=== PATIENT | female | born 1955 | race Caucasian/White ===

== ENCOUNTER 2016-03-29 12:32 | Emergency (ER) | payer BC, OTHER ==
[2016-03-29 14:22] LABS: INR 0.91
[2016-03-29 14:24] LABS: BASO # 0.1 K/mm3 (0.0-0.2); BASO % 0.9 % (0.0-1.0); EOS % 0.4 % (0.0-3.0); LARGE UNSTAINED CELL # 0.1 K/mm3 (0.0-0.4); LARGE UNSTAINED CELL % 1.7 % (0.0-4.0); LYMPH # 1.8 K/mm3 (1.5-4.5); LYMPH % 28.1 % (24.0-44.0); MEAN CORPUSCULAR HEMOGLOBIN 30.1 pg (27.0-33.0); MEAN CORPUSCULAR HGB CONC 32.9 g/dl (32.0-36.5); MEAN CORPUSCULAR VOLUME 91.3 fl (80.0-96.0); MONO # 0.3 K/mm3 (0.0-0.8); MONO % 4.5 % (0.0-5.0); NEUTROPHILS % 64.4 % (36.0-66.0); PLATELET COUNT, AUTOMATED 246 k/mm3 (150-450); RED CELL DISTRIBUTION WIDTH 12.6 % (11.5-14.5); WHITE BLOOD COUNT 6.2 K/mm3 (4.0-10.0)
[2016-03-29 14:34] LABS: ANION GAP 6 MEQ/L (8-16); BLOOD UREA NITROGEN 10 MG/DL (7-18); CALCIUM LEVEL 9.1 MG/DL (8.8-10.2); CARBON DIOXIDE LEVEL 31 MEQ/L (21-32); CHLORIDE LEVEL 104 MEQ/L (98-107); CREATININE FOR GFR 0.82 MG/DL (0.55-1.02); GLOMERULAR FILTRATION RATE > 60.0 (>45); GLUCOSE, FASTING 124 MG/DL (80-110); POTASSIUM SERUM 3.6 MEQ/L (3.5-5.1); SODIUM LEVEL 141 MEQ/L (136-145)
--- NOTE | 2016-03-29 15:15 | EDDOCDS ---
Nurse's Notes [facility] Name: Debbie Ceja Age: 60 yrs Sex: Female : 1955 Arrival Date: 03/29/2016 Time: 12:32 Bed PR Private MD: Pillo Garcia Diagnosis: Essential (primary) hypertension Presentation: 03/29 12:45 Presenting complaint: Patient states: saw Dr Garcia yesterday for headache x 2 days and [facility] elevated blood pressure. Started Norvasc last PM. today blood pressure high again took another dose of norvasc triage nurse at [facility] told her to come to the ED for evaluation. denies headache at this time. Adult Sepsis Screening: The patient does not have new or worsening altered mentation. Patient's respiratory rate is less than 22. Systolic blood pressure is greater than 100. Patient has a qSOFA score of 0- Negative Sepsis Screen. Suicide/Homicide risk assessment- the patient denies having any suicidal and/or homicidal ideations and does not present with any other emotional, behavioral or mental health complaints. Status: Patient is not a electrical appliance servicer or dependent. Transition of care: patient was not received from another setting of care. 12:45 Acuity: ESPERANZA Level 3 [facility] 12:45 Method Of Arrival: Walkin/Carried/Asstd [facility] Triage Assessment: 12:55 General: Appears comfortable, well nourished, well groomed, Behavior is appropriate for [facility] age, pleasant. Pain: Location: base of the skull Pain currently is 2 out of 10 on a pain scale. Pt Declines HIV testing. Neurological: Level of Consciousness is awake, alert, Oriented to person, place, time. Respiratory: Airway is patent Respiratory effort is even, unlabored, Respiratory pattern is regular, symmetrical. Derm: Skin is pink, warm & dry. Musculoskeletal: Reports pain in base of the skull Pain is 2 out of 10 on a pain scale. Historical: - Allergies: Ampicillin (Hives); - Home Meds: 1. Norvasc 5 mg Oral tab 1 tab once daily (Last dose: 03/29/2016 08:00) 2. levothyroxine 125 mcg Oral tab 1 tab nightly (Last dose: 03/28/2016) 3. Prevacid 30 mg Oral cpDR 1 cap once daily (Last dose: 03/29/2016 08:00) 4. Restasis 0.05 % ophthalmic dpet 1 drop 2 times per day (Last dose: 03/29/2016 08:00) 5. Mobic 15 mg oral tab 1 tab once daily (Last dose: 03/27/2016) 6. Flexeril 5 mg Oral tab Unknown 3 times per day as needed (Last dose: 03/27/2016) 7. Zantac 150 mg Oral tab 1 tab nightly (Last dose: 03/28/2016) 8. multivitamin Oral tab 1 tablet daily (Last dose: 03/29/2016 08:00) 9. Vitamin D Oral 2000 units twice a day (Last dose: 03/29/2016 08:00) 10. fiber capsules 2 cap daily (Last dose: 03/29/2016 08:00) - PMHx: GERD; Hypertension; Hypothyroidism; neck pain; dry eye; - PSHx: Tubal ligation; - Social history: Smoking status: Patient states former smoker of tobacco. No barriers to communication noted, The patient speaks fluent Hungarian. - : The pt / caregiver states he / she is not on anticoagulants. Home medication list is obtained from the patient. - Exposure Risk Screening:: None identified. Screenin:07 Screening information is obtained from the patient. Fall risk: No risks identified. dwg Assistance ADL's: requires no assistance with activities of daily living. Abuse/DV Screen: The patient / caregiver reports he/she is: not in a situation that causes fear, pain or injury. Nutritional screening: No deficits noted. Advance Directives: Currently, there is no health care proxy. There is no active DNR order. There is no living will. There is no Power of Spray Painter. Advance directive information has not previously been placed in an [facility] medical record. Further advance directive information is declined. home support is adequate. Assessment: 15:07 General: Appears in no apparent distress, comfortable, Behavior is cooperative, dwg pleasant. Pain: Denies pain. Neurological: Level of Consciousness is awake, alert, Oriented to person, place, time. Respiratory: Airway is patent Respiratory effort is even, unlabored, Respiratory pattern is regular, symmetrical. Vital Signs: 12:34 BP 173 / 107; Pulse 87; Resp 18; Temp 98.7(O); Pulse Ox 98% on R/A; Weight 66.68 kg elp (R); Height 5 ft. 7 in. (170.18 cm) (R); Pain 0/10; 13:18 BP 158 / 102 (man/); dwg 12:34 Body Mass Index 23.02 (66.68 kg, 170.18 cm) elp Vitals: 12:34 Log In Time: March 29, 2016 at 12:30. elp ED Course: 12:33 Patient visited by Bobbi Smith PCA. elp 12:33 Patient moved to Waiting elp 12:34 Pillo Garcia MD is Private Physician. elp 12:37 Patient visited by Bobbi Smith PCA. elp 12:37 Patient moved to Pre RCE elp 12:50 Triage Initiated kpj 12:57 [facility]. btw 12:57 Patient moved to Triage 1 kpj 12:58 Lizabeth Jones MD is Attending Physician. btw 12:58 Patient visited by Oamr Ortez PA. btw 13:22 Patient moved to PR [facility] 13:43 Patient visited by Patricia Workman PCA. rs6 14:04 [facility] Payment Agreement was scanned into [employer] and attached to record. lg 14:09 Patient moved to TR2 rs6 14:09 BMP Sent. rs6 14:09 Pt & Aptt Sent. rs6 14:09 CBC with Diff Sent. rs6 14:55 Pillo Garcia MD is Referral Physician. btw 14:58 Patient moved to PR dwg Order Results: Lab Order: CBC with Diff; SPEC'M 03/29/16 14:08 Test: WHITE BLOOD COUNT; Value: 6.2; Range: 4.0-10.0; Units: K/mm3; Status: F Test: RED BLOOD COUNT; Value: 5.11; Range: 4.00-5.40; Units: M/mm3; Status: F Test: HEMOGLOBIN; Value: 15.4; Range: 12.0-16.0; Units: g/dl; Status: F Test: HEMATOCRIT; Value: 46.7; Range: 36.0-47.0; Units: %; Status: F Test: MEAN CORPUSCULAR VOLUME; Value: 91.3; Range: 80.0-96.0; Units: fl; Status: F Test: MEAN CORPUSCULAR HEMOGLOBIN; Value: 30.1; Range: 27.0-33.0; Units: pg; Status: F Test: MEAN CORPUSCULAR HGB CONC; Value: 32.9; Range: 32.0-36.5; Units: g/dl; Status: F Test: RED CELL DISTRIBUTION WIDTH; Value: 12.6; Range: 11.5-14.5; Units: %; Status: F Test: PLATELET COUNT, AUTOMATED; Value: 246; Range: 150-450; Units: k/mm3; Status: F Test: NEUTROPHILS %; Value: 64.4; Range: 36.0-66.0; Units: %; Status: F Test: LYMPH %; Value: 28.1; Range: 24.0-44.0; Units: %; Status: F Test: MONO %; Value: 4.5; Range: 0.0-5.0; Units: %; Status: F Test: EOS %; Value: 0.4; Range: 0.0-3.0; Units: %; Status: F Test: BASO %; Value: 0.9; Range: 0.0-1.0; Units: %; Status: F Test: LARGE UNSTAINED CELL %; Value: 1.7; Range: 0.0-4.0; Units: %; Status: F Test: NEUTROPHILS #; Value: 4.0; Range: 1.8-7.7; Units: K/mm3; Status: F Test: LYMPH #; Value: 1.8; Range: 1.5-4.5; Units: K/mm3; Status: F Test: MONO #; Value: 0.3; Range: 0.0-0.8; Units: K/mm3; Status: F Test: EOS #; Value: 0.0; Range: 0.0-0.50; Units: K/mm3; Status: F Test: BASO #; Value: 0.1; Range: 0.0-0.2; Units: K/mm3; Status: F Test: LARGE UNSTAINED CELL #; Value: 0.1; Range: 0.0-0.4; Units: K/mm3; Status: F Lab Order: Pt & Aptt; SPEC'M 03/29/16 14:08 Test: PROTHROMBIN TIME; Value: 12.4; Range: 12.3-14.5; Units: SECONDS; Status: F Test: INR; Value: 0.91; Status: F Test: PARTIAL THROMBOPLASTIN TIME; Value: 26.4; Range: 26.6-37.1; Abnormal: Below low normal; Units: SECONDS; Status: F Test Note: ; THERAPUTIC HUMAN INR VALUES INDICATIONS NORMAL RANGES PROPHYLAXIS/TREATMENT OF: VENOUS THROMBOSIS 2.0-3.0 PULMONARY EMBOLISM 2.0-3.0 PREVENTION OF SYSTEMIC EMBOLISM FROM: TISSUE HEART VALVES 2.0-3.0 ACUTE MYOCARDIAL INFARCTION 2.0-3.0 VALVULAR HEART DISEASE 2.0-3.0 ATRIAL FIBRILLATION 2.0-3.0 MECHANICAL VALVES(HIGH RISK) 2.5-3.5 RECURRENT MYOCARDIAL INFARCTION 2.5-3.5 Lab Order: [facility]; ' 03/29/16 14:08 Test: GLUCOSE, FASTING; Value: 124; Range: 80-110; Abnormal: Above high normal; Units: MG/DL; Status: F Test: BLOOD UREA NITROGEN; Value: 10; Range: 7-18; Units: MG/DL; Status: F Test: CREATININE FOR GFR; Value: 0.82; Range: 0.55-1.02; Units: MG/DL; Status: F Test: GLOMERULAR FILTRATION RATE; Value: > 60.0; Range: >45; Status: F Test: SODIUM LEVEL; Value: 141; Range: 136-145; Units: MEQ/L; Status: F Test: POTASSIUM SERUM; Value: 3.6; Range: 3.5-5.1; Units: MEQ/L; Status: F Test: CHLORIDE LEVEL; Value: 104; Range: 98-107; Units: MEQ/L; Status: F Test: CARBON DIOXIDE LEVEL; Value: 31; Range: 21-32; Units: MEQ/L; Status: F Test: ANION GAP; Value: 6; Range: 8-16; Abnormal: Below low normal; Units: MEQ/L; Status: F Test: CALCIUM LEVEL; Value: 9.1; Range: 8.8-10.2; Units: MG/DL; Status: F Test Note: ; Units are mL/min/1.73 m2 Chronic Kidney Disease Staging per NKF: Stage I & II GFR >=60 Normal to Mildly Decreased Stage III GFR 30-59 Moderately Decreased Stage IV GFR 15-29 Severely Decreased Stage V GFR <15 Very Little GFR Left ESRD GFR <15 on SEWAGE PLANT ATTENDANT Outcome: 14:55 Discharge ordered by Provider. [facility] 15:14 Patient left the ED. [facility] Signatures: Jose Arias, RN RN Pauly Harmon RN RN Rachael Rosales, Reg Reg Omar Ortez PA PA bt Shawna Mo,RN RN [facility] Bobbi Smith, WAREHOUSE ATTENDANT WAREHOUSE ATTENDANT elp Patricia Workman, WAREHOUSE ATTENDANT WAREHOUSE ATTENDANT rs6 Corrections: (The following items were deleted from the chart) 13:18 13:15 BP 158 / 102; [facility] MTDD
--- NOTE | 2016-03-29 15:15 | EDDOCDS ---
Physician Documentation [facility] Name: Debbie Ceja Age: 60 yrs Sex: Female : 1955 Arrival Date: 03/29/2016 Time: 12:32 Bed Private MD: Pillo Garcia Disposition: 03/29/16 14:55 Discharged to Home/Self Care. Impression: Essential (primary) hypertension. - Condition is Stable. - Discharge Instructions: Hypertension. - Medication Reconciliation, Local Pharmacy Hours form. - Follow up: Pillo Garcia MD; When: Call to arrange an appointment; Reason: Further diagnostic work-up, Recheck today's complaints, Continuance of care. - Problem is new. - Symptoms are unchanged. Historical: - Allergies: Ampicillin (Hives); - Home Meds: 1. Norvasc 5 mg Oral tab 1 tab once daily (Last dose: 03/29/2016 08:00) 2. levothyroxine 125 mcg Oral tab 1 tab nightly (Last dose: 03/28/2016) 3. Prevacid 30 mg Oral cpDR 1 cap once daily (Last dose: 03/29/2016 08:00) 4. Restasis 0.05 % ophthalmic dpet 1 drop 2 times per day (Last dose: 03/29/2016 08:00) 5. Mobic 15 mg oral tab 1 tab once daily (Last dose: 03/27/2016) 6. Flexeril 5 mg Oral tab Unknown 3 times per day as needed (Last dose: 03/27/2016) 7. Zantac 150 mg Oral tab 1 tab nightly (Last dose: 03/28/2016) 8. multivitamin Oral tab 1 tablet daily (Last dose: 03/29/2016 08:00) 9. Vitamin D Oral 2000 units twice a day (Last dose: 03/29/2016 08:00) 10. fiber capsules 2 cap daily (Last dose: 03/29/2016 08:00) - PMHx: GERD; Hypertension; Hypothyroidism; neck pain; dry eye; - PSHx: Tubal ligation; - Social history: Smoking status: Patient states former smoker of tobacco. No barriers to communication noted, The patient speaks fluent Indonesian. - : The pt / caregiver states he / she is not on anticoagulants. Home medication list is obtained from the patient. - Exposure Risk Screening:: None identified. Vital Signs: 03/29 12:34 BP 173 / 107; Pulse 87; Resp 18; Temp 98.7(O); Pulse Ox 98% on R/A; Weight 66.68 kg / elp 147 lbs (R); Height 5 ft. 7 in. (170.18 cm) (R); Pain 0/10; 13:18 BP 158 / 102 (man/); dwg 12:34 Body Mass Index 23.02 (66.68 kg, 170.18 cm) elp MDM: 13:01 Recheck B/P ordered. btw 13:24 Financial registration complete. lg 13:58 CBC with Diff Ordered. EDMS 13:58 Pt & Aptt Ordered. EDMS 13:59 BMP Ordered. EDMS 14:04 REPLACED BY [facility] Payment Agreement was scanned into [employer] and attached to record. lg 14:31 Pt & Aptt Reviewed. btw 14:31 CBC with Diff Reviewed. btw 14:53 BMP Reviewed. btw Signatures: Dispatcher [employer] Jose Pickard, GERMAINE RN Pauly Harmon RN RN kpRachael Christiansen, Reg Reg lg Omar Ortez, TERESA MOORE btw The chart was reviewed and I authenticate all verbal orders and agree with the evaluation and treatment provided.Attachments: 14:04 REPLACED BY [facility] Payment Agreement lg MTDD
--- NOTE | 2016-03-31 16:16 | EDDOCDS ---
Physician Documentation [facility] Name: Debbie Ceja Age: 60 yrs Sex: Female : 1955 Arrival Date: 03/29/2016 Time: 12:32 Bed Private MD: Pillo Garcia Disposition: 03/29/16 14:55 Discharged to Home/Self Care. Impression: Essential (primary) hypertension. - Condition is Stable. - Discharge Instructions: Hypertension. - Medication Reconciliation, Local Pharmacy Hours form. - Follow up: Pillo Garcia MD; When: Call to arrange an appointment; Reason: Further diagnostic work-up, Recheck today's complaints, Continuance of care. - Problem is new. - Symptoms are unchanged. Historical: - Allergies: Ampicillin (Hives); - Home Meds: 1. Norvasc 5 mg Oral tab 1 tab once daily (Last dose: 03/29/2016 08:00) 2. levothyroxine 125 mcg Oral tab 1 tab nightly (Last dose: 03/28/2016) 3. Prevacid 30 mg Oral cpDR 1 cap once daily (Last dose: 03/29/2016 08:00) 4. Restasis 0.05 % ophthalmic dpet 1 drop 2 times per day (Last dose: 03/29/2016 08:00) 5. Mobic 15 mg oral tab 1 tab once daily (Last dose: 03/27/2016) 6. Flexeril 5 mg Oral tab Unknown 3 times per day as needed (Last dose: 03/27/2016) 7. Zantac 150 mg Oral tab 1 tab nightly (Last dose: 03/28/2016) 8. multivitamin Oral tab 1 tablet daily (Last dose: 03/29/2016 08:00) 9. Vitamin D Oral 2000 units twice a day (Last dose: 03/29/2016 08:00) 10. fiber capsules 2 cap daily (Last dose: 03/29/2016 08:00) - PMHx: GERD; Hypertension; Hypothyroidism; neck pain; dry eye; - PSHx: Tubal ligation; - Social history: Smoking status: Patient states former smoker of tobacco. No barriers to communication noted, The patient speaks fluent Malay. - : The pt / caregiver states he / she is not on anticoagulants. Home medication list is obtained from the patient. - Exposure Risk Screening:: None identified. Vital Signs: 03/29 12:34 BP 173 / 107; Pulse 87; Resp 18; Temp 98.7(O); Pulse Ox 98% on R/A; Weight 66.68 kg / elp 147 lbs (R); Height 5 ft. 7 in. (170.18 cm) (R); Pain 0/10; 13:18 BP 158 / 102 (man/); dwg 12:34 Body Mass Index 23.02 (66.68 kg, 170.18 cm) elp MDM: 13:01 Recheck B/P ordered. btw 13:24 Financial registration complete. lg 13:58 CBC with Diff Ordered. EDMS 13:58 Pt & Aptt Ordered. EDMS 13:59 BMP Ordered. EDMS 14:04 [facility] Payment Agreement was scanned into [employer] and attached to record. lg 14:31 Pt & Aptt Reviewed. btw 14:31 CBC with Diff Reviewed. btw 14:53 BMP Reviewed. btw 03/30 09:02 T-Sheet-- Draft Copy was scanned into [employer] and attached to record. gb Signatures: Dispatcher [employer] Jose Pickard, RN RN Pauly Harmon RN RN Lucille Carranza, Reg Reg gb Rachael Cooper, Reg Reg lg Omar Ortez, TERESA PA btw The chart was reviewed and I authenticate all verbal orders and agree with the evaluation and treatment provided.Attachments: 03/29 14:04 [facility] Payment Agreement lg 03/30 09:02 T-Sheet-- Draft Copy gb Chart Complete MTDD
--- NOTE | 2016-03-31 16:16 | EDDOCDS ---
Nurse's Notes [facility] Name: Debbie Ceja Age: 60 yrs Sex: Female : 1955 Arrival Date: 03/29/2016 Time: 12:32 Bed PR Private MD: Pillo Garcia Diagnosis: Essential (primary) hypertension Presentation: 03/29 12:45 Presenting complaint: Patient states: saw Dr Garcia yesterday for headache x 2 days and [facility] elevated blood pressure. Started Norvasc last PM. today blood pressure high again took another dose of norvasc triage nurse at [facility] told her to come to the ED for evaluation. denies headache at this time. Adult Sepsis Screening: The patient does not have new or worsening altered mentation. Patient's respiratory rate is less than 22. Systolic blood pressure is greater than 100. Patient has a qSOFA score of 0- Negative Sepsis Screen. Suicide/Homicide risk assessment- the patient denies having any suicidal and/or homicidal ideations and does not present with any other emotional, behavioral or mental health complaints. Status: Patient is not a service dispatcher or dependent. Transition of care: patient was not received from another setting of care. 12:45 Acuity: ESPERANZA Level 3 [facility] 12:45 Method Of Arrival: Walkin/Carried/Asstd [facility] Triage Assessment: 12:55 General: Appears comfortable, well nourished, well groomed, Behavior is appropriate for [facility] age, pleasant. Pain: Location: base of the skull Pain currently is 2 out of 10 on a pain scale. Pt Declines HIV testing. Neurological: Level of Consciousness is awake, alert, Oriented to person, place, time. Respiratory: Airway is patent Respiratory effort is even, unlabored, Respiratory pattern is regular, symmetrical. Derm: Skin is pink, warm & dry. Musculoskeletal: Reports pain in base of the skull Pain is 2 out of 10 on a pain scale. Historical: - Allergies: Ampicillin (Hives); - Home Meds: 1. Norvasc 5 mg Oral tab 1 tab once daily (Last dose: 03/29/2016 08:00) 2. levothyroxine 125 mcg Oral tab 1 tab nightly (Last dose: 03/28/2016) 3. Prevacid 30 mg Oral cpDR 1 cap once daily (Last dose: 03/29/2016 08:00) 4. Restasis 0.05 % ophthalmic dpet 1 drop 2 times per day (Last dose: 03/29/2016 08:00) 5. Mobic 15 mg oral tab 1 tab once daily (Last dose: 03/27/2016) 6. Flexeril 5 mg Oral tab Unknown 3 times per day as needed (Last dose: 03/27/2016) 7. Zantac 150 mg Oral tab 1 tab nightly (Last dose: 03/28/2016) 8. multivitamin Oral tab 1 tablet daily (Last dose: 03/29/2016 08:00) 9. Vitamin D Oral 2000 units twice a day (Last dose: 03/29/2016 08:00) 10. fiber capsules 2 cap daily (Last dose: 03/29/2016 08:00) - PMHx: GERD; Hypertension; Hypothyroidism; neck pain; dry eye; - PSHx: Tubal ligation; - Social history: Smoking status: Patient states former smoker of tobacco. No barriers to communication noted, The patient speaks fluent Malay. - : The pt / caregiver states he / she is not on anticoagulants. Home medication list is obtained from the patient. - Exposure Risk Screening:: None identified. Screenin:07 Screening information is obtained from the patient. Fall risk: No risks identified. dwg Assistance ADL's: requires no assistance with activities of daily living. Abuse/DV Screen: The patient / caregiver reports he/she is: not in a situation that causes fear, pain or injury. Nutritional screening: No deficits noted. Advance Directives: Currently, there is no health care proxy. There is no active DNR order. There is no living will. There is no Power of Flow Trader. Advance directive information has not previously been placed in an [facility] medical record. Further advance directive information is declined. home support is adequate. Assessment: 15:07 General: Appears in no apparent distress, comfortable, Behavior is cooperative, dwg pleasant. Pain: Denies pain. Neurological: Level of Consciousness is awake, alert, Oriented to person, place, time. Respiratory: Airway is patent Respiratory effort is even, unlabored, Respiratory pattern is regular, symmetrical. Vital Signs: 12:34 BP 173 / 107; Pulse 87; Resp 18; Temp 98.7(O); Pulse Ox 98% on R/A; Weight 66.68 kg elp (R); Height 5 ft. 7 in. (170.18 cm) (R); Pain 0/10; 13:18 BP 158 / 102 (man/); dwg 12:34 Body Mass Index 23.02 (66.68 kg, 170.18 cm) elp Vitals: 12:34 Log In Time: March 29, 2016 at 12:30. elp ED Course: 12:33 Patient visited by Bobbi Smith PCA. elp 12:33 Patient moved to Waiting elp 12:34 Pillo Garcia MD is Private Physician. elp 12:37 Patient visited by Bobbi Smith PCA. elp 12:37 Patient moved to Pre RCE elp 12:50 Triage Initiated kpj 12:57 [facility] btw 12:57 Patient moved to Triage 1 kp 12:58 Lizabeth Jones MD is Attending Physician. btw 12:58 Patient visited by Omar Ortez PA. btw 13:22 Patient moved to PR [facility] 13:43 Patient visited by Patricia Workman PCA. rs6 14:04 [facility] Payment Agreement was scanned into [employer] and attached to record. lg 14:09 Patient moved to TR2 rs6 14:09 BMP Sent. rs6 14:09 Pt & Aptt Sent. rs6 14:09 CBC with Diff Sent. rs6 14:55 Pillo Garcia MD is Referral Physician. btw 14:58 Patient moved to PR [facility] 03/30 09:02 T-Sheet-- Draft Copy was scanned into [employer] and attached to record. gb Order Results: Lab Order: CBC with Diff; SPEC'M 03/29/16 14:08 Test: WHITE BLOOD COUNT; Value: 6.2; Range: 4.0-10.0; Units: K/mm3; Status: F Test: RED BLOOD COUNT; Value: 5.11; Range: 4.00-5.40; Units: M/mm3; Status: F Test: HEMOGLOBIN; Value: 15.4; Range: 12.0-16.0; Units: g/dl; Status: F Test: HEMATOCRIT; Value: 46.7; Range: 36.0-47.0; Units: %; Status: F Test: MEAN CORPUSCULAR VOLUME; Value: 91.3; Range: 80.0-96.0; Units: fl; Status: F Test: MEAN CORPUSCULAR HEMOGLOBIN; Value: 30.1; Range: 27.0-33.0; Units: pg; Status: F Test: MEAN CORPUSCULAR HGB CONC; Value: 32.9; Range: 32.0-36.5; Units: g/dl; Status: F Test: RED CELL DISTRIBUTION WIDTH; Value: 12.6; Range: 11.5-14.5; Units: %; Status: F Test: PLATELET COUNT, AUTOMATED; Value: 246; Range: 150-450; Units: k/mm3; Status: F Test: NEUTROPHILS %; Value: 64.4; Range: 36.0-66.0; Units: %; Status: F Test: LYMPH %; Value: 28.1; Range: 24.0-44.0; Units: %; Status: F Test: MONO %; Value: 4.5; Range: 0.0-5.0; Units: %; Status: F Test: EOS %; Value: 0.4; Range: 0.0-3.0; Units: %; Status: F Test: BASO %; Value: 0.9; Range: 0.0-1.0; Units: %; Status: F Test: LARGE UNSTAINED CELL %; Value: 1.7; Range: 0.0-4.0; Units: %; Status: F Test: NEUTROPHILS #; Value: 4.0; Range: 1.8-7.7; Units: K/mm3; Status: F Test: LYMPH #; Value: 1.8; Range: 1.5-4.5; Units: K/mm3; Status: F Test: MONO #; Value: 0.3; Range: 0.0-0.8; Units: K/mm3; Status: F Test: EOS #; Value: 0.0; Range: 0.0-0.50; Units: K/mm3; Status: F Test: BASO #; Value: 0.1; Range: 0.0-0.2; Units: K/mm3; Status: F Test: LARGE UNSTAINED CELL #; Value: 0.1; Range: 0.0-0.4; Units: K/mm3; Status: F Lab Order: Pt & Aptt; SPEC'M 03/29/16 14:08 Test: PROTHROMBIN TIME; Value: 12.4; Range: 12.3-14.5; Units: SECONDS; Status: F Test: INR; Value: 0.91; Status: F Test: PARTIAL THROMBOPLASTIN TIME; Value: 26.4; Range: 26.6-37.1; Abnormal: Below low normal; Units: SECONDS; Status: F Test Note: ; THERAPUTIC HUMAN INR VALUES INDICATIONS NORMAL RANGES PROPHYLAXIS/TREATMENT OF: VENOUS THROMBOSIS 2.0-3.0 PULMONARY EMBOLISM 2.0-3.0 PREVENTION OF SYSTEMIC EMBOLISM FROM: TISSUE HEART VALVES 2.0-3.0 ACUTE MYOCARDIAL INFARCTION 2.0-3.0 VALVULAR HEART DISEASE 2.0-3.0 ATRIAL FIBRILLATION 2.0-3.0 MECHANICAL VALVES(HIGH RISK) 2.5-3.5 RECURRENT MYOCARDIAL INFARCTION 2.5-3.5 Lab Order: BMP; SPEC'M 03/29/16 14:08 Test: GLUCOSE, FASTING; Value: 124; Range: 80-110; Abnormal: Above high normal; Units: MG/DL; Status: F Test: BLOOD UREA NITROGEN; Value: 10; Range: 7-18; Units: MG/DL; Status: F Test: CREATININE FOR GFR; Value: 0.82; Range: 0.55-1.02; Units: MG/DL; Status: F Test: GLOMERULAR FILTRATION RATE; Value: > 60.0; Range: >45; Status: F Test: SODIUM LEVEL; Value: 141; Range: 136-145; Units: MEQ/L; Status: F Test: POTASSIUM SERUM; Value: 3.6; Range: 3.5-5.1; Units: MEQ/L; Status: F Test: CHLORIDE LEVEL; Value: 104; Range: 98-107; Units: MEQ/L; Status: F Test: CARBON DIOXIDE LEVEL; Value: 31; Range: 21-32; Units: MEQ/L; Status: F Test: ANION GAP; Value: 6; Range: 8-16; Abnormal: Below low normal; Units: MEQ/L; Status: F Test: CALCIUM LEVEL; Value: 9.1; Range: 8.8-10.2; Units: MG/DL; Status: F Test Note: ; Units are mL/min/1.73 m2 Chronic Kidney Disease Staging per NKF: Stage I & II GFR >=60 Normal to Mildly Decreased Stage III GFR 30-59 Moderately Decreased Stage IV GFR 15-29 Severely Decreased Stage V GFR <15 Very Little GFR Left ESRD GFR <15 on DOCTORATE OF CHIROPRACTIC Outcome: 03/29 14:55 Discharge ordered by Provider. btw 15:14 Patient left the ED. [facility] Signatures: Jose Arias, RN RN gianna Pauly Herman, RN RN Lucille Quinteros, Reg Reg gb Rachael Cooper, Reg Reg lg Omar Ortez PA PA btw Shawna Mo,RN RN [facility] Bobbi Smith, LIBRARY AIDE LIBRARY AIDE elp Patricia Workman, LIBRARY AIDE LIBRARY AIDE rs6 Corrections: (The following items were deleted from the chart) 13:18 13:15 BP 158 / 102; [facility] Chart Complete MTDD
--- NOTE | 2016-03-31 16:16 | EDDOCDS ---
Physician Documentation [facility] Name: Debbie Ceja Age: 60 yrs Sex: Female : 1955 Arrival Date: 03/29/2016 Time: 12:32 Bed Private MD: Pillo Garcia Disposition: 03/29/16 14:55 Discharged to Home/Self Care. Impression: Essential (primary) hypertension. - Condition is Stable. - Discharge Instructions: Hypertension. - Medication Reconciliation, Local Pharmacy Hours form. - Follow up: Pillo Garcia MD; When: Call to arrange an appointment; Reason: Further diagnostic work-up, Recheck today's complaints, Continuance of care. - Problem is new. - Symptoms are unchanged. Historical: - Allergies: Ampicillin (Hives); - Home Meds: 1. Norvasc 5 mg Oral tab 1 tab once daily (Last dose: 03/29/2016 08:00) 2. levothyroxine 125 mcg Oral tab 1 tab nightly (Last dose: 03/28/2016) 3. Prevacid 30 mg Oral cpDR 1 cap once daily (Last dose: 03/29/2016 08:00) 4. Restasis 0.05 % ophthalmic dpet 1 drop 2 times per day (Last dose: 03/29/2016 08:00) 5. Mobic 15 mg oral tab 1 tab once daily (Last dose: 03/27/2016) 6. Flexeril 5 mg Oral tab Unknown 3 times per day as needed (Last dose: 03/27/2016) 7. Zantac 150 mg Oral tab 1 tab nightly (Last dose: 03/28/2016) 8. multivitamin Oral tab 1 tablet daily (Last dose: 03/29/2016 08:00) 9. Vitamin D Oral 2000 units twice a day (Last dose: 03/29/2016 08:00) 10. fiber capsules 2 cap daily (Last dose: 03/29/2016 08:00) - PMHx: GERD; Hypertension; Hypothyroidism; neck pain; dry eye; - PSHx: Tubal ligation; - Social history: Smoking status: Patient states former smoker of tobacco. No barriers to communication noted, The patient speaks fluent French. - : The pt / caregiver states he / she is not on anticoagulants. Home medication list is obtained from the patient. - Exposure Risk Screening:: None identified. Vital Signs: 03/29 12:34 BP 173 / 107; Pulse 87; Resp 18; Temp 98.7(O); Pulse Ox 98% on R/A; Weight 66.68 kg / elp 147 lbs (R); Height 5 ft. 7 in. (170.18 cm) (R); Pain 0/10; 13:18 BP 158 / 102 (man/); dwg 12:34 Body Mass Index 23.02 (66.68 kg, 170.18 cm) elp MDM: 13:01 Recheck B/P ordered. btw 13:24 Financial registration complete. lg 13:58 CBC with Diff Ordered. EDMS 13:58 Pt & Aptt Ordered. EDMS 13:59 BMP Ordered. EDMS 14:04 [facility] Payment Agreement was scanned into [employer] and attached to record. lg 14:31 Pt & Aptt Reviewed. btw 14:31 CBC with Diff Reviewed. btw 14:53 BMP Reviewed. btw 03/30 09:02 T-Sheet-- Draft Copy was scanned into [employer] and attached to record. gb Signatures: Dispatcher [employer] Jose Pickard, RN RN Pauly Harmon RN RN Lucille Carranza, Reg Reg gb Rachael Cooper, Reg Reg lg Omar Ortez, TERESA PA btw The chart was reviewed and I authenticate all verbal orders and agree with the evaluation and treatment provided.Attachments: 03/29 14:04 [facility] Payment Agreement lg 03/30 09:02 T-Sheet-- Draft Copy gb Chart Complete MTDD
== END 2016-03-29 15:14 | disposition home or self-care (01) ==
LOC: M ED 12:32
DX: I10 Essential (primary) hypertension (principal); E03.9 Hypothyroidism, unspecified; K21.9 Gastro-esophageal reflux disease without esophagitis; M54.2 Cervicalgia; H04.129 Dry eye syndrome of unspecified lacrimal gland; Z79.899 Other long term (current) drug therapy; Z88.1 Allergy status to other antibiotic agents

== ENCOUNTER → 2016-05-22 | Outpatient (REF) | payer BC, OTHER ==
[2016-05-22 21:13] LABS: FREE T4 1.39 NG/DL (0.76-1.46)
== END ==
LOC: M LABDRAW1 10:48
PROVIDERS: ATTEND Internal Medicine
DX: E06.3 Autoimmune thyroiditis (principal); E55.9 Vitamin D deficiency, unspecified

== ENCOUNTER → 2016-05-22 | Outpatient (REF) | payer BC, OTHER ==
[2016-05-22 11:26] LABS: ALBUMIN 3.6 GM/DL (3.2-5.2); ALBUMIN/GLOBULIN RATIO 1.09 (1.00-1.93); ALKALINE PHOSPHATASE 79 U/L (45-117); ALT/SGPT 19 U/L (12-78); ANION GAP 8 MEQ/L (8-16); AST/SGOT 14 U/L (15-37); BILIRUBIN,TOTAL 0.5 MG/DL (0.2-1.0); BLOOD UREA NITROGEN 19 MG/DL (7-18); CALCIUM LEVEL 8.8 MG/DL (8.8-10.2); CARBON DIOXIDE LEVEL 29 MEQ/L (21-32); CHLORIDE LEVEL 107 MEQ/L (98-107); CHOLESTEROL LEVEL 219 MG/DL (<200); CREATININE FOR GFR 0.85 MG/DL (0.55-1.02); FREE T4 1.37 NG/DL (0.76-1.46); GLOMERULAR FILTRATION RATE > 60.0 (>45); GLUCOSE, FASTING 100 MG/DL (80-110); POTASSIUM SERUM 4.5 MEQ/L (3.5-5.1); SODIUM LEVEL 144 MEQ/L (136-145); TOTAL PROTEIN 6.9 GM/DL (6.4-8.2); TRIGLYCERIDES LEVEL 68 MG/DL (<150)
== END ==
LOC: M LABDRAW1 10:47
PROVIDERS: ATTEND Family Medicine
DX: E06.3 Autoimmune thyroiditis (principal); E55.9 Vitamin D deficiency, unspecified; E78.2 Mixed hyperlipidemia; E03.9 Hypothyroidism, unspecified

== ENCOUNTER → 2016-07-09 | Outpatient (REF) | payer BC, OTHER ==
[2016-07-09 19:28] LABS: FREE T4 1.1 NG/DL (0.76-1.46)
== END ==
LOC: M LABDRAW1 17:08
PROVIDERS: ATTEND Family Medicine
DX: E03.9 Hypothyroidism, unspecified (principal); R73.01 Impaired fasting glucose

== ENCOUNTER 2016-08-24 01:48 | Emergency (ER) | payer BC, OTHER ==
[~2016-08-24] VITALS: Ht 170.2 cm; Wt 68.0 kg
[2016-08-24] MEDS ORDERED: PREV1CAP PO (01:57)
[2016-08-24] MEDS ORDERED: LEVO125T4 PO (01:57)
[2016-08-24] MEDS ORDERED: RANI15TA PO (01:57)
[2016-08-24] MEDS ORDERED: CIPR-249 PO (01:57)
[2016-08-24] MEDS ORDERED: NS 1,000 ML IV SCH (02:14)
[2016-08-24] MEDS ORDERED: PROPOFOL 200 MG/20 ML VIAL As Ordered ONE (02:14)
[2016-08-24] MEDS ORDERED: NS 500 ML IV ONE (02:15)
[2016-08-24] MEDS ORDERED: ONDANSETRON 4MG/2ML VIAL (J2405) IV ONE (02:15)
[2016-08-24] MEDS: PROPOFOL 200 MG/20 ML VIAL IV PRN ×3 (02:24→02:28)
[2016-08-24 02:26] LABS: BASO % 0.4 % (0.0-1.0); EOS # 0.1 K/mm3 (0.0-0.50); EOS % 1.2 % (0.0-3.0); LARGE UNSTAINED CELL # 0.3 K/mm3 (0.0-0.4); LARGE UNSTAINED CELL % 2.5 % (0.0-4.0); LYMPH # 4.3 K/mm3 (1.5-4.5); LYMPH % 36.4 % (24.0-44.0); MEAN CORPUSCULAR HEMOGLOBIN 29.4 pg (27.0-33.0); MEAN CORPUSCULAR HGB CONC 33.3 g/dl (32.0-36.5); MEAN CORPUSCULAR VOLUME 88.2 fl (80.0-96.0); MONO # 0.6 K/mm3 (0.0-0.8); MONO % 5.3 % (0.0-5.0); NEUTROPHILS # 5.9 K/mm3 (1.8-7.7); NEUTROPHILS % 54.3 % (36.0-66.0); PLATELET COUNT, AUTOMATED 260 k/mm3 (150-450); RED CELL DISTRIBUTION WIDTH 12.7 % (11.5-14.5); WHITE BLOOD COUNT 10.9 K/mm3 (4.0-10.0)
[2016-08-24 02:31] VITALS: O2SAT 100
[2016-08-24 03:05] LABS: ANION GAP 12 MEQ/L (8-16); BLOOD UREA NITROGEN 11 MG/DL (7-18); CALCIUM LEVEL 8.8 MG/DL (8.8-10.2); CARBON DIOXIDE LEVEL 24 MEQ/L (21-32); CHLORIDE LEVEL 104 MEQ/L (98-107); CREATININE FOR GFR 0.88 MG/DL (0.55-1.02); GLOMERULAR FILTRATION RATE > 60.0 (>45); GLUCOSE, FASTING 128 MG/DL (80-110); MAGNESIUM LEVEL 2.2 MG/DL (1.8-2.4); POTASSIUM SERUM 3.3 MEQ/L (3.5-5.1); SODIUM LEVEL 140 MEQ/L (136-145)
[2016-08-24] MEDS ORDERED: ATEN25TA PO (04:13)
[2016-08-24 04:15] VITALS: BP 145/92
[2016-08-24] MEDS ORDERED: ATENOLOL 25 MG TAB PO ONE (04:30)
--- NOTE | 2016-08-24 12:18 | ECGEPIP ---
Stationary ECG Study [facility] - ED Test Date: 2016-08-24 Pat Name: LISE GOMES Department: Room: - Gender: F Java Front End Web Developer: henrik : 1955 Requested By: BLANCA Chaparro Order Number: [id number] Reading MD: Aaron Patel Measurements Intervals [place] Rate: 109 P: 74 ID: 185 QRS: -31 QRSD: 96 T: 83 QT: 337 QTc: 454 Interpretive Statements SINUS TACHYCARDIA LEFT AXIS DEVIATION INCOMPLETE RIGHT BUNDLE BRANCH BLOCK NONSPECIFIC ST & T-WAVE ABNORMALITY RHYTHM CHANGE COMPARED TO PRIOR ON SAME DATE Electronically Signed On 08-24-2016 12:18:26 EDT by Aaron Patel
--- NOTE | 2016-08-24 12:18 | ECGEPIP ---
Stationary ECG Study [facility] - ED Test Date: 2016-08-24 Pat Name: LISE GOMES Department: Room: - Gender: F Entry Level Paralegal: DEVON : 1955 Requested By: BLANCA Chaparro Order Number: [id number] Reading MD: Aaron Patel Measurements Intervals [place] Rate: 174 P: [place]: 0 QRS: -38 QRSD: 92 T: 106 QT: 213 QTc: 363 Interpretive Statements ATRIAL FIBRILLATION WITH RAPID VENTRICULAR RESPONSE MARKED LEFT AXIS DEVIATION INCOMPLETE RIGHT BUNDLE BRANCH BLOCK SEPTAL MYOCARDIAL INFARCTION, PROBABLY OLD ST DEPRESSION, CONSIDER SUBENDOCARDIAL INJURY NO PRIORS Electronically Signed On 08-24-2016 12:17:55 EDT by Aaron Patel
== END 2016-08-24 04:34 | disposition home or self-care (01) ==
LOC: M ED 03:33
DX: I48.91 Unspecified atrial fibrillation (principal); Z79.899 Other long term (current) drug therapy; Z88.1 Allergy status to other antibiotic agents

== ENCOUNTER → 2016-08-28 | Outpatient (REF) | payer OTHER ==
[~2016-08-28] MED LIST: ATEN25TA PO; CIPR-249 PO; LEVO125T4 PO; PREV1CAP PO; RANI15TA PO
== END ==
LOC: M SFHCPLAZ 15:46
PROVIDERS: ATTEND Physician Assistant Medical
DX: E03.9 Hypothyroidism, unspecified (principal)

== ENCOUNTER → 2016-11-16 | Outpatient (REF) | payer OTHER ==
[2016-11-16 18:02] LABS: ALBUMIN 3.7 GM/DL (3.2-5.2); ALBUMIN/GLOBULIN RATIO 1.06 (1.00-1.93); ALKALINE PHOSPHATASE 84 U/L (45-117); ALT/SGPT 22 U/L (12-78); ANION GAP 9 MEQ/L (8-16); AST/SGOT 13 U/L (15-37); BILIRUBIN,TOTAL 0.4 MG/DL (0.2-1.0); BLOOD UREA NITROGEN 16 MG/DL (7-18); CALCIUM LEVEL 8.6 MG/DL (8.8-10.2); CARBON DIOXIDE LEVEL 27 MEQ/L (21-32); CHLORIDE LEVEL 107 MEQ/L (98-107); CHOLESTEROL LEVEL 194 MG/DL (<200); GLOMERULAR FILTRATION RATE > 60.0 (>45); GLUCOSE, FASTING 88 MG/DL (80-110); POTASSIUM SERUM 3.9 MEQ/L (3.5-5.1); SODIUM LEVEL 143 MEQ/L (136-145); TOTAL PROTEIN 7.2 GM/DL (6.4-8.2); TRIGLYCERIDES LEVEL 176 MG/DL (<150)
[2016-11-23 10:32] LABS: FREE T4 BY DIALYSIS DIRECT 1.2 ng/dL (.)
== END ==
LOC: M LABDRAW1 17:06
PROVIDERS: ATTEND Family Medicine
DX: R73.01 Impaired fasting glucose (principal); E55.9 Vitamin D deficiency, unspecified; E03.9 Hypothyroidism, unspecified

== ENCOUNTER → 2016-11-16 | Outpatient (REF) | payer OTHER ==
[2016-11-16 18:08] LABS: FREE T4 1.07 NG/DL (0.76-1.46)
== END ==
LOC: M LABDRAW1 17:09
PROVIDERS: ATTEND Internal Medicine Endocrinology, Diabetes & Metabolism
DX: E06.3 Autoimmune thyroiditis (principal)

== ENCOUNTER → 2017-04-01 | Outpatient (REF) | payer OTHER ==
[2017-04-01 20:53] LABS: ALBUMIN/GLOBULIN RATIO 1.18 (1.00-1.93); ALKALINE PHOSPHATASE 70 U/L (45-117); ALT/SGPT 19 U/L (12-78); ANION GAP 8 MEQ/L (8-16); AST/SGOT 18 U/L (7-37); BILIRUBIN,TOTAL 0.4 MG/DL (0.2-1.0); BLOOD UREA NITROGEN 14 MG/DL (7-18); CALCIUM LEVEL 8.6 MG/DL (8.8-10.2); CARBON DIOXIDE LEVEL 29 MEQ/L (21-32); CHLORIDE LEVEL 102 MEQ/L (98-107); CREATININE FOR GFR 0.79 MG/DL (0.55-1.30); GLOMERULAR FILTRATION RATE > 60.0 (>45); GLUCOSE, FASTING 92 MG/DL (70-100); MAGNESIUM LEVEL 2.3 MG/DL (1.8-2.4); POTASSIUM SERUM 3.9 MEQ/L (3.5-5.1); SODIUM LEVEL 139 MEQ/L (136-145); TOTAL PROTEIN 7.4 GM/DL (6.4-8.2)
[2017-04-01 20:55] LABS: BASO # 0.1 10^3/uL (0.0-0.2); BASO % 0.7 % (0.0-1.0); EOS # 0.1 10^3/uL (0.0-0.50); EOS % 1.1 % (0.0-3.0); HEMATOCRIT 41.8 % (36.0-47.0); HEMOGLOBIN 13.4 g/dl (12.0-16.0); IMMATURE GRANULOCYTE % 0.1 % (0-0); LYMPH # 2.4 10^3/uL (1.5-4.5); LYMPH % 32.2 % (24.0-44.0); MEAN CORPUSCULAR HEMOGLOBIN 28.6 pg (27.0-33.0); MEAN CORPUSCULAR HGB CONC 32.1 g/dl (32.0-36.5); MEAN CORPUSCULAR VOLUME 89.3 fl (80.0-96.0); MONO # 0.6 10^3/uL (0.0-0.8); MONO % 7.7 % (0.0-5.0); NEUTROPHILS # 4.3 10^3/uL (1.8-7.7); NEUTROPHILS % 58.2 % (36.0-66.0); PLATELET COUNT, AUTOMATED 244 10^3/uL (150-450); RED BLOOD COUNT 4.68 10^6/uL (4.00-5.40); RED CELL DISTRIBUTION WIDTH 13.8 % (11.5-14.5); WHITE BLOOD COUNT 7.4 10^3/uL (4.0-10.0)
[2017-04-01 21:01] LABS: ESTIMATED AVERAGE GLUCOSE 111 MG/DL (60-110); HEMOGLOBIN A1c 5.5 %
== END ==
LOC: M LABDRAW1 15:15
DX: R73.01 Impaired fasting glucose (principal); I10 Essential (primary) hypertension; E03.9 Hypothyroidism, unspecified; I48.0 Paroxysmal atrial fibrillation

== ENCOUNTER → 2017-06-17 | Outpatient (REF) | payer OTHER ==
[2017-06-17 18:23] LABS: TOTAL 25(OH) VITAMIN D 53.1 NG/ML (30.0-100.0)
[2017-06-17 18:28] LABS: CALCIUM LEVEL 9.6 MG/DL (8.8-10.2)
[2017-06-17 18:28] LABS: FREE T4 1.14 NG/DL (0.76-1.46)
== END ==
LOC: M LABDRAW1 15:36
DX: E06.3 Autoimmune thyroiditis (principal); E55.9 Vitamin D deficiency, unspecified
CPT/HCPCS: 82310

== ENCOUNTER → 2017-07-31 | Outpatient (REF) | payer OTHER ==
[2017-08-01 10:59] LABS: BASO # 0.1 10^3/uL (0.0-0.2); BASO % 0.9 % (0.0-1.0); EOS # 0.1 10^3/uL (0.0-0.50); EOS % 1.5 % (0.0-3.0); HEMATOCRIT 40.3 % (36.0-47.0); IMMATURE GRANULOCYTE % 0.1 % (0-3.0); LYMPH # 2.7 10^3/uL (1.5-4.5); LYMPH % 39.2 % (24.0-44.0); MEAN CORPUSCULAR HEMOGLOBIN 29.5 pg (27.0-33.0); MEAN CORPUSCULAR HGB CONC 32.3 g/dl (32.0-36.5); MEAN CORPUSCULAR VOLUME 91.4 fl (80.0-96.0); MONO # 0.5 10^3/uL (0.0-0.8); MONO % 7.2 % (0.0-5.0); NEUTROPHILS # 3.5 10^3/uL (1.8-7.7); NEUTROPHILS % 51.1 % (36.0-66.0); PLATELET COUNT, AUTOMATED 299 10^3/uL (150-450); RED BLOOD COUNT 4.41 10^6/uL (4.00-5.40); RED CELL DISTRIBUTION WIDTH 13.5 % (11.5-14.5); WHITE BLOOD COUNT 6.8 10^3/uL (4.0-10.0)
[2017-08-01 11:26] LABS: ALBUMIN 3.8 GM/DL (3.2-5.2); ALBUMIN/GLOBULIN RATIO 0.97 (1.00-1.93); ALKALINE PHOSPHATASE 74 U/L (45-117); ALT/SGPT 25 U/L (12-78); ANION GAP 5 MEQ/L (8-16); AST/SGOT 20 U/L (7-37); BILIRUBIN,TOTAL 0.4 MG/DL (0.2-1.0); BLOOD UREA NITROGEN 11 MG/DL (7-18); CALCIUM LEVEL 8.9 MG/DL (8.8-10.2); CARBON DIOXIDE LEVEL 32 MEQ/L (21-32); CHLORIDE LEVEL 104 MEQ/L (98-107); CREATININE FOR GFR 0.82 MG/DL (0.55-1.30); FREE T4 1.25 NG/DL (0.76-1.46); GLOMERULAR FILTRATION RATE > 60.0 (>45); GLUCOSE, FASTING 88 MG/DL (70-100); POTASSIUM SERUM 4.2 MEQ/L (3.5-5.1); SODIUM LEVEL 141 MEQ/L (136-145); TOTAL PROTEIN 7.7 GM/DL (6.4-8.2)
[2017-08-01 12:09] LABS: ESTIMATED AVERAGE GLUCOSE 111 MG/DL (60-110); HEMOGLOBIN A1c 5.5 %
[2017-08-02 14:16] LABS: INSULIN LEVEL 6.4 uIU/mL (2.6-24.9)
== END ==
LOC: M LABDRAW1 10:12
DX: I10 Essential (primary) hypertension (principal); E03.9 Hypothyroidism, unspecified; R73.01 Impaired fasting glucose

== ENCOUNTER 2017-08-29 01:37 | Emergency (ER) | payer BC, OTHER ==
[2017-08-29 02:42] LABS: BASO % 0.4 % (0.0-1.0); EOS # 0.1 10^3/uL (0.0-0.50); EOS % 1.6 % (0.0-3.0); HEMATOCRIT 39.3 % (36.0-47.0); HEMOGLOBIN 13.1 g/dl (12.0-15.5); IMMATURE GRANULOCYTE % 0.3 % (0-3.0); LYMPH # 3.5 10^3/uL (1.5-4.5); LYMPH % 44.9 % (24.0-44.0); MEAN CORPUSCULAR HEMOGLOBIN 29.2 pg (27.0-33.0); MEAN CORPUSCULAR HGB CONC 33.3 g/dl (32.0-36.5); MEAN CORPUSCULAR VOLUME 87.5 fl (80.0-96.0); MONO # 0.7 10^3/uL (0.0-0.8); MONO % 8.4 % (0.0-5.0); NEUTROPHILS # 3.4 10^3/uL (1.8-7.7); NEUTROPHILS % 44.4 % (36.0-66.0); PLATELET COUNT, AUTOMATED 238 10^3/uL (150-450); RED BLOOD COUNT 4.49 10^6/uL (4.00-5.40); RED CELL DISTRIBUTION WIDTH 13.2 % (11.5-14.5); WHITE BLOOD COUNT 7.7 10^3/uL (4.0-10.0)
[2017-08-29 03:04] LABS: ALBUMIN 3.7 GM/DL (3.2-5.2); ALKALINE PHOSPHATASE 79 U/L (45-117); ALT/SGPT 20 U/L (12-78); ANION GAP 8 MEQ/L (8-16); AST/SGOT 28 U/L (7-37); BILIRUBIN,DIRECT < 0.1 MG/DL (0.0-0.2); BILIRUBIN,TOTAL 0.4 MG/DL (0.2-1.0); BLOOD UREA NITROGEN 15 MG/DL (7-18); CALCIUM LEVEL 8.9 MG/DL (8.8-10.2); CARBON DIOXIDE LEVEL 26 MEQ/L (21-32); CHLORIDE LEVEL 108 MEQ/L (98-107); CPK CREATINE PHOSPHOKINASE 92 U/L (26-192); CREATININE FOR GFR 0.89 MG/DL (0.55-1.30); GLOMERULAR FILTRATION RATE > 60.0 (>45); GLUCOSE, FASTING 100 MG/DL (70-100); LIPASE 182 U/L (73-393); SODIUM LEVEL 142 MEQ/L (136-145); TOTAL PROTEIN 7.4 GM/DL (6.4-8.2); TROPONIN I < 0.02 NG/ML (< 0.10)
[2017-08-29 03:05] LABS: CK-MB VALUE MASS < 1.0 NG/ML (<3.6); MB/CK RELATIVE INDEX 1.08 (< OR =4)
[2017-08-29 03:29] LABS: POTASSIUM SERUM 5.3 MEQ/L (3.5-5.1)
[2017-08-29] MEDS: valACYclovir HCL 500 MG TAB PO (03:45)
== END 2017-08-29 03:58 | disposition home or self-care (01) ==
LOC: M ED 01:37
DX: R10.9 Unspecified abdominal pain (principal); I48.91 Unspecified atrial fibrillation; Z90.49 Acquired absence of other specified parts of digestive tract; Z87.891 Personal history of nicotine dependence; Z79.899 Other long term (current) drug therapy; Z88.0 Allergy status to penicillin
CPT/HCPCS: 71046

== ENCOUNTER → 2017-12-13 | Outpatient (REF) | payer OTHER ==
[2017-12-13 15:17] LABS: CALCIUM LEVEL 9.1 MG/DL (8.8-10.2)
[2017-12-13 15:17] LABS: FREE T4 1.27 NG/DL (0.76-1.46)
[2017-12-13 15:19] LABS: TOTAL 25(OH) VITAMIN D 51.2 NG/ML (30.0-100.0)
== END ==
LOC: M LABDRAW1 11:57
DX: E06.3 Autoimmune thyroiditis (principal); E55.9 Vitamin D deficiency, unspecified
CPT/HCPCS: 82310

== ENCOUNTER → 2018-01-29 | Outpatient (REF) | payer BC, OTHER | LOC: M LAB REF 22:12 | DX: R19.7 Diarrhea, unspecified (principal) | CPT/HCPCS: 87507 ==

== ENCOUNTER 2018-02-06 07:00 | Day surgery (SDC) | payer BC, OTHER ==
[~2018-02-06] VITALS: Ht 170.2 cm; Wt 70.3 kg
[~2018-02-06 07:00] MED LIST changes: +LEVO112T2 PO; +MAGN400C2 PO; +REST0.057 OU; +VALA1TAB2 PO; +VITA200016 PO; +XANA0.25 PO
[2018-02-06] MEDS ORDERED: PROPOFOL 200 MG/20 ML VIAL As Ordered ONE (07:05)
[2018-02-06] MEDS ORDERED: LIDOCAINE 2% INJ 100 MG/5 ML SDV (FOR ANES.) As Ordered ONE (07:05)
[2018-02-06] MEDS ORDERED: NS 1,000 ML IV ONE (07:30)
--- NOTE | 2018-02-06 08:21 | ROOR ---
Patient Name: Debbie Ceja Procedure Date: 02/06/2018 8:08 AM Date of : 1955 Age: 62 Room: [facility] Gender: Female Note Status: Finalized Procedure: Upper GI endoscopy Indications: Suspected esophageal reflux Providers: Mahad Hernandez Jr, MD Referring MD: Pillo Garcia MD Requesting Provider: Medicines: Propofol per Anesthesia Complications: No immediate complications. Procedure: Pre-Anesthesia Assessment: - Prior to the procedure, a History and Physical was performed, and patient medications and allergies were reviewed. The patient is competent. The risks and benefits of the procedure and the sedation options and risks were discussed with the patient. All questions were answered and informed consent was obtained. Patient identification and proposed procedure were verified by the physician and the nurse in the pre-procedure area and in the procedure room. Mental Status Examination: alert and oriented. Airway Examination: normal oropharyngeal airway and neck mobility. Respiratory Examination: clear to auscultation. CV Examination: normal. ASA Grade Assessment: II - A patient with mild systemic disease. After reviewing the risks and benefits, the patient was deemed in satisfactory condition to undergo the procedure. The anesthesia plan was to use moderate sedation / analgesia (conscious sedation). Immediately prior to administration of medications, the patient was re-assessed for adequacy to receive sedatives. The heart rate, respiratory rate, oxygen saturations, blood pressure, adequacy of pulmonary ventilation, and response to care were monitored throughout the procedure. The physical status of the patient was re-assessed after the procedure. The Endoscope was introduced through the mouth, and advanced to the second part of duodenum. The upper GI endoscopy was accomplished without difficulty. The patient tolerated the procedure well. Findings: The upper third of the esophagus, middle third of the esophagus and lower third of the esophagus were normal. The cardia, gastric fundus and gastric body were normal. Diffuse mild inflammation characterized by congestion (edema), erythema, friability and granularity was found in the gastric antrum and in the prepyloric region of the stomach. Biopsies were taken with a cold forceps for histology. The duodenal bulb, first portion of the duodenum and second portion of the duodenum were normal. Impression: - Normal upper third of esophagus, middle third of esophagus and lower third of esophagus. - Normal cardia, gastric fundus and gastric body. - Gastritis. Biopsied. - Normal duodenal bulb, first portion of the duodenum and second portion of the duodenum. Recommendation: - Discharge patient to home (ambulatory). - Return to primary care physician as previously scheduled. Mahad Hernandez MD Mahad Hernandez Jr, MD 02/06/2018 8:20:29 AM This report has been signed electronically. Number of Addenda: 0 Note Initiated On: 02/06/2018 8:08 AM Estimated Blood Loss: Estimated blood loss: none.
[2018-02-06 08:38] VITALS: BP 140/89
== END 2018-02-06 08:46 | disposition home or self-care (01) ==
LOC: M OPP 07:00
PROVIDERS: ATTEND Surgery
DX: R12 Heartburn (principal); K29.70 Gastritis, unspecified, without bleeding

== ENCOUNTER → 2018-02-06 | Outpatient (CLI) | payer BC, OTHER ==
[2018-02-06 07:09] LABS: APPEARANCE, URINE CLEAR (CLEAR); BACTERIA, URINE AUTO NEGATIVE (NEGATIVE); BILIRUBIN, URINE AUTO NEGATIVE (NEGATIVE); BLOOD, URINE BLOOD NEGATIVE (NEGATIVE); COLOR, URINE YELLOW (YELLOW); GLUCOSE, URINE (UA) AUTO NEGATIVE (NEGATIVE); KETONE, URINE AUTO NEGATIVE (NEGATIVE); LEUKOCYTE ESTERASE, URINE AUTO NEGATIVE (NEGATIVE); NITRITE, URINE AUTO NEGATIVE (NEGATIVE); PROTEIN, URINE AUTO NEGATIVE (NEGATIVE); RBC, URINE AUTO 1 /HPF (0-3); SPECIFIC GRAVITY URINE AUTO 1.017 (1.002-1.035); SQUAMOUS EPITHELIAL CELL UR AU 0 /HPF (0-6); UROBILINOGEN, URINE AUTO 0.2 mg/dL (0.0-2.0); WBC, URINE AUTO 0 /HPF (0-3)
[2018-02-06 07:28] LABS: ESTIMATED AVERAGE GLUCOSE 120 MG/DL (60-110); HEMOGLOBIN A1c 5.8 %
[2018-02-06 07:37] LABS: MAU/CREAT RATIO 4.8 MCG/MG (0.0-30.0)
[2018-02-06 07:42] LABS: C REACTIVE PROTEIN QUANTITATIV < 0.30 MG/DL (0.00-0.30); CHOLESTEROL LEVEL 215 MG/DL (<200); CHOLESTEROL RISK RATIO 2.828 (<5); CPK CREATINE PHOSPHOKINASE 58 U/L (26-192); FREE T4 1.05 NG/DL (0.76-1.46); HDL CHOLESTEROL 76 MG/DL (>40); LDL CHOLESTEROL 122 MG/DL (<100); MAGNESIUM LEVEL 2.2 MG/DL (1.8-2.4); NON-HDL-C 139 MG/DL; TRIGLYCERIDES LEVEL 84 MG/DL (<150)
== END ==
LOC: M LAB 06:34
DX: E78.2 Mixed hyperlipidemia (principal); E03.9 Hypothyroidism, unspecified; R73.01 Impaired fasting glucose; I10 Essential (primary) hypertension
CPT/HCPCS: 82550

== ENCOUNTER → 2018-02-06 | Outpatient (CLI) | payer BC, OTHER ==
[2018-02-06 07:32] LABS: ANION GAP 8 MEQ/L (8-16); BLOOD UREA NITROGEN 18 MG/DL (7-18); CALCIUM LEVEL 8.8 MG/DL (8.8-10.2); CARBON DIOXIDE LEVEL 28 MEQ/L (21-32); CHLORIDE LEVEL 107 MEQ/L (98-107); CREATININE FOR GFR 0.89 MG/DL (0.55-1.30); GLOMERULAR FILTRATION RATE > 60.0 (>45); GLUCOSE, FASTING 80 MG/DL (70-100); POTASSIUM SERUM 4.2 MEQ/L (3.5-5.1); SODIUM LEVEL 143 MEQ/L (136-145)
== END ==
LOC: M LAB 06:37
DX: R19.7 Diarrhea, unspecified (principal)
CPT/HCPCS: 80048

== ENCOUNTER → 2018-02-28 | Outpatient (REF) | payer OTHER ==
[2018-02-28 18:19] LABS: ALBUMIN 3.6 GM/DL (3.2-5.2); BLOOD UREA NITROGEN 17 MG/DL (7-18); CALCIUM LEVEL 8.9 MG/DL (8.8-10.2); CARBON DIOXIDE LEVEL 28 MEQ/L (21-32); CHLORIDE LEVEL 107 MEQ/L (98-107); CREATININE FOR GFR 0.86 MG/DL (0.55-1.30); FREE T4 1.02 NG/DL (0.76-1.46); GLOMERULAR FILTRATION RATE > 60.0 (>45); GLUCOSE, FASTING 88 MG/DL (70-100); PHOSPHORUS LEVEL 3.6 MG/DL (2.5-4.9); SODIUM LEVEL 141 MEQ/L (136-145)
== END ==
LOC: M LABDRAW1 13:42
PROVIDERS: ATTEND Family Medicine
DX: E03.9 Hypothyroidism, unspecified (principal); R73.01 Impaired fasting glucose

== ENCOUNTER → 2018-07-15 | Outpatient (REF) | payer OTHER ==
[2018-07-15 13:04] LABS: FREE T4 1.12 NG/DL (0.76-1.46); THYROID STIMULATING HORMONE 13.6 uIU/ML (0.358-3.740); TOTAL 25(OH) VITAMIN D 43.9 NG/ML (30.0-100.0)
== END ==
LOC: M LABDRAW1 11:54
PROVIDERS: ATTEND Nurse Practitioner Family
DX: E06.3 Autoimmune thyroiditis (principal); E55.9 Vitamin D deficiency, unspecified

== ENCOUNTER → 2018-07-15 | Outpatient (REF) | payer OTHER ==
[2018-07-15 13:07] LABS: ALBUMIN 3.8 GM/DL (3.2-5.2); BLOOD UREA NITROGEN 14 MG/DL (7-18); CALCIUM LEVEL 9.1 MG/DL (8.8-10.2); CARBON DIOXIDE LEVEL 28 MEQ/L (21-32); CHLORIDE LEVEL 106 MEQ/L (98-107); CREATININE FOR GFR 0.83 MG/DL (0.55-1.30); GLOMERULAR FILTRATION RATE > 60.0 (>45); GLUCOSE, FASTING 90 MG/DL (70-100); PHOSPHORUS LEVEL 3.9 MG/DL (2.5-4.9); POTASSIUM SERUM 4.3 MEQ/L (3.5-5.1); SODIUM LEVEL 141 MEQ/L (136-145)
[2018-07-15 16:58] LABS: HEMOGLOBIN A1c 5.5 %
== END ==
LOC: M LABDRAW1 11:52
PROVIDERS: ATTEND Family Medicine
DX: E03.9 Hypothyroidism, unspecified (principal); R73.01 Impaired fasting glucose

== ENCOUNTER → 2018-07-19 | Outpatient (CLI) | payer BC ==
[2018-07-19 15:09] LABS: FREE T4 1.26 NG/DL (0.76-1.46); THYROID STIMULATING HORMONE 4.42 uIU/ML (0.358-3.740)
== END ==
LOC: M LAB 14:05
PROVIDERS: ATTEND Internal Medicine Endocrinology, Diabetes & Metabolism
DX: E06.3 Autoimmune thyroiditis (principal)

== ENCOUNTER → 2018-07-24 | Outpatient (CLI) | payer BC, OTHER ==
--- NOTE | 2018-07-24 15:06 | REP ---
Clinical: Congenital limb shortening. Technique: AP views of the right and left femur. Findings: The bilateral femurs are relatively normal for age and symmetric in length. Very minimal degenerative changes at the hip and knee joints noted. No evidence for fracture or dislocation. Impression: Essentially normal symmetric appearance of the bilateral femurs with symmetric lengths. Electronically Signed by Kirby Madison MD 07/24/2018 02:57 P
--- NOTE | 2018-07-24 15:09 | REP ---
Clinical: Congenital limb shortening. Technique: AP views of the bilateral tibia / fibula. Findings: In conjunction with the femur series, the bilateral tibia / fibula appear normal and of essentially equal length. No significant shortening is appreciated. No evidence for acute fracture dislocation. Bilateral ankle joints appear relatively symmetric and normal for age. Impression: Normal examination. No significant limb length discrepancy appreciated. Electronically Signed by Kirby Madison MD 07/24/2018 03:00 P
== END ==
LOC: M RAD 14:03
PROVIDERS: ATTEND Podiatrist
DX: Q72.819 Congenital shortening of unspecified lower limb (principal)

== ENCOUNTER → 2018-08-14 | Outpatient (REF) | payer OTHER ==
[2018-08-14 16:37] LABS: FREE T4 1.06 NG/DL (0.76-1.46); THYROID STIMULATING HORMONE 3.3 uIU/ML (0.358-3.740)
== END ==
LOC: M LABDRAW1 14:04
PROVIDERS: ATTEND Nurse Practitioner Family
DX: E06.3 Autoimmune thyroiditis (principal)

== ENCOUNTER → 2018-09-08 | Outpatient (REF) | payer OTHER ==
[2018-09-08 16:42] LABS: FREE T4 1.17 NG/DL (0.76-1.46); THYROID STIMULATING HORMONE 1.17 uIU/ML (0.358-3.740)
== END ==
LOC: M LABDRAW1 14:57
PROVIDERS: ATTEND Family Medicine
DX: E03.9 Hypothyroidism, unspecified (principal)

== ENCOUNTER → 2018-10-16 | Outpatient (REF) | payer OTHER ==
[~2018-10-16] MED LIST changes: +ASPI81TA85 PO; +D-20TAB PO; +FAMO40TA3 PO; +LEVS0.124 SL; +MULTCAP PO; -VALA1TAB2 PO; +VALA1TAB64 PO
[2018-10-16 16:28] LABS: FREE T4 1.06 NG/DL (0.76-1.46); THYROID STIMULATING HORMONE 3.18 uIU/ML (0.358-3.740)
== END ==
LOC: M LABDRAW1 14:54
PROVIDERS: ATTEND Family Medicine
DX: E03.9 Hypothyroidism, unspecified (principal)

== ENCOUNTER 2018-10-22 22:10 | Emergency (ER) | payer BC, OTHER ==
[~2018-10-22] VITALS: Ht 170.2 cm; Wt 70.9 kg
[~2018-10-22 22:10] MED LIST changes: -FAMO40TA3; -LEVS0.124 SL
[2018-10-22] MEDS ORDERED: FAMO40TA3 (22:16)
[2018-10-22 23:06] LABS: BASO % 0.5 % (0.0-1.0); EOS # 0.1 10^3/uL (0.0-0.50); EOS % 1.5 % (0.0-3.0); HEMATOCRIT 42.9 % (36.0-47.0); LYMPH # 3.3 10^3/uL (1.5-4.5); LYMPH % 44.8 % (24.0-44.0); MEAN CORPUSCULAR HEMOGLOBIN 29.7 pg (27.0-33.0); MEAN CORPUSCULAR HGB CONC 32.6 g/dl (32.0-36.5); MEAN CORPUSCULAR VOLUME 90.9 fl (80.0-96.0); MONO # 0.7 10^3/uL (0.0-0.8); MONO % 8.9 % (0.0-5.0); NEUTROPHILS # 3.3 10^3/uL (1.8-7.7); PLATELET COUNT, AUTOMATED 258 10^3/uL (150-450); RED BLOOD COUNT 4.72 10^6/uL (4.00-5.40); WHITE BLOOD COUNT 7.5 10^3/uL (4.0-10.0)
[2018-10-22] MEDS ORDERED: HYOSCYAMINE SULFATE 0.125 MG SUBL TABLET PO ONE (23:45)
[2018-10-23 00:01] LABS: ALBUMIN 3.7 GM/DL (3.2-5.2); ALT/SGPT 17 U/L (12-78); BILIRUBIN,DIRECT < 0.1 MG/DL (0.0-0.2); BILIRUBIN,TOTAL 0.2 MG/DL (0.2-1.0); BLOOD UREA NITROGEN 15 MG/DL (7-18); CARBON DIOXIDE LEVEL 28 MEQ/L (21-32); CHLORIDE LEVEL 109 MEQ/L (98-107); CREATININE FOR GFR 1.15 MG/DL (0.55-1.30); GLOMERULAR FILTRATION RATE 50.6 (>45); GLUCOSE, FASTING 98 MG/DL (70-100); LIPASE 230 U/L (73-393); POTASSIUM SERUM 3.9 MEQ/L (3.5-5.1); SODIUM LEVEL 142 MEQ/L (136-145); TOTAL PROTEIN 7.5 GM/DL (6.4-8.2)
--- NOTE | 2018-10-23 00:26 | REPVR ---
EXAM: US Abdomen Limited, Right Upper Quadrant EXAM DATE/TIME: 10/22/2018 12:14 AM CLINICAL HISTORY: 62 years old, female; Abdominal pain; Additional info: Ruq abd pain TECHNIQUE: Imaging protocol: Real-time ultrasound of the abdomen with image documentation. Examination was focused on the right upper quadrant. COMPARISON: No relevant prior studies available. FINDINGS: Liver: Liver demonstrates no focal defects. Gallbladder: The gallbladder demonstrates no wall thickening and no stones. Common bile duct: The CBD measures 3-4 mm. Pancreas: The pancreas is normal. Right kidney: The right kidney is normal and measures 10.8 cm. No hydronephrosis. IMPRESSION: Negative right upper quadrant sonogram. Electronically signed by: Fredi Moseley On 10/23/2018 00:26:21 AM
[2018-10-23] MEDS ORDERED: ISOVUE-370 76% 100ML VIAL (Q9967) As Ordered ONE (00:59)
[2018-10-23] MEDS ORDERED: KETOROLAC 30 MG/ML VIAL (J1885) IV ONE (01:00)
--- NOTE | 2018-10-23 01:55 | REPVR ---
EXAM: CT Abdomen and Pelvis With Contrast EXAM DATE/TIME: 10/23/2018 12:54 AM CLINICAL HISTORY: 62 years old, female; Abdominal pain; Localized; Right upper quadrant (ruq); Additional info: Ruq abd pain TECHNIQUE: Imaging protocol: Computed tomography images of the abdomen and pelvis with intravenous contrast. Radiation optimization: All CT scans at this facility use at least one of these dose optimization techniques: automated exposure control; mA and/or kV adjustment per patient size (includes targeted exams where dose is matched to clinical indication); or iterative reconstruction. Contrast material: ISO; Contrast volume: 100 ml; Contrast route: AC; COMPARISON: US Breast 10/23/2018 12:04 AM FINDINGS: Lungs: Minimal bibasilar atelectasis or scar. Liver: Normal. No mass. Gallbladder and bile ducts: The gallbladder is contracted with no stones. Pancreas: Normal. No ductal dilation. Spleen: Normal. No splenomegaly. Adrenals: Normal. No mass. Kidneys and ureters: Normal. No hydronephrosis. Stomach and bowel: Rectosigmoid anastomosis. Minimal colonic diverticulosis without diverticulitis. Appendix: A normal appendix is seen. Intraperitoneal space: Normal. No free air. No significant fluid collection. Vasculature: Normal. No abdominal aortic aneurysm. Lymph nodes: Normal. No enlarged lymph nodes. Bladder: Unremarkable as visualized. Reproductive: Unremarkable as visualized. Bones/joints: No acute fracture. No dislocation. Soft tissues: Unremarkable. IMPRESSION: 1. Rectosigmoid anastomosis consistent with prior partial resection. 2. Minimal colonic diverticulosis without diverticulitis. 3. Otherwise negative CT abdomen/pelvis. Electronically signed by: Fredi Moseley On 10/23/2018 01:55:51 AM
[2018-10-23] MEDS ORDERED: LEVS0.124 SL (02:43)
[2018-10-23 02:52] VITALS: BP 139/95
== END 2018-10-23 02:52 | disposition home or self-care (01) ==
LOC: M ED 22:10
DX: R10.11 Right upper quadrant pain (principal); Z90.49 Acquired absence of other specified parts of digestive tract; Z87.891 Personal history of nicotine dependence; K57.30 Diverticulosis of large intestine without perforation or abscess without bleeding; Z79.899 Other long term (current) drug therapy
CPT/HCPCS: 36415; 74177; 76705; 80048; 80076; 81001; 83690; 85025; 87086; 96374; 99284; J1885; Q9967

== ENCOUNTER → 2018-10-22 | Outpatient (REF) | payer OTHER ==
[~2018-10-22] MED LIST changes: -ASPI81TA85 PO; -D-20TAB PO; +FAMO40TA3; -FAMO40TA3 PO; -MULTCAP PO; +VALA1TAB2 PO; -VALA1TAB64 PO
[2018-10-22 17:10] LABS: ALT/SGPT 20 U/L (12-78); BLOOD UREA NITROGEN 12 MG/DL (7-18); CALCIUM LEVEL 9.7 MG/DL (8.8-10.2); CARBON DIOXIDE LEVEL 31 MEQ/L (21-32); CHLORIDE LEVEL 104 MEQ/L (98-107); CREATININE FOR GFR 0.87 MG/DL (0.55-1.30); GLOMERULAR FILTRATION RATE > 60.0 (>45); GLUCOSE, FASTING 100 MG/DL (70-100); POTASSIUM SERUM 4.3 MEQ/L (3.5-5.1); SODIUM LEVEL 140 MEQ/L (136-145)
[2018-10-22 17:11] LABS: ALBUMIN 4.2 GM/DL (3.2-5.2); BILIRUBIN,TOTAL 0.5 MG/DL (0.2-1.0); LIPASE 107 U/L (73-393); TOTAL PROTEIN 7.9 GM/DL (6.4-8.2)
[2018-10-22 17:34] LABS: BASO # 0.1 10^3/uL (0.0-0.2); BASO % 0.8 % (0.0-1.0); EOS % 0.5 % (0.0-3.0); HEMATOCRIT 43.5 % (36.0-47.0); HEMOGLOBIN 14.1 g/dl (12.0-15.5); LYMPH % 26.5 % (24.0-44.0); MEAN CORPUSCULAR HEMOGLOBIN 29.3 pg (27.0-33.0); MEAN CORPUSCULAR HGB CONC 32.4 g/dl (32.0-36.5); MEAN CORPUSCULAR VOLUME 90.4 fl (80.0-96.0); MONO # 0.6 10^3/uL (0.0-0.8); MONO % 8.5 % (0.0-5.0); NEUTROPHILS # 4.8 10^3/uL (1.8-7.7); NEUTROPHILS % 63.4 % (36.0-66.0); PLATELET COUNT, AUTOMATED 272 10^3/uL (150-450); RED BLOOD COUNT 4.81 10^6/uL (4.00-5.40); WHITE BLOOD COUNT 7.5 10^3/uL (4.0-10.0)
== END ==
LOC: M LABDRAW1 12:16
PROVIDERS: ATTEND Nurse Practitioner Family
DX: R10.11 Right upper quadrant pain (principal)

== ENCOUNTER → 2018-12-18 | Outpatient (CLI) | payer MEDICARE, OTHER, BC ==
[~2018-12-18] MED LIST changes: +FAMO40TA3; +LEVS0.124 SL
[2018-12-18 14:03] LABS: CALCIUM LEVEL 9.4 MG/DL (8.8-10.2); FREE T4 1.2 NG/DL (0.76-1.46); THYROID STIMULATING HORMONE 2.83 uIU/ML (0.358-3.740)
[2018-12-18 14:04] LABS: TOTAL 25(OH) VITAMIN D 55.7 NG/ML (30.0-100.0)
== END ==
LOC: M LAB 12:30
PROVIDERS: ATTEND Nurse Practitioner Family
DX: E06.3 Autoimmune thyroiditis (principal); E55.9 Vitamin D deficiency, unspecified; M85.89 Other specified disorders of bone density and structure, multiple sites; Z79.899 Other long term (current) drug therapy

== ENCOUNTER → 2019-02-03 | Outpatient (REF) | payer MEDICARE, OTHER, BC ==
[2019-02-03 15:56] LABS: APPEARANCE, URINE CLEAR (CLEAR); BACTERIA, URINE AUTO NEGATIVE (NEGATIVE); BILIRUBIN, URINE AUTO NEGATIVE (NEGATIVE); BLOOD, URINE BLOOD NEGATIVE (NEGATIVE); COLOR, URINE YELLOW (YELLOW); GLUCOSE, URINE (UA) AUTO NEGATIVE (NEGATIVE); KETONE, URINE AUTO NEGATIVE (NEGATIVE); LEUKOCYTE ESTERASE, URINE AUTO TRACE (NEGATIVE); MUCUS, URINE SMALL (NEGATIVE); NITRITE, URINE AUTO NEGATIVE (NEGATIVE); PROTEIN, URINE AUTO NEGATIVE (NEGATIVE); RBC, URINE AUTO 0 /HPF (0-3); SPECIFIC GRAVITY URINE AUTO 1.014 (1.002-1.035); SQUAMOUS EPITHELIAL CELL UR AU 2 /HPF (0-6); UROBILINOGEN, URINE AUTO 0.2 mg/dL (0.0-2.0); WBC, URINE AUTO 3 /HPF (0-3)
[2019-02-03 16:05] LABS: ALBUMIN 3.9 GM/DL (3.2-5.2); ALT/SGPT 20 U/L (12-78); BILIRUBIN,TOTAL 0.5 MG/DL (0.2-1.0); BLOOD UREA NITROGEN 16 MG/DL (7-18); C REACTIVE PROTEIN QUANTITATIV < 0.30 MG/DL (0.00-0.30); CARBON DIOXIDE LEVEL 30 MEQ/L (21-32); CHLORIDE LEVEL 105 MEQ/L (98-107); CHOLESTEROL LEVEL 233 MG/DL (<200); CHOLESTEROL RISK RATIO 2.532 (<5); CREATININE FOR GFR 0.95 MG/DL (0.55-1.30); GLOMERULAR FILTRATION RATE > 60.0 (>45); GLUCOSE, FASTING 90 MG/DL (70-100); HDL CHOLESTEROL 92 MG/DL (>40); LDL CHOLESTEROL 128 MG/DL (<100); NON-HDL-C 141 MG/DL; POTASSIUM SERUM 4.2 MEQ/L (3.5-5.1); SODIUM LEVEL 141 MEQ/L (136-145); TOTAL PROTEIN 7.5 GM/DL (6.4-8.2); TRIGLYCERIDES LEVEL 67 MG/DL (<150)
[2019-02-03 16:31] LABS: CREATININE, URINE 86.8 MG/DL; MALB URINE SIEMENS 7.1 MG/L; MAU/CREAT RATIO 8.1 MCG/MG (0.0-30.0)
[2019-02-03 18:08] LABS: PTH INTACT 52.3 PG/ML (18.5-88.0); TOTAL 25(OH) VITAMIN D 50.1 NG/ML (30.0-100.0)
== END ==
LOC: M LABDRAW1 15:21
PROVIDERS: ATTEND Family Medicine
DX: E55.9 Vitamin D deficiency, unspecified (principal); E78.2 Mixed hyperlipidemia; R73.01 Impaired fasting glucose

== ENCOUNTER → 2019-02-27 | Outpatient (REF) | payer MEDICARE, OTHER ==
[~2019-02-27] MED LIST changes: +ASPI81TA85 PO; +D-20TAB PO; -FAMO40TA3; +FAMO40TA3 PO; +MULTCAP PO; -VALA1TAB2 PO; +VALA1TAB64 PO
[2019-03-02 12:07] LABS: HEPATITIS B SURFACE ANTIGEN NEGATIVE (NEGATIVE); HEPATITIS C VIRUS ABY INDEX 0.2 INDEX (<0.8)
== END ==
LOC: M LABDRAW1 15:44
PROVIDERS: ATTEND Family Medicine
DX: Z20.5 Contact with and (suspected) exposure to viral hepatitis (principal)

== ENCOUNTER → 2019-03-11 | Outpatient (REF) | payer MEDICARE, OTHER ==
[2019-03-11 17:27] LABS: BLOOD UREA NITROGEN 15 MG/DL (7-18); CALCIUM LEVEL 8.9 MG/DL (8.8-10.2); CARBON DIOXIDE LEVEL 28 MEQ/L (21-32); CHLORIDE LEVEL 107 MEQ/L (98-107); CREATININE FOR GFR 0.81 MG/DL (0.55-1.30); GLOMERULAR FILTRATION RATE > 60.0 (>45); GLUCOSE, FASTING 89 MG/DL (70-100); MAGNESIUM LEVEL 2.3 MG/DL (1.8-2.4); POTASSIUM SERUM 3.9 MEQ/L (3.5-5.1); SODIUM LEVEL 142 MEQ/L (136-145)
== END ==
LOC: M LABDRAW1 14:55
PROVIDERS: ATTEND Physician Assistant
DX: I48.0 Paroxysmal atrial fibrillation (principal)

== ENCOUNTER → 2019-04-28 | Outpatient (REF) | payer MEDICARE, OTHER ==
[~2019-04-28] MED LIST changes: +VALA1TAB5 PO; -VALA1TAB64 PO
== END ==
LOC: M SFHCWAGY 17:09
PROVIDERS: ATTEND Nurse Practitioner Women's Health
DX: Z12.4 Encounter for screening for malignant neoplasm of cervix (principal); N95.2 Postmenopausal atrophic vaginitis

== ENCOUNTER → 2019-04-28 | Outpatient (CLI) | payer MEDICARE, BC ==
--- NOTE | 2019-04-28 15:28 | REP ---
BILATERAL SCREENING DIGITAL MAMMOGRAM WITH 3D TOMOSYNTHESIS: There are no palpable abnormalities or other breast complaints. The Tyrer-Cuzick Lifetime Breast Cancer Risk Score is: 5.8% . Comparison is 03/02/2014. The patient had bilateral breast implants removed in 2017. There are scattered areas of fibroglandular density. There is no dominant mass, micro calcific cluster or architectural distortion that would indicate malignancy. There are no additional findings on 3D tomosynthesiss. There is no change from the prior study. Impression: BIRADS/ACR category 1 mammogram. Negative. Recommendation: Routine annual screening mammography. This mammogram was interpreted with the aid of a FDA approved computer-aided detection system. A. Negative mammogram reports should not delay biopsy if a dominant or clinically suspicious mass is present. B. Not all breast cancers are identified by mammography or tomosynthesis. C. Adenosis and dense breasts may obscure an underlying neoplasm. Patient letter M1. Electronically Signed by Jose Handy MD 04/28/2019 03:20 P
== END ==
LOC: M WHC 13:38
PROVIDERS: ATTEND Family Medicine
DX: Z01.411 Encounter for gynecological examination (general) (routine) with abnormal findings (principal); Z12.31 Encounter for screening mammogram for malignant neoplasm of breast
CPT/HCPCS: 77063; 77067; G0101; G0123; G0463

== ENCOUNTER → 2019-07-10 | Outpatient (REF) | payer MEDICARE, OTHER ==
[2019-07-10 11:20] LABS: ALBUMIN 3.8 GM/DL (3.2-5.2); ALT/SGPT 19 U/L (12-78); BILIRUBIN,TOTAL 0.5 MG/DL (0.2-1.0); BLOOD UREA NITROGEN 19 MG/DL (7-18); CALCIUM LEVEL 9.3 MG/DL (8.8-10.2); CARBON DIOXIDE LEVEL 27 MEQ/L (21-32); CHLORIDE LEVEL 107 MEQ/L (98-107); FREE T4 1.25 NG/DL (0.76-1.46); GLOMERULAR FILTRATION RATE > 60.0 (>45); GLUCOSE, FASTING 101 MG/DL (70-100); POTASSIUM SERUM 4.5 MEQ/L (3.5-5.1); PTH INTACT 64.9 PG/ML (18.5-88.0); SODIUM LEVEL 141 MEQ/L (136-145); TOTAL 25(OH) VITAMIN D 43.4 NG/ML (30.0-100.0); TOTAL PROTEIN 7.5 GM/DL (6.4-8.2)
[2019-07-10 11:47] LABS: HEMOGLOBIN A1c 5.9 %
== END ==
LOC: M SFHCPLAZ 08:19
PROVIDERS: ATTEND Family Medicine
DX: R73.01 Impaired fasting glucose (principal); E03.9 Hypothyroidism, unspecified; E55.9 Vitamin D deficiency, unspecified

== ENCOUNTER → 2019-09-14 | Outpatient (REF) | payer MEDICARE, OTHER ==
[~2019-09-14] MED LIST changes: -ASPI81TA85 PO; +ASPI81TA86 PO
[2019-09-14 15:38] LABS: FREE T4 1.26 NG/DL (0.76-1.46); THYROID STIMULATING HORMONE 1.54 uIU/ML (0.358-3.740)
== END ==
LOC: M PLALAB 12:32
PROVIDERS: ATTEND Family Medicine
DX: E03.9 Hypothyroidism, unspecified (principal)

== ENCOUNTER → 2019-12-04 | Outpatient (CLI) | payer MEDICARE, OTHER ==
[2019-12-04 16:52] LABS: THYROID STIMULATING HORMONE 1.09 uIU/ML (0.358-3.740)
[2019-12-04 17:41] LABS: TOTAL 25(OH) VITAMIN D 47.9 NG/ML (30.0-100.0)
== END ==
LOC: M PLALAB 13:16
PROVIDERS: ATTEND Internal Medicine Endocrinology, Diabetes & Metabolism
DX: E06.3 Autoimmune thyroiditis (principal); E55.9 Vitamin D deficiency, unspecified; Z79.899 Other long term (current) drug therapy

== ENCOUNTER → 2020-01-15 | Outpatient (REF) | payer OTHER ==
[2020-01-15 18:00] LABS: HEMOGLOBIN A1c 5.5 %
[2020-01-15 18:23] LABS: ALT/SGPT 18 U/L (12-78); BILIRUBIN,TOTAL 0.4 MG/DL (0.2-1.0); BLOOD UREA NITROGEN 13 MG/DL (7-18); C REACTIVE PROTEIN QUANTITATIV 0.46 MG/DL (0.00-0.30); CALCIUM LEVEL 9.4 MG/DL (8.8-10.2); CARBON DIOXIDE LEVEL 30 MEQ/L (21-32); CHLORIDE LEVEL 104 MEQ/L (98-107); CHOLESTEROL LEVEL 230 MG/DL (<200); CHOLESTEROL RISK RATIO 2.839 (<5); CREATININE FOR GFR 0.92 MG/DL (0.55-1.30); FREE T4 1.11 NG/DL (0.76-1.46); GLOMERULAR FILTRATION RATE > 60.0 (>45); GLUCOSE, FASTING 80 MG/DL (70-100); HDL CHOLESTEROL 81 MG/DL (>40); LDL CHOLESTEROL 134 MG/DL (<100); MAGNESIUM LEVEL 2.4 MG/DL (1.8-2.4); NON-HDL-C 149 MG/DL; POTASSIUM SERUM 4.3 MEQ/L (3.5-5.1); SODIUM LEVEL 140 MEQ/L (136-145); TOTAL PROTEIN 7.4 GM/DL (6.4-8.2); TRIGLYCERIDES LEVEL 77 MG/DL (<150)
[2020-01-15 18:25] LABS: CREATININE, URINE 52.2 MG/DL; MALB URINE SIEMENS 5.2 MG/L; MAU/CREAT RATIO 9.9 MCG/MG (0.0-30.0); PTH INTACT 41.2 PG/ML (18.5-88.0)
== END ==
LOC: M PLALAB 14:50
PROVIDERS: ATTEND Family Medicine
DX: R73.01 Impaired fasting glucose (principal); E78.2 Mixed hyperlipidemia; E03.9 Hypothyroidism, unspecified; R00.2 Palpitations; E55.9 Vitamin D deficiency, unspecified

== ENCOUNTER 2020-02-05 11:18 | Emergency (ER) | payer MEDICARE, BC, OTHER ==
[~2020-02-05] VITALS: Ht 170.2 cm; Wt 71.3 kg
[2020-02-05 12:55] LABS: HEMOGLOBIN 13.5 g/dl (12.0-15.5); MEAN CORPUSCULAR HEMOGLOBIN 28.8 pg (27.0-33.0); MEAN CORPUSCULAR HGB CONC 32.1 g/dl (32.0-36.5); MEAN CORPUSCULAR VOLUME 89.6 fl (80.0-96.0); PLATELET COUNT, AUTOMATED 262 10^3/uL (150-450); RED BLOOD COUNT 4.69 10^6/uL (4.00-5.40); WHITE BLOOD COUNT 6.6 10^3/uL (4.0-10.0)
[2020-02-05 13:03] LABS: APPEARANCE, URINE CLEAR (CLEAR); BACTERIA, URINE AUTO NEGATIVE (NEGATIVE); BILIRUBIN, URINE AUTO NEGATIVE (NEGATIVE); BLOOD, URINE BLOOD NEGATIVE (NEGATIVE); COLOR, URINE STRAW (YELLOW); GLUCOSE, URINE (UA) AUTO NEGATIVE (NEGATIVE); KETONE, URINE AUTO NEGATIVE (NEGATIVE); LEUKOCYTE ESTERASE, URINE AUTO NEGATIVE (NEGATIVE); NITRITE, URINE AUTO NEGATIVE (NEGATIVE); PROTEIN, URINE AUTO NEGATIVE (NEGATIVE); RBC, URINE AUTO 1 /HPF (0-3); SPECIFIC GRAVITY URINE AUTO 1.005 (1.002-1.035); SQUAMOUS EPITHELIAL CELL UR AU 0 /HPF (0-6); UROBILINOGEN, URINE AUTO 0.2 mg/dL (0.0-2.0); WBC, URINE AUTO 0 /HPF (0-3)
[2020-02-05] MEDS ORDERED: NORCO, ANEXSIA 5/325MG TABLET (HYDROcodone/ACETAMINOPHEN) PO ONE (13:15)
[2020-02-05] MEDS ORDERED: CHLORTHALIDONE 25 MG TAB PO ONE (13:15)
--- NOTE | 2020-02-05 13:16 | REP ---
INDICATION: hypertension. COMPARISON: Comparison radiograph August 29, 2017.. TECHNIQUE: Portable sitting AP chest x-ray. FINDINGS: Monitoring electrodes are seen. The lungs are well inflated and clear. The pleural angles are sharp. Heart size is normal. The thoracic aorta is somewhat tortuous. No significant bony abnormality. Pulmonary vasculature is not increased. IMPRESSION: No active disease. <Electronically signed by Lloyd Curiel > 02/05/20 [id number]
[2020-02-05 13:31] LABS: BLOOD UREA NITROGEN 20 MG/DL (7-18); CALCIUM LEVEL 9.2 MG/DL (8.8-10.2); CARBON DIOXIDE LEVEL 25 MEQ/L (21-32); CHLORIDE LEVEL 109 MEQ/L (98-107); CREATININE FOR GFR 0.83 MG/DL (0.55-1.30); GLOMERULAR FILTRATION RATE > 60.0 (>45); GLUCOSE, FASTING 105 MG/DL (70-100); SODIUM LEVEL 140 MEQ/L (136-145)
[2020-02-05] MEDS ORDERED: NORC1TAB7 PO (14:53)
[2020-02-05] MEDS ORDERED: CHLO125TA PO (14:53)
[2020-02-05 15:16] VITALS: BP 151/81
--- NOTE | 2020-02-06 06:44 | ECGEPIP ---
[facility] - ED Test Date: 2020-02-05 Pat Name: LISE GOMES Department: Room: - Gender: Female [employer] Truck Driver: JUAN JOSE : 1955 Requested By: Lizabeth Jones Order Number: [id number] Reading MD: Ant Holm Measurements Intervals [place] Rate: 59 P: 60 NV: 145 QRS: -35 QRSD: 89 T: -12 QT: 422 QTc: 420 Interpretive Statements SINUS BRADYCARDIA MARKED LEFT AXIS DEVIATION DELAYED R WAVE PROGRESSION INCOMPLETE RBBB NONSPECIFIC ST T WAVE CHANGES CW 08/24/[address] T WAVE CHANGES Electronically Signed on 02-06-2020 6:43:29 EST by Ant Holm
[2020-02-06] MEDS ORDERED: ATEN25TA PO (14:49)
[2020-02-06] MEDS ORDERED: AMOX500C (14:53)
== END 2020-02-05 15:41 | disposition home or self-care (01) ==
LOC: M ED 11:18
DX: I10 Essential (primary) hypertension (principal); R00.1 Bradycardia, unspecified; I48.91 Unspecified atrial fibrillation; G43.909 Migraine, unspecified, not intractable, without status migrainosus; K21.9 Gastro-esophageal reflux disease without esophagitis; K22.70 Barrett's esophagus without dysplasia; Z87.891 Personal history of nicotine dependence; Z98.890 Other specified postprocedural states; Z88.8 Allergy status to other drugs, medicaments and biological substances; Z79.899 Other long term (current) drug therapy; Z79.82 Long term (current) use of aspirin

== ENCOUNTER 2020-02-06 13:58 | Emergency (ER) | payer MEDICARE, BC, OTHER ==
[~2020-02-06] VITALS: Ht 172.7 cm; Wt 69.5 kg
[~2020-02-06 13:58] MED LIST changes: +CHLO125TA PO; +NORC1TAB7 PO
[2020-02-06 14:20] VITALS: BP 144/80
[2020-02-06] MEDS ORDERED: ATEN25TA PO (14:49)
[2020-02-06] MEDS ORDERED: AMOX500C (14:53)
== END 2020-02-06 14:58 | disposition home or self-care (01) ==
LOC: M ED 13:58
DX: I10 Essential (primary) hypertension (principal); R51.9 Headache, unspecified; T46.5X5A Adverse effect of other antihypertensive drugs, initial encounter; E03.9 Hypothyroidism, unspecified; Z87.891 Personal history of nicotine dependence; Z79.899 Other long term (current) drug therapy; Z79.2 Long term (current) use of antibiotics; Z88.8 Allergy status to other drugs, medicaments and biological substances

== ENCOUNTER → 2020-06-23 | Outpatient (REF) | payer MEDICARE, OTHER ==
[~2020-06-23] MED LIST changes: +AMOX500C
[2020-06-23 18:09] LABS: BASO % 0.6 % (0.0-1.0); EOS # 0.1 10^3/uL (0.0-0.5); EOS % 0.9 % (0.0-3.0); HEMATOCRIT 43.9 % (36.0-47.0); HEMOGLOBIN 13.8 g/dl (12.0-15.5); LYMPH # 2.6 10^3/uL (1.5-5.0); LYMPH % 40.7 % (24.0-44.0); MEAN CORPUSCULAR HEMOGLOBIN 28.9 pg (27.0-33.0); MEAN CORPUSCULAR HGB CONC 31.4 g/dl (32.0-36.5); MEAN CORPUSCULAR VOLUME 91.8 fl (80.0-96.0); MONO # 0.5 10^3/uL (0.0-0.8); MONO % 8.2 % (2.0-8.0); NEUTROPHILS # 3.1 10^3/uL (1.5-8.5); NEUTROPHILS % 49.4 % (36.0-66.0); PLATELET COUNT, AUTOMATED 267 10^3/uL (150-450); RED BLOOD COUNT 4.78 10^6/uL (4.00-5.40); WHITE BLOOD COUNT 6.3 10^3/uL (4.0-10.0)
[2020-06-23 18:16] LABS: INR 0.97; PROTHROMBIN TIME 13.1 SECONDS (12.5-14.3)
[2020-06-23 18:17] LABS: PARTIAL THROMBOPLASTIN TIME 27.9 SECONDS (24.2-38.5)
[2020-06-23 18:32] LABS: ALT/SGPT 18 U/L (12-78); BILIRUBIN,TOTAL 0.5 MG/DL (0.2-1.0); BLOOD UREA NITROGEN 15 MG/DL (7-18); CALCIUM LEVEL 9.3 MG/DL (8.8-10.2); CARBON DIOXIDE LEVEL 29 MEQ/L (21-32); CHLORIDE LEVEL 104 MEQ/L (98-107); CREATININE FOR GFR 0.95 MG/DL (0.55-1.30); FREE T4 1.04 NG/DL (0.76-1.46); GLOMERULAR FILTRATION RATE > 60.0 (>45); GLUCOSE, FASTING 87 MG/DL (70-100); POTASSIUM SERUM 4.6 MEQ/L (3.5-5.1); SODIUM LEVEL 140 MEQ/L (136-145); TOTAL PROTEIN 7.6 GM/DL (6.4-8.2)
[2020-06-23 18:38] LABS: HEMOGLOBIN A1c 5.4 %
== END ==
LOC: M SFHCPLAZ 15:39
PROVIDERS: ATTEND Family Medicine
DX: E03.9 Hypothyroidism, unspecified (principal); I10 Essential (primary) hypertension; R73.01 Impaired fasting glucose; I48.0 Paroxysmal atrial fibrillation
CPT/HCPCS: 36415; 80053; 83036; 83525; 84439; 84443; 85025; 85610; 85730; 93005; G0463

== ENCOUNTER → 2020-08-05 | Outpatient (REF) | payer MEDICARE, OTHER | LOC: M SFHCPLAZ 14:57 | PROVIDERS: ATTEND Family Medicine | DX: R19.7 Diarrhea, unspecified (principal) ==

== ENCOUNTER → 2020-09-13 | Outpatient (REF) | payer MEDICARE, OTHER ==
[2020-09-13 18:53] LABS: BACTERIA, URINE AUTO NEGATIVE (NEGATIVE); MUCUS, URINE SMALL (NEGATIVE); RBC, URINE AUTO 1 /HPF (0-3); SQUAMOUS EPITHELIAL CELL UR AU 0 /HPF (0-6); WBC, URINE AUTO 0 /HPF (0-3)
== END ==
LOC: M SMT 17:17
PROVIDERS: ATTEND Specialist
DX: N34.2 Other urethritis (principal)
CPT/HCPCS: 81015; 87086; G0463

== ENCOUNTER → 2020-10-07 | Outpatient (CLI) | payer MEDICARE, OTHER ==
--- NOTE | 2020-10-07 16:36 | REPMRS ---
Patient History The patient states she had a clinical breast exam in September 2020. Patient is postmenopausal. Family history of unknown cancer in father, prostate cancer in brother. Explants from both breasts, 2017. Retro-pectoral silicone gel implants in both breasts, 1990. Took hormonal contraceptives for 5 years. covid vaccine 03/2020 left arm. 04/2020 left arm. Patient states no breast complaints today. Patient has signed MRS History Sheet. Digital Woman Screen Mammo: October 07, 2020 - Exam #: [id number] Bilateral CC and MLO view(s) were taken. Technologist: RT Shai Prior study comparison: April 28, 2019, bilateral digital woman screen mammo performed at [facility]. March 02, 2014, bilateral bilat screen digital mammo, performed at [facility] FINDINGS: There are scattered fibroglandular densities. Screening. Digital screening (2D) mammography was performed bilaterally in the CC and MLO projections. Additionally, breast tomosynthesis (3D mammography) was performed bilaterally in the CC and MLO projections. Todays exam was compared to the prior exam/exams. By history, the patient has no complaints of a palpable breast abnormality or other significant breast complaints. The breasts are unchanged in size and shape. There are no cooper-soft tissue densities or spiculated masses. There is no internal architectural distortion. Once again, stable benign appearing calcifications are seen.There are no suspicious cooper-calcific clusters. Skin thickening or nipple retraction is not present. IMPRESSION: BI-RADS Category 2- Benign Findings. There is no evidence of malignant alteration of the breasts. Followup examination recommended in one year. The Volpara volumetric breast density category is B, there are scattered areas of fibroglandular densities. This mammogram was read with the assistance of Deolan,an FDA approved computer aided detection system for mammography. The lifetime Tyrer-Cuzick score is 5.5 % Negative x-ray reports should not delay surgical consultation if a dominant or clinically suspicious mass is present. Not all breast cancers can be identified by mammography. Therefore, we recommend that you continue to perform regular breast self-examination and physical examination and then promptly contact your physician of any concerns or changes. Adenosis and dense breasts may obscure an underlying neoplasm. Assessment: BI-RADS/ACR category 2 mammogram. Benign Findings. Recommendation Routine screening mammogram of both breasts in 1 year. Electronically Signed By: Fran Blevins DO 10/07/20 5051
== END ==
LOC: M WHC 15:12
PROVIDERS: ATTEND Family Medicine
DX: Z12.31 Encounter for screening mammogram for malignant neoplasm of breast (principal); Z78.0 Asymptomatic menopausal state; Z98.890 Other specified postprocedural states; Z92.0 Personal history of contraception; R92.1 Mammographic calcification found on diagnostic imaging of breast
CPT/HCPCS: 77063; 77067; G0463

== ENCOUNTER → 2020-10-11 | Outpatient (CLI) | payer MEDICARE, BC, OTHER ==
[2020-10-11 13:02] LABS: BASO % 0.7 % (0.0-1.0); EOS % 0.7 % (0.0-3.0); HEMATOCRIT 42.2 % (36.0-47.0); HEMOGLOBIN 13.6 g/dl (12.0-15.5); LYMPH # 2.1 10^3/uL (1.5-5.0); LYMPH % 36.7 % (24.0-44.0); MEAN CORPUSCULAR HEMOGLOBIN 29.1 pg (27.0-33.0); MEAN CORPUSCULAR HGB CONC 32.2 g/dl (32.0-36.5); MEAN CORPUSCULAR VOLUME 90.4 fl (80.0-96.0); MONO # 0.5 10^3/uL (0.0-0.8); NEUTROPHILS % 52.6 % (36.0-66.0); PLATELET COUNT, AUTOMATED 258 10^3/uL (150-450); RED BLOOD COUNT 4.67 10^6/uL (4.00-5.40); WHITE BLOOD COUNT 5.8 10^3/uL (4.0-10.0)
[2020-10-11 13:06] LABS: INR 0.92; PROTHROMBIN TIME 12.7 SECONDS (12.7-14.5)
[2020-10-11 13:07] LABS: PARTIAL THROMBOPLASTIN TIME 27.6 SECONDS (25.9-37.0)
[2020-10-11 13:26] LABS: ALBUMIN 3.7 GM/DL (3.2-5.2); ALT/SGPT 18 U/L (12-78); BILIRUBIN,TOTAL 0.5 MG/DL (0.2-1.0); BLOOD UREA NITROGEN 9 MG/DL (7-18); CALCIUM LEVEL 8.8 MG/DL (8.8-10.2); CARBON DIOXIDE LEVEL 29 MEQ/L (21-32); CHLORIDE LEVEL 107 MEQ/L (98-107); CREATININE FOR GFR 0.79 MG/DL (0.55-1.30); FREE T4 1.19 NG/DL (0.76-1.46); GLOMERULAR FILTRATION RATE > 60.0 (>45); GLUCOSE, FASTING 90 MG/DL (70-100); NT-PRO BNP 75 PG/ML (<125); POTASSIUM SERUM 4.5 MEQ/L (3.5-5.1); SODIUM LEVEL 140 MEQ/L (136-145); TOTAL PROTEIN 7.1 GM/DL (6.4-8.2)
== END ==
LOC: M LAB 10:54
PROVIDERS: ATTEND Family Medicine
DX: Z01.818 Encounter for other preprocedural examination (principal)

== ENCOUNTER 2020-11-04 09:31 | Emergency (ER) | payer MEDICARE, BC, OTHER ==
[~2020-11-04] VITALS: Ht 172.7 cm; Wt 67.4 kg
--- NOTE | 2020-11-04 11:10 | REP ---
INDICATION: trauma. COMPARISON: None. TECHNIQUE: Four views of the left foot are provided. FINDINGS: Four views of the left foot demonstrate overall mild osteopenia. No fracture or subluxation is seen. No opaque foreign body noted. There is a plantar calcaneal spur. IMPRESSION: No fracture seen. Plantar heel spur. Mild diffuse osteopenia. <Electronically signed by Lloyd Curiel > 11/04/20 1522
--- NOTE | 2020-11-04 11:11 | REP ---
INDICATION: trauma COMPARISON: None. TECHNIQUE: Five views left ankle. Study is submitted for interpretation at 11:01 a.m. 11/04/2020. FINDINGS: There is no evidence of acute fracture, dislocation, or intrinsic bone disease.The ankle mortise is anatomic. There is mild inferior calcaneal spurring. There appears to be a joint effusion. IMPRESSION: No fracture or dislocation. Joint effusion. <Electronically signed by Jose Simpson > 11/04/20 4292
[2020-11-04 12:10] VITALS: BP 134/78
== END 2020-11-04 12:11 | disposition home or self-care (01) ==
LOC: M ED 09:31
DX: S93.402A Sprain of unspecified ligament of left ankle, initial encounter (principal); W10.9XXA Fall (on) (from) unspecified stairs and steps, initial encounter; Y92.009 Unspecified place in unspecified non-institutional (private) residence as the place of occurrence of the external cause; Y93.89 Activity, other specified; Y99.8 Other external cause status; K21.9 Gastro-esophageal reflux disease without esophagitis; Z79.890 Hormone replacement therapy; Z79.899 Other long term (current) drug therapy

== ENCOUNTER → 2020-12-07 | Outpatient (CLI) | payer MEDICARE, BC, OTHER ==
[~2020-12-07] MED LIST changes: +ASPI81TA26 PO; +CALC600T61 PO; +COQ-100C5 PO; +D31000TA2 PO; +VITMTA PO; +vitamin b2 PO
--- NOTE | 2020-12-07 16:20 | DEXAMM ---
INDICATION: MODERATE OSTEOPENIA. COMPARISON: December 05, 2018 . TECHNIQUE: Bone density was measured using dual-energy x-ray absorptionmetry (DEXA). FINDINGS: AP SPINE L1-L4 BMD 0.970 g/cm2 Young Adult T-Score -1.8 Age Matched Z-Score -0.2. LT FEMUR, TOTAL BMD 0.930 g/cm2 Young Adult T-Score -0.6 Age Matched Z-Score is 0.7. LT NECK BMD 0.851 g/cm2 Young Adult T-Score -1.3 Age Matched Z-Score 0.2. RT FEMUR, TOTAL BMD 0.954 g/cm2 Young Adult T-Score -0.4 Age Matched Z-Score 0.9. RT NECK BMD 0.863 g/cm2 Young Adult T-Score -1.3 Age Matched Z-Score 0.3. IMPRESSION: There is low bone density of the spine. There is low bone density of the left hip. There is low bone density of the right hip. The density of the spine has decreased 21.0% since the initial exam on August 25 2002. The density of the spine decreased 2.9% since the most recent exam on December 05, 2018. The density of the left hip has decreased 12.1% since the initial exam on August 25, 2002. The density of the left hip has decreased 2.0% since the most recent exam on December 05, 2018. The density of the right hip has decreased 1.6% since the initial exam on November 25, 2014. The density of the right hip has decreased 3.0% since the most recent exam on December 05, 2018. FOLLOW-UP: Recommendation for the next bone density exam: 2 years. <Electronically signed by Lloyd Curiel > 12/07/20 4693
== END ==
LOC: M WHC 14:00
PROVIDERS: ATTEND Family Medicine
DX: M85.80 Other specified disorders of bone density and structure, unspecified site (principal); Z78.0 Asymptomatic menopausal state

== ENCOUNTER → 2020-12-16 | Outpatient (CLI) | payer MEDICARE, BC, OTHER ==
[2020-12-16 16:24] LABS: CALCIUM LEVEL 8.9 MG/DL (8.8-10.2); THYROID STIMULATING HORMONE 2.08 uIU/ML (0.358-3.740); TOTAL 25(OH) VITAMIN D 56.8 NG/ML (30.0-100.0)
== END ==
LOC: M PLALAB 14:39
PROVIDERS: ATTEND Nurse Practitioner Family
DX: E06.3 Autoimmune thyroiditis (principal); M85.89 Other specified disorders of bone density and structure, multiple sites; E55.9 Vitamin D deficiency, unspecified

== ENCOUNTER → 2020-12-16 | Outpatient (CLI) | payer MEDICARE, BC, OTHER ==
[2020-12-16 17:27] LABS: BASO # 0.1 10^3/uL (0.0-0.2); BASO % 0.7 % (0.0-1.0); EOS # 0.1 10^3/uL (0.0-0.5); EOS % 1.9 % (0.0-3.0); HEMATOCRIT 40.5 % (36.0-47.0); HEMOGLOBIN 13.1 g/dl (12.0-15.5); LYMPH # 2.6 10^3/uL (1.5-5.0); LYMPH % 35.7 % (24.0-44.0); MEAN CORPUSCULAR HEMOGLOBIN 29.5 pg (27.0-33.0); MEAN CORPUSCULAR HGB CONC 32.3 g/dl (32.0-36.5); MEAN CORPUSCULAR VOLUME 91.2 fl (80.0-96.0); MONO # 0.6 10^3/uL (0.0-0.8); MONO % 8.3 % (2.0-8.0); NEUTROPHILS # 3.9 10^3/uL (1.5-8.5); NEUTROPHILS % 53.3 % (36.0-66.0); PLATELET COUNT, AUTOMATED 228 10^3/uL (150-450); RED BLOOD COUNT 4.44 10^6/uL (4.00-5.40); WHITE BLOOD COUNT 7.3 10^3/uL (4.0-10.0)
[2020-12-16 17:52] LABS: ERYTHROCYTE SEDIMENTATION RATE 9 mm/hr (0-30)
[2020-12-16 17:56] LABS: ALBUMIN 3.6 GM/DL (3.2-5.2); ALT/SGPT 18 U/L (12-78); BILIRUBIN,TOTAL 0.4 MG/DL (0.2-1.0); BLOOD UREA NITROGEN 13 MG/DL (7-18); CALCIUM LEVEL 8.9 MG/DL (8.8-10.2); CARBON DIOXIDE LEVEL 30 MEQ/L (21-32); CHLORIDE LEVEL 108 MEQ/L (98-107); CREATININE FOR GFR 0.82 MG/DL (0.55-1.30); GLOMERULAR FILTRATION RATE > 60.0 (>45); GLUCOSE, FASTING 95 MG/DL (70-100); POTASSIUM SERUM 3.8 MEQ/L (3.5-5.1); RHEUMATOID FACTOR QUANT < 10.0 IU/ML (<15.0); SODIUM LEVEL 141 MEQ/L (136-145); TOTAL PROTEIN 7.1 GM/DL (6.4-8.2)
[2020-12-16 17:58] LABS: TOTAL 25(OH) VITAMIN D 48.5 NG/ML (30.0-100.0)
== END ==
LOC: M PLALAB 15:09
PROVIDERS: ATTEND Psychiatry & Neurology Neurology
DX: R51.9 Headache, unspecified (principal); Z79.899 Other long term (current) drug therapy

== ENCOUNTER → 2020-12-17 | Outpatient (CLI) | payer MEDICARE, BC, OTHER | LOC: M LABSMTC 10:52 | PROVIDERS: ATTEND Anesthesiology | DX: Z01.818 Encounter for other preprocedural examination (principal); Z11.52 Encounter for screening for COVID-19 ==

== ENCOUNTER 2020-12-22 07:01 | Day surgery (SDC) | payer MEDICARE, BC, OTHER ==
[~2020-12-22] VITALS: Ht 170.2 cm; Wt 66.7 kg
[~2020-12-22 07:01] MED LIST changes: +NS 1,000 ML IV ONE
--- OUTSIDE RECORDS SUMMARY | 2020-12-22 07:06 | CCD ---
Author Author [facility] Organization [facility] Address Unknown Phone Unavailable Care Team Providers Care Gluer Machine Operator Name Role Phone Pillo Garcia Unavailable PROBLEMS Type Condition ICD9-CM Code IZR83-EC Code Onset Dates Condition S tatus W/U Status Risk SNOMED Code Notes Problem Hypothyroidism, unspecified E03.9 Active confirmed 57572403 Problem Vitamin D deficiency, unspecified E55.9 Active con firmed 11740693 Problem Diverticulitis of large inte emile without perforation or abscess without bleeding K57.32 Active confirmed 279386318 Problem Insomnia G47.00 Active confirmed 156616158 Problem IFG (impaired fasting glucose) R73.01 Active confir med 463934032 Problem Gastro-esophageal reflux disease without esophagitis K21.9 Active confirmed 414042504 Problem Paroxysmal atrial fibrillation I48.0 Active confir med 613381871 Problem Breast cancer screening Z12.39 Active confirmed 691577690 Problem Moderate osteopenia M85.80 Active confirmed 66313189 Problem DJD (degenerative joint disease), cervical M50.30 Active confirmed 57778115 Problem Essential hypertension I10 Active confirmed 17378755 Problem Palpitations R00.2 Active confirmed 1170898 2 Problem Spondylosis of lumbar region without myelopathy or radiculopathy M47.816 Active confirmed 64152270 Problem 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 Pearl howell Problem Non-seasonal allergic rhinitis, unspecified trigger J30.89 Active confirmed 35328272 Problem Colon cancer screening Z12.11 Active confirmed 065348968 ALLERGIES Allergen (clinical drug ingredient) Drug/Non Drug Allergy do cumented on EMR Reaction Allergy Type Onset Date Status clindamycin Clindamycin HCl([facility] Code:[address]-88) diarrhea Drug A llergy Active gabapentin Gabapentin([facility] Code:[address]-86) woozy Drug Allergy Active ENCOUNTERS from 1955 to 2020-12-12 Encounter Location Date Provider Diagnosis [facility] [address] [phone] [place] [address] 11 Dec, 2020 Pillo Garcia Insomnia G47.00 IMMUNIZATIONS Vaccine Route Administration Date Status Influenza Pharmacy Given IM Intramuscular Jan 18, 2019 Admini stered SOCIAL HISTORY Tobacco Use: Social History Observation Description Date Details (start date - stop date) Never Smoker Sex Assigned At : Social History Observation Description Sex Assigned At Unknown Language: Question Answer Notes Languages spoken: Gambian Buddhism: Question Answer Notes Buddhism 15 Presbyterian Sexual Hx: Question Answer Notes Had sex in the last 12 months (vaginal, oral, or anal)? No LMP: post menopause Have you ever had an STD? No Alcohol Screening: Question Answer Notes Did you have a drink containing alcohol in the past year? Ye s Points 4 Interpretation Positive How often did you have six or more drinks on one occas ion in the past year? Never (0 points) How many drinks did you have on a typica l day when you were drinking in the past year? 1 or 2 (0 points) How often did you have a drink containing alcohol in t he past year? Four or more times a week (4 points) Tobacco Use: Question Answer Notes Are you a: never smoker REASON FOR REFERRAL No Information VITAL SIGNS No information MEDICATIONS Medication SIG (Take, Route, Frequency, Duration) Notes Start Da te End Date Status Lansoprazole 30 MG 1 capsule Orally every morning for 90 day(s) Active Carvedilol 3.125 MG 1 tablet with food Orally Tw ice a day prn SBP 140 for 30 day(s) Active Magnesium 400 MG 1 tablet with a meal Orally twice a day Active HYDROcodone-Acetaminophen 5-325 MG 1/2 tab Orally BID prn for 7 day(s) Oct, Active Calcium 600 MG 1 tablet with meals Orally once a day Active Famotidine 40 MG 1 tablet at bedtime Orally Twice a day Active Restasis 0.05 % 1 into affected eye Ophthalmic Twice a day Active Aspirin 81 MG 1 tablet Orally 2x weekly Active Penicillin V Potassium 500 MG 1 tablet Orally Twice a day for 3 days Oct, Active Cetirizine HCl 10 MG 1 tablet Orally Daily for 90 day(s) Active Levothyroxine Sodium 112 MCG 1 tablet in the morning o n an empty stomach alternating c 125 mcg Orally Once a day for 90 day(s) Active Vitamin D 2000 UNIT 1 tablet Orally Once a day Active Levothyroxine Sodium 125 MCG TAKE ONE TABLET BY MOUTH EVERY DAY IN THE MORNING ON AN EMPTY STOMACH for 90 Activ e Xanax 0.25 MG 1 tablet Orally prn insomnia for 30 day(s) Dec, Active PROCEDURES No Information RESULTS No Results REASON FOR VISIT Xanax MEDICAL (GENERAL) HISTORY Type Description Date Medical History GERD-status post 3 EGDs-Dece mber 2003-Donald and May 2005 and 5768-Cwhapnbv-[place] 2008 showing hyperplastic fundic polyps and negative stomach biopsy, patient never with Barber's/02/2018 EGD-gastritis but -biopsy-[facility] Medical History hypothyroidism Medical History vitamin D deficiency Medical History impaired fasting glucose Medical History history of aura sensation-2009 negative MRI of the brain and workup by Dr. Khan Medical History history of hoarseness-Septem [address] Veliz showing hypertrophy of the nasal turbinates and deviated septum Medical History bilateral lower extremity ve nous insufficiency s/p R LE venous stripping/09/2011 negative RLE DVT US Medical History paroxysmal, atrial fibrillat ion with rapid ventricular rate requiring cardioversion-03/29/02, 08/23/16//Abdirahman referred to Dr. 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 Staton 06/2016 Medical History ocular migraine s headache Medical History bilateral CTS-established c HE for WC Medical History -PenPen and Pen G and amox po challenge- 07/2017 Dr. Sanchez Medical History ho L trochanteric burisitis Medical History ho L plantar fasciitis Surgical History colonoscopy-sigmoid divertic ulosis, hemorrhoids-Donald/06/[id number]-mpjc-Djcpdnrv 01/2005, 2012 Surgical History Cystoscopy 08/24/13 Surgical History facial lift c implants-Dr. Brooke-[facility] use 2011 Surgical History breast implants removed- Dr. Brooke 201 7 Surgical History colon resection-Dr. Sanderson-[place] 07/02 08/19 Surgical History vdgllzwrm-Hdlhczem-zzggzs-[facility] 02/06/18 Hospitalization History Childbirth Hospitalization History colon resection Goals Section No Information Health Concerns No Information MEDICAL EQUIPMENT No Information MENTAL STATUS No Information FUNCTIONAL STATUS No Information ASSESSMENTS Encounter Date Diagnosis Assessment Notes Treatment Notes Treatm ent Clinical Notes Dec, Insomnia (ICD-10 - G47.00) PLAN OF TREATMENT Medication Medication Name Sig Start Date Stop Date Calcium 600 MG 1 tablet with meals Orally once a day Vitamin D 2000 UNIT 1 tablet Orally Once a day HYDROcodone-Acetaminophen 5-325 MG 1/2 tab Orally BID prn fo r 7 day(s) Oct, Magnesium 400 MG 1 tablet with a meal Orally twice a day Famotidine 40 MG 1 tablet at bedtime Orally Twice a day Lansoprazole 30 MG 1 capsule Orally every morning for 90 day(s) Aspirin 81 MG 1 tablet Orally 2x weekly Carvedilol 3.125 MG 1 tablet with food Orally Tw ice a day prn SBP 140 for 30 day(s) Cetirizine HCl 10 MG 1 tablet Orally Daily for 90 day(s) Levothyroxine Sodium 125 MCG TAKE ONE TABLET BY MOUTH EVERY DAY IN THE MORNING ON AN EMPTY STOMACH for 90 Levothyroxine Sodium 112 MCG 1 tablet in the morning o n an empty stomach alternating c 125 mcg Orally Once a day for 90 day(s) Xanax 0.25 MG 1 tablet Orally prn insomnia for 30 day(s) 11 Oc 2020 Penicillin V Potassium 500 MG 1 tablet Orally Twice a day fo r 3 days 30 Oct, 2020 Insurance Providers Payer Name Payer Address Payer Phone Insured Name Patient Relati onship to Insured Coverage Start Date Coverage End Date [facility] [address] [facility] [id number] LISE GOMES MEDICARE Part A and B [address] [facility] [phone] LISE GOMES
--- OUTSIDE RECORDS SUMMARY | 2020-12-22 07:06 | CCD | Continuity of Care Document ---
Author Author Debbie LONGORIA MD Organization Unknown Address [address] [place] [address] Phone [phone] Care Team Providers Care Household Appliance Installer Name Role Phone Daniel House M.D. AUTM Anton Lance ([place]) AUTM [phone] Problems Active Problems Provider Date Disorder of ear Jillian L Page DO Onset: 11/18/2015 Otalgia Jillian L Page DO Onset: 11/18/2015 Allergic rhinitis Jillian L Page DO Onset: 11/18/2015 Ptosis of eyelid Jillian L Page DO Onset: 11/18/2015 Difficulty speaking Jillian L Page DO Onset: 11/18/2015 Deviated nasal septum Jillian L Page DO Onset: 11/18/2015 Gastroesophageal reflux disease Jillian L Page DO Onset: 0 11/18/2015 Hypertrophy of nasal turbinates Ijllian L Page DO Onset: 0 11/18/2015 Dizziness and giddiness Zacarias Longoria MD Onset: 6 Labyrinthitis, unspecified ear Zacarias Longoria MD Onset: Sensorineural hearing loss, bilateral Zacarias Longoria MD On set: 07/02/2017 Sore throat symptom GERARD Tim Onset: 01/07/2018 Social History Type Date Description Comments Sex Unknown Tobacco Use Start: Unknown End: Unknown Quit ETOH Use Currently consumes alcohol 3-5 G LASSES OF WINE PER WEEK Recreational Drug Use Denies Drug Use Tobacco Use Start: Unknown End: Unknown Patient is a former smoker 1 PPD ON AND OFF FOR 25 YEARS QUIT 1994 Allergies, Adverse Reactions, Alerts Description No Known Drug Allergies Medications Active Medications SIG Qnty Indications Ordering Provide r Date Levothyroxine Sodium 112mcg 1 qod alternating with 125 mcg qod Unknown Restasis 0.05% Emulsion twice a day Unknown Calcium 500mg Tablets qd Unknown Lansoprazole 30mg Tablets Dispers 1 by mouth every day Unknown Magnesium Oxide 400mg Tablets take 1 tab by mouth 2 X daily. Unknown Fiber Capsules 1 bid Unknown Vitamin D3 50mcg (1999 [place]) Capsule s 1 Tab every day Unknown Xanax 0.25mg Tablets 1 by mouth q4h/prn/anxiety Unknown Pepcid 20mg Tablets 1 by mout h a day Unknown Aspirin Ec Low Dose 81mg Tablets D R 2 a week Unknown Immunizations Description No Information Available Vital Signs Date Vital Result Comment 10/03/2020 2:01pm BP Systolic 125 mmHg BP Diastolic 72 mmHg Body Temperature 98.4 F Height 67 inches 5'7" Weight 149.38 lb BMI (Body Mass Index) 23.4 kg/m2 [place] Body Weight 135 lb Weight 67.757 kg BSA (Body Surface Area) 1.79 m2 06/03/2020 1:20pm Height 67 inches 5'7" Weight 153.00 lb BMI (Body Mass Index) 24.0 kg/m2 [place] Body Weight 135 lb Weight 69.401 kg BSA (Body Surface Area) 1.80 m2 Results Description No Information Available Procedures Date Code Description Status 10/03/2020 32850 Office/Outpatient Established Mo d MDM 30-39 Min Completed 10/03/2020 23900 Office/Outpatient Established SF MDM 10-19 Min Completed 06/03/2020 07860 Office/Outpatient Established SF MDM 10-19 Min Completed Medical Devices Description No Information Available Encounters Type Date Location Provider Dx Diagnosis Office Visit 10/03/2020 1:45p [facility] TERESA Smith Z12.11 Encounter for screening for malignant ne oplasm of colon K57.30 Dvrtclos of lg int w/o perfo ration or abscess w/o bleeding K29.70 Gastritis, unspecified, with out bleeding Office Visit 10/03/2020 2:20p [facility] Zacarias Longoria MD K21.9 Gastro-esophageal reflux disease without esophagitis Office Visit 06/03/2020 1:10p [facility] Zacarias Longoria MD K21.9 Gastro-esophageal reflux disease without esophagitis Assessments Date Code Description Provider 10/03/2020 K21.9 Gastro-esophageal reflux disease without esophagitis Zacarias Longoria MD 10/03/2020 Z12.11 Encounter for screening for keny gnant neoplasm of colon TERESA Mclaughlin 10/03/2020 K57.30 Diverticulosis of la rge intestine without perforation or abscess without bleeding TERESA Mclaughlin 10/03/2020 K29.70 Gastritis, unspecified, without bleeding TERESA Mclaughlin 06/03/2020 K21.9 Gastro-esophageal reflux disease without esophagitis Zacarias Longoria MD Plan of Treatment Future Appointment(s):* 01/03/2021 1:30 pm - Zacarias Longoria MD at [facility] 10/03/2020 - Zacarias Longoria MD* K21.9 Gastro-esophageal reflux disease without esophagitis Functional Status Description No Information Available Mental Status Description No Information Available Referrals Description No Information Available
--- OUTSIDE RECORDS SUMMARY | 2020-12-22 07:06 | CCD ---
Author Author [facility] Organization [facility] Address Unknown Phone Unavailable Care Team Providers Care Supervisor Decorating Name Role Phone Pillo Garcia Unavailable PROBLEMS Type Condition ICD9-CM Code ATT04-PV Code Onset Dates Condition S tatus W/U Status Risk SNOMED Code Notes Problem Hypothyroidism, unspecified E03.9 Active confirmed 23715838 Problem Vitamin D deficiency, unspecified E55.9 Active con firmed 42956351 Problem Diverticulitis of large inte emile without perforation or abscess without bleeding K57.32 Active confirmed 736761410 Problem Insomnia G47.00 Active confirmed 706226294 Problem IFG (impaired fasting glucose) R73.01 Active confir med 535916267 Problem Gastro-esophageal reflux disease without esophagitis K21.9 Active confirmed 654797293 Problem Paroxysmal atrial fibrillation I48.0 Active confir med 150242052 Problem Breast cancer screening Z12.39 Active confirmed 218389607 Problem Moderate osteopenia M85.80 Active confirmed 82344328 Problem DJD (degenerative joint disease), cervical M50.30 Active confirmed 84648059 Problem Essential hypertension I10 Active confirmed 06735417 Problem Palpitations R00.2 Active confirmed 0720884 2 Problem Spondylosis of lumbar region without myelopathy or radiculopathy M47.816 Active confirmed 27861112 Problem Migraine aura without headache G43.109 Active confi rmed 351250131 Problem Mixed hyperlipidemia E78.2 Active confirmed 728483566 Problem Impaired fasting glucose R73.01 Active confirmed 266701734 Problem Bilateral carpal tunnel syndrome G56.03 Active confirmed 07324728876288025 She will schedule her surgery with Dr. Pearl howell Problem Non-seasonal allergic rhinitis, unspecified trigger J30.89 Active confirmed 15600025 Problem Colon cancer screening Z12.11 Active confirmed 275594207 ALLERGIES Allergen (clinical drug ingredient) Drug/Non Drug Allergy do cumented on EMR Reaction Allergy Type Onset Date Status clindamycin Clindamycin HCl([facility] Code:[address]-71) diarrhea Drug A llergy Active gabapentin Gabapentin([facility] Code:[address]-04) woozy Drug Allergy Active ENCOUNTERS from 1955 to 2020-12-12 Encounter Location Date Provider Diagnosis [facility] [address] [phone] [place] [address] 11 Dec, 2020 Pillo Garcia IMMUNIZATIONS Vaccine Route Administration Date Status Influenza Pharmacy Given IM Intramuscular Jan 18, 2019 Admini stered SOCIAL HISTORY Tobacco Use: Social History Observation Description Date Details (start date - stop date) Never Smoker Sex Assigned At : Social History Observation Description Sex Assigned At Unknown Language: Question Answer Notes Languages spoken: Vietnamese Christian: Question Answer Notes Christian 15 Presbyterian Sexual Hx: Question Answer Notes [...] Information RESULTS No Results REASON FOR VISIT PS---MRI results MEDICAL (GENERAL) HISTORY Type Description Date Medical History GERD-status post 3 EGDs-Dece mber 2003-Donald and May 2005 and 4877-Drjlbfmm-[place] 2008 showing hyperplastic fundic polyps and negative stomach biopsy, patient never with Barber's/02/2018 EGD-gastritis but -biopsy-[facility] Medical History hypothyroidism Medical History vitamin D deficiency Medical History impaired fasting glucose Medical History history of aura sensation-2009 negative MRI of the brain and workup by Dr. Khan Medical History history of hoarseness-[address] Veliz showing hypertrophy of [...] R flank pain onset 05/2013- normal cystoscopy- [place]/11/09/2013 CT A/P s/c normal Medical History lumbar [...] plantar fasciitis Surgical History colonoscopy-sigmoid divertic ulosis, hemorrhoids-Donald/06/[id number]-gewz-[facility] 01/2005, 2012 Surgical History Cystoscopy 08/24/13 Surgical History facial lift c implants-Dr. Brooke-[place] use 2011 Surgical History breast implants removed- Dr. Brooke 201 7 Surgical History colon resection-Dr. Sanderson-[facility] 07/02 08/19 Surgical History ippydcmjh-Sunphyoo-qgjbut-[facility] 02/06/18 Hospitalization History Childbirth Hospitalization History colon resection Goals Section No Information Health Concerns No Information MEDICAL EQUIPMENT No Information MENTAL STATUS No Information FUNCTIONAL STATUS No Information ASSESSMENTS No Information PLAN OF TREATMENT Medication Medication Name Sig [...] Twice a day fo r 3 days Oct, Insurance Providers Payer Name Payer Address Payer Phone Insured Name Patient Relati onship to Insured Coverage Start Date Coverage End Date MEDICARE Part A and B [address] [facility] [phone] LISE GOMES [place] [address] [facility] [id number] LISE GOMES
--- OUTSIDE RECORDS SUMMARY | 2020-12-22 07:06 | CCD ---
Author Author [facility] Organization [facility] Address Unknown Phone Unavailable Care Team Providers Care Incinerator Attendant Name Role Phone Li Rosenbaum Unavailable PROBLEMS Type Condition ICD9-CM Code EUE25-QH Code Onset Dates Condition S tatus W/U Status Risk SNOMED Code Notes Problem Hypothyroidism, unspecified E03.9 Active confirmed 00495165 Problem Vitamin D deficiency, unspecified E55.9 Active con firmed 73930707 Problem Diverticulitis of large inte emile without perforation or abscess without bleeding K57.32 Active confirmed 569927082 Problem Insomnia G47.00 Active confirmed 916959371 Problem IFG (impaired fasting glucose) R73.01 Active confir med 944881675 Problem Gastro-esophageal reflux disease without esophagitis K21.9 Active confirmed 322230113 Problem Paroxysmal atrial fibrillation I48.0 Active confir med 884747715 Problem Breast cancer screening Z12.39 Active confirmed 860566895 Problem Moderate osteopenia M85.80 Active confirmed 96350566 Problem DJD (degenerative joint disease), cervical M50.30 Active confirmed 21842381 Problem Essential hypertension I10 Active confirmed 01203061 Problem Palpitations R00.2 Active confirmed 2334648 2 Problem Spondylosis of lumbar region without myelopathy or radiculopathy M47.816 Active confirmed 45253901 Problem Migraine aura without headache G43.109 Active confi rmed 848757370 Problem Mixed hyperlipidemia E78.2 Active confirmed 386231002 Problem Impaired fasting glucose R73.01 Active confirmed 946244084 Problem Bilateral carpal tunnel syndrome G56.03 Active confirmed [id number] She will schedule her surgery with Dr. Pearl howell Problem Non-seasonal allergic rhinitis, unspecified trigger J30.89 Active confirmed 80112449 Problem Colon cancer screening Z12.11 Active confirmed 887599426 ALLERGIES Allergen (clinical drug ingredient) Drug/Non Drug Allergy do cumented on EMR Reaction Allergy Type Onset Date Status clindamycin Clindamycin HCl([facility] Code:[address]-86) diarrhea Drug A llergy Active gabapentin Gabapentin([facility] Code:[address]-01) woozy Drug Allergy Active ENCOUNTERS from 1955 to 2020-10-29 Encounter Location Date Provider Diagnosis [facility] [address] [facility] [phone] [place] [address] Oct, [facility] Rosenbaum Gynecologic exam nor mal Z01.419 IMMUNIZATIONS Vaccine Route Administration Date Status Influenza Pharmacy Given IM Intramuscular Jan 18, 2019 Admini stered SOCIAL HISTORY Tobacco Use: Social History Observation Description Date Details (start date - stop date) Never Smoker Sex Assigned At : Social History Observation Description Sex Assigned At Unknown Language: Question Answer Notes Languages spoken: Panamanian Episcopal: Question Answer Notes Episcopal 15 Presbyterian Sexual Hx: Question Answer Notes [...] REASON FOR REFERRAL No Information VITAL SIGNS Weight 146.6 lbs Oct, Height 68 in Oct, BMI 22.29 kg/m2 Oct, Blood pressure systolic 122 mm Hg Oct, Blood pressure diastolic 70 mm Hg Oct, MEDICATIONS Medication SIG (Take, Route, Frequency, Duration) [...] MG 1 tablet Orally 2x weekly Active Levothyroxine Sodium 112 MCG 1 tablet in the morning o n an empty stomach alternating c 125 mcg Orally Once a day for 90 day(s) Active Cetirizine HCl 10 MG 1 tablet Orally Daily for 90 day(s) Active Xanax 0.25 MG 1 tablet Orally prn insomnia for 30 day(s) 1 Oct, Active Vitamin D 2000 UNIT 1 tablet Orally Once a day Active Levothyroxine Sodium 125 MCG TAKE ONE TABLET BY MOUTH EVERY DAY IN THE MORNING ON AN EMPTY STOMACH for 90 Activ e PROCEDURES No Information RESULTS No Results REASON FOR VISIT ANNUAL/MAMMO MEDICAL (GENERAL) HISTORY Type Description Date Medical History GERD-status post 3 EGDs-Dece mber 2003-Donald and May 2005 and 7999-Fnyvqrwl-Bihgf 2008 showing hyperplastic fundic polyps and negative stomach biopsy, patient never with Barber's/02/2018 EGD-gastritis but -biopsy-[facility] Medical History hypothyroidism Medical History vitamin D deficiency Medical History impaired fasting glucose Medical History history of aura sensation-2009 negative MRI of the brain and workup by Dr. Khan Medical History history of hoarseness-Septem sierra [address] Veliz showing hypertrophy [...] plantar fasciitis Surgical History colonoscopy-sigmoid divertic ulosis, hemorrhoids-Donald/06/[id number]-Sdzrkntz 01/2005, 2012 Surgical History Cystoscopy 08/24/13 Surgical History facial lift c implants-Dr. Brooke-[place] use 2011 Surgical History breast implants removed- Dr. Brooke 201 7 Surgical History colon resection-Dr. Sanderson-[place] 07/02 08/19 Surgical History brwazobat-Etmcrzvr-quioan-[facility] 02/06/18 Hospitalization History Childbirth Hospitalization History colon resection Goals Section No Information Health Concerns No Information MEDICAL EQUIPMENT No Information MENTAL STATUS No Information FUNCTIONAL STATUS No Information ASSESSMENTS Encounter Date Diagnosis Assessment Notes Treatment Notes Treatm ent Clinical Notes Oct, Gynecologic exam normal (ICD-10 - Z01.419) PLAN OF TREATMENT Medication Medication Name Sig Start Date Stop Date Calcium 600 MG 1 tablet with meals Orally once a day Vitamin D 2000 UNIT 1 tablet Orally Once a day HYDROcodone-Acetaminophen 5-325 MG 1/2 tab Orally BID prn fo r 7 day(s) Oct, Xanax 0.25 MG 1 tablet Orally prn insomnia for 30 day(s) 2020 Magnesium 400 MG 1 tablet with a meal Orally twice a day Levothyroxine Sodium 112 MCG 1 tablet in the morning o n an empty stomach alternating c 125 mcg Orally Once a day for 90 day(s) Famotidine 40 MG 1 tablet at bedtime [...] MORNING ON AN EMPTY STOMACH for 90 Next Appt Details prn Reason: Provider Name:Pillo Garcia, 2020-12-05 0 1:00:00 PM, [address] [facility], , [place], [address], Insurance Providers Payer Name Payer Address Payer Phone Insured Name Patient Relati onship to Insured Coverage Start Date Coverage End Date MEDICARE Part A and B [address] [facility] [id number] LISE GOMES [facility] [address] [facility] [id number] LISE GOMES
--- OUTSIDE RECORDS SUMMARY | 2020-12-22 07:06 | CCD | Continuity of Care Document ---
Author Author Debbie JOHANSEN SALES ADMINISTRATION MANAGER Organization Unknown Address [address] [place] [address] Phone [phone] Care Team Providers Care Overlock Hemmer Name Role Phone Pillo Garcia MD AUT [phone] Problems Active Problems Provider Date Sameera thyroiditis SHELBY Mcgarry Onset: 11/11/19 11 Osteochondropathy SHELBY Mcgarry Onset: 11/10/2010 Vitamin D deficiency SHELBY Mcgarry Onset: 1 Alopecia Poonam Joyner PA-C Onset: 2013 Social History Type Date Description Comments Sex Unknown Cigarette Use Stopped smoking at age 38. Etoh occasional. Tobacco Use Start: Unknown End: Unknown Patient is a former smoker Smoking Status Reviewed: 12/07/19 Patient is a former smoker Allergies and adverse reactions Active Allergies Criticality Reaction | Severity Comments Date Ampicillin Unable to assess criticality hives 09/25/2010 Medications Active Medications SIG Qnty Indications Ordering Provide r Date Calcium 600+D 033-952ty-Lavg Table ts 1 po bid SHELBY Mcgarry [address] 1 p o qd Unknown Restasis 0.05% Emulsion gtt twice a day in ea eye Unknown Multivitamins Capsules 1 po qd Unknown Levothyroxine Sodium 125mcg Tablet s 1 by mouth every other day Unknown Magnesium 400mg Tablets 1 po bid Unknown Levothyroxine Sodium 112mcg Tablet s 1 by mouth every other day Unknown Pepcid 20mg Tablets 1 po qd Unknown Vitamin D3 50mcg (2000 Ut) Capsule s 1 tb po qd Unknown Immunizations Description No Information Available Vital Signs Date Vital Result Comment 12/07/2019 12:56pm BP Systolic 138 mmHg BP Diastolic 80 mmHg Heart Rate 68 /min Body Temperature 95.2 F Height 57 inches 4'9" Weight 156.50 lb BMI (Body Mass Index) 33.9 kg/m2 12/18/2018 3:19pm BP Systolic 136 mmHg BP Diastolic 82 mmHg Heart Rate 76 /min Height 57 inches 4'9" Weight 156.38 lb BMI (Body Mass Index) 33.8 kg/m2 O2 % BldC Oximetry 98 % Results Test Acquired Date Facility Test Result H/L Range Note Laboratory test finding [facility] [address] [place] [address] (315)- - Thyroid Stimulating Hormone 2.080 uIU/ML Normal 0.358- 3.740 Total 25(Oh) Vitamin D 56.8 NG/ML Normal 30.0-100.0 Calcium Level 8.9 mg/dL Normal 8.8-10.2 Procedures Description No Information Available Medical Devices Description No Information Available Encounters Description No Information Available Assessments Description No Information Available Plan of Treatment Future Appointment(s):* 12/23/2020 3:30 pm - Kori Johansen NP at DR. Val Luna 12/07/2019 - Kori Johansen NP* E06.3 Autoimmune thyroiditis* Comments:* 07/15/18- TSH= 13.600, FT4= 1.12- during use of Biotin- no changes in dose 07/19/18- TSH= 4.420, FT4= 1.26- off biotin 08/14/18- TSH= 3.300, FT4= 1.06- stable11/2018: tsh= 2.8 FT4= 1.2 Currently on Levothyroxine 112mcg alt 125mcgLabs done 12/04/2019- TSH= 1.090Will continue current txfollow up in one year * Follow up:* one year. CBF after DEXA * E55.9 Vitamin D deficiency, unspecified* Comments:* Currently on Vit D 2000iu plus 800iu with Mzzexbw69/2/2020- Vit D = 47 * M85.89 Other specified disorders of bone density and structure, mul* Comments: * She is currently taking Vitamin D3 and Calcium 600 mg PO daily. Recommend Calcium 600 mg PO BID with food. DEXA done 12/20- osteopenia- stable without any significant changerepeat 2020 Functional Status Description No Information Available Mental Status Description No Information Available Referrals Refer to Reason for Referral Status Appt Date Val Luna MD DEXA SCAN NO AUTH REQUIRED BASED TO [facility] NECESSITY. LS Created [address], [address] [place] [address] [phone]
--- OUTSIDE RECORDS SUMMARY | 2020-12-22 07:06 | CCD ---
Author Author [facility] Organization [facility] Address Unknown Phone Unavailable Care Team Providers Care Director Of Primary Name Role Phone Pillo Garcia Unavailable PROBLEMS Type Condition ICD9-CM Code JFP82-OT Code Onset Dates Condition S tatus W/U Status Risk SNOMED Code Notes Problem Hypothyroidism, unspecified E03.9 Active confirmed 85388727 Problem Vitamin D deficiency, unspecified E55.9 Active con firmed 20680365 Problem Diverticulitis of large inte emile without perforation or abscess without bleeding K57.32 Active confirmed 117187828 Problem Insomnia G47.00 Active confirmed 777608508 Problem IFG (impaired fasting glucose) R73.01 Active confir med 412149838 Problem Gastro-esophageal reflux disease without esophagitis K21.9 Active confirmed 349387766 Problem Paroxysmal atrial fibrillation I48.0 Active confir med 321546784 Problem Breast cancer screening Z12.39 Active confirmed 299832182 Problem Moderate osteopenia M85.80 Active confirmed 75373044 Problem DJD (degenerative joint disease), cervical M50.30 Active confirmed 16480249 Problem Essential hypertension I10 Active confirmed 17777425 Problem Palpitations R00.2 Active confirmed 8649040 2 Problem Spondylosis of lumbar region without myelopathy or radiculopathy M47.816 Active confirmed 36485355 Problem Migraine aura without headache G43.109 Active confi rmed 227819341 Problem Mixed hyperlipidemia E78.2 Active confirmed 432961999 Problem Impaired fasting glucose R73.01 Active confirmed 206502559 Problem Bilateral carpal tunnel syndrome G56.03 Active confirmed 61617380913458067 She will schedule her surgery with Dr. Pearl howell Problem Non-seasonal allergic rhinitis, unspecified trigger J30.89 Active confirmed 12513532 Problem Colon cancer screening Z12.11 Active confirmed 474752421 ALLERGIES Allergen (clinical drug ingredient) Drug/Non Drug Allergy do cumented on EMR Reaction Allergy Type Onset Date Status clindamycin Clindamycin HCl([facility] Code:[address]-57) diarrhea Drug A llergy Active gabapentin Gabapentin([facility] Code:[address]-03) woozy Drug Allergy Active ENCOUNTERS from 1955 to 2020-10-17 Encounter Location Date Provider Diagnosis [facility] [address] [facility] [phone] [place] [address] Oct, Pillo Garcia IMMUNIZATIONS Vaccine Route Administration Date Status Influenza Pharmacy Given IM Intramuscular Jan 18, 2019 Admini stered SOCIAL HISTORY Tobacco Use: Social History Observation Description Date Details (start date - stop date) Never Smoker Sex Assigned At : Social History Observation Description Sex Assigned At Unknown Language: Question Answer Notes Languages spoken: Belarusian Mandaeism: Question Answer Notes Mandaeism 15 Presbyterian Sexual Hx: Question Answer Notes [...] Orally prn insomnia for 30 day(s) 1 3 Oct, 2020 Active Vitamin D 2000 UNIT 1 tablet Orally Once a day Active Levothyroxine Sodium 125 MCG TAKE ONE TABLET BY MOUTH EVERY DAY IN THE MORNING ON AN EMPTY STOMACH for 90 Activ e PROCEDURES No Information RESULTS No Results REASON FOR VISIT One more request MEDICAL (GENERAL) HISTORY Type Description Date Medical History GERD-status post 3 EGDs-Dece mber 2003-Donald and May 2005 and 2685-Uhopgziv-Mnhkg 2008 showing hyperplastic fundic polyps and negative stomach biopsy, patient never with Barber's/02/2018 EGD-gastritis but -biopsy-[facility] Medical History hypothyroidism Medical History vitamin D [...] plantar fasciitis Surgical History colonoscopy-sigmoid divertic ulosis, hemorrhoids-Donald/06/[id number]-Fajqisoa 01/2005, 2012 Surgical History Cystoscopy 08/24/13 Surgical History facial lift c implants-Dr. Brooke-[place] use 2011 Surgical History breast implants removed- Dr. Brooke 7 Surgical History colon resection-Dr. Sanderson-[place] 07/02 08/19 Surgical History vcsbtbfqw-Jqwemzzm-ssskjg-[facility] 02/06/18 Hospitalization History Childbirth Hospitalization History [...] EMPTY STOMACH for 90 Next Appt Details Provider Name:Pillo Garcia, 2020-12-05 0 1:00:00 PM, [address] [facility] [facility], , [place], [address], Insurance Providers Payer Name Payer Address Payer Phone Insured Name Patient Relati onship to Insured Coverage Start Date Coverage End Date [facility] [address] [facility] [id number] LISE GOMES MEDICARE Part A and B [address] [facility] [id number] LISE GOMES
--- OUTSIDE RECORDS SUMMARY | 2020-12-22 07:06 | CCD ---
Author Author [facility] Organization [facility] Address Unknown Phone Unavailable Care Team Providers Care Hydrotechnical Specialist Name Role Phone Pillo Garcia Unavailable PROBLEMS Type Condition ICD9-CM Code DSG48-MA Code Onset Dates Condition S tatus W/U Status Risk SNOMED Code Notes Problem Hypothyroidism, unspecified E03.9 Active confirmed 28006121 Problem Vitamin D deficiency, unspecified E55.9 Active con firmed 26817663 Problem Diverticulitis of large inte emile without perforation or abscess without bleeding K57.32 Active confirmed 226385065 Problem Insomnia G47.00 Active confirmed 013292009 Problem IFG (impaired fasting glucose) R73.01 Active confir med 471800338 Problem Gastro-esophageal reflux disease without esophagitis K21.9 Active confirmed 261317333 Problem Paroxysmal atrial fibrillation I48.0 Active confir med 383953710 Problem Breast cancer screening Z12.39 Active confirmed 956114015 Problem Moderate osteopenia M85.80 Active confirmed 83172471 Problem DJD (degenerative joint disease), cervical M50.30 Active confirmed 47640306 Problem Essential hypertension I10 Active confirmed 93377084 Problem Palpitations R00.2 Active confirmed 9387201 2 Problem Spondylosis of lumbar region without myelopathy or radiculopathy M47.816 Active confirmed 72990864 Problem Migraine aura without headache G43.109 Active confi rmed 150225572 Problem Mixed hyperlipidemia E78.2 Active confirmed 882331296 Problem Impaired fasting glucose R73.01 Active confirmed 863166699 Problem Bilateral carpal tunnel syndrome G56.03 Active confirmed 97740427964682643 She will schedule her surgery with Dr. Pearl howell Problem Non-seasonal allergic rhinitis, unspecified trigger J30.89 Active confirmed 26864320 Problem Colon cancer screening Z12.11 Active confirmed 597348528 ALLERGIES Allergen (clinical drug ingredient) Drug/Non Drug Allergy do cumented on EMR Reaction Allergy Type Onset Date Status clindamycin Clindamycin HCl([facility] Code:[address]-74) diarrhea Drug A llergy Active gabapentin Gabapentin([facility] Code:[address]-35) woozy Drug Allergy Active ENCOUNTERS from 1955 to 2020-10-17 Encounter Location Date Provider Diagnosis [facility] [address] [facility] [phone] [place] [address] Oct, Pillo Garcia IMMUNIZATIONS Vaccine Route Administration Date Status Influenza Pharmacy Given IM Intramuscular Jan 18, 2019 Admini stered SOCIAL HISTORY Tobacco Use: Social History Observation Description Date Details (start date - stop date) Never Smoker Sex Assigned At : Social History Observation Description Sex Assigned At Unknown Language: Question Answer Notes Languages spoken: Polish Advent: Question Answer Notes Advent 15 Presbyterian Sexual Hx: Question Answer Notes [...] Information RESULTS No Results REASON FOR VISIT No Information MEDICAL (GENERAL) HISTORY Type Description Date Medical History GERD-status post 3 EGDs-Dece mber 2003-Donald and May 2005 and 5581-Jfmvptfx-Tkrhh 2008 showing hyperplastic fundic polyps and negative stomach biopsy, patient never with Barber's/02/2018 EGD-gastritis but -[facility]opsy-[facility] Medical History hypothyroidism Medical History vitamin D deficiency Medical History impaired fasting glucose Medical History history of aura sensation-2009 negative MRI of the brain and workup by Dr. Khan Medical History history of hoarseness-Sept[address] Veliz showing hypertrophy of [...] plantar fasciitis Surgical History colonoscopy-sigmoid divertic ulosis, hemorrhoids-Donald/06/[id number]-Dchnbovq 01/2005, 2012 Surgical History Cystoscopy 08/24/13 Surgical History facial lift c implants-Dr. Brooke-[place] use 2011 Surgical History breast implants removed- Dr. Brooke 7 Surgical History colon resection-Dr. Sanderson-[place] 07/02 08/19 Surgical History ogqyxmrvk-Aejiznka-lufblq-[facility] 02/06/18 Hospitalization History Childbirth Hospitalization History [...] Name:Pillo Garcia, 2020-12-05 0 1:00:00 PM, [address] [facility], , [place], [address], Insurance Providers Payer Name Payer Address Payer Phone Insured Name Patient Relati onship to Insured Coverage Start Date Coverage End Date [facility] [address] [facility] [id number] LISE GOMES MEDICARE Part A and B [address] [facility] [id number] LISE GOMES
--- OUTSIDE RECORDS SUMMARY | 2020-12-22 07:06 | CCD | Continuity of Care Document ---
Author Author Debbie [facility] Organization Unknown Address [facility] [place] [address] Phone [phone] Care Team Providers Care Spikemaking Supervisor Name Role Phone Pillo Garcia MD [facility] [phone] Problems Description No Information Available Social History Type Date Description Comments Sex Unknown ETOH Use consumes 2-3 glasses of wine per day Tobacco Use Start: Unknown The patient has never vaped Tobacco Use Start: Unknown End: Unknown Patient is a former smoker Hx of and on for 30 yrs Smoking Status Reviewed: 04/14/20 Patient is a former smoker Hx of and on for 30 yrs Allergies, Adverse Reactions, Alerts Description No Known Drug Allergies Medications Active Medications SIG Qnty Indications Ordering Provide r Date Levothyroxine Sodium 125mcg Capsul es 1 by mouth every day Unknown Restasis 0.05% Emulsion bid Unknown Prevacid 30mg Capsules DR take one (1) daily Unknown Vitamin D (Ergocalciferol) 1.25mg (91783 Ut) Capsules qd Unknown Magnesium 400mg Tablets take one tab per day Unknown Multivitamin Adult Tablets Unknown Pepcid 40mg Tablets 1 by mouth every day Unknown Carvedilol 3.125mg Tablets pr n Unknown Immunizations Description No Information Available Vital Signs Date Vital Result Comment 04/14/2020 1:21pm BP Systolic 168 mmHg manual BP Diastolic 110 mmHg manual Heart Rate 94 /min Respiratory Rate 18 /min O2 % BldC Oximetry 98 % Body Temperature 97.7 F Weight 155.00 lb Height 67 inches 5'7" BMI (Body Mass Index) 24.3 kg/m2 Pain Level 1 04/09/2020 1:20pm BP Systolic 174 mmHg BP recheck 15 0/88 BP Diastolic 110 mmHg BP recheck 150/88 Results Description No Information Available Procedures Description No Information Available Medical Devices Description No Information Available Encounters Description No Information Available Assessments Description No Information Available Plan of Treatment No Information Available Functional Status Description No Information Available Mental Status Description No Information Available Referrals Description No Information Available
--- OUTSIDE RECORDS SUMMARY | 2020-12-22 07:06 | CCD ---
Author Author [facility] Organization [facility] Address Unknown Phone Unavailable Care Team Providers Care Rip Saw Operator Name Role Phone Pillo Garcia Unavailable PROBLEMS Type Condition ICD9-CM Code GAN18-RN Code Onset Dates Condition S tatus W/U Status Risk SNOMED Code Notes Problem Hypothyroidism, unspecified E03.9 Active confirmed 00982180 Problem Vitamin D deficiency, unspecified E55.9 Active con firmed 20679110 Problem Diverticulitis of large inte emile without perforation or abscess without bleeding K57.32 Active confirmed 783177719 Problem Insomnia G47.00 Active confirmed 193094234 Problem IFG (impaired fasting glucose) R73.01 Active confir med 391720961 Problem Gastro-esophageal reflux disease without esophagitis K21.9 Active confirmed 622870943 Problem Paroxysmal atrial fibrillation I48.0 Active confir med 973093404 Problem Breast cancer screening Z12.39 Active confirmed 239521242 Problem Moderate osteopenia M85.80 Active confirmed 38236394 Problem DJD (degenerative joint disease), cervical M50.30 Active confirmed 38124367 Problem Essential hypertension I10 Active confirmed 09700335 Problem Palpitations R00.2 Active confirmed 9372955 2 Problem Spondylosis of lumbar region without myelopathy or radiculopathy M47.816 Active confirmed 73277492 Problem Migraine aura without headache G43.109 Active confi rmed 021077521 Problem Mixed hyperlipidemia E78.2 Active confirmed 067414529 Problem Impaired fasting glucose R73.01 Active confirmed 949125594 Problem Bilateral carpal tunnel syndrome G56.03 Active confirmed [id number] She will schedule her surgery with Dr. Pearl howell Problem Non-seasonal allergic rhinitis, unspecified trigger J30.89 Active confirmed 02428798 Problem Colon cancer screening Z12.11 Active confirmed 677118021 ALLERGIES Allergen (clinical drug ingredient) Drug/Non Drug Allergy do cumented on EMR Reaction Allergy Type Onset Date Status clindamycin Clindamycin HCl([facility] Code:[address]-42) diarrhea Drug A llergy Active gabapentin Gabapentin([facility] Code:[address]-51) woozy Drug Allergy Active ENCOUNTERS from 1955 to 2020-12-21 Encounter Location Date Provider Diagnosis [facility] [address] [phone] [place] [address] Dec, Pillo Garcia IMMUNIZATIONS Vaccine Route Administration Date Status Influenza Pharmacy Given IM Intramuscular Jan 18, 2019 Admini stered SOCIAL HISTORY Tobacco Use: Social History Observation Description Date Details (start date - stop date) Never Smoker Sex Assigned At : Social History Observation Description Sex Assigned At Unknown Language: Question Answer Notes Languages spoken: Welsh Mu-Ism: Question Answer Notes Mu-Ism 15 Presbyterian Sexual Hx: Question Answer Notes [...] Information RESULTS No Results REASON FOR VISIT atenolol MEDICAL (GENERAL) HISTORY Type Description Date Medical History GERD-status post 3 EGDs-Dece mber 2003-Donald and May 2005 and 9571-Njfajzyf-Zyydo 2008 showing hyperplastic fundic polyps and negative [...] plantar fasciitis Surgical History colonoscopy-sigmoid divertic ulosis, hemorrhoids-Donald/06/[id number]-iwwc-Msrcstta 01/2005, 2012 Surgical History Cystoscopy 08/24/13 Surgical History facial lift c implants-Dr. Brooke[place] [place] 2011 Surgical History breast implants removed- Dr. Brooke 7 Surgical History colon resection-Dr. Sand[facility] 07/02 08/19 Surgical History rqihshzmj-Jlmysngq-wcieun-[facility] 02/06/18 Hospitalization History Childbirth Hospitalization History colon [...] a day fo r 3 days Oct, Next Appt Details Provider Name:Pillo Garcia, 2021-01-11 1 1:15:00 AM, [address], , [place], [address], Insurance Providers Payer Name Payer Address Payer Phone Insured Name Patient Relati onship to Insured Coverage Start Date Coverage End Date MEDICARE Part A and B [address] [facility] [address] [phone] LISE GOMES [facility] [address] [facility] [id number] [id number] LISE GOMES
--- OUTSIDE RECORDS SUMMARY | 2020-12-22 07:06 | CCD ---
Author Author [facility] Organization [facility] Address Unknown Phone Unavailable Care Team Providers Care Sample Cutter Name Role Phone Pillo Garcia Unavailable PROBLEMS Type Condition ICD9-CM Code TOS43-EI Code Onset Dates Condition S tatus W/U Status Risk SNOMED Code Notes Problem Hypothyroidism, unspecified E03.9 Active confirmed 74688747 Problem Vitamin D deficiency, unspecified E55.9 Active con firmed 70315684 Problem Diverticulitis of large inte emile without perforation or abscess without bleeding K57.32 Active confirmed 004182763 Problem Insomnia G47.00 Active confirmed 969237735 Problem IFG (impaired fasting glucose) R73.01 Active confir med 057788640 Problem Gastro-esophageal reflux disease without esophagitis K21.9 Active confirmed 172793178 Problem Paroxysmal atrial fibrillation I48.0 Active confir med 823477112 Problem Breast cancer screening Z12.39 Active confirmed 913044640 Problem Moderate osteopenia M85.80 Active confirmed 13565265 Problem DJD (degenerative joint disease), cervical M50.30 Active confirmed 57917673 Problem Essential hypertension I10 Active confirmed 45643303 Problem Palpitations R00.2 Active confirmed 4388820 2 Problem Spondylosis of lumbar region without myelopathy or radiculopathy M47.816 Active confirmed 54550691 Problem Migraine aura without headache G43.109 Active confi rmed 827246541 Problem Mixed hyperlipidemia E78.2 Active confirmed 601465244 Problem Impaired fasting glucose R73.01 Active confirmed 938106025 Problem Bilateral carpal tunnel syndrome G56.03 Active confirmed 13129067126342123 She will schedule her surgery with Dr. Pearl howell Problem Non-seasonal allergic rhinitis, unspecified trigger J30.89 Active confirmed 55658911 Problem Colon cancer screening Z12.11 Active confirmed 080187025 ALLERGIES Allergen (clinical drug ingredient) Drug/Non Drug Allergy do cumented on EMR Reaction Allergy Type Onset Date Status clindamycin Clindamycin HCl([facility] Code:[address]-81) diarrhea Drug A llergy Active gabapentin Gabapentin([facility] Code:[address]-65) woozy Drug Allergy Active ENCOUNTERS from 1955 to 2020-10-31 Encounter Location Date Provider Diagnosis [facility] [address] [facility] [phone] [place] [address] Oct, Pillo Garcia IMMUNIZATIONS Vaccine Route Administration Date Status Influenza Pharmacy Given IM Intramuscular Jan 18, 2019 Admini stered SOCIAL HISTORY Tobacco Use: Social History Observation Description Date Details (start date - stop date) Never Smoker Sex Assigned At : Social History Observation Description Sex Assigned At Unknown Language: Question Answer Notes Languages spoken: Kyrgyz Spiritism: Question Answer Notes Spiritism 15 Presbyterian Sexual Hx: Question Answer Notes [...] AN EMPTY STOMACH for 90 Activ e Penicillin V Potassium 500 MG 1 tablet Orally Twice a day for 10 day(s) Oct, Active PROCEDURES No Information RESULTS No Results REASON FOR VISIT Prescription request MEDICAL (GENERAL) HISTORY Type Description Date Medical History GERD-status post 3 EGDs-Dece mber 2003-Donald and May 2005 and 5122-Cotnyxjq-Pmpvj 2008 showing hyperplastic fundic polyps and negative stomach biopsy, patient never with [facility]/02/2018 EGD-gastritis but -biopsy-[facility] Medical History hypothyroidism Medical History vitamin D deficiency Medical History impaired fasting glucose Medical History history of aura sensation-2009 negative MRI of the brain and workup by Dr. Khan Medical History history of hoarseness-[address] Veliz showing hypertrophy of the nasal turbinates and deviated septum Medical History bilateral lower extremity ve nous insufficiency s/p R LE venous stripping negative RLE DVT US Medical History paroxysmal, [...] plantar fasciitis Surgical History colonoscopy-sigmoid divertic ulosis, hemorrhoids-Donald/06/[id number]-Wjuuwxzh 01/2005, 2012 Surgical History Cystoscopy 08/24/13 Surgical History facial lift c implants-Dr. Brooke[place] 2011 Surgical History breast implants removed- Dr. Brooke 7 Surgical History colon resection-Dr. Sanderson-[place] 07/02 08/19 Surgical History cmajhhuok-Vlsehrru-xuchgs-[facility] 02/06/18 Hospitalization History Childbirth Hospitalization [...] MORNING ON AN EMPTY STOMACH for 90 Xanax 0.25 MG 1 tablet Orally prn insomnia for 30 day(s) 2020 Penicillin V Potassium 500 MG 1 tablet Orally Twice a day fo r 10 day(s) Oct, Levothyroxine Sodium 112 MCG 1 tablet in the morning o n an empty stomach alternating c 125 mcg Orally Once a day for 90 day(s) Next Appt Details Provider Name:Pillo Garcia, 2020-12-05 0 1:00:00 PM, [address] [facility] [facility] [address], , [place], [address], Insurance Providers Payer Name Payer Address Payer Phone Insured Name Patient Relati onship to Insured Coverage Start Date Coverage End Date [facility] [address] [facility] [id number] LISE GOMES MEDICARE Part A and B [address] [facility] [id number] LISE GOMES
--- OUTSIDE RECORDS SUMMARY | 2020-12-22 07:06 | CCD | Continuity of Care Document ---
Author Author Debbie AGARWAL Organization Unknown Address [address] [place] [address] Phone [phone] Care Team Providers Care Bookmobile Clerk Name Role Phone Pillo Garcia M.D. [facility] [phone] Petar Shea M.D. [facility] [phone] Problems Active Problems Provider Date Chronic low back pain Yunior Khan M.D. Onset: 11/04/2014 Lumbosacral radiculopathy Yunior Khan M.D. Onset: 015 Occipital headache Ying Ames M.D. Onset: 06/25/2016 Social History Type Date Description Comments Sex Unknown Tobacco Use Start: Unknown Patient has never smoked Allergies, Adverse Reactions, Alerts Active Allergies Criticality Reaction | Severity Comments Date Ampicillin Unable to assess criticality 11/04/2014 Medications Active Medications SIG Qnty Indications Ordering Provide r Date Vit A/D Cod Liver Oil 4000-200Unit Capsules Yunior Khan M.D. 11/04/2014 Tylenol 8 Hour 650mg Tablets ER Yunior Khan M.D. 11/04/2014 Immunizations Description No Information Available Vital Signs Date Vital Result Comment 06/25/2016 9:38am BP Systolic 140 mmHg BP Diastolic 80 mmHg Heart Rate 76 /min Respiratory Rate 12 /min Height 68 inches 5'8" Weight 150.00 lb BMI (Body Mass Index) 22.8 kg/m2 [place] Body Weight 154 lb 11/04/2014 11:59am BP Systolic 120 mmHg BP Diastolic 80 mmHg Heart Rate 72 /min Height 68 inches 5'8" Weight 150.00 lb BMI (Body Mass Index) 22.8 kg/m2 [place] Body Weight 154 lb Results Description No Information Available Procedures Date Code Description Status 10/24/2020 75992 Office/Outpatient New Moderate M DM 45-59 Minutes Completed Medical Devices Description No Information Available Encounters Type Date Location Provider Dx Diagnosis Office Visit 10/24/2020 12:30p [facility] Luisa Khan M.D. G47.51 Confusional arousals R41.3 Other amnesia H53.8 Other visual disturbances M54.81 Occipital neuralgia Assessments Date Code Description Provider 10/24/2020 G47.51 Confusional arousals Luisa eisenberg M.D. 10/24/2020 R41.3 Other amnesia Shiraz Hernandez 10/24/2020 H53.8 Other visual disturbances Luisa Khan M.D. 10/24/2020 M54.81 Occipital neuralgia Luisa Khan M.D. Plan of Treatment Future Appointment(s):* 12/02/2020 8:15 am - EEG at [facility] * 12/12/2020 9:15 am - Luisa Khan M.D. at [facility] Functional Status Description No Information Available Mental Status Description No Information Available Referrals Description No Information Available
--- OUTSIDE RECORDS SUMMARY | 2020-12-22 07:06 | CCD ---
Continuity of Care Document (CCD) Created on: 10/22/2020 Debbie Ceja External Reference #: [id number] : 1955 Sex: Female Author Author Debbie [facility] Organization Unknown Address [facility] [place] [address] Phone [phone] Care Team Providers Care Patient Services Technician Name Role Phone Pillo Garcia MD [facility] [phone] Problems Description No Information Available Social History [...] (1) daily Unknown Vitamin D (Ergocalciferol) 1.25mg (71602 Ut) Capsules qd Unknown Magnesium 400mg Tablets [...] Available Encounters Description No Information Available Assessments Date Code Description Provider 10/22/2020 Z20.828 Contact with and (santana spected) exposure to other viral communicable diseases TERESA Corcoran Plan of Treatment No Information Available Functional Status Description No Information Available Mental Status Description No Information Available Referrals Description No Information Available
--- OUTSIDE RECORDS SUMMARY | 2020-12-22 07:06 | CCD | Continuity of Care Document ---
Author Author Debbie KHAN M.D. Organization Unknown Address [address] [place] [address] Phone [phone] Care Team Providers Care Lead Electrical Engineer Name Role Phone Pillo Garcia M.D. [facility] [phone] Petar Shea M.D. [facility] [phone] Problems Active Problems Provider Date Chronic low back pain Yunior Khan M.D. Onset: 11/04/2014 Lumbosacral radiculopathy Yunior Khan M.D. Onset: 015 Occipital headache Ying Ames M.D. Onset: 06/25/2016 Social History Type Date Description Comments Sex Unknown Tobacco Use Start: Unknown Patient has never smoked Allergies and adverse reactions Active Allergies Criticality [...] lb BMI (Body Mass Index) 22.8 kg/m2 [place] Body Weight 154 lb 11/04/2014 11:59am BP Systolic 120 mmHg BP Diastolic 80 mmHg Heart Rate 72 /min Height 68 inches 5'8" Weight 150.00 lb BMI (Body Mass Index) 22.8 kg/m2 [place] Body Weight 154 lb Results Description No Information Available Procedures Date Code Description Status 12/02/2020 79411 EEG Recording Awake & Asleep Com pleted 10/24/2020 44992 Office/Outpatient New Moderate M DM 45-59 Minutes Completed 10/24/2020 53930 MRI Brain W/O Contrast Completed 10/24/2020 83133 MRI Brain W/O Contrast Completed 10/24/2020 72226 Magnetic Resonance Angiography N alessandro W/O Contrast Materials Completed 10/24/2020 16922 Magnetic Resonance Angiography N alessandro W/O Contrast Materials Completed 10/24/2020 04699 Magnetic Resonance Angiogtaphy H ead W/O Contrast Material(S) Completed 10/24/2020 49441 Magnetic Resonance Angiogtaphy H ead W/O Contrast Material(S) Completed Medical Devices Description No Information Available Encounters Type Date Location Provider Dx Diagnosis Office Visit 10/24/2020 12:30p Main office - [place] Luisa Khan M.D. G47.51 Confusional arousals R41.3 Other amnesia H53.8 Other visual disturbances M54.81 Occipital neuralgia Assessments Date Code Description Provider 12/02/2020 R41.3 Other amnesia EEG 12/02/2020 G47.51 Confusional arousals EEG 10/24/2020 M54.81 Occipital neuralgia Yunior Khan M.D. 10/24/2020 M54.81 Occipital neuralgia MRI 10/24/2020 R42 Dizziness and giddiness Yunior Lynn M.D. 10/24/2020 R42 Dizziness and giddiness MRI 10/24/2020 G47.51 Confusional arousals Luisa eisenberg M.D. 10/24/2020 R41.3 Other amnesia Shiraz Hernandez 10/24/2020 H53.8 Other visual disturbances Luisa Khan M.D. 10/24/2020 M54.81 Occipital neuralgia Luisa Khan M.D. Plan of Treatment No Information Available Functional Status Description No Information Available Mental Status Description No Information Available Referrals Description No Information Available
--- OUTSIDE RECORDS SUMMARY | 2020-12-22 07:06 | CCD ---
Author Author [facility] Organization [facility] Address Unknown Phone Unavailable Care Team Providers Care Sap Bw Architect Name Role Phone Pillo Garcia Unavailable PROBLEMS Type Condition ICD9-CM Code DGY15-OD Code Onset Dates Condition S tatus W/U Status Risk SNOMED Code Notes Problem Hypothyroidism, unspecified E03.9 Active confirmed 35968103 Problem Vitamin D deficiency, unspecified E55.9 Active con firmed 83217152 Problem Diverticulitis of large inte emile without perforation or abscess without bleeding K57.32 Active confirmed 565935918 Problem Insomnia G47.00 Active confirmed 358550074 Problem IFG (impaired fasting glucose) R73.01 Active confir med 530687330 Problem Gastro-esophageal reflux disease without esophagitis K21.9 Active confirmed 393443251 Problem Paroxysmal atrial fibrillation I48.0 Active confir med 819991622 Problem Breast cancer screening Z12.39 Active confirmed 807377231 Problem Moderate osteopenia M85.80 Active confirmed 52151662 Problem DJD (degenerative joint disease), cervical M50.30 Active confirmed 26246894 Problem Essential hypertension I10 Active confirmed 15079943 Problem Palpitations R00.2 Active confirmed 7719933 2 Problem Spondylosis of lumbar region without myelopathy or radiculopathy M47.816 Active confirmed 38346053 Problem 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 Pearl howell Problem Non-seasonal allergic rhinitis, unspecified trigger J30.89 Active confirmed 58742028 Problem Colon cancer screening Z12.11 Active confirmed 755564682 ALLERGIES Allergen (clinical drug ingredient) Drug/Non Drug Allergy do cumented on EMR Reaction Allergy Type Onset Date Status clindamycin Clindamycin HCl([facility] Code:[address]-78) diarrhea Drug A llergy Active gabapentin Gabapentin([facility] Code:[address]-32) woozy Drug Allergy Active ENCOUNTERS from 1955 to 2020-11-17 Encounter Location Date Provider Diagnosis [facility] [address] [facility] [phone] [place] [address] Nov, Pilol Garcia IMMUNIZATIONS Vaccine Route Administration Date Status Influenza Pharmacy Given IM Intramuscular Jan 18, 2019 Admini stered SOCIAL HISTORY Tobacco Use: Social History Observation Description Date Details (start date - stop date) Never Smoker Sex Assigned At : Social History Observation Description Sex Assigned At Unknown Language: Question Answer Notes Languages spoken: Portuguese Orthodox: Question Answer Notes Orthodox 15 Presbyterian Sexual Hx: Question Answer Notes [...] a day for 3 days Oct, Active PROCEDURES No Information RESULTS No Results REASON FOR VISIT Order for bloodwork MEDICAL (GENERAL) HISTORY Type Description Date Medical History GERD-status post 3 EGDs-Dece mber 2003-Donald and May 2005 and 3265-Fdqinfjs-Jzhtm 2008 showing hyperplastic fundic polyps and negative [...] plantar fasciitis Surgical History colonoscopy-sigmoid divertic ulosis, hemorrhoids-Donald/06/[id number]-vphw-Deyogx[place] 01/2005, 2012 Surgical History Cystoscopy 08/24/13 Surgical History facial lift c implants-Dr. Brooke-[facility] [place] 2011 Surgical History breast implants removed- Dr. Brooke 7 Surgical History colon resection-Dr. Sanderson-[place] 07/02 08/19 Surgical History rpjcksicb-Ddbqmkvf-dxbblu-[facility] 02/06/18 Hospitalization History Childbirth Hospitalization [...] tablet Orally prn insomnia for 30 day(s) 13 Au 2020 Penicillin V Potassium 500 MG 1 tablet Orally Twice a day fo r 3 days Oct, Levothyroxine Sodium 112 MCG 1 tablet in the morning o n an empty stomach alternating c 125 mcg Orally Once a day for 90 day(s) Next Appt Details Provider Name:Pillo Garcia, 2020-12-05 0 1:00:00 PM, [address] [facility] [facility], , [place], [address], Insurance Providers Payer Name Payer Address Payer Phone Insured Name Patient Relati onship to Insured Coverage Start Date Coverage End Date MEDICARE Part A and B [address] [facility] [phone] LISE GOMES [facility] [address] [facility] [phone] LISE GOMES
--- OUTSIDE RECORDS SUMMARY | 2020-12-22 07:06 | CCD ---
Author Author [facility] Organization [facility] Address Unknown Phone Unavailable Care Team Providers Care Plane Runner Name Role Phone Pillo Garcia Unavailable PROBLEMS Type Condition ICD9-CM Code [id number] Code Onset Dates Condition S tatus W/U Status Risk SNOMED Code Notes Problem Hypothyroidism, unspecified E03.9 Active confirmed 22223593 Problem Vitamin D deficiency, unspecified E55.9 Active con firmed 68145006 Problem Diverticulitis of large inte emile without perforation or abscess without bleeding K57.32 Active confirmed 324226984 Problem Insomnia G47.00 Active confirmed 164365988 Problem IFG (impaired fasting glucose) R73.01 Active confir med 143735156 Problem Gastro-esophageal reflux disease without esophagitis K21.9 Active confirmed 041883392 Problem Paroxysmal atrial fibrillation I48.0 Active confir med 605661607 Problem Breast cancer screening Z12.39 Active confirmed 533962663 Problem Moderate osteopenia M85.80 Active confirmed 60921058 Problem DJD (degenerative joint disease), cervical M50.30 Active confirmed 67969002 Problem Essential hypertension I10 Active confirmed 41379683 Problem Palpitations R00.2 Active confirmed 5378593 2 Problem Spondylosis of lumbar region without myelopathy or radiculopathy M47.816 Active confirmed 95657997 Problem Migraine aura without headache G43.109 Active confi rmed 528203046 Problem Mixed hyperlipidemia E78.2 Active confirmed 196723457 Problem Impaired fasting glucose R73.01 Active confirmed 089129267 Problem Bilateral carpal tunnel syndrome G56.03 Active confirmed [id number] She will schedule her surgery with Dr. Pearl howell Problem Non-seasonal allergic rhinitis, unspecified trigger J30.89 Active confirmed 02466167 Problem Colon cancer screening Z12.11 Active confirmed 376301471 ALLERGIES Allergen (clinical drug ingredient) Drug/Non Drug Allergy do cumented on EMR Reaction Allergy Type Onset Date Status clindamycin Clindamycin HCl([facility] Code:[address]-03) diarrhea Drug A llergy Active gabapentin Gabapentin([facility] Code:[address]-56) woozy Drug Allergy Active ENCOUNTERS from 1955 to 2020-10-14 Encounter Location Date Provider Diagnosis [facility] [address] [phone] [place] [address] Oct, Pillo Jose Hypothyroidism, unspecified E03.9 and Insomnia G47.00 IMMUNIZATIONS Vaccine Route Administration Date Status Influenza Pharmacy Given IM Intramuscular Jan 18, 2019 Admini stered SOCIAL HISTORY Tobacco Use: Social History Observation Description Date Details (start date - stop date) Never Smoker Sex Assigned At : Social History Observation Description Sex Assigned At Unknown Language: Question Answer Notes Languages spoken: Thai Moravian: Question Answer Notes Moravian 15 [facility] Sexual Hx: Question Answer Notes [...] Notes Start Da te End Date Status Vitamin D 2000 UNIT 1 tablet Orally Once a day Active Cetirizine HCl 10 MG 1 tablet Orally Daily for 90 day(s) Active Restasis 0.05 % 1 into affected eye Ophthalmic Twice a day Active Lansoprazole 30 MG 1 capsule Orally every morning for 90 day(s) Active Carvedilol 3.125 MG 1 tablet with food Orally Tw ice a day prn SBP 140 for 30 day(s) Active Magnesium 400 MG 1 tablet with a meal Orally twice a day Active Levothyroxine Sodium 125 MCG TAKE ONE TABLET BY MOUTH EVERY DAY IN THE MORNING ON AN EMPTY STOMACH for 90 Activ e Levothyroxine Sodium 112 MCG 1 tablet in the morning o n an empty stomach alternating c 125 mcg Orally Once a day for 90 day(s) Active Famotidine 40 MG 1 tablet at bedtime Orally Twice a day Active Xanax 0.25 MG 1 tablet Orally prn insomnia for 30 day(s) 1 Oct, Active Calcium 600 MG 1 tablet with meals Orally once a day Active Aspirin 81 MG 1 tablet Orally 2x weekly Active PROCEDURES No Information RESULTS No Results REASON FOR VISIT Med refills MEDICAL (GENERAL) HISTORY Type Description Date Medical History GERD-status post 3 EGDs-Dece er 2003-Donald and May 2005 and 0625-Purazxou-Dazus 2008 showing hyperplastic fundic polyps and negative [...] R flank pain onset 05/2013- normal cystoscopy- Etinene/11/09/2013 CT A/P s/c normal Medical History lumbar [...] plantar fasciitis Surgical History colonoscopy-sigmoid divertic ulosis, hemorrhoids-Donald/06/20120107-lkog-Znxgrhaq 01/2005, 2012 Surgical History Cystoscopy 08/24/13 Surgical History facial lift c implants-Dr. Brooke-[place] use 2011 Surgical History breast implants removed- Dr. Brooke 201 7 Surgical History colon resection-Dr. Sanderson-[place] 07/02 08/19 Surgical History fikiqjbim-Zddsbqiz-bkbqtg-[facility] 02/06/18 Hospitalization History Childbirth Hospitalization History colon resection Goals Section No Information Health Concerns No Information MEDICAL EQUIPMENT No Information MENTAL STATUS No Information FUNCTIONAL STATUS No Information ASSESSMENTS Encounter Date Diagnosis Assessment Notes Treatment Notes Treatm ent Clinical Notes Oct, Hypothyroidism, unspecified (ICD-10 - E03.9) Oct, Insomnia (ICD-10 - G47.00) PLAN OF TREATMENT Medication Medication Name Sig Start Date Stop Date Vitamin D 2000 UNIT 1 tablet Orally Once a day Xanax 0.25 MG 1 tablet Orally prn insomnia for 30 day(s) 2020 Calcium 600 MG 1 tablet with meals Orally once a day Famotidine 40 MG 1 tablet at bedtime Orally Twice a day Levothyroxine Sodium 112 MCG 1 tablet in the morning o n an empty stomach alternating c 125 mcg Orally Once a day for 90 day(s) Lansoprazole 30 MG 1 capsule Orally every morning for 90 day(s) Cetirizine HCl 10 MG 1 tablet Orally Daily for 90 day(s) Carvedilol 3.125 MG 1 tablet with food Orally Tw ice a day prn SBP 140 for 30 day(s) Magnesium 400 MG 1 tablet with a meal Orally twice a day Levothyroxine Sodium 125 MCG TAKE ONE TABLET BY MOUTH EVERY DAY IN THE MORNING ON AN EMPTY STOMACH for 90 Aspirin 81 MG 1 tablet Orally 2x weekly Next Appt Details Provider Name:Pillo Garcia, 2020-12-05 0 1:00:00 PM, [address], , [place], [address], Insurance Providers Payer Name Payer Address Payer Phone Insured Name Patient Relati onship to Insured Coverage Start Date Coverage End Date [facility] [address] [facility] [id number] LISE GOMES MEDICARE Part A and B [address] [facility] [address] [phone] LISE GOMES
--- OUTSIDE RECORDS SUMMARY | 2020-12-22 07:06 | CCD | Continuity of Care Document ---
Author Author Debbie KHAN M.D. Organization Unknown Address [address] [place] [address] Phone [phone] Care Team Providers Care Party Host/Hostess Name Role Phone Pillo Garcia M.D. AUTM [phone] Petar Shea M.D. AUTM [phone] Problems Active Problems Provider Date Chronic low [...] lb BMI (Body Mass Index) 22.8 kg/m2 [place] Body Weight 154 lb 11/04/2014 11:59am BP Systolic 120 mmHg BP Diastolic 80 mmHg Heart Rate 72 /min Height 68 inches 5'8" Weight 150.00 lb BMI (Body Mass Index) 22.8 kg/m2 [place] Body Weight 154 lb Results Description No Information Available Procedures Description No Information Available Medical Devices Description No Information Available Encounters Description No Information Available Assessments Description No Information Available Plan of Treatment No Information Available Functional Status Description No Information Available Mental Status Description No Information Available Referrals Description No Information Available
--- OUTSIDE RECORDS SUMMARY | 2020-12-22 07:06 | CCD | Continuity of Care Document ---
Author Author Debbie KHAN M.D. Organization Unknown Address [address] [place] [address] Phone [phone] Care Team Providers Care Hydraulic Strainer Operator Name Role Phone Pillo Garcia M.D. AUTM [phone] Petar Shea M.D. AUTM [phone] Problems Active Problems Provider Date Chronic low [...] lb BMI (Body Mass Index) 22.8 kg/m2 [place] Body Weight 154 lb 11/04/2014 11:59am BP Systolic 120 mmHg BP Diastolic 80 mmHg Heart Rate 72 /min Height 68 inches 5'8" Weight 150.00 lb BMI (Body Mass Index) 22.8 kg/m2 [place] Body Weight 154 lb Results Test Acquired Date Facility Test Result H/L Range Note CBC With Differential 12/16/2020 [facility] White Blood Count 7.3 10 Normal 4.0-10.0 Red Blood Count 4.44 10 Normal 4.00-5.40 Hemoglobin 13.1 g/dL Normal 12.0-15.5 Hematocrit 40.5 % Normal 36.0-47.0 Mean Corpuscular Volume 91.2 fl Normal 80.0-96.0 Mean Corpuscular Hemoglobin 29.5 pg Normal 27.0-33.0 Mean Corpuscular HGB Conc 32.3 g/dL Normal 32.0-36.5 Red Cell Distribution Width 13.5 % Normal 11.5-14.5 Platelet Count, Automated 228 10 Normal 150-450 Neutrophils % 53.3 % Normal 36.0-66.0 Lymph % 35.7 % Normal 24.0-44.0 [place] % 8.3 % High 2.0-8.0 Eos % 1.9 % Normal 0.0-3.0 Baso % 0.7 % Normal 0.0-1.0 Immature Granulocyte % 0.1 % Normal 0-3.0 Nucleated Red Blood Cell % 0.0 % Normal 0-0 Neutrophils # 3.9 10 Normal 1.5-8.5 Lymph # 2.6 10 Normal 1.5-5.0 [place] # 0.6 10 Normal 0.0-0.8 Eos # 0.1 10 Normal 0.0-0.5 Baso # 0.1 10 Normal 0.0-0.2 Laboratory test finding 12/16/2020 [facility] Erythrocyte Sedimentation Rate 9 mm/hr Normal 0-30 Comprehensive Metabolic Profil 12/16/2020 [facility] Glucose, Fasting 95 mg/dL Normal 70-100 Blood Urea Nitrogen 13 mg/dL Normal 7-18 Creatinine For GFR 0.82 mg/dL Normal 0.55-1.30 Glomerular Filtration Rate > 60.0 Normal >45 1 Sodium Level 141 mEq/L Normal 136-145 Potassium Serum 3.8 mEq/L Normal 3.5-5.1 Chloride Level 108 mEq/L High 98-107 Carbon Dioxide Level 30 mEq/L Normal 21-32 Anion Gap 3 mEq/L Low 8-16 Calcium Level 8.9 mg/dL Normal 8.8-10.2 Ast/Sgot 13 U/L Normal 7-37 Alt/SGPT 18 U/L Normal 12-78 Alkaline Phosphatase 83 U/L Normal 45-117 Bilirubin,Total 0.4 mg/dL Normal 0.2-1.0 Total Protein 7.1 GM/DL Normal 6.4-8.2 Albumin 3.6 GM/DL Normal 3.2-5.2 Albumin/Globulin Ratio 1.0 Low 1.2-2.2 Laboratory test finding 12/16/2020 [facility] Thyroid Stimulating Hormone 2.140 uIU/ML Normal 0.358-3.740 Total 25(Oh) Vitamin D 48.5 NG/ML Normal 30.0-100.0 Rheumatoid Factor Quant < 10.0 IU/mL Normal <15.0 1 Units are mL/min/1.73 m2 Chronic Kidney Disease Staging per NKF: Stage I & II GFR >=60 Normal to Mildly Decreased Stage III GFR 30-59 Moderately Decreased Stage IV GFR 15-29 Severely Decreased Stage V GFR <15 Very Little GFR Left ESRD GFR <15 on ROLL OVER LOADER Procedures Date Code Description Status 12/12/2020 37098 Office/Outpatient Established Mo d MDM 30-39 Min Completed 12/12/2020 3288F Fall Risk Assessment Documented Completed 12/02/2020 08473 EEG Recording Awake & Asleep Com pleted 12/02/2020 50936 EEG Recording Awake & Asleep Com pleted 10/24/2020 33061 Office/Outpatient New Moderate M DM 45-59 Minutes Completed 10/24/2020 99637 MRI Brain W/O Contrast Completed 10/24/2020 74212 MRI Brain W/O Contrast Completed 10/24/2020 15600 Magnetic Resonance Angiography N alessandro W/O Contrast Materials Completed 10/24/2020 12977 Magnetic Resonance Angiography N alessandro W/O Contrast Materials Completed 10/24/2020 52898 Magnetic Resonance Angiogtaphy H ead W/O Contrast Material(S) Completed 10/24/2020 38555 Magnetic Resonance Angiogtaphy H ead W/O Contrast Material(S) Completed Medical Devices Description No Information Available Encounters Type Date Location Provider Dx Diagnosis Office Visit 12/12/2020 9:15a Main office - Jina Khan M.D. I72.9 Aneurysm of unspecified site G47.51 Confusional arousals R41.3 Other amnesia H53.8 Other visual disturbances G43.809 Other migraine, not intracta ble, without status migrainosus Office Visit 10/24/2020 12:30p Main office - [place] Luisa Khan M.D. 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 12/12/2020 R41.3 Other amnesia Shiraz Hernandez 12/12/2020 H53.8 Other visual disturbances Luias Khan M.D. 12/12/2020 G43.809 Other migraine, not intractable, without status migrainosus Luisa Khan M.D. 12/02/2020 R41.3 Other amnesia Shiraz Hernandez 12/02/2020 R41.3 Other amnesia EEG 12/02/2020 G47.51 Confusional arousals Luisa eisenberg M.D. 12/02/2020 G47.51 Confusional arousals EEG 10/24/2020 M54.81 [...] Khan M.D. Plan of Treatment Future Appointment(s):* 03/07/2021 11:00 am - Luisa Khan M.D. at Main office - [place] * 02/17/2021 2:00 pm - Ans/VS at Main office - [place] Functional Status Description No Information Available Mental Status Description No Information Available Referrals Description No Information Available
--- OUTSIDE RECORDS SUMMARY | 2020-12-22 07:06 | CCD | Summary of Care ---
Author Author [facility] Organization [facility] Address Unknown Phone Unavailable Care Team Providers Care Top Frame Maker Name Role Phone Pillo Garcia MD PCP Reason for Visit * Reason Comments Follow-up left wrist pain ECTR 1 Encounter Details Care Team Description Date Type Department Jose Harper, TERESA [address] [place] [address] [phone] Carpal tunnel syndrome of left wrist (Pr imary Dx) 11/15/2020 Office Visit [facility] , [facility] [address] [place] [phone] Allergies No Known Active Allergiesdocumented as of this encounter (statuses as of 11/15/2020) Medications End Date Status Medication Sig Dispensed Refills Start Date Active cycloSPORINE (RESTASIS) 1 drop Two 0 0.05 % ophthalmic Times Daily. emulsion Active Multiple Vitamin Take 1 tablet 0 (MULTIVITAMIN) tablet by mouth daily. Active Cholecalciferol (VITAMIN Take 2,000 0 D) 2000 UNITS tablet Units by mouth daily. Active alprazolam (XANAX) 0.25 TAKE ONE 0 08/13/ 201 MG tablet TABLET BY 7 MOUTH EVERY DAY NEEDED FOR INSOMNIA MAXIMUM DAILY DOSE 1 Active levothyroxine (SYNTHROID, Take 125 mcg 0 LEVOTHROID) 112 MCG by mouth tabletIndications: every Indications: other day every other day Active aspirin EC 81 MG EC Take 81 mg by 0 tablet mouth Active Psyllium 51.7 % PACK Take 1 0 capsule by mouth Active lansoprazole (PREVACID) Take 15 mg by 0 15 MG capsule mouth daily Active famotidine (PEPCID) 40 MG Take 40 mg by 0 / tablet mouth Two 9 Times Daily Active Calcium Take by mouth 0 Carb-Cholecalciferol 7 1000-800 MG-UNIT TABS Active Magnesium 100 MG CAPS Take by mouth 0 01/30/20 1 7 Active FIBER COMPLETE PO Take by mouth 0 7 Active Lansoprazole 30 MG Oral 0 Capsule Delayed Release 0 (PREVACID) documented as of this encounter (statuses as of 11/15/2020) Active Problems Problem Noted Date Thoracogenic scoliosis of thoracic region 08/09/2015 documented as of this encounter (statuses as of 11/15/2020) Immunizations Name Administration Dates Next Due documented as of this encounter Social History Date Tobacco Use Types Packs/Day Years Used Former Smoker Smokeless Tobacco: Never Used Comments: quit smoking in 1994 Comments Alcohol Use Standard Drinks/Week Yes 7 (1 standard drink = 0.6 o z pure alcohol) Sex Assigned at Date Recorded Not on file Date Recorded COVID-19 Exposure Response 11/15/2020 2:35 PM EDT In the last month, have you been in contact with No / Unsure someone who was confirmed or suspected to have Coronavirus / COVID-19? documented as of this encounter Last Filed Vital Signs Not on filedocumented in this encounter Progress Notes * Jose Harper PA - 11/15/2020 2:45 PM EDT Chief Complaint Patient presents with Follow-up left wrist pain ECTR 10/17/20 HPI: Debbie was seen on behalf of Dr. Lebron for follow up evaluation of their left wrist. Patient is 1 month status post endoscopic carpal tunnel release. P [facility] states on October 31 she had be really active cleaning out a rental proper ty. She had to clean the whole place. And then she had fallen down a flight of stairs. She is been hit in the wrist and had a cut just next to her surgical i ncision. She is had multiple injuries since then. She has had some achiness in the hand. She denies any fevers chills or sweats. She been able to take it ea sy over the last few days and is seen improvement. PHYSICAL EXAM: Medical history, family history, social history and review of sys tems are documented in the chart and reviewed today with Debbie. Vitals: There were no vitals taken for this visit. alert oriented x3 in no acute distress. Left wrist and hand shows no substantial swelling. Healed incision. No erythem a. No signs of infection. Good motion of the wrist and fingers with minimal pa in. ASSESSMENT: 6 weeks status post carpal tunnel release with some mild persistent issues likely due to overdoing it and new trauma. PLAN: Treatment options were discussed. The natural history of the patient's pr oblem was discussed with Debbie. Discussed with her that I do not see where sh e injured herself any further. Hard to undo a carpal tunnel release. I recomme nd relative rest. Like to see her back in the office in a month to assess her p rogress. She is doing well no further intervention is needed. If she not doing well she may benefit from a course of physical therapy. She is also interested in getting her contralateral wrist done later this fall. Patient will call the office for any increasing troubles. F/U Xrays: none "This document was dictated using [employer] software. A reasonable attempt at proof reading has been made to minimize errors. Please c all our office if you have any questions." documented in this encounter Plan of Treatment Care Team Description Date Type Specialty Jose Harper PA [address] [place] [address] [phone] 12/13/2020 Office Visit Orthopedic Surgery Health Maintenance Due Date Last Done Comments Hepatitis C Screening (B. 1955 [id number]) MMR Vaccines (1 of 1 - 1956 Standard series) DTaP,Tdap,and Td Vaccines 1960 (1 - Tdap) Breast Cancer Screening 2 11/27/2003 years Colon Cancer Screening 10 11/27/2003 yrs Osteoporosis Screening 2 2018 yr Pneumococcal Vaccine: 65+ 2018 Years (1 of 1 - PPSV23) Varicella Vaccines (1 of 01/05/2019 11/10/2018 2 - 2-dose childhood series) Zoster Vaccines (2 of 2) 01/05/2019 11/10/2018 Influenza Vaccine 12/02/2020 01/12/2020, 01/18/2019, 03/31/2017, Additional history exists COVID-19 Vaccine Completed 05/01/2020, 04/10/2020 HIB Vaccines Aged Out No longer eligible based on patient's age to complete this topic Hepatitis A Vaccines Aged Out No longer eligibl e based on patient's age to complete this topic Hepatitis B Vaccines Aged Out No longer eligibl e based on patient's age to complete this topic IPV Vaccines Aged Out No longer eligible based on patient's age to complete this topic Pneumococcal Vaccine: Aged Out No longer eligib le based on patient's age to Pediatrics (0 to 5 Years) complete this topic and At-Risk Patients (6 to 64 Years) documented as of this encounter Results Not on filedocumented in this encounter Visit Diagnoses Diagnosis Carpal tunnel syndrome of left wrist - Primary Carpal tunnel syndrome documented in this encounter
--- OUTSIDE RECORDS SUMMARY | 2020-12-22 07:06 | CCD | Continuity of Care Document ---
Author Author Debbie BENITEZ Organization Unknown Address [address] [place] [address] Phone [phone] Care Team Providers Care Denial Resolution Specialist Name Role Phone Pillo Garcia M.D. AUTM [phone] Petar Shea M.D. AUTM [phone] Problems Active Problems Provider Date Chronic low back pain Yunior Khan M.D. Onset: 11/04/2014 Lumbosacral radiculopathy Yunoir Khan M.D. Onset: 015 Occipital headache Ying [...] lb BMI (Body Mass Index) 22.8 kg/m2 [place] Body Weight 154 lb 11/04/2014 11:59am BP Systolic 120 mmHg BP Diastolic 80 mmHg Heart Rate 72 /min Height 68 inches 5'8" Weight 150.00 lb BMI (Body Mass Index) 22.8 kg/m2 [place] Body Weight 154 lb Results Description No Information Available Procedures Date Code Description Status 12/12/2020 32711 Office/Outpatient Established Mo d MDM 30-39 Min Completed 12/12/2020 3288F Fall Risk Assessment Documented Completed 12/02/2020 88511 EEG Recording Awake & Asleep Com pleted 12/02/2020 90824 EEG Recording Awake & Asleep Com pleted 10/24/2020 01186 Office/Outpatient New Moderate M DM 45-59 Minutes Completed 10/24/2020 23517 MRI Brain W/O Contrast Completed 10/24/2020 84735 MRI Brain W/O Contrast Completed 10/24/2020 79226 Magnetic Resonance Angiography N alessandro W/O Contrast Materials Completed 10/24/2020 64197 Magnetic Resonance Angiography N alessandro W/O Contrast Materials Completed 10/24/2020 25419 Magnetic Resonance Angiogtaphy H ead W/O Contrast Material(S) Completed 10/24/2020 10040 Magnetic Resonance Angiogtaphy H ead W/O Contrast Material(S) Completed Medical Devices Description No Information Available Encounters Type Date Location Provider Dx Diagnosis Office Visit 12/12/2020 9:15a Main office - [place] Luisa Khan M.D. 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 12/12/2020 R41.3 Other amnesia Shiraz Hernandez 12/12/2020 H53.8 Other visual disturbances Luisa Khan M.D. 12/12/2020 G43.809 Other migraine, not [...] Shiraz Hernandez 10/24/2020 H53.8 Other visual disturbances uLisa Khan M.D. 10/24/2020 M54.81 Occipital neuralgia Luisa Khan M.D. Plan of Treatment Future Appointment(s):* 03/07/2021 11:00 am - Luisa Khan M.D. at [facility] * 02/17/2021 2:00 pm - Ans/VS at [facility] Functional Status Description No Information Available Mental Status Description No Information Available Referrals Description No Information Available
--- OUTSIDE RECORDS SUMMARY | 2020-12-22 07:07 | CCD | Continuity of Care Document ---
Author Author Debbie LONGORIA MD Organization Unknown Address [address] [place] [address] Phone [phone] Care Team Providers Care Games Manager Name Role Phone Daniel House M.D. AUTM Anton Lance ([place]) AUTM Problems Active Problems Provider Date Disorder of [...] Onset: 0 11/18/2015 Hypertrophy of nasal turbinates Jillian L Page DO Onset: 0 11/18/2015 Dizziness [...] lb BMI (Body Mass Index) 23.4 kg/m2 [place] Body Weight 135 lb Weight 67.757 kg BSA (Body Surface Area) 1.79 m2 06/03/2020 1:20pm Height 67 inches 5'7" Weight 153.00 lb BMI (Body Mass Index) 24.0 kg/m2 [place] Body Weight 135 lb Weight 69.401 kg BSA (Body Surface Area) 1.80 m2 Results Description No Information Available Procedures Date Code Description Status 06/03/2020 97677 Office/Outpatient Established [facility] 10-19 Min Completed Medical Devices Description No Information Available Encounters Type Date Location Provider Dx Diagnosis Office Visit 06/03/2020 1:10p [facility] Zacarias Longoria MD K21.9 Gastro-esophageal reflux disease without esophagitis Assessments Date Code Description Provider 10/03/2020 Z12.11 Encounter for screening for keny gnant neoplasm of colon TERESA Mclaughlin 10/03/2020 K57.30 Diverticulosis of la rge intestine without perforation or abscess without bleeding TERESA Mclaughlin 10/03/2020 K29.70 Gastritis, unspecified, without bleeding TERESA Mclaughlin 06/03/2020 K21.9 Gastro-esophageal reflux disease without esophagitis Zacarias Longoria MD Plan of Treatment Future Appointment(s):* 01/03/2021 1:30 pm - Zacarias Longoria MD at [facility] Functional Status Description No Information Available Mental Status Description No Information Available Referrals Description No Information Available
--- OUTSIDE RECORDS SUMMARY | 2020-12-22 07:07 | CCD | Continuity of Care Document ---
Author Author Debbie LONGORIA MD Organization Unknown Address [address] [place] [address] Phone [phone] Care Team Providers Care Insurance Loss Control Surveyor Name Role Phone Daniel House M.D. AUTM Anton Lance ([place]) AUTM Problems Active Problems Provider Date Disorder [...] lb BMI (Body Mass Index) 23.4 kg/m2 [place] [facility] Weight 135 lb Weight 67.757 kg BSA (Body Surface Area) 1.79 m2 06/03/2020 1:20pm Height 67 inches 5'7" Weight 153.00 lb BMI (Body Mass Index) 24.0 kg/m2 [place] [facility] Weight 135 lb Weight 69.401 kg BSA (Body Surface Area) 1.80 m2 Results Description No Information Available Procedures Date Code Description Status 06/03/2020 94848 Office/Outpatient Established [facility] 10-19 Min Completed Medical Devices Description No Information Available Encounters Type Date Location Provider Dx Diagnosis Office Visit 06/03/2020 1:10p [facility] Zacarias Longoria MD [...] 1:30 pm - Zacarias Longoria MD at [facility] Functional Status Description No Information Available Mental Status Description No Information Available Referrals Description No Information Available
--- OUTSIDE RECORDS SUMMARY | 2020-12-22 07:07 | CCD | Continuity of Care Document ---
Author Author Debbie CHISHOLM PA Organization Unknown Address [address] [place] [address] Phone [phone] Care Team Providers Care Windlasser Name Role Phone Daniel House M.D. AUTM Anton Lance ([place]) AUTM [phone] Problems Active Problems Provider Date Disorder of [...] lb BMI (Body Mass Index) 23.4 kg/m2 [place] [facility] Weight 135 lb Weight 67.757 kg BSA (Body Surface Area) 1.79 m2 06/03/2020 1:20pm Height 67 inches 5'7" Weight 153.00 lb BMI (Body Mass Index) 24.0 kg/m2 [place] [facility] Weight 135 lb Weight 69.401 kg BSA (Body Surface Area) 1.80 m2 Results Description No Information Available Procedures Date Code Description Status 06/03/2020 25401 Office/Outpatient Established [facility] 10-19 Min Completed Medical Devices Description No Information Available Encounters Type Date Location Provider Dx Diagnosis Office Visit 06/03/2020 1:10p [facility] Zacarias Longoria MD K21.9 Gastro-esophageal [...] 1:30 pm - Zacarias Longoria MD at [facility] Functional Status Description No Information Available Mental Status Description No Information Available Referrals Description No Information Available
--- OUTSIDE RECORDS SUMMARY | 2020-12-22 07:07 | CCD ---
Continuity of Care Document (CCD) Created on: 10/04/2020 Debbie Ceja External Reference #: [id number] : [id number] Sex: Female Author Author Debbie CHISHOLM PA Organization Unknown Address [address] [place] [address] Phone [phone] Care Team Providers Care Physician Representative Name Role Phone Daniel House M.D. AUTM [phone] Anton Lance ([place]) AUTM [phone] Problems Active Problems Provider Date Disorder of [...] lb BMI (Body Mass Index) 23.4 kg/m2 [place] [facility] Weight 135 lb Weight 67.757 kg BSA (Body Surface Area) 1.79 m2 06/03/2020 1:20pm Height 67 inches 5'7" Weight 153.00 lb BMI (Body Mass Index) 24.0 kg/m2 [place] [facility] Weight 135 lb Weight 69.401 kg BSA (Body Surface Area) 1.80 m2 Results Description No Information Available Procedures Date Code Description Status 10/03/2020 18790 Office/Outpatient Established [place] MDM 30-39 Min Completed 06/03/2020 46810 Office/Outpatient Established [place] [facility]DM 10-19 Min Completed Medical Devices Description No Information Available Encounters Type Date Location Provider Dx Diagnosis Office Visit 10/03/2020 1:45p [facility] TERESA Smith Z12.11 Encounter for screening for malignant ne oplasm of colon 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
--- OUTSIDE RECORDS SUMMARY | 2020-12-22 07:07 | CCD ---
Author Author [facility] Organization [facility] Address Unknown Phone Unavailable Care Team Providers Care Collection Administrator Name Role Phone Pillo Garcia Unavailable PROBLEMS Type Condition ICD9-CM Code RBR34-CP Code Onset Dates Condition S tatus W/U Status Risk SNOMED Code Notes Problem Hypothyroidism, unspecified E03.9 Active confirmed 82715860 Problem Vitamin D deficiency, unspecified E55.9 Active con firmed 35904096 Problem Diverticulitis of large inte emile without perforation or abscess without bleeding K57.32 Active confirmed 588453391 Problem Insomnia G47.00 Active confirmed 387857297 Problem IFG (impaired fasting glucose) R73.01 Active confir med 791667455 Problem Gastro-esophageal reflux disease without esophagitis K21.9 Active confirmed 455949960 Problem Paroxysmal atrial fibrillation I48.0 Active confir med 186183218 Problem Breast cancer screening Z12.39 Active confirmed 974277523 Problem Moderate osteopenia M85.80 Active confirmed 11029656 Problem DJD (degenerative joint disease), cervical M50.30 Active confirmed 02758471 Problem Essential hypertension I10 Active confirmed 40237938 Problem Palpitations R00.2 Active confirmed 7115797 2 Problem Spondylosis of lumbar region without myelopathy or radiculopathy M47.816 Active confirmed 14245594 Problem Migraine aura without headache G43.109 Active confi rmed 619973412 Problem Mixed hyperlipidemia E78.2 Active confirmed 580281296 Problem Impaired fasting glucose R73.01 Active confirmed 606705523 Problem Bilateral carpal tunnel syndrome G56.03 Active confirmed [id number] She will schedule her surgery with Dr. Pearl howell Problem Non-seasonal allergic rhinitis, unspecified trigger J30.89 Active confirmed 88223018 Problem Colon cancer screening Z12.11 Active confirmed 135620104 ALLERGIES Allergen (clinical drug ingredient) Drug/Non Drug Allergy do cumented on EMR Reaction Allergy Type Onset Date Status clindamycin Clindamycin HCl([facility] Code:[address]-94) diarrhea Drug A llergy Active gabapentin Gabapentin([facility] Code:[address]-00) woozy Drug Allergy Active ENCOUNTERS from 1955 to 2020-10-11 Encounter Location Date Provider Diagnosis [facility] [address] [phone] [place] [address] Oct, Pillo Garcia Preoperative clearance Z01.8 18 ; Migraine aura without headache G43.109 ; Bilateral carpal tunnel syndrome G56.03 ; Gastro-esophageal reflux disease without esophagitis K21.9 ; Essential hypertension I10 ; Hypothyroidism, unspecified E03.9 ; Palpitations R00.2 ; IFG (impaired fasting glucose) R73.01 ; Non-seasonal allergic rhinitis, unspecified trigger J30.89 ; Diverticulitis of large intestine without perforation or abscess without bleeding K57.32 ; Paroxysmal atrial fibrillation I48.0 ; Colon cancer screening Z12.11 ; Moderate osteopenia M85.80 ; DJD (degenerative joint disease), cervical M50.30 ; Dizziness R42 ; Mixed hyperlipidemia E78.2 ; Insomnia G47.00 ; Vitamin D deficiency, unspecified E55.9 ; Breast cancer screening Z12.39 and Spondylosis of lumbar region without myelopathy or radiculopathy M47.816 IMMUNIZATIONS Vaccine Route Administration Date Status Influenza Pharmacy Given IM Intramuscular Jan 18, 2019 Admini stered SOCIAL HISTORY Tobacco Use: Social History Observation Description Date Details (start date - stop date) Never Smoker Sex Assigned At : Social History Observation Description Sex Assigned At Unknown Language: Question Answer Notes Languages spoken: Persian Buddhist: Question Answer Notes Buddhist 13 Presbyterian Sexual Hx: Question Answer Notes [...] FOR REFERRAL No Information VITAL SIGNS Weight 148.8 lbs Oct, Weight-kg 67.5 kg Oct, Height 68 in Oct, BMI 22.62 kg/m2 Oct, Heart Rate 94 /min Oct, Respiratory Rate 20 /min Oct, Temperature 98.6 degrees Fahrenheit Oct, Oximetry 97% Oct, Blood pressure systolic 142 mm Hg Oct, Blood pressure diastolic 80 mm Hg Oct, MEDICATIONS Medication SIG (Take, Route, Frequency, Duration) Notes Start Da te End Date Status Calcium 600 MG 1 tablet with meals Orally once a day Active Cetirizine HCl 10 MG 1 tablet Orally Daily for 90 day(s) Active Restasis 0.05 % 1 into affected eye Ophthalmic Twice a day Active Lansoprazole 30 MG 1 capsule Orally every morning for 90 day(s) Active Levothyroxine Sodium 112 MCG 1 tablet in the morning o n an empty stomach alternating c 125 mcg Orally Once a day Active Aspirin 81 MG 1 tablet Orally 2x weekly Active Xanax 0.25 MG 1 tablet Orally prn insomnia for 30 day(s) Active Magnesium 400 MG 1 tablet with a meal Orally twice a day Active Famotidine 40 MG 1 tablet at bedtime Orally Twice a day Active Vitamin D 2000 UNIT 1 tablet Orally Once a day Active Carvedilol 3.125 MG 1 tablet with food Orally Tw ice a day prn SBP 140 for 30 day(s) Active Levothyroxine Sodium 125 MCG TAKE ONE TABLET BY MOUTH EVERY DAY IN THE MORNING ON AN EMPTY STOMACH for 90 Activ e PROCEDURES No Information RESULTS Component Value Reference Range NT-PRO BNP Reviewed date:10/11/2020 13:48:45 Interpretation: Performing Lab:[facility], [facility], [facility] [address] [address] , ,[place] [address] NT-PRO BNP 75 <125 CBC with Differential Reviewed date:10/11/2020 13:13:58 Interpretation: Performing Lab:[facility] [address] [address] , ,[facility] WHITE BLOOD COUNT 5.8 4.0-10.0 RED BLOOD COUNT 4.67 4.00-5.40 HEMOGLOBIN 13.6 12.0-15.5 HEMATOCRIT 42.2 36.0-47.0 MEAN CORPUSCULAR VOLUME 90.4 80.0-96.0 MEAN CORPUSCULAR HEMOGLOBIN 29.1 27.0-33.0 MEAN CORPUSCULAR HGB CONC 32.2 32.0-36.5 RED CELL DISTRIBUTION WIDTH 13.7 11.5-14.5 PLATELET COUNT, AUTOMATED 258 150-450 NEUTROPHILS % 52.6 36.0-66.0 LYMPH % 36.7 24.0-44.0 MONO % 9.0 2.0-8.0 EOS % 0.7 0.0-3.0 BASO % 0.7 0.0-1.0 NEUTROPHILS # 3.0 1.5-8.5 LYMPH # 2.1 1.5-5.0 MONO # 0.5 0.0-0.8 EOS # 0.0 0.0-0.5 BASO # 0.0 0.0-0.2 Comprehensive Metabolic Profile (CMP) Reviewed date:10/11/2020 13:48:50 Interpretation: Performing Lab:[facility] [address] [facility] [facility] [address] [address] , ,[place] [address] GLUCOSE, FASTING 90 70-100 BLOOD UREA NITROGEN 9 7-18 CREATININE FOR GFR 0.79 0.55-1.30 GLOMERULAR FILTRATION RATE > 60.0 >45 SODIUM LEVEL 140 136-145 POTASSIUM SERUM 4.5 3.5-5.1 CHLORIDE LEVEL 107 98-107 CARBON DIOXIDE LEVEL 29 21-32 CALCIUM LEVEL 8.8 8.8-10.2 AST/SGOT 12 7-37 ALT/SGPT 18 12-78 ALKALINE PHOSPHATASE 79 45-117 BILIRUBIN,TOTAL 0.5 0.2-1.0 TOTAL PROTEIN 7.1 6.4-8.2 ALBUMIN 3.7 3.2-5.2 ALBUMIN/GLOBULIN RATIO 1.1 1.2-2.2 FREE T4 & TSH PANEL Reviewed date:10/11/2020 13:48:56 Interpretation: Performing Lab:[facility], [facility], [facility] [address] [facility] [address] , ,[place] [address] THYROID STIMULATING HORMONE 1.570 0.358-3.740 FREE T4 1.19 0.76-1.46 PT & APTT Reviewed date:10/11/2020 13:14:01 Interpretation: Performing Lab:[facility], [facility], [facility] [address] [facility] [id number] , ,[place] [address] PROTHROMBIN TIME 12.7 12.7-14.5 INR 0.92 PARTIAL THROMBOPLASTIN TIME 27.6 25.9-37.0 REASON FOR VISIT pre op clearance for Left carpal tunnerl- Dr. Lebron- [facility]- - Local [facility], [place] @ [phone] fax # [phone] DX: G56.02 MEDICAL (GENERAL) HISTORY Type Description Date Medical History GERD-status post 3 EGDs-Dece mber 2003- and May 2005 and 1816-Eognbfgf-Qhhui 2008 showing hyperplastic fundic polyps and negative stomach biopsy, patient never with Barber's/02/2018 EGD-gastritis but -biopsy-[facility] Medical History hypothyroidism Medical History vitamin D [...] plantar fasciitis Surgical History colonoscopy-sigmoid divertic ulosis, hemorrhoids-Donald/06/20122960-yvzj-Yinyqalr 01/2005, 2012 Surgical History Cystoscopy 08/24/13 Surgical History facial lift c implants-Dr. Brooke-[place] use 2011 Surgical History breast implants removed- Dr. Brooke 201 7 Surgical History colon resection-Dr. Sanderson-[place] 07/02 08/19 Surgical History otvgwwpvi-Cbmfwpoq-wdorgp-[facility] 02/06/18 Hospitalization History Childbirth Hospitalization History colon resection Goals Section No Information Health Concerns No Information MEDICAL EQUIPMENT No Information MENTAL STATUS No Information FUNCTIONAL STATUS No Information ASSESSMENTS Encounter Date Diagnosis Assessment Notes Treatment Notes Treatm ent Clinical Notes Oct, Preoperative clearance (ICD-10 - Z01.818) On 10/11/20 the patient had a stable CBCD, CMP and PT/APTT. On 06/23/20 the patient's EKG revealed normal sinus rhythm at 65 beats per minute, PRWP, LAD and diffuse repolarization abnormality similar to 02/05/20 EKG. On the AM of the surgery, the patient will take carvedilol and lansoprazole with a sip of water. The patient will hold aspirin and ANY NSAID for five (5) days prior to surgery. The patient is currently medically optimized for the above surgery. By the modified RCRI, the patient's 30 day MACE risk is 6%. The patient wishes to assume this risk and proceed with the above surgery. Oct, Migraine aura without headache (ICD-10 - G43.109 ) No recurrent symptoms since dcing wine mid 09/202009/09/[address] [place] [address] brain s: WNL for "distorted vision" x ~1 minute s HENDERSON Oct, Bilateral carpal tunnel syndrome (ICD-10 - G56.0 3) for sequential B CTR WC-injury 01/07/19 Setter recommended B CTR, but patient still contemplating 10/23/17 BLE NCS L mild, R mild-mod CTS, mild chronic L C7 radic-Gilberto (ordered by Charlotte), but developed? L ulnar neuropathy at elbow; therefore, Gilberto ordered PT s improvement, now considering MRI 02/2017 established maco Caldwell Oct, Gastro-esophageal reflux dis ease without esophagitis (ICD-10 - K21.9) Stable on lanso 30 qAM, famo 40 BID EGDs as per Mary-last 02/2018 c gastritis, but - biopsy 02/2018 given -02/2018 normal EGD; patient requests to try wean lanso 30 to 15, then ranit QHS 08/2017 changed panto 40 qAM to Dexilant 60 qAM (had failed lanso 30 qAM prior to panto), but i changed to lanso 30 qAM Oct, Essential hypertension (ICD-10 - I10) Stable on rare carve 3 BID (really only elevated with pain meds) labile c rises stronly aw anxiety/pain C: continue carve or use prn 08/18/20 9/0.7, 4.5, 2.5, BNP 145 on MOX 400 BID 02/08/20 changed carve 3.125 BID prn SBP 140 while in pain c tooth. Once tooth issue resolved, plan to dc carve, and then cb BID BP/HR p 7D 02/06/20 SMCER + aten 25 QD given SBP to 200/100 (but in pain/anxiety 2 fractutred tooth). Since then, SBP 90-110 despite decreasing to 12.5 QD, lowest in PM p taking in AM 01/15/20 1/0.9, 4.3, 2.4 on MOX 400 BID 03/2017 3.9, Mg 2.3, 0.9 on MOX 400 BID 04/2016 patient stopped on own 1/25/17 amlo 5 qAM started by SS (possibly elevated 2 neck pain/NSAID use) Oct, Hypothyroidism, unspecified (ICD-10 - E03.9) goal TSH for patient TSH 4-5 10/10/20 on 112/125 alternating 08/18/20 1.0, 1.4 on 125, but 2 palpitations/diarrhea 06/23/20 6.2, 1.0 on alt 112/125; therefore, increased to 125 01/15/20 5.6, 1.1 on 112/125 alt 07/10/19 6.4, 1.3 on 112/125-hesistent to increase LT4 given asx AND ho pAF c score of 2 only on asa 81 12/2018 2.8, 1.2 on 112/125 07/15/18 13.4/1.1 but on biotin; therefore held (although usually causes a Grave's-like picture), 07/19/18 4.4, 1.3 therefore, 112/125 to 125, but never did 02/2018 9.5, 1.1, but precedent C. jejuni colitis x 8W; therefore, rechecked 02/28/18 5.0, 1.0; therefore, CCR 07/2017 2.7, 1.3 on 112/125 alt 04/01/17 2.9, 1.3 (by DD) on 112/125 alt 05/2016 0.3, FT4 1.4; therefore, decreased to 125/112 alt hansa given h/o pAF and penia (although Fish preferred to keep at 125 per patient) 11/2015 1.4, 1.3 05/2015 4.2, FT4 1.0 on 125; therefore recheck in 8W (t/c 125/137 alt) 04/28/15 1.2, FT4 1.3-ordered by Fish on 125 11/2014 0.2 on LT4 137, again recommended decrease dose 11/2013 0.2 on LT4 137, recommended decrease dose given h/o AF and bone loss but patient deferred 07/2013 0.4 on LT4 137 04/2013 3.8 therefore increased to 125/137 alt Oct, Palpitations (ICD-10 - R00.2) Minimal symptoms at this time 03/17/19 24H Holter c 8 "flutter" entries cw PVCs (m76, range 40-120 c NL rhythm) (done 2 "increased p" at the time) Oct, IFG (impaired fasting glucose) (ICD-10 - R73.01) Continue ADA diet no DM in 1DR / no hypo symptoms 06/23/20 5.4 (87, 6) 01/15/20 5.5 (80, 3) 07/10/19 5.9 (101, 6) 02/2019 6.0 07/2018 5.5 (90, 4) 02/2018 5.8 03/2017 5.5, 92 c ZENOBIA-IR 3 (88, 6) March 2011 A1c stable 5.7 01/15/20 10 02/2018 5 04/2014 13 11/2012 8 09/2011 IGOR/creatinine 7 Oct, Non-seasonal allergic rhinit is, unspecified trigger (ICD-10 - J30.89) Stable on cetir 10 QD c ETD/LPR Oct, Diverticulitis of large inte emile without perforation or abscess without bleeding (ICD-10 - K57.32) No recurrent symptoms sp lap sigmoid resection 07/[address] Lance 08/2015 UC and 10/2015 Jose rxed c C/F x 10D for ~10-14D flare fever, lower midline pain dx agreed by Dr. Hernandez 05/2011 OV Oct, Paroxysmal atrial fibrillation (ICD-10 - I48.0) RC carve prn AP asa 81 2x qW [id number] (female, age); therefore, would favor DOAC which patient refuses (patient cannot tolerate asa 2 severe dyspepsia) No recurrent symptoms-advised to avoid ALL EthOH Encouraged to dc caffeine (at 20 oz coffee QD) c both episodes low normal K (3.1, 3.3) 01/30/[address] Garcia who recommended asa 81 2x qW rather than DOAC (given he did not count HTN towards GERMANIA; therefore, score of 1) and against RF ablation given rare episodes 11/29/16 check TTE and 72H Holter 09/2016 Dr. Aly apt-no intervention recommended at this point and stopped atenolol 25 QD 6/23/17 pAF c RVR 174 episode-cardioverted at [facility]-started on atenolol 25 QD- (2D prior general anesthesia for breast implant removal and had lost , no precedent EtOH) history of sustained atrial fibrillation with rapid ventricular rate requiring cardioversion c onset p intercourse (no EthOH) on 03/29/2002-Dr. Gary referred to Dr. Aly for ablation (favoring a LGL syndrome given short VT internval), but Dr. Aly deferred Oct, Colon cancer screening (ICD-10 - Z12.11) 01/12/[address] Hernandez to repeat colonoscopy given new change in BMs (narrow stools)-scheduled for 03/02/19 10/23/18 CT AP NAD c normal rectosig anastomosis Oct, Moderate osteopenia (ICD-10 - M85.80) treatment as per Fish 12/2016 BMD (Fish) -1.1/-1.3/-1.6-Fish CCR 11/2010 BMD (Fish) T score: spine -1.4/FN -1.0 Oct, DJD (degenerative joint disease), cervical (ICD- 10 - M50.30) Stable on home PT 07/2018 improving c PT SOS 03/20/16 Dr. Ibarra SOS favored occiptial neuralgia 03/08/16 favor acute L C4-6 facet arthritis; therefore, started Mobic 15 AC dinner and PT at x 1 visit with increased pain Oct, Dizziness (ICD-10 - R42) present since ~2005-4 episodes lasting ~30-60 minutes-all qhs 11/18/[address] Longoria who ordered repeat MRI brain which was normal felt c/w vestibulopathy c f/u prn 08/2009 normal MRI brain Oct, Mixed hyperlipidemia (ICD-10 - E78.2) Continue dietary control 01/15/20 134/81/77, 0.5 02/2018 122/79/84, 58, <0.3 11/2016 80/79/176 05/2016 126/79/68, CRP <0.3, CPK 52 11/2015 lipids 122/85/106 Oct, Insomnia (ICD-10 - G47.00) Stable on prn alpraz 0.25 using ~qM 11/2013 started Xanax 0.25 qhs prn insomnia hansa c work trips which she has used in past c success Ambien had caused grogginess Oct, Vitamin D deficiency, unspecified (ICD-10 - E55. 9) 1 serving dietary calcium 08/18/20 56, 9.3, 45 01/15/20 9.4, 41 07/10/19 43, 9.3, 65 on D3 2K, CC 600 11/2016 49, 8.6, 56 05/2016 42, 8.8, PTH 52; therefore, added Tums 1000 QD 11/2014 44, 9.0 on D3 4K 11/2013 40 07/2013 27 therefore D3 2K qd started 04/2013 45, 9.2 off D3 12/2012 70 on 2K qd 09/2011 39 therefore increased 2K to 5K March 2011 vitamin D of 48 Oct, Breast cancer screening (ICD-10 - Z12.39) 10/07/20 B C1 mammogram 03/2016 normal MRI B breasts s/c (done 2 ? leaking implants) Oct, Spondylosis of lumbar region without myelopathy or radiculopathy (ICD-10 - M47.816) Stable on home PT 08/2015 self-referred to Dr. Nitesh garrett 11 degree TL curve-who deferred any intervention given patient was asymptomatic PLAN OF TREATMENT Medication Medication Name Sig Start Date Stop Date Calcium 600 MG 1 tablet with meals Orally once a day Vitamin D 2000 UNIT 1 tablet Orally Once a day Carvedilol 3.125 MG 1 tablet with food Orally Tw ice a day prn SBP 140 for 30 day(s) Famotidine 40 MG 1 tablet at bedtime Orally Twice a day Magnesium 400 MG 1 tablet with a meal Orally twice a day Lansoprazole 30 MG 1 capsule Orally every morning for 90 day(s) Cetirizine HCl 10 MG 1 tablet Orally Daily for 90 day(s) Levothyroxine Sodium 112 MCG 1 tablet in the morning o n an empty stomach alternating c 125 mcg Orally Once a day Aspirin 81 MG 1 tablet Orally 2x weekly Xanax 0.25 MG 1 tablet Orally prn insomnia for 30 day(s) Levothyroxine Sodium 125 MCG TAKE ONE TABLET BY MOUTH EVERY DAY IN THE MORNING ON AN EMPTY STOMACH for 90 Treatment Notes Assessment Notes Clinical Notes DJD (degenerative joint disease), cervical Stable on home PT07/2018 improving c PT SOS03/20/16 Dr. Ibarra SOS favored occiptial neuralgia03/08/16 favor acute L C4-6 facet arthritis; therefore, started Mobic 15 AC dinner and PT at x 1 visit with increased pain Preoperative clearance On 10/11/20 the ginny watts had a stable CBCD, CMP and PT/APTT. On 06/23/20 the patient's EKG revealed normal sinus rhythm at 65 beats per minute, PRWP, LAD and diffuse repolarization abnormality similar to 02/05/20 EKG. On the AM of the surgery, the patient will take carvedilol and lansoprazole with a sip of water. The patient will hold aspirin and ANY NSAID for five (5) days prior to surgery. The patient is currently medically optimized for the above surgery. By the modified RCRI, the patient's 30 day MACE risk is 6%. The patient wishes to assume this risk and proceed with the above surgery. Moderate osteopenia treatment as per Fis h1 BMD (Fish) -1.1/-1.3/-1.6-Fish CCR11/2010 BMD (Fish) T score: spine -1.4/FN -1.0 Migraine aura without headache No recurr ent symptoms since dcing [facility] mid [place] CT brain s: WNL for "distorted vision" x ~1 minute s HENDERSON Mixed hyperlipidemia Continue dietary co ntrol01/15/20 134/81/77, 0.512 122/79/84, 58, <0. /2017 126/79/68, CRP <0.3, CPK 529/2016 lipids 122/85/106 Bilateral carpal tunnel syndrome for seq uential B CTRWC-oreevq27/6/19 Setter recommended B CTR, but patient still contemplating10/23/17 BLE NCS L mild, R mild-mod CTS, mild chronic L C7 radic-Gilberto (ordered by Charlotte), but develope d? L ulnar neuropathy at elbow; therefore, Gilberto ordered PT s improvement, now considering MRI02/2017 established maco Caldwell Dizziness present since ~2005- 4 episodes lasting ~30-60 minutes-all qhs11/18/15 philomena Longoria who ordered repeat MRI brain which was normal felt c/w vestibulopathy c f/u prn08/2009 normal MRI brain Gastro-esophageal reflux disease without esophagitis Stable on lanso 30 qAM, famo 40 BIDEGDs as per Mary-last 02/2018 c gastritis, but - wdnxyn81/2018 given -02/2018 normal EGD; patient requests to try wean lanso 30 to 15, then ranit QHS08/2017 changed panto 40 qAM to Dexilant 60 qAM (had failed lanso 30 qAM prior to panto), but i changed to lanso 30 qAM Vitamin D deficiency, unspecified 1 serv ing dietary calcium08/18/20 56, 9.3, 9.4, 415 43, 9.3, 65 on D3 2K, CC 60011/2016 49, 8.6, 563 42, 8.8, PTH 52; therefore, added Tums 1000 QD11/2014 44, 9.0 on D3 27 therefore D3 2K qd started04/2013 45, 9.2 off D3 70 on 2K qd09/2011 39 therefore increased 2K to 5KJan2011 vitamin D of 48 Essential hypertension Stable on rare ca rve 3 BID (really only elevated with pain meds)labile c rises stronly aw anxiety/painC: continue carve or use prn08/18/20 9/0.7, 4.5, 2.5, BNP 145 on MOX 400 BID02/08/20 changed carve 3.125 BID prn SBP 140 while in pain c tooth. Once tooth issue resolved, plan to dc carve, and then cb BID BP/HR p 7D02/06/20 SMCER + aten 25 QD given SBP to 200/100 (but in pain/anxiety 2 fractutred tooth). Since then, SBP 90-110 despite decreasing to 12.5 QD, lowest in PM p taking in AM01/15/20 1/0.9, 4.3, 2.4 on MOX 400 BID03/2017 3.9, Mg 2.3, 0.9 on MOX 400 BID04/2016 patient stopped on own03/28/16 amlo 5 qAM started by SS (possibly elevated 2 neck pain/NSAID use) Insomnia Stable on prn alpraz 0.25 using ~qM11/2013 started Xanax 0.25 qhs prn insomnia hansa c work trips which she has used in past c successAmbien had caused grogginess Hypothyroidism, unspecified goal TSH for patient TSH 4-58 on 112/125 alternating08/18/20 1.0, 1.4 on 125, but 2 palpitations/diarrhea06/23/20 6.2, 1.0 on alt 112/125; [place] [address] 5.6, 1.1 on 112/125 alt 6.4, 1.3 on 112/125-hesistent to increase LT4 given asx AND ho pAF c score of 2 only on asa 8112/2018 2.8, 1.2 on 112/ 13.4/1.1 but on biotin; therefore held (although usually causes a Grave's-like picture), 07/19/18 4.4, 1.3 therefore, 112/125 to 125, but never did02/2018 9.5, 1.1, but precedent C. jejuni colitis x 8W; therefore, rechecked 02/28/18 5.0, 1.0; therefore, 2.7, 1.3 on 112/125 alt04/01/17 2.9, 1.3 (by DD) on 112/125 alt05/2016 0.3, FT4 1.4; therefore, decreased to 125/112 alt hansa given h/o pAF and penia (although Fish preferred to keep at 125 per patient)11/2015 1.4, 1. 4.2, FT4 1.0 on 125; therefore recheck in 8W (t/c 125/137 alt)04/28/15 1.2, FT4 1.3- ordered by Jeremy on 0.2 on LT4 137, again recommended decrease dose11/2013 0.2 on LT4 137, recommended decrease dose given h/o AF and bone loss but patient deferred07/2013 0.4 on LT4 137/2013 3.8 therefore increased to 125/137 alt Spondylosis of lumbar region without myelopathy or radiculop athy Stable on home PT08/2015 self-referred to Dr. Nitesh garrett 11 degree TL curve-who deferred any intervention given patient was asymptomatic Palpitations Minimal symptoms at this time03/17/19 24H Holter c 8 "flutter" entries cw PVCs (m76, range 40-120 c NL rhythm) (done 2 "increased p" at the time) Breast cancer screening 10/07/20 B C1 mamm ogram03/2016 normal MRI B breasts s/c (done 2 ? leaking implants) Colon cancer screening 01/12/19 Dr. Tashia soto requested Dr. Hernandez to repeat colonoscopy given new change in BMs (narrow stools)-scheduled for CT AP NAD c normal rectosig anastomosis Paroxysmal atrial fibrillation RC carve prnAP asa 81 2x [id number] (female, age); therefore, would favor DOAC which patient refuses (patient cannot tolerate asa 2 severe dyspepsia)No recurrent symptoms-advised to avoid ALL EthO HEncouraged to dc caffeine (at 20 oz coffee QD)c both episodes low normal K (3.1, 3.3)01/30/[address] Garcia who recommended asa 81 2x qW rather than DOAC (given he did not count HTN towards GERMANIA; therefore, score of 1) and against RF ablation given rare episodes11/29/16 check TTE and 72H Holter09/2016 Dr. Aly apt-no intervention recommended at this point and stopped atenolol 25 QD08/24/16 pAF c RVR 174 episode-cardioverted at [facility]-started on atenolol 25 QD- (2D prior general anesthesia for breast implant removal and had lost , no precedent EtOH)history of sustained atrial fibrillation with rapid ventricular rate requiring cardioversion c onset p intercourse (no EthOH) on 03/29/2002-Dr. Gary referred to Dr. Aly for ablation (favoring a LGL syndrome given short VT internval), but Dr. Aly deferred IFG (impaired fasting glucose) Continue ADA dietno DM in 1DR / no hypo symptoms06/23/20 5.4 (87, 6)01/15/20 5.5 (80, 3)07/10/19 5.9 (101, 6)02/2019 6.07/2018 5.5 (90, 4)02/2018 5. 5.5, 92 c ZENOBIA-IR 3 (88, 6)March 2011 A1c stable 5.711/ 139/2012 IGOR/creatinine 7 Non-seasonal allergic rhinitis, unspecified trigger Stable on cetir 10 QDc ETD/LPR Diverticulitis of large intestine withou t perforation or abscess without bleeding No recurrent symptoms sp lap sigmoid resection 07/2017 by Dr. Lance08/2015 UC and 10/2015 Jose rxed c C/F x 10D for ~10-14D flare fever, lower midline paindx agreed by Dr. Hernandez 05/2011 OV Next Appt Details , BW NOW and 1W prior Reason: Provider Name:Pillo Garcia, 2020-12-05 0 1:00:00 PM, [address] [facility], , [place], [address], Insurance Providers Payer Name Payer Address Payer Phone Insured Name Patient Relati onship to Insured Coverage Start Date Coverage End Date [facility] [address] [facility] [id number] [employer] MEDICARE Part A and B [address] [facility] [id number] [phone] [employer]
--- OUTSIDE RECORDS SUMMARY | 2020-12-22 07:08 | CCD ---
Author Author [facility] Address Unknown Phone Unavailable Care Team Providers Care Electrical Hardware Engineer Name Role Phone Anton KILLIAN NP Unavailable Unavailable LAROCKAnton NP Unavailable Unavailable LAROCKAnton NP Unavailable Unavailable LAROCKAnton NP Unavailable Unavailable LAROCK, Anton MAZARIEGOS NP Unavailable Unavailable LAROCK, Anton MAZARIEGOS NP Unavailable Unavailable LAROCK, Anton MAZARIEGOS NP Unavailable Unavailable LAROCK, Anton MAZARIEGOS NP Unavailable Unavailable LAROCKAnton NP Unavailable Unavailable LAROCK, Anton MAZARIEGOS NP Unavailable Unavailable LAROCKAnton NP Unavailable Unavailable LAROCKAnton NP Unavailable Unavailable LAROCKAnton NP Unavailable Unavailable LAROCKAnton NP Unavailable Unavailable LAROCKAnton NP Unavailable Unavailable LAROCKAnton NP Unavailable Unavailable LAROCKAnton NP Unavailable Unavailable LAROCKAnton NP Unavailable Unavailable LAROCKAnton NP Unavailable Unavailable LAROCKAnton NP Unavailable Unavailable LAROCKAnton NP Unavailable Unavailable LAROCK, Anton MAZARIEGOS NP Unavailable Unavailable Regina MELO DPM Unavailable Unavailable KAMERON R DIRK DPM Unavailable Unavailable KAMERON, R DIRK DPM Unavailable Unavailable HOOK, R DIRK DPM Unavailable Unavailable HOOK, R DIRK DPM Unavailable Unavailable HOOK, R DIRK DPM Unavailable Unavailable HOOK, R DIRK DPM Unavailable Unavailable HOOK, R DIRK DPM Unavailable Unavailable HOOK, R DIRK DPM Unavailable Unavailable HOOK, R DIRK DPM Unavailable Unavailable HOOK, R DIRK DPM Unavailable Unavailable HOOK, R DIRK DPM Unavailable Unavailable HOOK, R DIRK DPM Unavailable Unavailable HOOK, R DIRK DPM Unavailable Unavailable HOOK, R DIRK DPM Unavailable Unavailable HOOK, R DIRK DPM Unavailable Unavailable HOOK, R DIRK DPM Unavailable Unavailable HOOK, R DIRK DPM Unavailable Unavailable HOOK, R DIRK DPM Unavailable Unavailable HOOK, R DIRK DPM Unavailable Unavailable HOOK, R DIRK DPM Unavailable Unavailable HOOK, R DIRK DPM Unavailable Unavailable HOOK, R DIRK DPM Unavailable Unavailable HOOK, R DIRK DPM Unavailable Unavailable HOOK, R DIRK DPM Unavailable Unavailable HOOK, R DIRK DPM Unavailable Unavailable HOOK, R DIRK DPM Unavailable Unavailable HOOK, R DIRK DPM Unavailable Unavailable HOOK, R DIRK DPM Unavailable Unavailable HOOK, R DIRK DPM Unavailable Unavailable HOOK, R DIRK DPM Unavailable Unavailable HOOK, R DIRK DPM Unavailable Unavailable HOOK, R DIRK DPM Unavailable Unavailable HOOK, R DIRK DPM Unavailable Unavailable HOOK, R DIRK DPM Unavailable Unavailable HOOK, R DIRK DPM Unavailable Unavailable HOOK, R DIRK DPM Unavailable Unavailable HOOK, R DIRK DPM Unavailable Unavailable HOOK, R DIRK DPM Unavailable Unavailable HOOK, R DIRK DPM Unavailable Unavailable HOOK, R DIRK DPM Unavailable Unavailable HOOK, R DIRK DPM Unavailable Unavailable HOOK, R DIRK DPM Unavailable Unavailable HOOK, R DIRK DPM Unavailable Unavailable HOOK, R DIRK DPM Unavailable Unavailable HOOK, R DIRK DPM Unavailable Unavailable HOOK, R DIRK DPM Unavailable Unavailable HOOK, R DIRK DPM Unavailable Unavailable HOOK, R DIRK DPM Unavailable Unavailable HOOK, R DIRK DPM Unavailable Unavailable HOOK, R DIRK DPM Unavailable Unavailable HOOK, R DIRK DPM Unavailable Unavailable HOOK, R DIRK DPM Unavailable Unavailable HOOK, R DIRK DPM Unavailable Unavailable HOOK, R DIRK DPM Unavailable Unavailable HOOK, R DIRK DPM Unavailable Unavailable HOOK, R DIRK DPM Unavailable Unavailable HOOK, R DIRK DPM Unavailable Unavailable HOOK, R DIRK DPM Unavailable Unavailable HOOK, R DIRK DPM Unavailable Unavailable HOOK, R DIRK DPM Unavailable Unavailable Elina, M Apolonia PA Unavailable Unavailable Elina, M Apolonia PA Unavailable Unavailable Elina, M Apolonia PA Unavailable Unavailable Elina, M Apolonia PA Unavailable Unavailable Elina, M Apolonia PA Unavailable Unavailable Elina, M Apolonia PA Unavailable Unavailable Elina, M Apolonia PA Unavailable Unavailable Elina, M Apolonia PA Unavailable Unavailable Elina, M Apolonia PA Unavailable Unavailable Elina, M Apolonia PA Unavailable Unavailable Elina, M Apolonia PA Unavailable Unavailable Elina, M Apolonia PA Unavailable Unavailable Elina, M Apolonia PA Unavailable Unavailable Elina, M Apolonia PA Unavailable Unavailable Elina, M Apolonia PA Unavailable Unavailable Elina, M Apolonia PA Unavailable Unavailable Elina, M Apolonia PA Unavailable Unavailable Elina, M Apolonia PA Unavailable Unavailable Elina, M Apolonai PA Unavailable Unavailable Elina, M Apolonia PA Unavailable Unavailable Elina, M Apol[place] PA Unavailable Unavailable Elina, M Apol[place] PA Unavailable Unavailable Elina, M Apol[place] PA Unavailable Unavailable Elina, M Apolonia PA Unavailable Unavailable Elina, M Apolonia PA Unavailable Unavailable Elina, M Apolonia PA Unavailable Unavailable Elina, M Apolonia PA Unavailable Unavailable Elina, M Apolonia PA Unavailable Unavailable Elina, M Apolonia PA Unavailable Unavailable Elina, M Apolonia PA Unavailable Unavailable Elina, M Apol[place] PA Unavailable Unavailable Elina, M Apol[place] PA Unavailable Unavailable Elina, M Apol[place] PA Unavailable Unavailable Elina, M Apol[place] PA Unavailable Unavailable Elina, M Apol[place] PA Unavailable Unavailable Elina, M Apol[place] PA Unavailable Unavailable Elina, M Apol[place] PA Unavailable Unavailable Elina, M Apol[place] PA Unavailable Unavailable Elina, M Apol[place] PA Unavailable Unavailable Elina, M Apol[place] PA Unavailable Unavailable Elina, M Apol[place] PA Unavailable Unavailable Elina, M Apol[place] PA Unavailable Unavailable Elina, M Apol[place] PA Unavailable Unavailable Elina, M Apolonia PA Unavailable Unavailable Elina, M Apol[place] PA Unavailable Unavailable Elina, M Apolonia PA Unavailable Unavailable CHRISTENSEN, R EVONNE IMAGING ADMINISTRATOR Unavailable Unavailable CHRISTENSEN, R EVONNE IMAGING ADMINISTRATOR Unavailable Unavailable CHRISTENSEN, R EVONNE IMAGING ADMINISTRATOR Unavailable Unavailable CHRISTENSEN, R EVONNE IMAGING ADMINISTRATOR Unavailable Unavailable CHRISTENSEN, R EVONNE IMAGING ADMINISTRATOR Unavailable Unavailable CHRISTENSEN, R EVONNE IMAGING ADMINISTRATOR Unavailable Unavailable CHRISTENSEN, R EVONNE IMAGING ADMINISTRATOR Unavailable Unavailable CHRISTENSEN, R EVONNE IMAGING ADMINISTRATOR Unavailable Unavailable CHRISTENSEN, R EVONNE IMAGING ADMINISTRATOR Unavailable Unavailable CHRISTENSEN, R EVONNE IMAGING ADMINISTRATOR Unavailable Unavailable CHRISTENSEN, R EVONNE IMAGING ADMINISTRATOR Unavailable Unavailable CHRISTENSEN, R EVONNE IMAGING ADMINISTRATOR Unavailable Unavailable CHRISTENSEN, R EVONNE IMAGING ADMINISTRATOR Unavailable Unavailable CHRISTENSEN, R EVONNE IMAGING ADMINISTRATOR Unavailable Unavailable CHRISTENSEN, R EVONNE IMAGING ADMINISTRATOR Unavailable Unavailable CHRISTENSEN, R EVONNE IMAGING ADMINISTRATOR Unavailable Unavailable CHRISTENSEN, R EVONNE IMAGING ADMINISTRATOR Unavailable Unavailable CHRISTENSEN, R EVONNE IMAGING ADMINISTRATOR Unavailable Unavailable CHRISTENSEN, R EVONNE IMAGING ADMINISTRATOR Unavailable Unavailable CHRISTENSEN, R EVONNE IMAGING ADMINISTRATOR Unavailable Unavailable CHRISTENSEN, R EVONNE IMAGING ADMINISTRATOR Unavailable Unavailable CHRISTENSEN, R EVONNE IMAGING ADMINISTRATOR Unavailable Unavailable CHRISTENSEN, R EVONNE IMAGING ADMINISTRATOR Unavailable Unavailable CHRISTENSEN, R EVONNE IMAGING ADMINISTRATOR Unavailable Unavailable CHRISTENSEN, R EVONNE IMAGING ADMINISTRATOR Unavailable Unavailable CHRISTENSEN, R EVONNE IMAGING ADMINISTRATOR Unavailable Unavailable CHRISTENSEN, R EVONNE IMAGING ADMINISTRATOR Unavailable Unavailable CHRISTENSEN, R EVONNE IMAGING ADMINISTRATOR Unavailable Unavailable CHRISTENSEN, R VEONNE IMAGING ADMINISTRATOR Unavailable Unavailable CHRISTENSEN, R EVONNE IMAGING ADMINISTRATOR Unavailable Unavailable CHRISTENSEN, R EVONNE IMAGING ADMINISTRATOR Unavailable Unavailable CHRISTENSEN, R EVONNE IMAGING ADMINISTRATOR Unavailable Unavailable CHRISTENSEN, R EVONNE IMAGING ADMINISTRATOR Unavailable Unavailable CHRISTENSEN, R EVONNE IMAGING ADMINISTRATOR Unavailable Unavailable CHRISTENSEN, R EVONNE IMAGING ADMINISTRATOR Unavailable Unavailable CHRISTENSEN, R EVONNE IMAGING ADMINISTRATOR Unavailable Unavailable CHRISTENSEN, R EVONNE IMAGING ADMINISTRATOR Unavailable Unavailable CHRISTENSEN, R EVONNE IMAGING ADMINISTRATOR Unavailable Unavailable CHRISTENSEN, R EVONNE IMAGING ADMINISTRATOR Unavailable Unavailable CHRISTENSEN, R EVONNE IMAGING ADMINISTRATOR Unavailable Unavailable CHRISTENSEN, R EVONNE IMAGING ADMINISTRATOR Unavailable Unavailable CHRISTENSEN, R EVONNE IMAGING ADMINISTRATOR Unavailable Unavailable CHRISTENSEN, R EVONNE IMAGING ADMINISTRATOR Unavailable Unavailable CHRISTENSEN, R EVONNE IMAGING ADMINISTRATOR Unavailable Unavailable FREDRICK, CARISSA PA Unavailable Unavailable FREDRICK, CARISSA PA Unavailable Unavailable FREDRICK, CARISSA PA Unavailable Unavailable FREDRICK, CARISSA PA Unavailable Unavailable FREDRICK, CARISSA PA Unavailable Unavailable FREDRICK, CARISSA PA Unavailable Unavailable FREDRICK, CARISSA PA Unavailable Unavailable FREDRICK, CARISSA PA Unavailable Unavailable FREDRICK, CARISSA PA Unavailable Unavailable FREDRICK, CARISSA PA Unavailable Unavailable FREDRICK, CARISSA PA Unavailable Unavailable FREDRICK, CARISSA PA Unavailable Unavailable FREDRICK, CARISSA PA Unavailable Unavailable FREDRICK, CARISSA PA Unavailable Unavailable FREDRICK, CARISSA PA Unavailable Unavailable FREDRICK, CARISSA PA Unavailable Unavailable FREDRICK, CARISSA PA Unavailable Unavailable FREDRICK, CARISSA PA Unavailable Unavailable FREDRICK, CARISSA PA Unavailable Unavailable FREDRICK, CARISSA PA Unavailable Unavailable FREDRICK, CARISSA PA Unavailable Unavailable FREDRICK, CARISSA PA Unavailable Unavailable FREDRICK, CARISSA PA Unavailable Unavailable FREDRICK, CARISSA PA Unavailable Unavailable FREDRICK, CARISSA PA Unavailable Unavailable FREDRICK, CARISSA PA Unavailable Unavailable FREDRCIK, CARISSA PA Unavailable Unavailable FREDRICK, CARISSA PA Unavailable Unavailable FREDRICK, CARISSA PA Unavailable Unavailable FREDRICK, CARISSA PA Unavailable Unavailable FREDRICK, CARISSA PA Unavailable Unavailable FREDRICK, CARISSA PA Unavailable Unavailable FREDRICK, CARISSA PA Unavailable Unavailable FREDRICK, CARISSA PA Unavailable Unavailable FREDRICK, CARISSA PA Unavailable Unavailable FREDRICK, CARISSA PA Unavailable Unavailable Nakia Garcia MD Unavailable Unavailable Nakia Garcia MD Unavailable Unavailable Nakia Garcia MD Unavailable Unavailable Nakia Garcia MD Unavailable Unavailable Nakia Garcia MD Unavailable Unavailable Nakia Garcia MD Unavailable Unavailable Nakia Garcia MD Unavailable Unavailable Nakia Gracia MD Unavailable Unavailable Nakia Garcia MD Unavailable Unavailable Nakia Garcia MD Unavailable Unavailable Nakia Garcia MD Unavailable Unavailable Nakia Garcia MD Unavailable Unavailable Nakia Garcia MD Unavailable Unavailable Nakia Garcia MD Unavailable Unavailable Nakia Garcia MD Unavailable Unavailable Nakia Garcia MD Unavailable Unavailable Nakia Garcia MD Unavailable Unavailable Nakia Garcia MD Unavailable Unavailable Nakia Garcia MD Unavailable Unavailable Nakia Garcia MD Unavailable Unavailable Nakia Garcia MD Unavailable Unavailable Nakia Garcia MD Unavailable Unavailable Nakia Garcia MD Unavailable Unavailable Nakia Garcia MD Unavailable Unavailable Nakia Gacria MD Unavailable Unavailable Nakia Garcia MD Unavailable Unavailable Nakia Garcia MD Unavailable Unavailable Nakia Garcia MD Unavailable Unavailable Nakia Garcia MD Unavailable Unavailable Nakia Garcia MD Unavailable Unavailable Nakia Garcia MD Unavailable Unavailable Jose, Nakia Ferro MD Unavailable Unavailable Jose, Nakia Ferro MD Unavailable Unavailable Jose, E Pillo SWARTZ Unavailable Unavailable Jose, E Pillo SWARTZ Unavailable Unavailable Jose, E Pillo SWARTZ Unavailable Unavailable Jose, E Pillo SWARTZ Unavailable Unavailable Jose, Nakia Ferro MD Unavailable Unavailable Jose, E Pillo SWARTZ Unavailable Unavailable Jose, E Pillo SWARTZ Unavailable Unavailable Jose, E Pillo SWARTZ Unavailable Unavailable Jose, E Pillo MD Unavailable Unavailable Jose, E Pillo SWARTZ Unavailable Unavailable Jose, E Pillo SWARTZ Unavailable Unavailable Jose, E Pillo SWARTZ Unavailable Unavailable Jose, E Pillo SWARTZ Unavailable Unavailable Jose, E Pillo SWARTZ Unavailable Unavailable Jose, E Pillo SWARTZ Unavailable Unavailable Jose, E Pillo SWARTZ Unavailable Unavailable Jose, E Pillo SWARTZ Unavailable Unavailable Jose, E Pillo SWARTZ Unavailable Unavailable Jose, E Pillo SWARTZ Unavailable Unavailable Jose, E Pillo SWARTZ Unavailable Unavailable Jose, E Pillo SWARTZ Unavailable Unavailable Jose, E Pillo MD Unavailable Unavailable Jose, E Pillo MD Unavailable Unavailable Jose, E Pillo MD Unavailable Unavailable Jose, E Pillo MD Unavailable Unavailable Jose, E Pillo SWARTZ Unavailable Unavailable DEMARTINI, M TRPUTI PA Unavailable Unavailable DEMARTINI, M TRUPTI PA Unavailable Unavailable DEMARTINI, M TRUPTI PA Unavailable Unavailable DEMARTINI, M TRUPTI PA Unavailable Unavailable DEMARTINI, M TRUPTI PA Unavailable Unavailable DEMARTINI, M TRUPTI PA Unavailable Unavailable DEMARTINI, M TRUPTI PA Unavailable Unavailable DEMARTINI, M TRUPTI PA Unavailable Unavailable DEMARTINI, M TRUPTI PA Unavailable Unavailable DEMARTINI, M TRUPTI PA Unavailable Unavailable DEMARTINI, M TRUPTI PA Unavailable Unavailable DEMARTINI, M TRUPTI PA Unavailable Unavailable DEMARTINI, M TRUPTI PA Unavailable Unavailable DEMARTINI, M TRUPTI PA Unavailable Unavailable DEMARTINI, M TRUPTI PA Unavailable Unavailable DEMARTINI, M TRUPTI PA Unavailable Unavailable DEMARTINI, M TRUPTI PA Unavailable Unavailable DEMARTINI, M TRUPTI PA Unavailable Unavailable DEMARTINI, M TRUPTI PA Unavailable Unavailable DEMARTINI, M TRUPTI PA Unavailable Unavailable DEMARTINI, M TRUPTI PA Unavailable Unavailable DEMARTINI, M TRUPTI PA Unavailable Unavailable DEMARTINI, M TRUPTI PA Unavailable Unavailable DEMARTINI, M TRUPTI PA Unavailable Unavailable DEMARTINI, M TRUPTI PA Unavailable Unavailable DEMARTINI, M TRUPTI PA Unavailable Unavailable DEMARTINI, M TRUPTI PA Unavailable Unavailable DEMARTINI, M TRUPTI PA Unavailable Unavailable DEMARTINI, M TRUPTI PA Unavailable Unavailable DEMARTINI, M TRUPTI PA Unavailable Unavailable DEMARTINI, M TRUPTI PA Unavailable Unavailable DEMARTINI, M TRUPTI PA Unavailable Unavailable DEMARTINI, M TRUPTI PA Unavailable Unavailable DEMARTINI, M TRUPTI PA Unavailable Unavailable DEMARTINI, M TRUPTI PA Unavailable Unavailable DEMARTINI, M TRUPTI PA Unavailable Unavailable DEMARTINI, M TRUPTI PA Unavailable Unavailable DEMARTINI, M TRUPTI PA Unavailable Unavailable DEMARTINI, M TRUPTI PA Unavailable Unavailable DEMARTINI, M TRUPTI PA Unavailable Unavailable DEMARTINI, M TRUPTI PA Unavailable Unavailable DEMARTINI, M TRUPTI PA Unavailable Unavailable DEMARTINI, M TRUPTI PA Unavailable Unavailable DEMARTINI, M TRUPTI PA Unavailable Unavailable DEMARTINI, M TRUPTI PA Unavailable Unavailable MISBAH, E IZZY PA Unavailable Unavailable MISBAH, E IZZY PA Unavailable Unavailable MISBAH, E IZZY PA Unavailable Unavailable Maring, Jesse PA Unavailable Unavailable Maring, Jesse PA Unavailable Unavailable Maring, Jesse PA Unavailable Unavailable Maring, Jesse PA Unavailable Unavailable Maring, Jesse PA Unavailable Unavailable Maring, Jesse PA Unavailable Unavailable Maring, Jesse PA Unavailable Unavailable Maring, Jesse PA Unavailable Unavailable Maring, Jesse PA Unavailable Unavailable Maring, Jesse PA Unavailable Unavailable Maring, Jesse PA Unavailable Unavailable Maring, Jesse PA Unavailable Unavailable Maring, Jesse PA Unavailable Unavailable Maring, Jesse PA Unavailable Unavailable Maring, Jesse PA Unavailable Unavailable Maring, Jesse PA Unavailable Unavailable Feola, T Dory PA Unavailable Unavailable Feola, T Dory PA Unavailable Unavailable Feola, T Dory PA Unavailable Unavailable Feola, T Dory PA Unavailable Unavailable Feola, T Dory PA Unavailable Unavailable Feola, T Dory PA Unavailable Unavailable Feola, T Dory PA Unavailable Unavailable Feola, T Dory PA Unavailable Unavailable Feola, T Dory PA Unavailable Unavailable Feola, T Dory PA Unavailable Unavailable Feola, T Dory PA Unavailable Unavailable Feola, T Dory PA Unavailable Unavailable Feola, T Dory PA Unavailable Unavailable Feola, T Dory PA Unavailable Unavailable Feola, T Dory PA Unavailable Unavailable Feola, T Dory PA Unavailable Unavailable Feola, T Dory PA Unavailable Unavailable Feola, T Dory PA Unavailable Unavailable Feola, T Dory PA Unavailable Unavailable Feola, T Dory PA Unavailable Unavailable Feola, T Dory PA Unavailable Unavailable Feola, T Dory PA Unavailable Unavailable Feola, T Dory PA Unavailable Unavailable Feola, T Dory PA Unavailable Unavailable Feola, T Dory PA Unavailable Unavailable Feola, T Dory PA Unavailable Unavailable Feola, T Dory PA Unavailable Unavailable Feola, T Dory PA Unavailable Unavailable Feola, T Dory PA Unavailable Unavailable Feola, T Dory PA Unavailable Unavailable Feola, T Dory PA Unavailable Unavailable Feola, T Dory PA Unavailable Unavailable Feola, T Dory PA Unavailable Unavailable Feola, T Odry PA Unavailable Unavailable Feola, T Dory PA Unavailable Unavailable Feola, T Dory PA Unavailable Unavailable Feola, T Dory PA Unavailable Unavailable Feola, T Dory PA Unavailable Unavailable Feola, T Dory PA Unavailable Unavailable Feola, T Dory PA Unavailable Unavailable Feola, T Dory PA Unavailable Unavailable SHERRY, SIERRA MD Unavailable Unavailable SHERRY, SIERRA MD Unavailable Unavailable SHERRY, SIERRA MD Unavailable Unavailable SHERRY, SIERRA MD Unavailable Unavailable SHERRY, SIERRA MD Unavailable Unavailable SHERRY, SIERRA MD Unavailable Unavailable SHERRY, SIERRA MD Unavailable Unavailable SHERRY, SIERRA MD Unavailable Unavailable SHERRY, SIERRA MD Unavailable Unavailable SHERRY, SIERRA MD Unavailable Unavailable SHERRY, SIERRA MD Unavailable Unavailable SHERRY, SIERRA MD Unavailable Unavailable SHERRY, SIERRA MD Unavailable Unavailable SHERRY, SIERRA MD Unavailable Unavailable SHERRY, SIERRA MD Unavailable Unavailable SHERRY, SIERRA MD Unavailable Unavailable SHERRY, SIERRA MD Unavailable Unavailable SHERRY, SIERRA MD Unavailable Unavailable SHERRY, SIERRA MD Unavailable Unavailable SHERRY, SIERRA MD Unavailable Unavailable SHERRY, SIERRA MD Unavailable Unavailable SHERRY, SIERRA MD Unavailable Unavailable SHERRY, SIERRA MD Unavailable Unavailable SHERRY, SIERRA MD Unavailable Unavailable SHERRY, SIERRA MD Unavailable Unavailable SHERRY, SIERRA MD Unavailable Unavailable SHERRY, SIERRA MD Unavailable Unavailable SHERRY, SIERRA MD Unavailable Unavailable SHERRY, SIERRA MD Unavailable Unavailable SHERRY, SIERRA MD Unavailable Unavailable SHERRY, SIERRA MD Unavailable Unavailable SHERRY, SIERRA MD Unavailable Unavailable SHERRY, SIERRA MD Unavailable Unavailable SHERRY, SIERRA MD Unavailable Unavailable SHERRY, SIERRA MD Unavailable Unavailable SHERRY, SIERRA MD Unavailable Unavailable SHERRY, SIERRA MD Unavailable Unavailable SHERRY, SIERRA MD Unavailable Unavailable SHERRY, SIERRA MD Unavailable Unavailable SHERRY, SIERRA MD Unavailable Unavailable SHERRYSIERRA AGRAWAL MD Unavailable Unavailable SIERRA POWELL MD Unavailable Unavailable SHERYRSIERRA MD Unavailable Unavailable PICKERAL JR, J RANDI PA-C Unavailable Unavailable PICKERAL JR, J RANDI PA-C Unavailable Unavailable PICKERAL JR, J RANDI PA-C Unavailable Unavailable PICKERAL JR, J RANDI PA-C Unavailable Unavailable PICKERAL JR, J RANDI PA-C Unavailable Unavailable PICKERAL JR, J RANDI PA-C Unavailable Unavailable PICKERAL JR, J RANDI PA-C Unavailable Unavailable PICKERAL JR, J RANDI PA-C Unavailable Unavailable PICKERAL JR, J RANDI PA-C Unavailable Unavailable PICKERAL JR, J RANDI PA-C Unavailable Unavailable PICKERAL JR, J RANDI PA-C Unavailable Unavailable PICKERAL JR, J RANDI PA-C Unavailable Unavailable PICKERAL JR, J RANDI PA-C Unavailable Unavailable PICKERAL JR, J RANDI PA-C Unavailable Unavailable PICKERAL JR, J RANDI PA-C Unavailable Unavailable PICKERAL JR, J RANDI PA-C Unavailable Unavailable PICKERAL JR, J RANDI PA-C Unavailable Unavailable PICKERAL JR, J RANDI PA-C Unavailable Unavailable PICKERAL JR, J RANDI PA-C Unavailable Unavailable PICKERAL JR, J RANDI PA-C Unavailable Unavailable PICKERAL JR, J RANDI PA-C Unavailable Unavailable PICKERAL JR, J RANDI PA-C Unavailable Unavailable PICKERAL JR, J RANDI PA-C Unavailable Unavailable PICKERAL JR, J RANDI PA-C Unavailable Unavailable PICKERAL JR, J RANDI PA-C Unavailable Unavailable PICKERAL JR, J RANDI PA-C Unavailable Unavailable PICKERAL JR, J RANDI PA-C Unavailable Unavailable ELENO, B BRONSON IMAGING ADMINISTRATOR Unavailable Unavailable ELENO, B BRONSON IMAGING ADMINISTRATOR Unavailable Unavailable ELENO, B BRONSON IMAGING ADMINISTRATOR Unavailable Unavailable ELENO, B BRONSON IMAGING ADMINISTRATOR Unavailable Unavailable ELENO, B BRONSON IMAGING ADMINISTRATOR Unavailable Unavailable ELENO, B BRONSON IMAGING ADMINISTRATOR Unavailable Unavailable ELENO, B BRONSON IMAGING ADMINISTRATOR Unavailable Unavailable ELENO, B BRONSON IMAGING ADMINISTRATOR Unavailable Unavailable ELENO, B BRONSON IMAGING ADMINISTRATOR Unavailable Unavailable ELENO, B BRONSON IMAGING ADMINISTRATOR Unavailable Unavailable ELENO, B BRONSON IMAGING ADMINISTRATOR Unavailable Unavailable ELENO, B BRONSON IMAGING ADMINISTRATOR Unavailable Unavailable ELENO, B BRONSON IMAGING ADMINISTRATOR Unavailable Unavailable ELENO, B BRONSON IMAGING ADMINISTRATOR Unavailable Unavailable ELENO, B BRONSON IMAGING ADMINISTRATOR Unavailable Unavailable ELENO, B BRONSON IMAGING ADMINISTRATOR Unavailable Unavailable ELENO, B BRONSON IMAGING ADMINISTRATOR Unavailable Unavailable ELENO, B BRONSON IMAGING ADMINISTRATOR Unavailable Unavailable ELENO, B BRONSON IMAGING ADMINISTRATOR Unavailable Unavailable ELENO, B BRONSON IMAGING ADMINISTRATOR Unavailable Unavailable ELENO, B BRONSON IMAGING ADMINISTRATOR Unavailable Unavailable ELENO, B BRONSON IMAGING ADMINISTRATOR Unavailable Unavailable ELENO, B BRONSON IMAGING ADMINISTRATOR Unavailable Unavailable ELENO, B BRONSON IMAGING ADMINISTRATOR Unavailable Unavailable ELENO, B BRONSON IMAGING ADMINISTRATOR Unavailable Unavailable ELENO, B BRONSON IMAGING ADMINISTRATOR Unavailable Unavailable ELENO, B BRONSON IMAGING ADMINISTRATOR Unavailable Unavailable ELENO, B BRONSON IMAGING ADMINISTRATOR Unavailable Unavailable ELENO, B BRONSON IMAGING ADMINISTRATOR Unavailable Unavailable ELENO, B BRONSON IMAGING ADMINISTRATOR Unavailable Unavailable ELENO, B BRONSON IMAGING ADMINISTRATOR Unavailable Unavailable ELENO, B BRONSON IMAGING ADMINISTRATOR Unavailable Unavailable ELENO, B BRONSON IMAGING ADMINISTRATOR Unavailable Unavailable ELENO, B BRONSON IMAGING ADMINISTRATOR Unavailable Unavailable ELENO, B BRONSON IMAGING ADMINISTRATOR Unavailable Unavailable ELENO, B BRONSON IMAGING ADMINISTRATOR Unavailable Unavailable ELENO, B BRONSON IMAGING ADMINISTRATOR Unavailable Unavailable ELENO, B BRONSON IMAGING ADMINISTRATOR Unavailable Unavailable ELENO, B BRONSON IMAGING ADMINISTRATOR Unavailable Unavailable ELENO, B BRONSON IMAGING ADMINISTRATOR Unavailable Unavailable ELENO, B BRONSON IMAGING ADMINISTRATOR Unavailable Unavailable ELENO, B BRONSON IMAGING ADMINISTRATOR Unavailable Unavailable ELENO, B BRONSON IMAGING ADMINISTRATOR Unavailable Unavailable ELNEO, B BRONSON IMAGING ADMINISTRATOR Unavailable Unavailable ELENO, B BRONSON IMAGING ADMINISTRATOR Unavailable Unavailable ELENO, B BRONSON IMAGING ADMINISTRATOR Unavailable Unavailable ELENO, B BRONSON IMAGING ADMINISTRATOR Unavailable Unavailable ELENO, B BRONSON IMAGING ADMINISTRATOR Unavailable Unavailable ELENO, B BRONSON IMAGING ADMINISTRATOR Unavailable Unavailable ELENO, B BRONSON IMAGING ADMINISTRATOR Unavailable Unavailable ELENO, B BRONSON IMAGING ADMINISTRATOR Unavailable Unavailable ELENO, B BRONSON IMAGING ADMINISTRATOR Unavailable Unavailable ELENO, B BRONSON IMAGING ADMINISTRATOR Unavailable Unavailable ELENO, B BRONSON IMAGING ADMINISTRATOR Unavailable Unavailable ELENO, B BRONSON IMAGING ADMINISTRATOR Unavailable Unavailable ELENO, B BRONSON IMAGING ADMINISTRATOR Unavailable Unavailable ELENO, B BRONSON IMAGING ADMINISTRATOR Unavailable Unavailable ELENO, B BRONSON IMAGING ADMINISTRATOR Unavailable Unavailable ELENO, B BRONSON IMAGING ADMINISTRATOR Unavailable Unavailable ELENO, B BRONSON IMAGING ADMINISTRATOR Unavailable Unavailable ELENO, B BRONSON IMAGING ADMINISTRATOR Unavailable Unavailable ELENO, B BRONSON IMAGING ADMINISTRATOR Unavailable Unavailable PHYSICIAN, PHYSICIAN ER Unavailable Unavailable Zacarias Longoria MD Unavailable Unavailable Zacarias Longoria MD Unavailable Unavailable Zacarias Longoria MD Unavailable Unavailable Zacarias Longoria MD Unavailable Unavailable Zacarias Longoria MD Unavailable Unavailable Zacarias Longoria MD Unavailable Unavailable Zacarias Longoria MD Unavailable Unavailable Zacarias Longoria MD Unavailable Unavailable Zacarias Longoria MD Unavailable Unavailable ThurstonZacarias MD Unavailable Unavailable ThurstonZacarias MD Unavailable Unavailable ThurstonZacarias MD Unavailable Unavailable ThurstonZacarias MD Unavailable Unavailable ThurstonZacarias MD Unavailable Unavailable ThurstonZacarias MD Unavailable Unavailable Zacarias Longoria MD Unavailable Unavailable ThurstonZacarias brown MD Unavailable Unavailable ThurstonZacarias MD Unavailable Unavailable ThurstonZacarias MD Unavailable Unavailable ThurstonZacarias MD Unavailable Unavailable ThurstonZacarias MD Unavailable Unavailable ThurstonZacarias MD Unavailable Unavailable ThurstonZacarias MD Unavailable Unavailable ThurstonZacarias MD Unavailable Unavailable Zacarias Longoria MD Unavailable Unavailable Zacarias Longoria MD Unavailable Unavailable Zcaarias Longoria MD Unavailable Unavailable Zacarias Longoria MD Unavailable Unavailable Zacarias Longoria MD Unavailable Unavailable Zacarias Longoria MD Unavailable Unavailable Anton RUVALCABA MD Unavailable Unavailable Anton RUVALCABA MD Unavailable Unavailable Anton RUVALCABA MD Unavailable Unavailable Anton RUVALCABA MD Unavailable Unavailable Anton RUVALCABA MD Unavailable Unavailable Anton RUVALCABA MD Unavailable Unavailable Anton RUVALCABA MD Unavailable Unavailable Anton RUVALCABA MD Unavailable Unavailable Anton RUVALCABA MD Unavailable Unavailable Anton RUVALCABA MD Unavailable Unavailable Anton RUVALCABA MD Unavailable Unavailable Anton RUVALCABA MD Unavailable Unavailable Anton RUVALCABA MD Unavailable Unavailable Anton RUVALCABA MD Unavailable Unavailable Anton RUVALCABA MD Unavailable Unavailable Anton RUVALCABA MD Unavailable Unavailable Anton RUVALCABA MD Unavailable Unavailable Anton RUVALCABA MD Unavailable Unavailable Anton RUVALCABA MD Unavailable Unavailable Anton RUVALCABA MD Unavailable Unavailable Anton RUVALCABA MD Unavailable Unavailable Anton RUVALCABA MD Unavailable Unavailable Anton RUVALCABA MD Unavailable Unavailable Anton RUVALCABA MD Unavailable Unavailable Anton RUVALCABA MD Unavailable Unavailable Anton RUVALCABA MD Unavailable Unavailable Anton RUVALCABA MD Unavailable Unavailable Anton RUVALCABA MD Unavailable Unavailable Anton RUVALCABA MD Unavailable Unavailable Anton RUVALCABA MD Unavailable Unavailable Anton RUVALCABA MD Unavailable Unavailable Anton RUVALCABA MD Unavailable Unavailable Anton RUVALCABA MD Unavailable Unavailable Anton RUVALCABA MD Unavailable Unavailable SETTERAnton MD Unavailable Unavailable SETTERAnton MD Unavailable Unavailable SETTERAnton MD Unavailable Unavailable SETTERAnton MD Unavailable Unavailable SETTER, Anton ALMANZAR MD Unavailable Unavailable SETTER, Anton ALMANZAR MD Unavailable Unavailable SETTER, Anton ALMANZAR MD Unavailable Unavailable SETTERAnton MD Unavailable Unavailable SETTERAnton MD Unavailable Unavailable SETTER, Anton ALMANZAR MD Unavailable Unavailable SETTER, Anton ALMANZAR MD Unavailable Unavailable SETTER, Anton ALMANZAR MD Unavailable Unavailable SETTER, Anton ALMANZAR MD Unavailable Unavailable SETTER, Anton ALMANZAR MD Unavailable Unavailable SETTER, Anton ALMANZAR MD Unavailable Unavailable SETTER, Anton ALMANZAR MD Unavailable Unavailable SETTER, Anton ALMANZAR MD Unavailable Unavailable SETTER, Anton ALMANZAR MD Unavailable Unavailable SETTER, Anton ALMANZAR MD Unavailable Unavailable SETTER, Anton ALMANZAR MD Unavailable Unavailable SETTERAnton MD Unavailable Unavailable SETTERAnton MD Unavailable Unavailable SETTER, Anton ALMANZAR MD Unavailable Unavailable SETTER, Anton ALMANZAR MD Unavailable Unavailable SETTERAnton MD Unavailable Unavailable SETTERAnton MD Unavailable Unavailable SETTERAnton MD Unavailable Unavailable SETTERAnton MD Unavailable Unavailable SETTERAnton MD Unavailable Unavailable SETTERAnton MD Unavailable Unavailable SETTERAnton MD Unavailable Unavailable SETTERAnton MD Unavailable Unavailable SETTERAnton MD Unavailable Unavailable SETTERAnton MD Unavailable Unavailable SETTERAnton MD Unavailable Unavailable SETTERAnton MD Unavailable Unavailable SETTERAnton MD Unavailable Unavailable SETTERAnton MD Unavailable Unavailable SETTERAnton MD Unavailable Unavailable SETTERAnton MD Unavailable Unavailable SETTERAnton MD Unavailable Unavailable SETTERAnton MD Unavailable Unavailable SETTERAnton MD Unavailable Unavailable SETTERAnton MD Unavailable Unavailable SETTERAnton MD Unavailable Unavailable SETTERAnton MD Unavailable Unavailable SETTERAnton MD Unavailable Unavailable SETTERAnton MD Unavailable Unavailable SETTERAnton MD Unavailable Unavailable SETTERAnton MD Unavailable Unavailable SETTERAnton MD Unavailable Unavailable SETTERAnton MD Unavailable Unavailable SETTERAnton MD Unavailable Unavailable SETTERAnton MD Unavailable Unavailable SETTERAnton MD Unavailable Unavailable SETTERAnton MD Unavailable Unavailable SETTER, Anton ALMANZAR MD Unavailable Unavailable SETTER, Anton ALMANZAR MD Unavailable Unavailable SETTER, Anton ALMANZAR MD Unavailable Unavailable SETTER, Anton ALMANZAR MD Unavailable Unavailable SETTER, Anton ALMANZAR MD Unavailable Unavailable SETTER, Anton ALMANZAR MD Unavailable Unavailable SETTER, Anton ALMANZAR MD Unavailable Unavailable SETTER, Anton ALMANZAR MD Unavailable Unavailable SETTER, Anton ALMANZAR MD Unavailable Unavailable SETTER, Anton ALMANZAR MD Unavailable Unavailable SETTER, Anton ALMANZAR MD Unavailable Unavailable SETTER, Anton ALMANZAR MD Unavailable Unavailable SETTER, Anton ALMANZAR MD Unavailable Unavailable SETTER, Anton ALMANZAR MD Unavailable Unavailable SETTER, Anton ALMANZAR MD Unavailable Unavailable SETTER, Anton ALMANZAR MD Unavailable Unavailable SETTER, Anton ALMANZAR MD Unavailable Unavailable SETTER, Anton ALMANZAR MD Unavailable Unavailable SETTER, Anton ALMANZAR MD Unavailable Unavailable SETTER, Anton ALMANZAR MD Unavailable Unavailable SETTER, Anton ALMANZAR MD Unavailable Unavailable SETTER, Anton ALMANZAR MD Unavailable Unavailable Rodrigues, L Flora RPA Unavailable Unavailable Rodrigues, L Flora RPA Unavailable Unavailable Rodrigues, L Flora RPA Unavailable Unavailable Rodrigues, L Flora RPA Unavailable Unavailable Rodrigues, L Flora RPA Unavailable Unavailable Rodrigues, L Flora RPA Unavailable Unavailable Rodrigues, L Flora RPA Unavailable Unavailable Rodrigues, L Flora RPA Unavailable Unavailable Rodrigues, L Flora RPA Unavailable Unavailable Rodrigues, L Flora RPA Unavailable Unavailable Rodrigues, L Flora RPA Unavailable Unavailable Rodrigues, L Flora RPA Unavailable Unavailable Rodrigues, L Flora RPA Unavailable Unavailable Rodrigues, L Flora RPA Unavailable Unavailable Rodrigues, L Flora RPA Unavailable Unavailable Rodrigues, L Flora RPA Unavailable Unavailable Rodrigues, L Flora RPA Unavailable Unavailable Rodrigues, L Flora RPA Unavailable Unavailable Rodrigues, L Flora RPA Unavailable Unavailable Rodrigues, L Flora RPA Unavailable Unavailable Rodrigues, L Flora RPA Unavailable Unavailable Rodrigues, L Flora RPA Unavailable Unavailable Rodrigues, L Flora RPA Unavailable Unavailable Rodrigues, L Flora RPA Unavailable Unavailable Rodrigues, L Flora RPA Unavailable Unavailable Rodrigues, L Flora RPA Unavailable Unavailable Rodrigues, L Flora RPA Unavailable Unavailable Rodrigues, L Flora RPA Unavailable Unavailable Rodrigues, L Flora RPA Unavailable Unavailable Rodrigues, L Flora RPA Unavailable Unavailable Rodrigues, L Flora RPA Unavailable Unavailable Rodrigues, L Flora RPA Unavailable Unavailable Afton, D Omer Unavailable Unavailable Afton, D Omer Unavailable Unavailable Afton, D Omer Unavailable Unavailable Afton, D Omer Unavailable Unavailable Afton, D Omer Unavailable Unavailable Afton, D Omer Unavailable Unavailable Afton, D Omer Unavailable Unavailable Afton, D Omer Unavailable Unavailable Afton, D Omer Unavailable Unavailable Afton, D Omer Unavailable Unavailable Afton, D Omer Unavailable Unavailable Afton, D Omer Unavailable Unavailable Afton, D Omer Unavailable Unavailable Afton, D Omer Unavailable Unavailable Afton, D Omer Unavailable Unavailable Afton, D Omer Unavailable Unavailable Afton, D Omer Unavailable Unavailable Afton, D Omer Unavailable Unavailable Afton, D Omer Unavailable Unavailable Afton, D Omer Unavailable Unavailable Afton, D Omer Unavailable Unavailable Afton, D Omer Unavailable Unavailable Afton, D Omer Unavailable Unavailable Afton, D Omer Unavailable Unavailable Afton, D Omer Unavailable Unavailable Afton, D Omer Unavailable Unavailable Afton, D Omer Unavailable Unavailable Afton, D Omer Unavailable Unavailable Brionna Zhou Christopher PA-C Unavailable Unavailable Winnie M Christopher PA-C Unavailable Unavailable Winnie M Christopher PA-C Unavailable Unavailable Winnie M Christopher PA-C Unavailable Unavailable Winnie M Christopher PA-C Unavailable Unavailable Winnie M Christopher PA-C Unavailable Unavailable Winnie M Christopher PA-C Unavailable Unavailable Winnie M Christopher PA-C Unavailable Unavailable Winnie M Christopher PA-C Unavailable Unavailable Winnie M Christopher PA-C Unavailable Unavailable Winnie M Christopher PA-C Unavailable Unavailable Winnie M Christopher PA-C Unavailable Unavailable Winnie M Christopher PA-C Unavailable Unavailable Winnie M Christopher PA-C Unavailable Unavailable Winnie M Christopher PA-C Unavailable Unavailable Winnie M Christopher PA-C Unavailable Unavailable Winnie M Christopher PA-C Unavailable Unavailable Winnie M Christopher PA-C Unavailable Unavailable Winnie M Christopher PA-C Unavailable Unavailable Zhou, Brionna Seanopher PA-C Unavailable Unavailable Zhou, M Seanopher PA-C Unavailable Unavailable Zhou, Brionna Seanopher PA-C Unavailable Unavailable Zhou, Brionna Seanopher PA-C Unavailable Unavailable Zhou, Brionna Seanopher PA-C Unavailable Unavailable Zhou, Brionna Christopher PA-C Unavailable Unavailable Zhou, Brionna Christopher PA-C Unavailable Unavailable PHYSICIAN, ER Unavailable Unavailable Re-disclosure Warning The records that you are about to access may contain information from federally-assisted alcohol or drug abuse programs. If such information is present, then the following federally mandated warning applies: This information has been disclosed to you from records protected by federal confidentiality rules (42 CFR part 2). The federal rules prohibit you from making any further disclosure of this information unless further disclosure is expressly permitted by the written consent of the person to whom it pertains or as otherwise permitted by 42 CFR part 2. A general authorization for the release of medical or other information is NOT sufficient for this purpose. The Federal rules restrict any use of the information to criminally investigate or prosecute any alcohol or drug abuse patient.The records that you are about to access may contain highly sensitive health information, the redisclosure of which is protected by Article 27-F of the [facility] Public Health law. If you continue you may have access to information: Regarding HIV / AIDS; Provided by facilities licensed or operated by the [facility] Office of Mental Health; or Provided by the [facility] Office for People With Developmental Disabilities. If such information is present, then the following [facility] mandated warning applies: This information has been disclosed to you from confidential records which are protected by state law. State law prohibits you from making any further disclosure of this information without the specific written consent of the person to whom it pertains, or as otherwise permitted by law. Any unauthorized further disclosure in violation of state law may result in a fine or halfway sentence or both. A general authorization for the release of medical or other information is NOT sufficient authorization for further disc losure. Allergies and Adverse Reactions Type Description Substance Reaction Status Data Source(s ) Propensity to adverse reactions NO KNOWN ALLERGIES NO KNOWN ALLERGIES [facility] Family History Family Member Name Family Member Gender Family Member Status Date o f Status Description Data Source(s) Unknown Male Problem MEDENT ([facility] ) () Unknown Male Problem [facility] ([facility]) Unknown Female Problem MEDENT ([facility]) Encounters Encounter Providers Location Date Indications Data Source(s ) [place] [address] [facility] [address] 12/20/2020 12:00:00 AM EDT eCW1 ([facility]) Outpatient Attender: TRUPTI MOORE A-XXBJORT 12/13/2020 12:00:00 AM [facility] Outpatient Attender: TRUPTI MOORE XXBJORT 12/13/2020 12:00:00 AM EDT Pain in right hand [facility] Pain in right hand Outpatient Referrer: TRUPTI MOORE 12/13/2020 12:00:00 AM EDT Pain in right hand [facility] Pain in right hand Outpatient Attender: SIERRA POWELL MD [facility] 12/12/2020 09:15:00 AM EDT MED[facility] ([facility]) [place] [address] [facility] [address] 12/12/2020 12:00:00 AM EDT [facility] [place] [address] [facility] [address] 12/12/2020 12:00:00 AM EDT eCW1 ([facility]) [place] [address] [facility] [address] 11/17/2020 12:00:00 AM EDT eCW1 ([facility]) Outpatient Attender: YOHAN RUVALCABA MD 11/17/2020 12:00:00 A M [facility] Outpatient Attender: TRUPTI MOORE [id number] 11/15/2020 12:00:00 AM [facility] Outpatient Attender: YOHAN RUVALCABA MDReferrer: YOHAN RUVALCABA MD 11/02/2020 12:00:00 AM [facility] Outpatient Attender: EVONNE CHRISTENSEN NPReferrer: YOHAN JAMA MD A-XXBJORT 10/31/2020 12:00:00 AM EDT - 11/08/2020 10:38:25 AM EDT [facility] Unknown [address] [facility] [address] 10/28/2020 12:00:00 AM EDT eCW1 ([facility]) Outpatient Attender: SIERRA POWELL MD Main office - [facility] 10/24/2020 12:30:00 PM EDT [facility] ([facility] ) Outpatient 10/17/2020 12:00:00 AM EDT [facility] Unknown [address] [facility] [address] 10/14/2020 12:00:00 AM EDT eCW1 ([facility]) [place] [address] [facility] [address] 10/13/2020 12:00:00 AM EDT eCW1 ([facility]) Outpatient Attender: YAIR KILLIAN NP 10/02 09:29:08 AM EDT - 10/12/2020 10:27:52 AM EDT [facility] ([facility] ) [place] [address] [facility] [address] 10/11/2020 12:00:00 AM EDT eCW1 ([facility]) Outpatient [address] [facility] [address] 10/10/2020 12:00:00 AM EDT eCW1 ([facility]) Outpatient [address] [facility] [address] 10/07/2020 12:00:00 AM EDT eCW1 ([facility]) Outpatient Attender: Zacarias Quinonez/Swati/Kyle/[place] 10/03/2020 02:20:00 PM EDT [facility] ([facility] Outpatient Attender: Flora Quinonez/Swati/Kyle/R sarahndl 10/03/2020 01:45:00 PM EDT [facility] ([facility] [place] [address] [facility] [address] 09/13/2020 12:00:00 AM EDT eCW1 ([facility]) Unknown [address] [facility] [address] 09/13/2020 12:00:00 AM EDT eCW1 ([facility]) Unknown [address] [facility] [address] 09/12/2020 12:00:00 AM EDT eCW1 ([facility]) Unknown [address] [facility] [address] 09/11/2020 12:00:00 AM EDT eCW1 ([facility]) Emergency Attender: ER PHYSICIAN 09/09/2020 08:33:59 PM E DT [facility] Emergency Attender: IZZY Mathewender: ER PHYSICIAN 09/09/2020 06:39:00 PM EDT - 09/09/2020 11:01:00 PM ED[address] [facility] VISUAL DISTURANCE Patient discharged. Emergency Attender: ER PHYSICIAN 09/09/2020 06:39:00 PM E DT [facility] Unknown [address] [facility] [address] 09/09/2020 12:00:00 AM EDT eCW1 ([facility]) Outpatient Attender: Dory MOORE 09:13:47 PM EDT - 09/08/2020 10:10:41 PM EDT [facility] ([facility] ) Outpatient Attender: Jesse MOORE 09/04/19 12:17:22 PM EDT - 09/03/2020 12:51:21 PM EDT [facility] ([facility] ) [place] [address] [facility] [address] 08/23/2020 12:00:00 AM EDT eCW1 ([facility]) Unknown [address] [facility] [address] 08/22/2020 12:00:00 AM EDT eCW1 ([facility]) Recurring Patient Attender: DIRK JARRELLMReferrreinaldo: Pillo jama MD 08/18/2020 11:29:44 AM EDT [facility] [place] [address] [facility] [address] 08/15/2020 12:00:00 AM EDT [facility]CW1 ([facility]) [place] [address] [place] [address] 08/08/2020 12:00:00 AM EDT eCW1 ([facility]) Unknown [address] [facility] [address] 08/03/2020 12:00:00 AM EDT eCW1 ([facility]) Unknown [address] [facility] [address] 07/21/2020 12:00:00 AM EDT eCW1 ([facility]) [place] [address] [place] [address] 07/21/2020 12:00:00 AM EDT eCW1 ([facility]) Outpatient Attender: YOHAN RUVALCABA MD 07/14/2020 12:00:00 A M [facility] Unknown [address] [facility] [address] 07/05/2020 12:00:00 AM EDT eCW1 ([facility]) [place] [address] [place] [address] 07/05/2020 12:00:00 AM EDT eCW1 ([facility]) Outpatient [address] [facility] [address] 07/04/2020 12:00:00 AM EDT eCW1 ([facility]) [place] [address] [place] [address] 06/23/2020 12:00:00 AM EDT eCW1 ([facility]) Outpatient [address] [facility] [address] 06/23/2020 12:00:00 AM EDT eCW1 ([facility]) Outpatient Attender: Allen Zhou PA-C 06/22/2020 09:36:19 AM EDT - 06/22/2020 10:05:36 AM EDT [facility] ([facility]) [place] [address] [facility] [address] 06/22/2020 12:00:00 AM EDT eCW1 ([facility]) Outpatient Attender: Zacarias Quinonez/Swati/Kyle/Noel gutierrez 06/03/2020 01:10:00 PM EDT [facility] ([facility] Unknown [address] [facility] [address] 06/03/2020 12:00:00 AM EDT eCW1 ([facility]) Unknown [address] [facility] [address] 06/02/2020 12:00:00 AM EDT eCW1 ([facility]) Outpatient Attender: CARISSA Contreras ry 04/14/2020 12:10:00 PM EST MEDENT ([facility]) Outpatient Attender: RANDI Contreras ry 04/09/2020 11:30:00 AM EST [facility]ENT ([facility]) Unknown [address] [facility] [address] 04/09/2020 12:00:00 AM EST eCW1 ([facility]) Unknown [address] [facility] [address] 04/09/2020 12:00:00 AM EST eCW1 ([facility]) Unknown [address] [facility] [place] [address] 02/26/2020 12:00:00 AM EST eCW1 ([facility]) Unknown [address] [facility] [address] 02/18/2020 12:00:00 AM EST [facility] [place] [address] [facility] [address] 02/18/2020 12:00:00 AM EST eCW1 ([facility]) Outpatient Referrer: Apolonia MOORE 02/11/2020 12:00:00 AM [facility] Outpatient Attender: Apolonia Antoine PAReferrer: Apolonia Ramesh 02/11/2020 12:00:00 AM [facility] Unknown [address] [facility] [address] 02/08/2020 12:00:00 AM EST eCW1 ([facility]) Unknown [address] [facility] [place] [address] 02/05/2020 12:00:00 AM EST eCW1 ([facility]) Outpatient [address] [facility] [place] [address] 01/21/2020 12:00:00 AM EST eCW1 ([facility]) Unknown [address] [facility] [place] [address] 01/06/2020 12:00:00 AM EST eCW1 ([facility]) Outpatient [address] [facility] [place] [address] 01/01/2020 12:00:00 AM EDT eCW1 ([facility]) [facility] [place] [address] [facility] [address] 12/29/2019 12:00:00 AM EDT eCW1 [facility] Outpatient Attender: Omer JoyceReferrer: Apolonia MOORE [id number] 12/08/2019 12:00:00 AM EDT Pain in left hip [facility] Pain in left hip Outpatient Attender: BRONSON JOHANSEN NP Physical Therapy 01:00:00 PM EDT MEDENT ([facility]) Unknown [address] [facility] [address] 11/24/2019 12:00:00 AM EDT eCW1 ([facility]) Unknown [address] [facility] [place] [address] 11/24/2019 12:00:00 AM EDT eCW1 ([facility]) Unknown [address] [facility] [address] 11/24/2019 12:00:00 AM EDT eCW1 ([facility]) Outpatient Referrer: Apolonia MOORE 11/20/2019 03 :01:08 PM EDT Scoliosis, unspecified [facility] Scoliosis, unspecified Outpatient Attender: Apolonia MOORE [id number] 11/02 12:00:00 AM EDT - 12/25/2019 01:16:34 PM EDT Radiculopathy, lumbar region [facility] Radiculopathy, lumbar region Outpatient Referrer: Apolonia MOORE 11/20/2019 12 :00:00 AM EDT Low back pain [facility] Low back pain Outpatient Attender: YOHAN RUVALCABA MD [id number] 2019 12:00:00 AM EDT - 12/10/2019 08:59:55 AM EDT Carpal tunnel syndrome, left upper limb [facility] Carpal tunnel syndrome, left upper limb Immunizations Vaccine Date Status Description Data Source(s) COVID-19 VACCINE Pfizer 05/01/2020 12:00:00 AM EST completed [facility] Vaccine Series Complete: YESThis Data wa s Submitted to [facility] Via [employer]. COVID-19 VACCINE Pfizer 04/10/2020 12:00:00 AM EST completed [facility] Vaccine Series Complete: NOThis Data was Submitted to [facility] [employer]. INFLUENZA VACCINE QUADRIVALENT (65 YR UP)/MF59 C.1/PF 01/12/2020 12:00:00 AM EST completed [facility] Medications Medication Brand Name Start Date Product Form Dose Route Admi nistrative Instructions Pharmacy Instructions Status Indications Reaction Description Data Source(s) Alprazolam 0.25 MG Oral Tablet [Xanax] Xanax 0.25 MG Xanax 0 .25 MG 12/12/2020 12:00:00 AM EDT 1.0 {tablet} active Xa nax 0.25 MG eCW1 ([facility]) Alprazolam 0.25 MG Oral Tablet ALPRAZOLAM 12/12/2020 12:00:00 AM EDT tablet 30 TAKE ONE TABLET BY MOUTH EVERY DAY NE EDED FOR INSOMNIA MAXIMUM DAILY DOSE = 1 TAKE ONE TABLET BY MOUTH EVERY DAY NE EDED FOR INSOMNIA MAXIMUM DAILY DOSE = 1 SOLD: 12/16/2020 [facility] Alprazolam 0.25 MG Oral Tablet [Xanax] Xanax 0.25 MG Xanax 0 .25 MG 12/12/2020 12:00:00 AM EDT 1.0 {tablet} active Xa nax 0.25 MG eCW1 ([facility]) 240 mcg/0.7 mL 12/12/2020 12:00:00 AM EDT syringe 0 USE DIRECTED USE DIRECTED SOLD: 12/12/2020 [facility] Alprazolam 0.25 MG Oral Tablet [Xanax] Xanax 0.25 MG Xanax 0 .25 MG 12/12/2020 12:00:00 AM EDT 1.0 {tablet} active Xa nax 0.25 MG eCW1 ([facility]) Acetaminophen 325 MG / Hydrocodone Bitartrate 5 MG Ora l Tablet 5-325 mg HYDROCODONE/ACETAMINOPHEN 11/24/2020 12:00:00 AM EDT tablet 8 TAKE ONE TABLET BY MOUTH EVERY 6 HOURS NEEDED FOR PAIN MAXIMUM DAILY DOSE = 4 TABLETS TAKE ONE TABLET BY MOUTH EVERY 6 HOURS NEEDED FOR PAIN MAXIMUM DAILY DOSE = 4 TABLETS SOLD: 11/24/2020 [facility] 500 mg 11/18/2020 12:00:00 AM EDT tablet 28 TAKE ONE TABLET BY MOUTH EVERY 6 HOURS UNTIL FINISHED TAKE ONE TABLET BY MOUTH EVERY 6 HOURS UNTIL FINISHED SOLD: 11/18/2020 [facility] Acetaminophen 325 MG / Hydrocodone Bitartrate 5 MG Ora l Tablet 5-325 mg HYDROCODONE/ACETAMINOPHEN 11/18/2020 12:00:00 AM EDT tablet 6 TAKE ONE TABLET BY MOUTH EVERY 6 HOURS NEEDED FOR PAIN MAXIMUM DAILY DOSE = 4 TABLETS TAKE ONE TABLET BY MOUTH EVERY 6 HOURS NEEDED FOR PAIN MAXIMUM DAILY DOSE = 4 TABLETS SOLD: 11/18/2020 [facility] Acetaminophen 325 MG / Hydrocodone Bitartrate 5 MG Ora l Tablet 5-325 mg HYDROCODONE/ACETAMINOPHEN 11/16/2020 12:00:00 AM EDT tablet 6 TAKE ONE TABLET BY MOUTH EVERY 6 HOURS NEEDED FOR PAIN MAXIMUM DAILY DOSE = 4 TAKE ONE TABLET BY MOUTH EVERY 6 HOURS NEEDED FOR PAIN MAXIMUM DAILY DOSE = 4 SOLD: 11/16/2020 [facility] 500 mg 11/13/2020 12:00:00 AM EDT tablet 5 TAKE ONE TABLET BY MOUTH TWICE A DAY TAKE ONE TABLET BY MOUTH TWICE A DAY SOLD: 11/13/2020 [facility] Penicillin V Potassium 500 MG Oral Tablet Penicillin V Potas sium 500 MG 10/31/2020 12:00:00 AM EDT 1.0 {tablet} active Penicillin V Potassium 500 MG eCW1 ([facility]) Penicillin V Potassium 500 MG Oral Tablet Penicillin V Potas sium 500 MG 10/31/2020 12:00:00 AM EDT 1.0 {tablet} active Penicillin V Potassium 500 MG eCW1 ([facility]) Penicillin V Potassium 500 MG Oral Tablet Penicillin V Potas sium 500 MG 10/31/2020 12:00:00 AM EDT 1.0 {tablet} active Penicillin V Potassium 500 MG eCW1 ([facility]) Penicillin V Potassium 500 MG Oral Tablet Penicillin V Potas sium 500 MG 10/31/2020 12:00:00 AM EDT 1.0 {tablet} active Penicillin V Potassium 500 MG eCW1 ([facility]) Penicillin V Potassium 500 MG Oral Tablet Penicillin V Potas sium 500 MG 10/31/2020 12:00:00 AM EDT 1.0 {tablet} active Penicillin V Potassium 500 MG eCW1 ([facility]) 500 mg 10/31/2020 12:00:00 AM EDT tablet 20 TAKE ONE TABLET BY MOUTH TWICE A DAY FOR 10 DAYS TAKE ONE TABLET BY MOUTH TWICE A DAY FOR 10 DAYS SOLD: 11/01/2020 [facility] Acetaminophen 325 MG / Hydrocodone Deidre trate 5 MG Oral Tablet HYDROcodone- Acetaminophen 5-325 MG HYDROcodone-Acetaminophen 5-325 MG 10/17/2020 12:00:00 AM EDT active HYDROcodone-Aceta minophen 5-325 MG eCW1 ([facility]) Acetaminophen 325 MG / Hydrocodone Deidre trate 5 MG Oral Tablet HYDROcodone- Acetaminophen 5-325 MG HYDROcodone-Acetaminophen 5-325 MG 10/17/2020 12:00:00 AM EDT active HYDROcodone-Aceta minophen 5-325 MG eCW1 ([facility]) Acetaminophen 325 MG / Hydrocodone Deidre trate 5 MG Oral Tablet HYDROcodone- Acetaminophen 5-325 MG HYDROcodone-Acetaminophen 5-325 MG 10/17/2020 12:00:00 AM EDT active HYDROcodone-Aceta minophen 5-325 MG eCW1 ([facility]) Acetaminophen 325 MG / Hydrocodone Deidre trate 5 MG Oral Tablet HYDROcodone- Acetaminophen 5-325 MG HYDROcodone-Acetaminophen 5-325 MG 10/17/2020 12:00:00 AM EDT active HYDROcodone-Aceta minophen 5-325 MG eCW1 ([facility]) Acetaminophen 325 MG / Hydrocodone Deidre trate 5 MG Oral Tablet HYDROcodone- Acetaminophen 5-325 MG HYDROcodone-Acetaminophen 5-325 MG 10/17/2020 12:00:00 AM EDT active HYDROcodone-Aceta minophen 5-325 MG eCW1 ([facility]) Acetaminophen 325 MG / Hydrocodone Deidre trate 5 MG Oral Tablet HYDROcodone- Acetaminophen 5-325 MG HYDROcodone-Acetaminophen 5-325 MG 10/17/2020 12:00:00 AM EDT active HYDROcodone-Aceta minophen 5-325 MG eCW1 ([facility]) 5-325 mg 10/17/2020 12:00:00 AM EDT tablet 15 TAKE 1-2 TABLETS BY MOUTH EVERY 6 HOURS NEEDED FOR PAIN FOR UP TO 3 DAYS MAXIMUM DAILY DOSE = 6 TAKE 1- 2 TABLETS BY MOUTH EVERY 6 HOURS NEEDED FOR PAIN FOR UP TO 3 DAYS MAXIMUM DAILY DOSE = 6 SOLD: 10/18/2020 [facility] Acetaminophen 325 MG / Hydrocodone Deidre trate 5 MG Oral Tablet HYDROcodone- Acetaminophen 5-325 MG HYDROcodone-Acetaminophen 5-325 MG 10/17/2020 12:00:00 AM EDT active HYDROcodone-Aceta minophen 5-325 MG eCW1 ([facility]) Acetaminophen 325 MG / Hydrocodone Bitartrate 5 MG Ora l Tablet 5-325 mg HYDROCODONE/ACETAMINOPHEN 10/17/2020 12:00:00 AM EDT tablet 7 TAKE ONE-HALF TABLET BY MOUTH TWICE A DAY NEEDED MAXIMUM DAILY DOSE = 1 TABLET TAKE ONE- HALF TABLET BY MOUTH TWICE A DAY NEEDED MAXIMUM DAILY DOSE = 1 TABLET SOLD: 10/17/2020 [facility] Acetaminophen 325 MG / Hydrocodone Deidre trate 5 MG Oral Tablet HYDROcodone- Acetaminophen 5-325 MG HYDROcodone-Acetaminophen 5-325 MG 10/17/2020 12:00:00 AM EDT active HYDROcodone-Aceta minophen 5-325 MG eCW1 ([facility]) Alprazolam 0.25 MG Oral Tablet ALPRAZOLAM 10/15/2020 12:00:00 AM EDT tablet 30 TAKE ONE TABLET BY MOUTH EVERY DAY NE EDED FOR INSOMNIA MAXIMUM DAILY DOSE = 1 TABLET TAKE ONE TABLET BY MOUTH EVERY DAY NE EDED FOR INSOMNIA MAXIMUM DAILY DOSE = 1 TABLET SOLD: 10/15/2020 [facility] Alprazolam 0.25 MG Oral Tablet [Xanax] Xanax 0.25 MG Xanax 0 .25 MG 10/14/2020 12:00:00 AM EDT 1.0 {tablet} active Xa nax 0.25 MG eCW1 ([facility]) Alprazolam 0.25 MG Oral Tablet [Xanax] Xanax 0.25 MG Xanax 0 .25 MG 10/14/2020 12:00:00 AM EDT 1.0 {tablet} active Xa nax 0.25 MG eCW1 ([facility]) 112 mcg 10/14/2020 12:00:00 AM EDT tablet 45 TAKE ONE TABLET BY MOUTH EVERY MORNING ON AN EMPTY STOMACH ALTERNATING WITH 125MCG DAILY TAKE ONE TABLET BY MOUTH EVERY MORNING ON AN EMPTY STOMACH ALTERNATING WITH 125MCG DAILY SOLD: 10/15/2020 [facility] Alprazolam 0.25 MG Oral Tablet [Xanax] Xanax 0.25 MG Xanax 0 .25 MG 10/14/2020 12:00:00 AM EDT 1.0 {tablet} active Xa nax 0.25 MG eCW1 ([facility]) Alprazolam 0.25 MG Oral Tablet [Xanax] Xanax 0.25 MG Xanax 0 .25 MG 10/14/2020 12:00:00 AM EDT 1.0 {tablet} active Xa nax 0.25 MG eCW1 ([facility]) Alprazolam 0.25 MG Oral Tablet [Xanax] Xanax 0.25 MG Xanax 0 .25 MG 10/14/2020 12:00:00 AM EDT 1.0 {tablet} active Xa nax 0.25 MG eCW1 ([facility]) Alprazolam 0.25 MG Oral Tablet [Xanax] Xanax 0.25 MG Xanax 0 .25 MG 10/14/2020 12:00:00 AM EDT 1.0 {tablet} active Xa nax 0.25 MG eCW1 ([facility]) 125 mcg 10/11/2020 12:00:00 AM EDT tablet 90 TAKE ONE TABLET BY MOUTH EVERY MORNING ON AN EMPTY STOMACH TAKE ONE TABLET BY MOUTH EVERY MORNING O N AN EMPTY STOMACH SOLD: 10/13/2020 [facility] 500 mg 10/10/2020 12:00:00 AM EDT tablet 28 TAKE ONE TABLET BY MOUTH EVERY 6 HOURS UNTIL FINISHED TAKE ONE TABLET BY MOUTH EVERY 6 HOURS UNTIL FINISHED SOLD: 10/10/2020 [facility] 4 mg 10/10/2020 12:00:00 AM EDT tablets,dose pack 21 TAKE DIRECTED TAKE DIRECTED SOLD: 10/10/2020 [facility] Alprazolam 0.25 MG Oral Tablet ALPRAZOLAM 09/15/2020 12:00:00 AM EDT tablet 30 TAKE ONE TABLET BY MOUTH EVERY DAY NE EDED FOR INSOMNIA MAXIMUM DAILY DOSE = 1 TABLET TAKE ONE TABLET BY MOUTH EVERY DAY NE EDED FOR INSOMNIA MAXIMUM DAILY DOSE = 1 TABLET SOLD: 09/16/2020 [facility] Famotidine 40 MG Oral Tablet FAMOTIDINE 09/15/2020 12:00:00 AM EDT tab let 60 TAKE ONE TABLET BY MOUTH TWICE A DAY TAKE ONE TABLET BY MOUTH TWICE A DAY SOLD: 09/16/2020 [facility] 30 mg 09/12/2020 12:00:00 AM EDT capsule,delayed release (DR/EC) 90 TAKE ONE CAPSULE BY MOUTH EVERY MORNING TAKE ONE CAPSULE BY MOUTH EVERY MORNING SOLD: 09/12/2020 [facility] 30 mg 09/12/2020 12:00:00 AM EDT capsule,delayed release (DR/EC) 90 TAKE ONE CAPSULE BY MOUTH EVERY MORNING TAKE ONE CAPSULE BY MOUTH EVERY MORNING SOLD: 12/04/2020 [facility] 200 mg 09/03/2020 12:00:00 AM EDT tablet 6 TAKE ONE TABLET BY MOUTH THREE TIMES A DAY FOR 2 DAYS TAKE ONE TABLET BY MOUTH THREE TIMES A DAY FOR 2 DAYS SOLD: 09/03/2020 [facility] Alprazolam 0.25 MG Oral Tablet ALPRAZOLAM 07/05/2020 12:00:00 AM EDT tablet 30 TAKE ONE TABLET BY MOUTH EVERY DAY NE EDED FOR INSOMNIA MAXIMUM DAILY DOSE = 1 TAKE ONE TABLET BY MOUTH EVERY DAY NE EDED FOR INSOMNIA MAXIMUM DAILY DOSE = 1 SOLD: 07/09/2020 [facility] Famotidine 40 MG Oral Tablet FAMOTIDINE 06/23/2020 12:00:00 AM EDT tab let 90 TAKE ONE TABLET BY MOUTH EVERY DAY AT BEDTIME TAKE ONE TABLET BY MOUTH EVERY DAY AT BEDTIME SOLD: 10/09/2020 [facility] Famotidine 40 MG Oral Tablet FAMOTIDINE 06/23/2020 12:00:00 AM EDT tab let 90 TAKE ONE TABLET BY MOUTH EVERY DAY AT BEDTIME TAKE ONE TABLET BY MOUTH EVERY DAY AT BEDTIME SOLD: 06/23/2020 [facility] 112 mcg 06/06/2020 12:00:00 AM EDT tablet 45 TAKE ONE TABLET BY MOUTH ON AN EMPTY STOMACH IN THE MORNING ALTERNATING WITH 125MCG TAKE ONE TABLET BY MOUTH ON AN EMPTY STOMACH IN THE MORNING ALTERNATING WITH 125MCG SOLD: 06/06/2020 [facility] 30 mg 06/03/2020 12:00:00 AM EDT capsule,delayed release (DR/EC) 90 TAKE ONE CAPSULE BY MOUTH EVERY MORNING TAKE ONE CAPSULE BY MOUTH EVERY MORNING SOLD: 06/03/2020 [facility] Alprazolam 0.25 MG Oral Tablet ALPRAZOLAM 06/03/2020 12:00:00 AM EDT tablet 30 TAKE ONE TABLET BY MOUTH EVERY DAY NE EDED FOR INSOMNIA MAXIMUM DAILY DOSE = 1 TABLET TAKE ONE TABLET BY MOUTH EVERY DAY NE EDED FOR INSOMNIA MAXIMUM DAILY DOSE = 1 TABLET SOLD: 06/03/2020 [facility] Alprazolam 0.25 MG Oral Tablet ALPRAZOLAM 04/11/2020 12:00:00 AM EST tablet 30 TAKE ONE TABLET BY MOUTH EVERY DAY NE EDED FOR INSOMNIA MAXIMUM DAILY DOSE = 1 TAKE ONE TABLET BY MOUTH EVERY DAY NE EDED FOR INSOMNIA MAXIMUM DAILY DOSE = 1 SOLD: 04/13/2020 [facility] 125 mcg 04/11/2020 12:00:00 AM EST tablet 90 TAKE ONE TABLET BY MOUTH EVERY DAY IN THE MORNING ON AN EMPTY STOMACH TAKE ONE TABLET BY MOUTH EVERY DAY IN E MORNING ON AN EMPTY STOMACH SOLD: 04/13/2020 [facility] 125 mcg 04/11/2020 12:00:00 AM EST tablet 90 TAKE ONE TABLET BY MOUTH EVERY DAY IN THE MORNING ON AN EMPTY STOMACH TAKE ONE TABLET BY MOUTH EVERY DAY IN TH E MORNING ON AN EMPTY STOMACH SOLD: 07/13/2020 [facility] 40 mg 03/08/2020 12:00:00 AM EST tablet 90 TAKE ONE TABLET BY MOUTH AT BEDTIME TAKE ONE TABLET BY MOUTH AT BEDTIME SOLD: 03/12/2020 [facility] 30 mg 03/01/2020 12:00:00 AM EST capsule,delayed release (DR/EC) 90 TAKE ONE CAPSULE BY MOUTH EVERY DAY IN THE MORNING TAKE ONE CAPSULE BY MOUTH EVERY DAY IN THE MORNING SOLD: 03/04/2020 [facility] Alprazolam 0.25 MG Oral Tablet ALPRAZOLAM 02/29/2020 12:00:00 AM EST tablet 30 TAKE ONE TABLET BY MOUTH EVERY DAY NE EDED FOR INSOMNIA MAXIMUM DAILY DOSE = 1 TAKE ONE TABLET BY MOUTH EVERY DAY NE EDED FOR INSOMNIA MAXIMUM DAILY DOSE = 1 SOLD: 03/01/2020 [facility] carvedilol 3.125 MG Oral Tablet Carvedilol 3.125 MG Carvedil ol 3.125 MG 02/18/2020 12:00:00 AM EST 1.0 {tablet_with_food} active Carvedilol 3.125 MG eCW1 ([facility]) carvedilol 3.125 MG Oral Tablet Carvedilol 3.125 MG Carvedil ol 3.125 MG 02/18/2020 12:00:00 AM EST 1.0 {tablet_with_food} active Carvedilol 3.125 MG eCW1 ([facility]) carvedilol 3.125 MG Oral Tablet Carvedilol 3.125 MG Carvedil ol 3.125 MG 02/18/2020 12:00:00 AM EST 1.0 {tablet_with_food} active Carvedilol 3.125 MG eCW1 ([facility]) carvedilol 3.125 MG Oral Tablet CARVEDILOL 02/18/2020 12:00:00 AM EST tablet 60 TAKE ONE TABLET BY MOUTH TWICE A DAY WIT H FOOD NEEDED FOR SYSTOLIC BLOOD PRESSURE 140 OR ABOVE. TAKE ONE TABLET BY MOUTH TWICE A DAY WIT H FOOD NEEDED FOR SYSTOLIC BLOOD PRESSURE 140 OR ABOVE. SOLD: 02/18/2020 [facility] carvedilol 3.125 MG Oral Tablet Carvedilol 3.125 MG Carvedil ol 3.125 MG 02/18/2020 12:00:00 AM EST 1.0 {tablet_with_food} active Carvedilol 3.125 MG eCW1 ([facility]) carvedilol 3.125 MG Oral Tablet Carvedilol 3.125 MG Carvedil ol 3.125 MG 02/18/2020 12:00:00 AM EST 1.0 {tablet_with_food} active Carvedilol 3.125 MG eCW1 ([facility]) carvedilol 3.125 MG Oral Tablet Carvedilol 3.125 MG Carvedil ol 3.125 MG 02/18/2020 12:00:00 AM EST 1.0 {tablet_with_food} active Carvedilol 3.125 MG eCW1 ([facility]) carvedilol 3.125 MG Oral Tablet Carvedilol 3.125 MG Carvedil ol 3.125 MG 02/18/2020 12:00:00 AM EST 1.0 {tablet_with_food} active Carvedilol 3.125 MG eCW1 ([facility]) Atenolol 25 MG Oral Tablet ATENOLOL 02/06/2020 12:00:00 AM EST tablet 14 TAKE ONE TABLET BY MOUTH EVERY DAY TAKE ONE TABLET BY MOUTH EVERY DAY SOLD: 02/06/2020 [facility] 5-325 mg 02/05/2020 12:00:00 AM EST tablet 15 TAKE ONE TABLET BY MOUTH THREE TIMES A DAY NEEDED FOR PAIN MAXIMUM DAILY DOSE = 3 TAKE ONE TABLET BY MOUTH THREE TIMES A DAY NEEDED FOR PAIN MAXIMUM DAILY DOSE = 3 SOLD: 02/05/2020 [facility] 25 mg 02/05/2020 12:00:00 AM EST tablet 15 TAKE ONE-HALF TABLET BY MOUTH EVERY DAY TAKE ONE-HALF TABLET BY MOUTH EVERY DAY SOLD: 02/05/2020 [facility] 500 mg 02/04/2020 12:00:00 AM EST capsule 28 TAKE ONE CAPSULE BY MOUTH FOUR TIMES A DAY FOR 7 DAYS TAKE ONE CAPSULE BY MOUTH FOUR TIMES A DAY FOR 7 DAYS SOLD: 02/04/2020 [facility] 300-30 mg 02/01/2020 12:00:00 AM EST tablet 6 TAKE ONE TABLET BY MOUTH EVERY 6 HOURS NEEDED FOR PAIN MAXIMUM DAILY DOSE = 4 TAKE ONE TABLET BY MOUTH EVERY 6 HOURS NEEDED FOR PAIN MAXIMUM DAILY DOSE = 4 SOLD: 02/01/2020 [facility] Alprazolam 0.25 MG Oral Tablet ALPRAZOLAM 01/07/2020 12:00:00 AM EST tablet 30 TAKE ONE TABLET BY MOUTH EVERY DAY NE EDED FOR INSOMNIA MAXIMUM DAILY DOSE = 1 TABLET TAKE ONE TABLET BY MOUTH EVERY DAY NE EDED FOR INSOMNIA MAXIMUM DAILY DOSE = 1 TABLET SOLD: 01/08/2020 [facility] lansoprazole 30 MG Delayed Release Oral Capsule Lansoprazole 30 MG Oral Capsule Delayed Release (PREVACID) Lansoprazole 30 MG Oral Capsule Delayed Release (PREVACID) 12/03/2019 12:00:00 AM EDT [facility] 112 mcg 11/11/2019 12:00:00 AM EDT tablet 45 TAKE ONE TABLET BY MOUTH EVERY DAY IN THE MORNING ON AN EMPTY STOMACH ALTERNATING WITH 125MCG TAKE ONE TABLET BY MOUTH EVERY DAY IN THE MORNING ON AN EMPTY STOMACH ALTERNATING WITH 125MCG SOLD: 11/16/2019 [facility] Alprazolam 0.25 MG Oral Tablet ALPRAZOLAM 11/11/2019 12:00:00 AM EDT tablet 30 TAKE ONE TABLET BY MOUTH EVERY DAY MAXIMUM DAILY DOSE = 1 TAKE ONE TABLET BY MOUTH EVERY DAY MAXIMUM DAILY DOSE = 1 SOLD: 11/16/2019 [facility] 0.05 % 10/14/2019 12:00:00 AM EDT [employer] 180 INSTILL 1 DROP INTO BOTH EYES TWICE A DAY INSTILL 1 DROP INTO BOTH EYES TWICE A DAY SOLD: 01/20/2020 [facility] 40 mg 09/16/2019 12:00:00 AM EDT tablet 90 TAKE ONE TABLET BY MOUTH AT BEDTIME TAKE ONE TABLET BY MOUTH AT BEDTIME SOLD: 12/13/2019 [facility] 30 mg 09/08/2019 12:00:00 AM EDT capsule,delayed release (DR/EC) 90 TAKE ONE CAPSULE BY MOUTH EVERY MORNING TAKE ONE CAPSULE BY MOUTH EVERY MORNING SOLD: 12/05/2019 [facility] lansoprazole 30 MG Delayed Release Oral Capsule lansoprazole (PREVACID) 30 MG capsule lansoprazole (PREVACID) 30 MG capsule 12/16/2018 12:00:00 AM EDT 30 mg Oral aborted Take 30 mg by mouth ever y morning [facility] Probiotic Product (ACIDOPHILUS PROBIOTIC BLEND PO) 01/29/2017 12:00:00 AM EST Oral aborted Take by mouth [facility] Levothyroxine Sodium 0.125 MG Oral Table t levothyroxine (SYNTHROID, LEVOTHROID) 125 MCG tablet levothyroxine (SYNTHROID, LEVOTHROID) 125 MCG tablet 125 ug Oral aborted Take 125 mcg by mout h daily [facility] Insurance Providers Payer name Policy type / Coverage type Policy ID Covered constitution party ID Covered constitution party's relationship to perrin Policy Perrin Plan Information [facility] [id number] Self [id number] [facility] Maintenance [facility] ([facility] [id number] Self [id number] [facility] Health Maintenance [facility] ([facility] [id number] Self [place] Plan F [id number] SELF [id number] [place] Plan F [id number] SELF [id number] [facility] INS [facility] [id number] Empl 6 [id number] [facility] INS [facility] [id number] Empl 6 [id number] [facility] INS [facility] [id number] Empl [id number] [facility] INS [facility] [id number] Empl 6 [id number] [employer] [id number] Megan YLS [id number] [employer] [id number] Megan YLS [id number] [facility] U [id number] Self [id number] [facility] Health Maintenance [facility] ([facility]) [id number] Self [id number] [facility] (O) [id number] Self [id number] [facility] (O) [id number] Self [id number] [facility] (O) [id number] Self [id number] [facility] (O) [id number] Self [id number] [facility] (O) [id number] Self [id number] [facility] ([place]) 8 [id number] Self [id number] Medicare C [id number] SELF [id number] MEDICARE A [id number] Self [id number] [place] Medicare Part B [id number] Self [id number] [facility] [employer] [id number] Self [id number] ANSI-Commercial [id number] ANSI-Commercial [id number] [facility] ([facility]) [id number] Self [id number] [facility] ([facility]) [id number] Self [id number] ANSI-Commercial [id number] ANSI-Commercial [id number] [place] PPO 302/[phone] [id number] SP [id number] [facility] S[employer]ist [id number] Self [id number] MANA[employer]ED [employer]WORK -RCR [id number] [place] [employer] -O/P [id number] 18 [id number] [employer] [place] [id number] SP [id number] ANSI-Commercial [id number] ANSI-Commercial [id number] ANSI-Commercial [id number] ANSI-Commercial [id number] ANSI-Commercial [id number] ANSI-Commercial [id number] ANSI-Commercial [id number] ANSI-Commercial [id number] ANSI-Commercial [id number] ANSI-Commercial [id number] ANSI-Commercial [id number] ANSI-Commercial [id number] ANSI-Commercial [id number] ANSI-Commercial [id number] ANSI-Commercial [id number] ANSI-Commercial [id number] ANSI-Commercial [id number] ANSI-Commercial [id number]-[id number] 80l1sayd-689v-6952-zj1e-[id number] ANSI-Commercial [id number]-[id number] ANSI-Commercial [id number]-a31h-59fa-[id number] [employer] 2.16.840.1.863111.3.441 [id number] [employer] 2..840.1.942469.3.441 [facility] Maintenance [facility] (O) 8 [id number] 2.16.840.1.894828.3.227.99.991.90147.0 Self [id number] ANSI-Commercial [id number] ANSI-Commercial dc3h653q-[id number]-[id number]-[id number]-[id number] [facility] (O) [id number] 2.16.840.1.171600.3.227.99.8646.8461.0 Self [id number] MEDICARE [id number] SP [id number] [facility] Organization (O) 8 [id number] 2.16.840.1.951380.3.227.99.8646.8461.0 Self [id number] [facility] Organization (O) 8 [id number] 2.16.840.1.435999.3.227.99.991.70785.0 Self [id number] [employer] [facility] Maintenance Organization (O) 8 [id number] 2.16.840.1.064036.3.227.99.991.42534.0 Self [id number] [facility] O [id number] S [id number] [facility] Organization (O) 8 [id number] 2.16.840.1.809510.3.227.99.8646.8461.0 Self [id number] [facility] (O) 8 [id number] 2.16.840.1.764855.3.227.99.991.47560.0 Self [id number] [employer] [place] [employer] [id number] SP [id number] [facility] Health Maintenance Organization (O) [id number] Self EXCELLUS BCBS PI PI [employer] [place] [employer] [id number] SP [id number] [employer] [id number] SP [id number] [employer] [place] [employer] [id number] SP [id number] [employer] [id number] SP [id number] [employer] [place] [employer] [id number] SP [id number] [employer] [id number] S [id number] MEDICARE MCA [id number] S [id number] MEDICARE MCA [id number] S [id number] DME Jurisdiction A NHIC C [id number] SELF [id number] [employer] [place] DIV [id number] [facility] [id number] SP [id number] [facility] [id number] SP [id number] MEDICARE C [id number] S [id number] [facility] [id number] SP [id number] [employer] [facility] [employer] ([employer] - [facility] Other 0 [id number] Self 0 MEDICARE C [id number] S [id number] A EMPIRE ([facility] O [id number] S [id number] ANSI-Commercial [id number] ANSI-Commercial [id number] ANSI-Commercial [id number] ANSI-Commercial [id number] [id number]-[id number]-[id number] Problems, Conditions, and Diagnoses Code Display Name Description Problem Type Effective Dates Data Source(s) M79.641 Pain in right hand Pain in right hand Diagnosis 02/2021 01:49:42 PM EDT [facility] M25.559 Pain in unspecified hip Pain in unspecified hip Diagno sis 12/08/2019 01:39:53 PM EDT [facility] M25.552 Pain in left hip Pain in left hip Diagnosis 12/08/2019 01 :39:53 PM EDT [facility] M41.9 Scoliosis, unspecified Scoliosis, unspecified Diagnosi s 11/20/2019 03:01:08 PM EDT [facility] G89.29 Other chronic pain Other chronic pain Diagnosis 03:00:56 PM EDT [facility] M54.5 Low back pain Low back pain Diagnosis 11/20/2019 03:00:56 PM EDT [facility] M54.16 Radiculopathy, lumbar region Radiculopathy, lumbar reg ion Diagnosis 11/20/2019 02:48:50 PM EDT [facility] G56.02 Carpal tunnel syndrome, left upper limb Carpal tunnel syndrome, left upper limb Diagnosis 11/05/2019 03:04:38 PM EDT [facility] 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 Problem 10/10/2020 12:00:00 AM EDT eCW1 ([facility]) Surgeries/Procedures Procedure Description Date Indications Data Source(s) FALLS RISK ASSESSMENT DOCUMENTED 12/12/2020 12:00:00 A M EDT [facility] ([facility], ) OFFICE OUTPATIENT VISIT 25 MINUTES 12/12/2020 12:00:00 AM EDT [facility] ([facility], ) ELECTROENCEPHALOGRAM W/REC AWAKE&ASLEEP 12/02/2020 12: 00:00 AM EDT [facility] ([facility], ) ELECTROENCEPHALOGRAM W/REC AWAKE&ASLEEP 12/02/2020 12: 00:00 AM EDT [facility] ([facility], ) Magnetic Resonance Angiogtaphy Head W/O Contrast Material(S) 10/24/2020 12:00:00 AM EDT [facility] ([facility] ) Magnetic Resonance Angiogtaphy Head W/O Contrast Material(S) 10/24/2020 12:00:00 AM EDT [facility] ([facility] ) Magnetic Resonance Angiography Neck W/O Contrast Materials 10/24/2020 12:00:00 AM EDT [facility] ([facility] ) Magnetic Resonance Angiography Neck W/O Contrast Materials 10/24/2020 12:00:00 AM EDT [facility] ([facility] ) MRI BRAIN BRAIN STEM W/O CONTRAST MATERIAL 10/24/2020 12:00:00 AM EDT [facility] ([facility], ) MRI BRAIN BRAIN STEM W/O CONTRAST MATERIAL 10/24/2020 12:00:00 AM EDT [facility] ([facility], ) OFFICE OUTPATIENT NEW 45 MINUTES 10/24/2020 12:00:00 A M EDT [facility] ([facility]) OFFICE OUTPATIENT VISIT 10 MINUTES 10/03/2020 12:00:00 AM EDT [facility] ([facility]) OFFICE OUTPATIENT VISIT 25 MINUTES 10/03/2020 12:00:00 AM [facility] Electrocardiogram Interpretation & Report Only 12:00:00 AM EDT [facility] ([facility]) ECG ROUTINE ECG W/LEAST 12 LDS W/I&R 06/23/2020 12:00: 00 AM EDT eCW1 ([facility]) OFFICE OUTPATIENT VISIT 10 MINUTES 06/03/2020 12:00:00 AM EDT [facility] ([facility]) SURGERY CASE REQUEST OUTSIDE FACILITY ONLY <td>SURGERY CASE REQUEST OUTSIDE FACILITY ONLY</td><td>Routine</td><td>11/05/2019 3:48 PM EDT</td><td> Carpal tunnel syndrome of left wrist</td><td></td> 11/05/2019 03:48:02 PM EDT Carpal tunnel syndrome of left wrist [facility] Carpal tunnel syndrome of left wrist Results ID Date Data Source [id number] 12/16/2020 03:23:00 PM [facility]T [facility] Name Value Range Interpretation Code Description Data Saima rce(s) Supporting Document(s) Calcidiol [Mass/volume] in Serum or Plasma 48.5 ng/mL 30.0-100.0 [facility] ([facility]) Thyrotropin [Units/volume] in Serum or Plasma 2.140 uIU/ML 0.358-3.74 0 [facility] Rheumatoid factor [Units/volume] in Serum or Plasma Laboratory test result [facility]) ID Date Data Source [id number] 12/16/2020 03:23:00 PM EDT [facility] Name Value Range Interpretation Code Description Data Saima rce(s) Supporting Document(s) Blood Urea Nitrogen 13 mg/dL 7-18 [facility] ([facility], ) Glucose, Fasting 95 mg/dL 70-100 [facility] ([facility]) Creatinine For GFR 0.82 mg/dL 0.55-1.30 [facility] ([facility], ) Sodium Level 141 meq/L 136-145 [facility] ([facility]) Glomerular Filtration Rate Laboratory test result [facility]) <content>Units are mL/min/1.73 m2</content>
<content></content>
<content>Chronic Kidney Disease Staging per NKF:</content>
<content></content>
<content>Stage I & II GFR >=60 Normal to Mildly Decreased</content>
<content>Stage III GFR 30- 59 Moderately Decreased</content>
<content>Stage IV GFR 15-29 Severely Decreased</content>
<content>Stage V GFR <15 Very Little GFR Left</content>
<content>ESRD GFR <15 on [employer]</content>
<content></content> Chloride Level 108 meq/L 98-107 [facility] ([facility]) Potassium Serum 3.8 meq/L 3.5-5.1 [facility] ([facility]) Calcium Level 8.9 mg/dL 8.8-10.2 [facility] ([facility]) Carbon Dioxide Level 30 meq/L 21-32 [facility] ([facility]) Anion Gap 3 meq/L 8-16 [facility] ([facility]) Ast/Sgot 13 U/L 7-37 [facility] ([facility]) Alt/SGPT 18 U/L 12-78 [facility] ([facility]) Alkaline Phosphatase 83 U/L 45-117 [facility] ([facility]) Total Protein 7.1 GM/DL 6.4-8.2 [facility] ([facility]) Albumin 3.6 GM/DL 3.2-5.2 [facility] ([facility]) Bilirubin,Total 0.4 mg/dL 0.2-1.0 [facility] ([facility]) Albumin/Globulin Ratio 1.0 1.2-2.2 [facility] ID Date Data Source [id number] 12/16/2020 03:23:00 PM EDT [facility] ([facility]) Name Value Range Interpretation Code Description Data Saima rce(s) Supporting Document(s) Erythrocyte sedimentation rate by 2H Westergren method 9 mm/hr 0-3 0 [facility] ([facility]) ID Date Data Source [id number] 12/16/2020 03:23:00 PM EDT [facility] ([facility]) Name Value Range Interpretation Code Description Data Saima rce(s) Supporting Document(s) Red Blood Count 4.44 10 4.00-5.40 [facility] ([facility]) Hemoglobin 13.1 g/dL 12.0-15.5 [facility] ([facility]) White Blood Count 7.3 10 4.0-10.0 [facility] ([facility]) Mean Corpuscular Hemoglobin 29.5 pg 27.0-33.0 [facility] ([facility]) Mean Corpuscular Volume 91.2 fl 80.0-96.0 M [facility] ([facility]) Hematocrit 40.5 % 36.0-47.0 [facility] ([facility]) Mean Corpuscular HGB Conc 32.3 g/dL 32.0-36.5 [facility] ([facility]) Red Cell Distribution Width 13.5 % 11.5-14.5 [facility] ([facility]) Platelet Count, Automated 228 10 150-450 [facility] ([facility]) Neutrophils % 53.3 % 36.0-66.0 [facility] ([facility]) Lymph % 35.7 % 24.0-44.0 [facility] ([facility]) Levy % 8.3 % 2.0-8.0 [facility] ([facility]) Baso % 0.7 % 0.0-1.0 [facility] ([facility]) Eos % 1.9 % 0.0-3.0 [facility] ([facility]) Immature Granulocyte % 0.1 % 0-3.0 [facility] ([facility]) Nucleated Red Blood Cell % 0.0 % 0-0 [facility] ([facility]) Neutrophils # 3.9 10 1.5-8.5 [facility] ([facility]) Lymph # 2.6 10 1.5-5.0 [facility] ([facility]) Eos # 0.1 10 0.0-0.5 [facility] ([facility]) Baso # 0.1 10 0.0-0.2 [facility] ([facility]) Levy # 0.6 10 0.0-0.8 [facility] ([facility]) ID Date Data Source [id number] 12/16/2020 02:50:00 PM EDT [facility] ([facility]) Name Value Range Interpretation Code Description Data Saima rce(s) Supporting Document(s) Thyrotropin [Units/volume] in Serum or Plasma by Detec tion limit <= 0.05 mIU/L 2.080 uIU/ML 0.358-3.740 [facility] ([facility]) Calcium [Moles/volume] in Serum or Plasma 8.9 mg/dL 8.8-10.2 [facility] ([facility]) Calcidiol [Mass/volume] in Serum or Plasma 56.8 ng/mL 30.0-100.0 [facility] ([facility]) ID Date Data Source [id number] 12/13/2020 04:08:52 PM EDT [facility] Name Value Range Interpretation Code Description Data Saima rce(s) Supporting Document(s) Progress Note [facility] XHTYOq2pEpMNIsUq52/ECUzwYVYyf9FsPUevECm1HIkyJOJdR7XhFCT1tD6kUXP5ZZwJOiIcPrLgBUNs [facility] OeNjaDPrCbEFNjJimNMbFqAVimQuqseUDwMN7ArVC5BXQsO91iAIPzVYFaM4JdIGCjTIO+Pi3FKKKqnH NxUZ5XHnsI5G8ch9wBYj5iTB/JFPK93aDrbPkubuJkqGWjYgkZNxgwJvh3rSMQJdgcVLoe//3jQrzg12 817Alsseeg0IFVo17TiVooASL/L9WU99uNYwP/1n/6 qVWSpqciJ4E4IWy3rllJktz3WC5G6axN6u+GdhxQqr3x+QMUVYOXQ4HI8zTfKYJglWnETh55fsNa7WRe Gi+yhkTASZxZx59kkddxlcLu7etjptA704AHQ3vlrPT1VAbl110mP4fZUJRz4fKzaW8HlADakLr1vDfJ svpFDgcCHopYX792g1AjQOcw6MXR9IAM1GIPxSdEU0 HLCoEMrHYYctHYlWgOlBUGFvtZ4/LTDDVvNGwyyTmlXmoWFB7pvlxCpronJ7+tgTfq2lDTdK10SSR32T OdKGJkCZru12oPICMIaJjPkKN61B7QCVwm/k6j6/5kxxItMZbcXkZ/mhNkCdrxctAvoml/Vnzu5zJT3O KgFt/z10/FJEPHPuVZDmo76U3Gmi4m3Pb0rWJb+htm dDwcJtHSoEsowZeyClLPcPbhbe/0RBy/Pzl/d8YzLSy3A0GDxlCrrvbneQUaNuughvGXbkG0+4IHWt0u 6wbV1MGPEFK6Hb8dBCTaupL/XAT4ySZR7/mqRIBodfTt1tOdWD0jmkHgWLakqXF6fOZHVVZZ+yAe29fU oQvaH3e7+VctiSaYbI1WJJHBZIFf68i1veZsgNlL+L wwx/iRVYJEupPZgx67SaDgOkOcZ0wL07MsGdC4Y8nFbYWTxdp/AA9dfcSLqkcNVDlyz0l+9FAbRC3dm7 Sr9xZjjMAqfJHEMB0wnHaaM0tTLxbPLRr2D1Z6w+hW0tMb5zx9Sps5vETchBByzPacNEDcqg2zq+LwIp l/tmiVYefTvJm3Dk9rD1oEe54PliT0DHCZQF6HdrgF zhUJNJQe4RETAMT0plBhFvwhN7/Jg5S8C+rCgafXhx7qS/G3BmFC5JYG5Q0fm5mw7X92c+DaR3ZYdUc3 Z7YHjF9ZV/lUp8228JCFMvWKOO1iT1sQPROBAtMdYV3DAjdTHTfM45iXpz2VUabCVELvIaTFFqvIF8iB 5+6meE/aaRgDSeDlZnqJ29dkIWkLmQSHNf/RWonWSg iXzTLAAoiBPXlEWGNwXASWydNQYMucjG+lXXxAjcdkmGKzk4lc28QsRWin1JYGZNgX/g2qGewRNvBSuq 26jCrcoAww2abxDJuG4RIKsWJLsfvEXYcNd3Xm7qZ//7CsK/policy services representative/3reR0oPRoLej1rW5Y4bPgNbOIe3Oc L5LP3v87Qcv7je3XKNViLS+w4GURMO+zGnF7Z820Hf g/Atpwa/MMZ0G3eh43lcnIYV/clsML+WnaPVCUOODYk2oU2OyJQmbRn0e3M3vTzbN4hLQBJT1T0Cw65g 6WYs6yyEfB4J70JmgRQCSr1/t0hfk1R79t4/CmN7fRiSmSEg1X1qeRNe9sWReBuBZxz+UoMGNkmFjWmg yrj9FvK5Ygx7ifTIyyQpdMZoQk6JTiPgBq+vmgM5XL 7a96asr8ExxbT5sLMUax7XAW/dRgwTMhxRAn7O2y6Zlc9XPtSqnyWfU2nVld7No7XBBEp9bSUW47RHai CsyD7Fv7q4urMeOHy3vFWe6DEiuPtzi8iGswciyPjGvLDw+David+zccmT5GTeK6DwwkxbMylffyf4NzWy [file] AgICAgICAgICAgICAgICAgICAgICAgICAgICAgICAg OMTmXTCtTXIlETNiTX8TBXBpKLCfXLVbCBLoAWQeTLRjGCWaHKBuOUUhPNByYRCxRRQwMYXzXVMzIKQg BEVwQGLoZSGiCYIrYZMjOCXhFKCwALNlVFAnXUFgXIHiOMBbTXKxUTIjDHMeBYCdZUGmGRFgXZ7GVWTp ICAgICAgICAgICAgICAgICAgICAgICAgICAgICAgIC AgICAgICAgICAgICAgICAgICAgICAgICAgICAgICAgICAgICAgICAgICAgICAgICAgICAgICAgICAgIC AnYFNoBX4VZXFlOARzZCYtARSgWNUzVFUgQMEeDJJvDUAqZMXcOXMwLPJaRFSxLKXbOBKhEEMcAQRpRI AgICAgICAgICAgICAgICAgICAgICAgICAgICAgICAg UGRtRODhWDWcUZWwKUVoSE1MBAJaUPLjQNStAXTeINJfVBVjKYUiXKKlCIIxLISjWXOzEGTmODMdXAOg RXPgPQZkWCHrBWPuQTJvIIGaTSHhSSJjZTMdGAEeMXCpTXFxQZNeVNQbZLVuVREkLCFiPHAoNCItKX5M ICAgICAgICAgICAgICAgICAgICAgICAgICAgICAgIC AgICAgICAgICAgICAgICAgICAgICAgICAgICAgICAgICAgICAgICAgICAgICAgICAgICAgICAgICAgIC EjTUSsZLWfDG1RAEIjUEGfTGChURZkPDXaFUOdWZWoYUDxNWFhMHTzMMSiXBUjCQFaEFXvSUAcTECzCU AgICAgICAgICAgICAgICAgICAgICAgICAgICAgICAg HOBaWYViQLBmEDJlYPUhFTAuVY5HCFPvWAVoZLQyKRJkEELyOACjXEKbLITvZJPoKUHpFIWtRGFhPAHm ICAgICAgICAgICAgICAgICAgICAgICAgICAgICAgICAgICAgICAgICAgICAgICAgICAgICAgICAgICAg MR1CFCXmISWrPDBgQPRvNZGsZFPfIMJwMBTaLRWiXY AgICAgICAgICAgICAgICAgICAgICAgICAgICAgICAgICAgICAgICAgICAgICAgICAgICAgICAgICAgIC JsQEKdNXPgEINrTU4OJMUdGZOvHSMpKMLaBXHoWTHuUWEkFAKqFPSrVIUmVPHoSWYnVBOdNEQjNBCmRN AgICAgICAgICAgICAgICAgICAgICAgICAgICAgICAg VTWfTSKxVFHkWHKcMFXaYWFqFQGhPQ5EES03sXMyy5Z9PHExDE7vovx/Lk9TBMcbwhEyfALwAB8XPsRi FI0say6IBqHjBH1orx5JUXtVRtWtB7B0mUPtNDMoOLVIQpTgE54vVHhuBe16SPnaVCIkGrDiGKa0Qd1Z XaKsV4uwKFIrNcZ0FPFzMaK7KMZdHuXfOMnfUY9Vg0 VudCAyDQo+Ds0GNU8hj8EqNHvfOECxRV3cpe5KQSpGYtPpW8LyefP6NIM7JEEnOt8IKHLzLRQfqEYhRU RgRMDHPgZjK6InnK99IWTVOa8+QJxfxfCxIftPPxC2OZTai6ArFCw2UE9DBCSxPNi3bVWxCPTqW2Zrj3 VrLc12ZUFbDdtkVIBimWHlBK7hRHFvTUR3qG6kIKPX MDTkkJGgBM1aEn4wIDLyRWLvGaR9WLDZDK6DTHDjQHRxtDSlRVMvEHHBIU2ESEajLZX2OEZkndJcaEFy VEghLK7JJKSufvJnKjQqJXPPWAf+Vw5MGZ3ti0BySWutJsZpRC2kfn4EGEaZJoTsY0U5bTRfH4C4CQbo Qd0WEBJxAPJoGfOkVZOBIRpuZV1IPC9kqxO1OT4ApC BbVOXlPMVdxJLwWKd6X83pvMElVDsvCS2ABVU+Zeus+Mn5DXSWxALIvROVbZiTcWJDRKwUiC2YnP0PKi9 AiI2ZiKM53aIcoihTgQJvoCS8GJU3sHMAvKEROQB6MaNWhmO1ppcEvKVJwBZMUItLjZ57pmTYxQTZoZL PgHYAiJi7SJKKbV2UqlrKsrChjccZxPFGoTRHACJ4E DGawydAhqKXdvIprUY87aHimNK6QWe1YQwXcZC6nqk2WtAHkZl0YWZIsDk8KDAHaCAFsXVBxASD8OGWl LrRxKYgyNWZwSKRfNGK3RTJwBMLsCN7ALaHiJPMrXoAyZApiGUEoPTDkak3XEQHtBXMwEsK1PLPxQCJd TLVpYScjKMCeDVSnFVD5YPJnFERtPS4QOiCzKBBxIQ TjSdtgUUDmMEEzhf6AYWDoBESsXoO3YzWxOHMjACSrOIoaQIBaSRO6Ioo2KXZmBTHgHK0WBjWjCLGsYS M8HGAsYEThLIUwfg6QMVGmQBJkRQo8ILXcXVBbCNDuNQddVXGkNYQ0JZA8OKVsLDKaYU3LEcEnCQRkIT BwUUglRLPuWUFpwj2VBFBiMWKhKrU6AgJmEDUcMEBy ORedRWGuXLM7ALo1EHMdJOApYX3ECaVrPGZbAHf8VtrgVJCfJACyeh5CPICpUIJdSLD6DjNxUNWkKLGd OSkyZMXsOOX5LSMuKYKcPEXaJQ0JKxQuXFIaUFb6HlSmZEJoNREymy3LSKTmOWZrXFg9VVBaYTPdVPMu FPotIBSvXMZpHHW4NPQbFMBnNP4VQiJcGSJxMgZ4Vr RxNRHuWXXvaf7HSSHxUBIlJPX7HNPmKTPiDQEvIQzwGPQzUUIlYgF8UYBiKBUpHP3BYzHoRHQxRoR8US HfREPeLDFtbn5FGVLcSIRrJhD8WJGxQNUtTKKtLJagPYQkKKIeXfH1WBQiCQSwNI6AZzPnCHDxHqD5Xs CpRBTkYBIpqj7AfEFleNeasi0HPNsPVh0GaHhtSCK8 KQrzAs6tnOJhPbTvTBHMYl5VryDkSCKjIFUCIWkhFIOwHZImZXkjGjS9MRFpWWBoWJKdZtZ8YnYfGDYf RIl8VfR8VaO0DXO7A9EsZUO3EvHaOFUpWwHtRkb0BYE3QHSnRZcvFeB+KI3wUMs+Ec5Rc2TbaqR0ryWi SOsmIwN9Xq3JDEPTV6MCKg== ID Date Data Source [id number] 12/13/2020 04:06:21 PM EDT [facility] Name Value Range Interpretation Code Description Data Saima rce(s) Supporting Document(s) Progress Note [facility] ZPIIQc7wGzSILuPn72/ZTStdULZmv7XsAUddOMg8JEulELRwL1JvNHJ3qT2yPIX0REwEJmGtLgNnJTBm lbm [file] ICAgICAgICAgICAgICAgICAgICAgICAgICAgICAgIC AgICAgICAgICAgICAgICAgICAgICAgICAgICAgICAgICAgICAgICAgICAgDQogICAgICAgICAgICAgIC AgICAgICAgICAgICAgICAgICAgICAgICAgICAgICAgICAgICAgICAgICAgICAgICAgICAgICAgICAgIC AgICAgICAgICAgICAgICAgICAgICAgICAgDQogICAg ICAgICAgICAgICAgICAgICAgICAgICAgICAgICAgICAgICAgICAgICAgICAgICAgICAgICAgICAgICAg ICAgICAgICAgICAgICAgICAgICAgICAgICAgICAgICAgICAgDQogICAgICAgICAgICAgICAgICAgICAg ICAgICAgICAgICAgICAgICAgICAgICAgICAgICAgIC AgICAgICAgICAgICAgICAgICAgICAgICAgICAgICAgICAgICAgICAgICAgICAgDQogICAgICAgICAgIC AgICAgICAgICAgICAgICAgICAgICAgICAgICAgICAgICAgICAgICAgICAgICAgICAgICAgICAgICAgIC AgICAgICAgICAgICAgICAgICAgICAgICAgICAgDQog ICAgICAgICAgICAgICAgICAgICAgICAgICAgICAgICAgICAgICAgICAgICAgICAgICAgICAgICAgICAg ICAgICAgICAgICAgICAgICAgICAgICAgICAgICAgICAgICAgICAgDQogICAgICAgICAgICAgICAgICAg ICAgICAgICAgICAgICAgICAgICAgICAgICAgICAgIC AgICAgICAgICAgICAgICAgICAgICAgICAgICAgICAgICAgICAgICAgICAgICAgICAgDQogICAgICAgIC AgICAgICAgICAgICAgICAgICAgICAgICAgICAgICAgICAgICAgICAgICAgICAgICAgICAgICAgICAgIC AgICAgICAgICAgICAgICAgICAgICAgICAgICAgICAg DQogICAgICAgICAgICAgICAgICAgICAgICAgICAgICAgICAgICAgICAgICAgICAgICAgICAgICAgICAg ICAgICAgICAgICAgICAgICAgICAgICAgICAgICAgICAgICAgICAgICAgDQogICAgICAgICAgICAgICAg ICAgICAgICAgICAgICAgICAgICAgICAgICAgICAgIC RlNGFdMGXcAQEzUACyLYOnTBOsHOEgOGDsJIArXGDsOLTiXJKmBKYyGATzOKZcKWHcJMZcOQc7N9hhFB TfKABdUH0fIJx2At4+CCvXKeQtFNL9xdGsbG2LYB6fi1MaGQnbQCDks9RrKDb0MU6PUDGoGSncIN7GGP fntm8RJJSyVQYjvYIAs9qgZtPmLBT3QVQwBmfhNJ9D ALCuC3vkcrObSFQmAGNQZHtiYRWIVRsdWRBMHWSnHDVqPxFtOIotQH6Ll1MawCH6JRj+Hs2IBH1yl2Ut TJzzISLlPO3lpv2SUByZCtJjC4PcffA3EZB8FBEmYu6TWPWtRYVskFArPUPnCZIXIuGlJ2FggF07SNNX Cj4+RExanbZiRksIPuG6WZUvr3UtFSq2IW3OQMEiRE i7qAZyOFAwR4Szr5HzUh47WVBkVljyLGEfrEZzEA7tJPOxINV7lH2qIMRXNYCnxIXqCK8cEg2aSVNwQS QuJrY5UAWWKR5UALEmOSZdyAHnVMOcCKSGRO1DDTtaZSZ0FFKkjoFvsKIbVNnuWM8MHENqvbCaJsbhIJ BSDQo+Ng8KYX1vw0FrDEqfJVClXI2pgi9EDLiUUfSi M3G3uXWbS6R9JOoqMb3UNIXpHMOwSjGlKTIEYPusPD7OSO4hjrS9UN4GnEWrXWItBNIxfNEnJHm8C77b fSKyKIevBJ3BBWZ+Zeus+Wv6MKBWgCWYcUQOwHjUyOXZHTkYtT2CdP1BSv4OpI7AnAS66sClzteQfXMrr LZ6IPU9mEPKfMMOTNG4LwNFlaO3dusFmKYZgVCZCEz ShE21loQKcCIMsHSB8EKKzVs9ZCPJfT2KhdwLyeAgyvhZaFJTbSYWQTA9OGQpuuqInoPQuoJyrGS63aL nwAE9HOj8PZaFyUN0peo8DcRSbIf0MZBUlJV5GOVAcVXYiFIUrQGQ9BMOrXgEmAGsiIWYgRFUoYAB8ZM MhHRMvBI4XNfOkBDYzPbg5CVEsVMPmHTPuuu3DUBYx MHRwODIjXbLhXTPjWJLqXCgeRWSkAGZaUXJ0UAIwFATaYG3GVqLsQTQhJZOdSQxjNJExWAKrom2ZOVEu NVIlEkX4HNNqTIWxTFWwLRgrMARnLKU6VRL0NMEmDJKjJH3PDqNcHIJaICDaDYExVURvSGAjel6XHRWx ELZcKIf7ENNyRCOnIVMaUZwdEIOjWJXlMTk6ERAxCE ZzDL3ONzIwSVXsDHPkTFVwQVRvCPHubu0RTXHgIHTdVXHiPUClOYVmNUDkTQqmCJZwXRJkWZuqVVNsNH CcSI0XBgCeRCGrMYUiXwibJOZgVYKnby4LVOBxAHUtGjZ4HJYqFDXhQAOmVWzmYDPbWACwWBO8WTQjJR OhNI9MFuUrKRNiFFT4ZwEfRUClZMQhdu4NECHhSWKv TjqcBEAlXBQnMCAqTNraVDLtTMC8NcT4UWEqUFOgWU2ZYvJzFMWwLoH2UjAyEEAjNXHnyn2KZEKaCOHt HPh1GhVhVSZbDSCbUQasWOUwEZG9KSSfIEXcRNAnMS4JGaMuIIYeTkEjBregDHQiMSEinf2DRZDnKJYj PzKtKoZoOPWiEVGuUSazSIErYXD5HVOiDJKmIKAgZT 9AQnYoJBWjRpk9XvuhBKKuWOEvzb5RAFQhMJCgMgm4GyMyGPNsRPSuKZopYZQdGSM5SCHuQSVcKJByZD 7IKdMaTBYoTry7KcTtZVIrECPtvn9HTDTjQCJgCUY8KGHiTRDbVBJsBJc5taUzfZPqPHo4IS0DI8Scez QoXfWMQc6Xa067DKZuEVXnDp2GH6lhKu3eVXBkXQOF Jo4LSWh2MBGxAOA6AwVwCUGvRGQ7AJQdOjWxNUl7DZw2MCD3UnJ+GHutRLD1PpAmAIP2AuOaEXouLXO7 EMI9LDihINbuYig6Tr3uSBOXUo3+IGnenBSktHyzHXJOSpL9NQGaTTvfNAOYUy1G ID Date Data Source [id number] 11/15/2020 03:23:41 PM EDT [facility] Name Value Range Interpretation Code Description Data Saima rce(s) Supporting Document(s) Progress Note [facility] EKEFVk2nZrCDJvBu21/FCMicTZQcm3DaIFnhNCm8WDblWMUbO6RuYCD5fR7rLUP6GJaSBxJtTwBsMJQ1 lbm [file] aoGCRULy7C ID Date Data Source [id number] 10/31/2020 04:31:11 PM EDT [facility] Name Value Range Interpretation Code Description Data Saima rce(s) Supporting Document(s) Progress Note [facility] EKFZYm3mQcSMEqSd25/SDNfyBJTzo6BnFRtxBCa4XBznCFWhS4FqYER2wX1yINK3EGqYLjLvAoBjBOHf lbm [file] [id number]= ID Date Data Source [id number] 10/22/2020 12:00:00 AM EDT [facility] Name Value Range Interpretation Code Description Data Saima rce(s) Supporting Document(s) SARS-CoV2 Rapid Antigen Negative [facility] This lab was reported by Jina Harris. ID Date Data Source [id number] 10/12/2020 09:45:00 AM EDT [facility] Name Value Range Interpretation Code Description Data Saima rce(s) Supporting Document(s) SARS-CoV-2 RNA Resp Ql EMANUEL+probe NOT DETECTED [facility] This lab was ordered by SENAIT ng and reported by SENAIT Buckley. ID Date Data Source PT & APTT 10/11/2020 12:00:00 AM EDT eCW1 ([facility]) Name Value Range Interpretation Code Description Data Saima rce(s) Supporting Document(s) 27.6 25.9-37.0 PARTIAL THROMBOPLASTIN TI ME eCW1 ([facility]) 0.92 INR eCW1 ([facility]) 12.7 12.7-14.5 PROTHROMBIN TIME eCW1 ([facility]) ID Date Data Source FREE T4 & TSH PANEL 10/11/2020 12:00:00 AM EDT eCW1 ([facility]) Name Value Range Interpretation Code Description Data Saima rce(s) Supporting Document(s) 1.570 0.358-3.740 THYROID STIMULATING HORM ONE eCW1 ([facility]) 1.19 0.76-1.46 FREE T4 eCW1 ([facility]) ID Date Data Source Comprehensive Metabolic Profile (CMP) 10/11/2020 12:00:00 AM EDT eCW1 ([facility]) Name Value Range Interpretation Code Description Data Saima rce(s) Supporting Document(s) 90 70-100 GLUCOSE, FASTING eCW1 ([facility]) 9 7-18 BLOOD UREA NITROGEN eCW1 ([facility]) 0.79 0.55-1.30 CREATININE FOR GFR eCW1 ([facility]) > 60.0 >45 GLOMERULAR FILTRATION RATE eCW 1 ([facility]) 4.5 3.5-5.1 POTASSIUM SERUM eCW1 ([facility]) 140 136-145 SODIUM LEVEL eCW1 ([facility]) 107 98-107 CHLORIDE LEVEL eCW1 ([facility]) 29 21-32 CARBON DIOXIDE LEVEL eCW1 ([facility]) 8.8 8.8-10.2 CALCIUM LEVEL eCW1 ([facility]) 12 7-37 AST/SGOT eCW1 ([facility]) 18 12-78 ALT/SGPT eCW1 ([facility]) 79 45-117 ALKALINE PHOSPHATASE eCW1 ([facility]) 0.5 0.2-1.0 BILIRUBIN,TOTAL eCW1 ([facility]) 3.7 3.2-5.2 ALBUMIN eCW1 ([facility]) 7.1 6.4-8.2 TOTAL PROTEIN eCW1 ([facility]) 1.1 1.2-2.2 ALBUMIN/GLOBULIN RATIO eCW1 ([facility]) ID Date Data Source CBC with Differential 10/11/2020 12:00:00 AM EDT eCW1 ([facility]) Name Value Range Interpretation Code Description Data Saima rce(s) Supporting Document(s) 5.8 4.0-10.0 WHITE BLOOD COUNT eCW1 ([facility]) 13.6 12.0-15.5 HEMOGLOBIN eCW1 ([facility]) 4.67 4.00-5.40 RED BLOOD COUNT eCW1 ([facility]) 42.2 36.0-47.0 HEMATOCRIT eCW1 ([facility]) 90.4 80.0-96.0 MEAN CORPUSCULAR VOLUME e CW1 ([facility]) 29.1 27.0-33.0 MEAN CORPUSCULAR HEMOGLOB IN eCW1 ([facility]) 52.6 36.0-66.0 NEUTROPHILS % eCW1 ([facility]) 13.7 11.5-14.5 RED CELL DISTRIBUTION WID TH eCW1 ([facility]) 258 150-450 PLATELET COUNT, AUTOMATED eCW1 ([facility]) 32.2 32.0-36.5 MEAN CORPUSCULAR HGB CONC eCW1 ([facility]) 36.7 24.0-44.0 LYMPH % eCW1 ([facility]) 9.0 2.0-8.0 MONO % eCW1 ([facility]) 0.7 0.0-3.0 EOS % eCW1 ([facility]) 0.7 0.0-1.0 BASO % eCW1 ([facility]) 3.0 1.5-8.5 NEUTROPHILS # eCW1 ([facility]) 0.0 0.0-0.5 EOS # eCW1 ([facility]) 0.5 0.0-0.8 MONO # eCW1 ([facility]) 2.1 1.5-5.0 LYMPH # eCW1 ([facility]) 0.0 0.0-0.2 BASO # eCW1 ([facility]) ID Date Data Source NT-PRO BNP 10/11/2020 12:00:00 AM EDT eCW1 ([facility]) Name Value Range Interpretation Code Description Data Saima rce(s) Supporting Document(s) 75 <125 NT-PRO BNP eCW1 ([facility]) ID Date Data Source Microscopic Only Urine (Auto) 09/13/2020 12:00:00 AM EDT eCW 1 ([facility]) Name Value Range Interpretation Code Description Data Saima rce(s) Supporting Document(s) 0 0-3 WBC, URINE AUTO eCW1 ([facility]) NEGATIVE NEGATIVE BACTERIA, URINE AUTO eCW1 ([facility]) 1 0-3 RBC, URINE AUTO eCW1 ([facility]) 0 0-6 SQUAMOUS EPITHELIAL CELL UR AU eCW1 ([facility]) SMALL NEGATIVE MUCUS, URINE eCW1 ([facility]) 0 0-1 HYALINE CAST, URINE AUTO eCW1 ([facility]) ID Date Data Source URINE CULTURE 09/13/2020 12:00:00 AM EDT eCW1 ([facility]) Name Value Range Interpretation Code Description Data Saima rce(s) Supporting Document(s) URINE CULTURE eCW1 ([facility]) ID Date Data Source [id number] 09/09/2020 08:56:31 PM EDT [facility] Name Value Range Interpretation Code Description Data Saima rce(s) Supporting Document(s) SODIUM 140 mmol/L (136-145) [facility] POTASSIUM 3.8 mmol/L (3.6-5.2) [facility] CHLORIDE 107 mmol/L (100-108) [facility] CO2 28 mmol/L (22-31) [facility] ANION GAP 5 mmol/L (7-16) L [facility] UREA NITROGEN 12 mg/dL (7-24) [facility] CREATININE 0.88 mg/dL (0.60-1.00) [facility] BUN/CREAT RATIO 13.6 RATIO (10.0-20.0) [facility] GLUCOSE 94 mg/dL (70-99) [facility] CALCIUM 9.3 mg/dL (8.4-10.2) [facility] GFR >60 ml/min/1.73m2 (>59) [facility] GFR ( AMER) >60 ml/min/1.73m2 (>59) [facility] GFR INTERPRETATION [facility] --NORMAL KIDNEY FUNCTION OR MILD DISEASE - GFR >OR= 60CHRONIC KIDNEY DISEASE - GFR 15 - 59RENAL FAILURE - GFR <15 Est. GFR calculation based on the MDRDstudy equation, which assumes a steadystate for creatinine. Est. GFR should notbe used for medication dosing. ID Date Data Source [id number] 09/09/2020 08:33:58 PM EDT [facility] Name Value Range Interpretation Code Description Data Saima rce(s) Supporting Document(s) WBC 7.5 10*3/uL (4.1-11.0) [facility] RBC 4.92 10*6/uL (4.00-5.40) [facility] HGB 14.3 g/dL (12.0-16.0) [facility] HCT 43.2 % (36.0-47.0) [facility] MCV 87.8 fL (80.0-95.0) [facility] MCH 29.0 pg (27.0-32.0) [facility] MCHC 33.1 g/dL (32.0-36.0) [facility] RDW 13.7 % (10.5-14.5) [facility] PLT 227 10*3/uL (150-450) [facility] MPV 9.4 fL (7.1-10.7) [facility] NEUT % 49.2 % (35.0-75.0) [facility] LYMPH % 42.0 % (16.0-52.0) [facility] MONO % 7.2 % (0.0-8.0) [facility] EOS % 0.7 % (0.0-5.0) [facility] BASO % 0.9 % (0.0-4.0) [facility] NEUT # 3.7 10*3/uL (1.8-7.7) [facility] LYMPH # 3.1 10*3/uL (1.2-4.8) [facility] MONO # 0.5 10*3/uL (0.0-0.8) [facility] Eosinophils [#/volume] in Blood by Automated count 0.1 10*3/uL (0.0-0 .5) [facility] BASO # 0.1 10*3/uL (0.0-0.2) [facility] ID Date Data Source [id number] 09/09/2020 07:46:00 PM EDT [facility] DATE OF EXAM: 09/09/2020T BRAIN WITHOUT CONTRAST CLINICAL STATEMENT: VISUAL DISTURBANCE TECHNIQUE: Axial slices were obtained through the brain without IV contrast using multi-detector CT imaging. COMPARISON: None. FINDINGS: The ventricles and sulci are within normal limits. There is no acute parenchymal hemorrhage, mass, mass-effect or midline shift. There is no extra-axial fluid collection. There is no loss of panchal-white matter differentiation to suggest acute territorial infarct. The calvarium is intact. The visualized paranasal sinuses and orbits appear unremarkable. IMPRESSION: 1. No acute intracranial pathology is identified. Professional interpretation performed at [facility] .End of diagnostic report for accession: [id number] Interpreted: Ron Ghotra MDTranscribed: 09/09/2020 07:45 PMSigned: 09/09/2020 07:46 PM Ron Ghotra MD [facility] # [id number] BILL # [id number] Name Value Range Interpretation Code Description Data Saima rce(s) Supporting Document(s) ID Date Data Source [id number] 06/23/2020 07:51:00 AM EDT [facility] Name Value Range Interpretation Code Description Data Saima rce(s) Supporting Document(s) COVID-19 RT-PCR IMAGING ADMINISTRATOR SWAB Not Detected Not Detected [facility] A not detected (negative) test result fo r this test means that SARS-CoV-2 RNA was not present in the specimen above the limit ofdetection. Laboratory test results should always be considered in thecontext of clinical observations and epidemiological data in making afinal diagnosis and patient management decisions. Results will bereported to government agencies as required.This test has received Emergency Use Authorization (EUA). We will continue to follow federal and state requirements for COVID-19 reporting. This test has been authorized only for the detection of RNAfrom SARS-CoV-2 virus and diagnosis of SARS-CoV-2 virus infection, notfor any other viruses or pathogens. This test is only authorized for the duration of the declaration that circumstances exist justifying the authorization of the emergency use of in vitro diagnostic tests for detection of SARS-CoV-2 virus and/or diagnosis of SARS-CoV-2 virusinfection under section 564(b)(1) of the Act, 21 U.S.C. section 360bbb-3(b)(1), unless the authorization is terminated or revoked sooner. We will continue to follow federal and state requirements for both notification of results and any confirmatory testing that is required by another agency. This test was developed and its performance characteristics determined by [facility] and verified at [facility]. It has not been cleared or approved by the U.S. Food and Drug Administration for diagnostic use. This test has been authorized by FDA under an EUA for use by authorized laboratories. Results should be used in conjunction with clinical findings, and should not form the sole basis for a diagnosis or treatment decision. Methods: SARS-CoV-2 Multiplex RT-PCR Assay ID Date Data Source [id number] 06/23/2020 12:00:00 AM EDT [facility] ([facility]) Name Value Range Interpretation Code Description Data Saima rce(s) Supporting Document(s) Hemoglobin A1c/Hemoglobin.total in Blood 5.4 HEMOGLOBIN A1c [facility] ([facility]) ID Date Data Source [id number] 06/22/2020 10:00:00 AM EDT [facility] Name Value Range Interpretation Code Description Data Saima rce(s) Supporting Document(s) SARS-CoV-2 (COVID-19) N gene [Presence] in Respiratory specimen by EMANUEL with probe detection NEGATIVE [facility] This lab was ordered by Ina Muro and reported by [facility]. ID Date Data Source [id number] 12/08/2019 03:21:57 PM EDT [facility] Name Value Range Interpretation Code Description Data Saima rce(s) Supporting Document(s) Progress Note [facility] ARJWSv9hPjFNJyYw04/ZWHxwTFUzp0RpPWizLKr0UMgoFHLnR8KqVRK2bX6aHMH2HLtKIlRjDxHfGVK9 lbm [file] NeMKhhCJTfTUJzLXfiUAY6JFh5UZ4hVWEVOo9+ZKdqjOIrtIizEXGJFrSbCbZnVCsdQFIELm5H ID Date Data Source [id number] 12/06/2019 02:21:42 PM EDT [facility] XR SPINE-ENTIRE THORACIC AND LUMBAR- 2 O R 3 VIEW [id number] RESULTInterpreted by:RAHAT Loya THORACIC AND LUMBAR SPINE SCOLIOSIS 2 OR 3 VIEWSLUMBAR SPINE 2 VIEWSCLINICAL STATEMENT: Low back pain.TECHNIQUE: Multiple AP and lateral views of the thoracic and lumbar spine were obtained. Flexion and extension views of the lumbar spine.COMPARISON: 11/19/2018 FINDINGS:There is no significant scoliotic curvature of the spine. Normal vertebral body heights and alignment are maintained. No suspicious vertebral body anomalies are seen.Normal intervertebral disc spaces are preserved.IMPRESSION: Since 11/19/2018,Unremarkable examination.This document has been electronically signed by Ulices Boone MD on 12/06/2019 2:19 PM Name Value Range Interpretation Code Description Data Saima rce(s) Supporting Document(s) ID Date Data Source [id number] 12/06/2019 02:21:42 PM EDT [facility] XR SPINE LUMBAR 2-3 VIEWS [id number] RES ULTInterpreted by:RAHAT Loya THORACIC AND LUMBAR SPINE SCOLIOSIS 2 OR 3 VIEWSLUMBAR SPINE 2 VIEWSCLINICAL STATEMENT: Low back pain.TECHNIQUE: Multiple AP and lateral views of the thoracic and lumbar spine were obtained. Flexion and extension views of the lumbar spine.COMPARISON: 11/19/2018 FINDINGS:There is no significant scoliotic curvature of the spine. Normal vertebral body heights and alignment are maintained. No suspicious vertebral body anomalies are seen.Normal intervertebral disc spaces are preserved.IMPRESSION: Since 11/19/2018,Unrema rkable examination.This document has been electronically signed by Ulices Boone MD on 12/06/2019 2:19 PM Name Value Range Interpretation Code Description Data Saima rce(s) Supporting Document(s) ID Date Data Source [id number] 12/04/2019 01:26:00 PM EDT [facility] ([facility]) Name Value Range Interpretation Code Description Data Saima rce(s) Supporting Document(s) Calcidiol [Mass/volume] in Serum or Plasma 47.9 ng/mL 30.0-100.0 [facility] ([facility]) Thyrotropin [Units/volume] in Serum or Plasma by Detec tion limit <= 0.05 mIU/L 1.090 uIU/ML 0.358-3.740 [facility] ([facility]) ID Date Data Source [id number] 11/20/2019 04:27:02 PM EDT [facility] Name Value Range Interpretation Code Description Data Saima rce(s) Supporting Document(s) Progress Note [facility] PEEZYu5sFbQKXvHf23/TBEflRJXdm6VoYMpmNXn1ZFmcCRAcK4UbBLY6wY8vNLQ0POlYAuOhDkCdFUC9 lbm [file] ogICAgICAgICAgICAgICAgICAgICAgICAgICAgICAg ICAgICAgICAgICAgICAgICAgICAgICAgICAgICAgICAgICAgICAgICAgICAgICAgICAgICAgICAgICAg ICAgICAgICAgDQogICAgICAgICAgICAgICAgICAgICAgICAgICAgICAgICAgICAgICAgICAgICAgICAg ICAgICAgICAgICAgICAgICAgICAgICAgICAgICAgIC AgICAgICAgICAgICAgICAgICAgDQogICAgICAgICAgICAgICAgICAgICAgICAgICAgICAgICAgICAgIC AgICAgICAgICAgICAgICAgICAgICAgICAgICAgICAgICAgICAgICAgICAgICAgICAgICAgICAgICAgIC AgDQogICAgICAgICAgICAgICAgICAgICAgICAgICAg ICAgICAgICAgICAgICAgICAgICAgICAgICAgICAgICAgICAgICAgICAgICAgICAgICAgICAgICAgICAg ICAgICAgICAgICAgDQogICAgICAgICAgICAgICAgICAgICAgICAgICAgICAgICAgICAgICAgICAgICAg ICAgICAgICAgICAgICAgICAgICAgICAgICAgICAgIC AgICAgICAgICAgICAgICAgICAgICAgDQogICAgICAgICAgICAgICAgICAgICAgICAgICAgICAgICAgIC AgICAgICAgICAgICAgICAgICAgICAgICAgICAgICAgICAgICAgICAgICAgICAgICAgICAgICAgICAgIC AgICAgDQogICAgICAgICAgICAgICAgICAgICAgICAg ICAgICAgICAgICAgICAgICAgICAgICAgICAgICAgICAgICAgICAgICAgICAgICAgICAgICAgICAgICAg ICAgICAgICAgICAgICAgDQogICAgICAgICAgICAgICAgICAgICAgICAgICAgICAgICAgICAgICAgICAg ICAgICAgICAgICAgICAgICAgICAgICAgICAgICAgIC AgICAgICAgICAgICAgICAgICAgICAgICAgDQogICAgICAgICAgICAgICAgICAgICAgICAgICAgICAgIC AgICAgICAgICAgICAgICAgICAgICAgICAgICAgICAgICAgICAgICAgICAgICAgICAgICAgICAgICAgIC AgICAgICAgDQogICAgICAgICAgICAgICAgICAgICAg ICAgICAgICAgICAgICAgICAgICAgICAgICAgICAgICAgICAgICAgICAgICAgICAgICAgICAgICAgICAg DOScDZJzXNKqNKDlEAQfXBZjACx8Y2exVTLjHJKmMJ8pVLx1Tv4+JRhVNrTiVBZ6wcXgwU6KWT0aw6Hr PGceWMYax5ReJNj3HM6TJDJeMLwaPA1GDLqpvv9QND VyNNKigFRFr8zmWjHbIFT1JUSwDxnqHS7PBAQvL5lpnkOaUHJfDUNLOBtaVWVXLC1PSgUqO3RabX26FX INCj4+VVyfkxTgHmeYKaJqIMCke5BfCCr1GR4CCGKqZstyj3OkBtRkKXIXMNncCF5IUBP8FZIhWOZoOc 7GYAAdL357qwUhGF3QGc7EAaQlVI0piy9KUqLaWDPi JsdNLam8IPrpPY2AnKNlYMcDyp2ngyNzvtHTv1ParnMslQCTUCYvqO0qTNPZrpHnQP0rILHCJKAelUM0 FtP6MkXnJiEwQUJ2KBFvLX0xHEmdMK2WXDX4QReyUORhAQFlF9wYHpMhKSBlQAVkhBkrMS3WOpVxI5Jc cmVudCAzMiAwIFINCj4+XJvndlGwVtfXZzC7HJKus5 FeTCg3OQ2BOTGwELpeSL5XHDCpnC6wNAgnHW1UErDyZNRkYQHCPaTyV96cwMNgLSq4H6IrRxOgLFDiMv lsZXMgPDwvTmFtZXMgWyBdDQogID4+ID4+TGrjYW8IPYzpxqTxAOVpAt1VTMSbGGYxXT2tDYScIHHkS8 Z7aItiZEIUUrKtS5lwzankMA2wHAYnU801vQhmtlRi MLYfXRAjUt3WJEVoXEF3CMEbrOGwIzAsEJQSFJyfZV4VdJStHMX9pS1sXUxvNFMsBWSxI4sTGfBmsQnp HX12bMmguuTukZTjCQd+Yo5FAN9ps2SpWTf5npIpITnkMDU3FLypJOMpWOWiLWMkWCE6KNA4XLCSCsHw MZFuFLRaPLkjDZNlFUMdje6FNVZuHBViHGL4BXJmIK SnPYTgOJqtMGYcNRPiPZU9YCLgHEReUI9WXxXfGFBtEXAsOJdgWOSsJTOzes7YTZLnNLAcSuRgXUBrUE SgZZTfFPkoMQBwCYQqFHG7RKToTFLrZB7RXtUaWEFmSDYcQGBbVBAqJLChnd7CGFRmYKCzBnJ4WMJtTJ LuQHHcHXxqRKUmRUA9LCGyCIXkUMSbMW5DSiRoAGKr CJl9EEmzGKKtZFOzbo3APJVmDEDpSlifPCJlJXJaXRGpSQghFZYlFBW1Zxo5FSZkPQXjKG5OTpAdHJRi XEn8ZJFiANCvTMKina3QTDJuORHeMGH7EEWiAAYoNGYtQPatSLLmBPCqNiB1WLCoIGNfLB7YWvOaKNGb QdJ7ApHpDVEyAHMcay5AUHJxTTGuOET5StInBLJwDH XeHUsmOOFcMSFfBvuqVHUhFEGlGQ5JJeMmBZUiAaH2YesmOAKjFHOrqm6UIDXoJMJzUmT8VgSbBLPqVZ LeZHhhVYOeBWDyLmecZCWsLAPhPR4AXmAyGHJqPaC5DLenGOVtJCNzvd6XYTVpMQCvWhpdCUGmGLLaFG WbDNytYTAwFZG4LDM4UJUzPAQuED2SFhMdJLLrLbfl PDJyFLSeZFPytz1OHKDmYGLaBDC3VXLhBYMnUTFcCPkxWJTyOED4KfIvNBGaECOyLX8KCwUtWIRaMdk0 DTDgRYJnAZLjpi7DZOYzDZKrPAC0SqQqHKNeKRFrRFsdQPKdGJA5ZlM3OWGaFPWdPN9TFoLcEEJsXbd0 YUyhGDMiBUAehm0RPZCjSZFxSKLhOwTgCFHeTYCvLJ caXLIyBOYjUeNwVVQeLXUeMC2XFjAbJNGhAuUoWLQiZAHySIIfdr4EhRRopMbfzs3YIPkJRp3TlZpgMH V2TRxsBu0ifAXmVLBoVIWDUx5PdkDpRENnCBIQDLjePKEbILIrVDguXcW6UNNgOJF4BbDaKiOiSCU4QY GqHnv3MBp8FhC0CoA2B3LqIyC6XNT3EOMcRwRwDQLy Ygh4TeDvQZxsGQl+TF5pEWv+Op9Rt0KrfqK4bgHbNRlrLWE0YE8EHXMFN1BWZx== ID Date Data Source [id number] 11/09/2019 02:01:44 PM EDT [facility] Name Value Range Interpretation Code Description Data Saima rce(s) Supporting Document(s) Progress Note [facility] NAHQEj0iVpWOPbRo09/GLPwjRBDxl8DyPTqsXFq0PSbzBHPmA0EvHRO7pQ0rFYO1QVsIYnQvTjFxUBD8 lbm [file] ICAgICAgICAgICAgICAgICAgICAgICAgICAgICAgIC AgICAgICAgICAgICAgICAgICAgICAgICAgICAgICAgICAgICAgICAgICAgICAgICAgICAgICAgICAgIC AgDQogICAgICAgICAgICAgICAgICAgICAgICAgICAgICAgICAgICAgICAgICAgICAgICAgICAgICAgIC AgICAgICAgICAgICAgICAgICAgICAgICAgICAgICAg ICAgICAgICAgICAgDQogICAgICAgICAgICAgICAgICAgICAgICAgICAgICAgICAgICAgICAgICAgICAg ICAgICAgICAgICAgICAgICAgICAgICAgICAgICAgICAgICAgICAgICAgICAgICAgICAgICAgDQogICAg ICAgICAgICAgICAgICAgICAgICAgICAgICAgICAgIC AgICAgICAgICAgICAgICAgICAgICAgICAgICAgICAgICAgICAgICAgICAgICAgICAgICAgICAgICAgIC AgICAgDQogICAgICAgICAgICAgICAgICAgICAgICAgICAgICAgICAgICAgICAgICAgICAgICAgICAgIC AgICAgICAgICAgICAgICAgICAgICAgICAgICAgICAg ICAgICAgICAgICAgICAgDQogICAgICAgICAgICAgICAgICAgICAgICAgICAgICAgICAgICAgICAgICAg ICAgICAgICAgICAgICAgICAgICAgICAgICAgICAgICAgICAgICAgICAgICAgICAgICAgICAgICAgDQog ICAgICAgICAgICAgICAgICAgICAgICAgICAgICAgIC AgICAgICAgICAgICAgICAgICAgICAgICAgICAgICAgICAgICAgICAgICAgICAgICAgICAgICAgICAgIC AgICAgICAgDQogICAgICAgICAgICAgICAgICAgICAgICAgICAgICAgICAgICAgICAgICAgICAgICAgIC AgICAgICAgICAgICAgICAgICAgICAgICAgICAgICAg ICAgICAgICAgICAgICAgICAgDQogICAgICAgICAgICAgICAgICAgICAgICAgICAgICAgICAgICAgICAg ICAgICAgICAgICAgICAgICAgICAgICAgICAgICAgICAgICAgICAgICAgICAgICAgICAgICAgICAgICAg DQogICAgICAgICAgICAgICAgICAgICAgICAgICAgIC AgICAgICAgICAgICAgICAgICAgICAgICAgICAgICAgICAgICAgICAgICAgICAgICAgICAgICAgICAgIC FiLEVjTCYmHMHdFWy5P1esLWPsKZUaTN2wYQv3Sx5+CIiNYjUkFRJ9rhGfyC8AMH3tf8PaCXkoLMXfn0 KtRGd8EU5GAKVtNTjaSQ0FUKnzqw6JGYFuUEAduOJM h4rgFyDsACW4SBZmRcxiLZ6QHHGrW8anyxLdVJIdNVUHTGohSPXPGN4ZAtTkI2XpbX73ETLHRr9+DQpl oeMrIrsDEbY7SQOln2SzODc3HM8MCUDjUtcnz7EfNcOtHZAGLDcjJG8WNNW9NVQ4FIKmQo9GIEOiH584 teJmCE6KXi8LAoQgGZ1uzc6IQqLaDKRsGjtKMvm8IV fkSZ9QpEKhNGaTke6fujUwmyVRm6EsvtKwyEIKDKGqnV4cTPZVWO1mdGkxHP2DXHG6EDmkZo9mIWYsYX TgJoVeJVNGBO7VGYMzDRNorGPwPDQbIICOIJ7OYKxdKDA8DWNjynBhuVNiKRvvGU8BBZCbxlYwCgVoQJ BSDQo+Ap4THQ8zx9ZdZOrcCeZiJA0sum2NNGtLQuAj E0A9tPTnL4G1WIxpMw9PCHHlGYMrSvUoSONOPMiuSP6XBQ6bemT5WR7SrQOzYIPaGBDkbZLoGWl9J96p zDNmEPrdDL1BSMK+Zeus+Ho2SWBEhBMHfVNNkVfXoKVDEBtSbV7YnU3BVq4UiV7JeIM34nSugyhUrMGoy ES4IVI7yXTAgWDISZF8JgLMemO0degWiWEIvTOOOOt VuA01niHLbYAHkCCLrLSLdXv1UDOCzB7DtmqJqcIwrfzAeDQXdVENGIL6BYVawajVlwSDxuLsmOK89vD ubLD6NMp5OZmTfFP2jwh6CnOQzUl7EIBZoMm7MQANlLVYmDYAnTKF6TPCnJsPqMItrNXRtXFQwPKF6WI NeANVoCO8HYyLwKWZyXpD5WiGnRSUrFTSiqd4HKETj CCLyCtR0PdCsDIWmVPPvSTopADLeALDjAGF9QWUeFLUnVK2DMeAvZGXgQXBqAMJaWRZxTMMxac6EUYMv DNJeHaS7FqVvTQTiRCIdTUtyPAOxVGW9DxidHOOgURXxFD6BQtOrIVHiEAX7TPCzWDBfRPXbhg4XTHAt ISNvCeU0DLWdJRGhVNPbGGzaZQQbKSN4DoChFKJqJC IfDH9HEtWiZIJzPWO3JuRqMQTuYUZvqe0YDCUkQSLhNae4WCBgOLRkFGWzOWgoBPPwFAB2FOqxBCOuLB AyLN4HGyUnXKZwSCnwBnPnBGCoSFSiiq7WWBBaEBNzYOAtKHPaTRVyYJYzYOgrRHIbYGT6ZUW8CFUoAL DhUU1BXlDfMKNfXmKfGzWgPPOrANFipi6MGRBuRCOy MHD9YJRzMUBnWNOpCEveYQBuZKVbAHRiPNErNWKhLJ4LHnQkRBIoZsL9BoQbMIFrPVUtzy1FXEHxIBUj EQJ6RlQjGIQuXTZaFWidWBWdWMZsLNBjAZVeEZGeCI5EAvEkXBVoMbLbALxiSYXfJWLehg4LDLOnSQPb MzcwMSAwMDAwMCBuDQowMDAwMDIzNzcyIDAwMDAwIG 8JHfJtMRQkDkD8AlLdHGDjLRBgiv1TsKIylQcbxq7TYKlIPx8MpCgkGCN6WCrlTs4gfWMhSmLwOAXHMs 1VlvYmTPPtVTQPHUzgNDNiQCP0NxAiWTAqLgD2GNF5DZT8TrF5QnP9AVSnX3YwVbCoNyS7HqkeYSM5BE ZhJdIiQwx2HNxgZIk9UAuoBUS6YOMdNZU+IF0gDQ o+Xy7Rn1BrmuQ2uqPrFKckIFS6KW9WNEZXG5AKUw== ID Date Data Source [id number] 11/09/2019 02:01:19 PM EDT [facility] Name Value Range Interpretation Code Description Data Saima rce(s) Supporting Document(s) Progress Note [facility] WRBVCj1bCyPLLpRh00/EHEsuLZGxw2JaVVdaTRe5JBexKJVmR6JbPMN4cA5dOTG1YVwNTrOiFtCwSIV8 lbm [file] AV7UPHu= Procedure Social History Code Duration Value Status Description Data Source(s ) Alcohol intake 11/15/2020 12:00:00 AM EDT Current drinker of al cohol (finding) completed Current drinker of alcohol (finding) [facility] Tobacco use and exposure 11/15/2020 12:00:00 AM EDT Never used co mpleted Never used [facility] Smoking 11/15/2020 12:00:00 AM EDT Former smoker completed Former smoker [facility] Smoking 10/10/2020 12:00:00 AM EDT Never Smoker completed Never S moker eCW1 ([facility]) Smoking 10/10/2020 12:00:00 AM EDT Never Smoker completed Never S moker eCW1 ([facility]) Smoking 10/10/2020 12:00:00 AM EDT Never Smoker completed Never S moker eCW1 ([facility]) Smoking 10/10/2020 12:00:00 AM EDT Never Smoker completed Never S moker eCW1 ([facility]) Smoking 10/10/2020 12:00:00 AM EDT Never Smoker completed Never S moker eCW1 ([facility]) Smoking 10/10/2020 12:00:00 AM EDT Never Smoker completed Never S moker eCW1 ([facility]) Smoking 10/10/2020 12:00:00 AM EDT Never Smoker completed Never S moker eCW1 ([facility]) Smoking 10/10/2020 12:00:00 AM EDT Never Smoker completed Never S moker eCW1 ([facility]) Smoking 10/10/2020 12:00:00 AM EDT Never Smoker completed Never S moker eCW1 ([facility]) Smoking 10/10/2020 12:00:00 AM EDT Never Smoker completed Never S moker eCW1 ([facility]) Smoking 09/13/2020 12:00:00 AM EDT Never Smoker completed Never S moker eCW1 ([facility]) Smoking 09/13/2020 12:00:00 AM EDT Never Smoker completed Never S moker eCW1 ([facility]) Smoking 07/04/2020 12:00:00 AM EDT Never Smoker completed Never S moker eCW1 ([facility]) Smoking 07/04/2020 12:00:00 AM EDT Never Smoker completed Never S moker eCW1 ([facility]) Smoking 07/04/2020 12:00:00 AM EDT Never Smoker completed Never S moker eCW1 ([facility]) Smoking 07/04/2020 12:00:00 AM EDT Never Smoker completed Never S moker eCW1 ([facility]) Smoking 07/04/2020 12:00:00 AM EDT Never Smoker completed Never S moker eCW1 ([facility]) Smoking 07/04/2020 12:00:00 AM EDT Never Smoker completed Never S moker eCW1 ([facility]) Smoking 07/04/2020 12:00:00 AM EDT Never Smoker completed Never S moker eCW1 ([facility]) Smoking 07/04/2020 12:00:00 AM EDT Never Smoker completed Never S moker eCW1 ([facility]) Smoking 07/04/2020 12:00:00 AM EDT Never Smoker completed Never S moker eCW1 ([facility]) Smoking 07/04/2020 12:00:00 AM EDT Never Smoker completed Never S moker eCW1 ([facility]) Smoking 07/04/2020 12:00:00 AM EDT Never Smoker completed Never S moker eCW1 ([facility]) Smoking 07/04/2020 12:00:00 AM EDT Never Smoker completed Never S moker eCW1 ([facility]) Smoking 07/04/2020 12:00:00 AM EDT Never Smoker completed Never S moker eCW1 ([facility]) Smoking 06/23/2020 12:00:00 AM EDT Never Smoker completed Never S moker eCW1 ([facility]) Smoking 06/23/2020 12:00:00 AM EDT Never Smoker completed Never S moker eCW1 ([facility]) Smoking 06/23/2020 12:00:00 AM EDT Never Smoker completed Never S moker eCW1 ([facility]) Smoking 04/14/2020 12:00:00 AM EST Patient is a former smoker completed Patient is a former smoker [facility] ([facility]) Smoking 02/18/2020 12:00:00 AM EST Never Smoker completed Never S moker eCW1 ([facility]) Smoking 02/18/2020 12:00:00 AM EST Never Smoker completed Never S moker eCW1 ([facility]) Smoking 02/18/2020 12:00:00 AM EST Never Smoker completed Never S moker eCW1 ([facility]) Smoking 02/18/2020 12:00:00 AM EST Never Smoker completed Never S moker eCW1 ([facility]) Smoking 02/18/2020 12:00:00 AM EST Never Smoker completed Never S moker eCW1 ([facility]) Smoking 02/18/2020 12:00:00 AM EST Never Smoker completed Never S moker eCW1 ([facility]) Smoking 02/18/2020 12:00:00 AM EST Never Smoker completed Never S moker eCW1 ([facility]) Smoking 01/21/2020 12:00:00 AM EST Never Smoker completed Never S moker eCW1 ([facility]) Smoking 01/21/2020 12:00:00 AM EST Never Smoker completed Never S moker eCW1 ([facility]) Smoking 01/21/2020 12:00:00 AM EST Never Smoker completed Never S moker eCW1 ([facility]) Smoking 01/01/2020 12:00:00 AM EDT Never Smoker completed Never S moker eCW1 ([facility]) Smoking 01/01/2020 12:00:00 AM EDT Never Smoker completed Never S moker eCW1 ([facility]) Alcohol intake 12/08/2019 12:00:00 AM EDT Current drinker of al cohol (finding) completed Current drinker of alcohol (finding) [facility] Smoking 12/07/2019 12:00:00 AM EDT Patient is a former smoker completed Patient is a former smoker [facility] ([facility] ) Alcohol intake 11/20/2019 12:00:00 AM EDT Current drinker of al cohol (finding) completed Current drinker of alcohol (finding) [facility] Alcohol intake 11/09/2019 12:00:00 AM EDT Current drinker of al cohol (finding) completed Current drinker of alcohol (finding) [facility] Vital Signs ID Date Data Source UNK Name Value Range Interpretation Code Description Data Source(s) Body weight 148.8 [lb_av] 148.8 [lb_av] eCW1 ([facility]) Body weight 67.5 kg 67.5 kg eCW1 ([facility]) Body height 68 [in_i] 68 [in_i] eCW1 ([facility]) Body mass index (BMI) [Ratio] 22.62 kg/m2 22.62 kg/m2 eCW1 ([facility]) Heart rate 94 /min 94 /min eCW1 ([facility]) Respiratory rate 20 /min 20 /min eCW1 ([facility]) Body temperature 98.6 [degF] 98.6 [degF] eCW1 ( [facility]) Systolic blood pressure 142 mm[Hg] 142 mm[Hg] e CW1 ([facility]) Diastolic blood pressure 80 mm[Hg] 80 mm[Hg] eCW1 ([facility]) Body weight 146.6 [lb_av] 146.6 [lb_av] eCW1 ([facility]) Body height 68 [in_i] 68 [in_i] eCW1 ([facility]) Body mass index (BMI) [Ratio] 22.29 kg/m2 22.29 kg/m2 eCW1 ([facility]) Systolic blood pressure 122 mm[Hg] 122 mm[Hg] e CW1 ([facility]) Diastolic blood pressure 70 mm[Hg] 70 mm[Hg] eCW1 ([facility]) [place] body weight 135 [lb_av] 135 [lb_av] MEDEN T ([facility] ) Body weight 67.757 kg 67.757 kg MEDENT ([facility] ) Systolic blood pressure 125 mm[Hg] 125 mm[Hg] M EDENT ([facility], ) Diastolic blood pressure 72 mm[Hg] 72 mm[Hg] [facility] ([facility]) Body temperature 98.4 [degF] 98.4 [degF] [facility] ([facility]) Body height 67 [in_i] 67 [in_i] [facility] ([facility]) 5'7" Body weight 149.38 [lb_av] 149.38 [lb_av] MEDEN T ([facility]) Body mass index (BMI) [Ratio] 23.4 kg/m2 23.4 k g/m2 [facility] ([facility]) Body surface area Derived from formula 1.79 m2 1.79 m2 [facility] ([facility]) Body weight 148.8 [lb_av] 148.8 [lb_av] W1 ([facility]) Body height 68 [in_i] 68 [in_i] eCW1 ([facility]) Body mass index (BMI) [Ratio] 22.62 kg/m2 22.62 kg/m2 eCW1 ([facility]) Heart rate 93 /min 93 /min eCW1 ([facility]) Respiratory rate 18 /min 18 /min W1 ([facility]) Body temperature 97.5 [degF] 97.5 [degF] eCW1 ( [facility]) Systolic blood pressure 128 mm[Hg] 128 mm[Hg] e CW1 ([facility]) Diastolic blood pressure 72 mm[Hg] 72 mm[Hg] eCW1 ([facility]) Systolic blood pressure 138 mm[Hg] Normal (applies t o non-numeric results) 138 mm[Hg] [facility] Diastolic blood pressure 98 mm[Hg] Normal (applies to non-numeric results) 98 mm[Hg] [facility] Heart rate 68 min Normal (applies to non-numeric resul ts) [address] [facility] Deprecated Oxygen saturation in Capillary blood by Oximetry 98 % Normal (applies to non-numeric results) 98 % [facility] Respiratory rate 16 min Normal (applies to non-numeric results) 16 min [facility] Body mass index (BMI) [Ratio] 23.4 kg/m2 No rmal (applies to non-numeric results) 23.4 kg/m2 [facility] Body height 169.72709412798109 cm Normal (applies to non-numeric results) 169.48414606919270 [address] [facility] Body temperature 36.9 dewayne Normal (applies to non-numeric results) 36.[address] [facility] Body weight Measured 150 [lb_av] Normal (applies to n on-numeric results) 150 [lb_av] [facility] Body weight 153 [lb_av] 153 [lb_av] eCW1 ([facility]) Body height 68 [in_i] 68 [in_i] eCW1 ([facility]) Body mass index (BMI) [Ratio] 23.26 kg/m2 23.26 kg/m2 eCW1 ([facility]) Heart rate 88 /min 88 /min eCW1 ([facility]) Respiratory rate 20 /min 20 /min eCW1 ([facility]) Body temperature 98.6 [degF] 98.6 [degF] eCW1 ( [facility]) Systolic blood pressure 142 mm[Hg] 142 mm[Hg] e CW1 ([facility]) Diastolic blood pressure 80 mm[Hg] 80 mm[Hg] eCW1 ([facility]) Body weight 156 [lb_av] 156 [lb_av] eCW1 ([facility]) Body temperature 98.2 [degF] 98.2 [degF] eCW1 ( [facility]) Respiratory rate 20 /min 20 /min eCW1 ([facility]) Body height 68 [in_i] 68 [in_i] eCW1 ([facility]) Systolic blood pressure 140 mm[Hg] 140 mm[Hg] e CW1 ([facility]) Diastolic blood pressure 82 mm[Hg] 82 mm[Hg] eCW1 ([facility]) Body mass index (BMI) [Ratio] 23.72 kg/m2 23.72 kg/m2 eCW1 ([facility]) Heart rate 85 /min 85 /min eCW1 ([facility]) Body height 67 [in_i] 67 [in_i] MEDENT ([facility]) 5'7" Body weight 153.00 [lb_av] 153.00 [lb_av] MEDEN T ([facility]) Body mass index (BMI) [Ratio] 24.0 kg/m2 24.0 k g/m2 [facility] ([facility]) [place] body weight 135 [lb_av] 135 [lb_av] MEDEN T ([facility]) Body weight 69.401 kg 69.401 kg [facility] ([facility]) Body surface area Derived from formula 1.80 m2 1.80 m2 [facility] ([facility]) Body height 67 [in_i] 67 [in_i] [facility] ([facility]) 5'7" Body weight 153.00 [lb_av] 153.00 [lb_av] MEDEN T ([facility]) Body mass index (BMI) [Ratio] 24.0 kg/m2 24.0 k g/m2 [facility] ([facility]) [place] body weight 135 [lb_av] 135 [lb_av] MEDEN T ([facility] Body weight 69.401 kg 69.401 kg [facility] ([facility]) Body surface area Derived from formula 1.80 m2 1.80 m2 [facility] ([facility]) Systolic blood pressure 168 mm[Hg] 168 mm[Hg] M EDENT ([facility], [facility]) manual Body temperature 97.7 [degF] 97.7 [degF] [facility]) Diastolic blood pressure 110 mm[Hg] 110 mm[Hg] MEDENT ([facility], [facility]) manual Heart rate 94 /min 94 /min MEDENT ([facility], [facility]) Respiratory rate 18 /min 18 /min [facility] ( [facility], [facility]) Oxygen saturation in Arterial blood by Pulse oximetry 98 % 98 % MEDENT ([facility], [facility]) Body weight 155.00 [lb_av] 155.00 [lb_av] MEDEN T ([facility]) Body height 67 [in_i] 67 [in_i] MEDENT ([facility], [facility]) 5'7" Body mass index (BMI) [Ratio] 24.3 kg/m2 24.3 k g/m2 MEDENT ([facility], [facility]) Systolic blood pressure 174 mm[Hg] 174 mm[Hg] M EDENT ([facility], [facility]) BP recheck 150/88 Diastolic blood pressure 110 mm[Hg] 110 mm[Hg] MEDENT ([facility], [facility]) BP recheck 150/88 Heart rate 93 /min 93 /min MEDENT ([facility], [facility]) Respiratory rate 18 /min 18 /min MEDENT ( [facility], [facility]) Body weight 152.00 [lb_av] 152.00 [lb_av] MEDEN T ([facility], [facility]) Systolic blood pressure 202 mm[Hg] 202 mm[Hg] M EDENT ([facility], [facility]) Diastolic blood pressure 110 mm[Hg] 110 mm[Hg] MEDENT ([facility], [facility]) Oxygen saturation in Arterial blood by Pulse oximetry 98 % 98 % MEDENT ([facility], [facility]) Body temperature 98.0 [degF] 98.0 [degF] MEDENT ([facility], [facility]) Body height 68 [in_i] 68 [in_i] eCW1 ([facility]) Body weight 155.0 [lb_av] 155.0 [lb_av] eCW1 ([facility]) Body mass index (BMI) [Ratio] 23.57 kg/m2 23.57 kg/m2 eCW1 ([facility]) Diastolic blood pressure 70 mm[Hg] 70 mm[Hg] eCW1 ([facility]) Heart rate 77 /min 77 /min eCW1 ([facility]) Respiratory rate 20 /min 20 /min eCW1 ([facility]) Body temperature 98.8 [degF] 98.8 [degF] eCW1 ( [facility]) Systolic blood pressure 116 mm[Hg] 116 mm[Hg] e CW1 ([facility]) Body weight 155.0 [lb_av] 155.0 [lb_av] eCW1 ([facility]) Body height 68 [in_i] 68 [in_i] eCW1 ([facility]) Body mass index (BMI) [Ratio] 23.57 kg/m2 23.57 kg/m2 eCW1 ([facility]) Heart rate 78 /min 78 /min eCW1 ([facility]) Respiratory rate 18 /min 18 /min eCW1 ([facility]) Body temperature 98.1 [degF] 98.1 [degF] eCW1 ( [facility]) Systolic blood pressure 120 mm[Hg] 120 mm[Hg] e CW1 ([facility]) Diastolic blood pressure 78 mm[Hg] 78 mm[Hg] eCW1 ([facility]) Diastolic blood pressure 86 mm[Hg] 86 mm[Hg] eCW1 ([facility]) Body weight 156.8 [lb_av] 156.8 [lb_av] eCW1 ([facility]) Body height 68 [in_i] 68 [in_i] eCW1 ([facility]) Body mass index (BMI) [Ratio] 23.84 kg/m2 23.84 kg/m2 eCW1 ([facility]) Heart rate 81 /min 81 /min eCW1 ([facility]) Respiratory rate 18 /min 18 /min eCW1 ([facility]) Body temperature 98.0 [degF] 98.0 [degF] eCW1 ( [facility]) Systolic blood pressure 122 mm[Hg] 122 mm[Hg] e CW1 ([facility]) Systolic blood pressure 138 mm[Hg] 138 mm[Hg] M EDENT ([facility]) Diastolic blood pressure 80 mm[Hg] 80 mm[Hg] MEDENT ([facility]) Heart rate 68 /min 68 /min MEDENT ([facility]) Body temperature 95.2 [degF] 95.2 [degF] MEDENT ([facility]) Body height 57 [in_i] 57 [in_i] MEDENT ([facility]) 4'9" Body weight 156.50 [lb_av] 156.50 [lb_av] MEDEN T ([facility]) Body mass index (BMI) [Ratio] 33.9 kg/m2 33.9 k g/m2 MEDENT ([facility]) Patient Treatment Plan of Care Planned Activity Planned Date Details Description Data Source (s) Alprazolam 0.25 MG Oral Tablet [Xanax] 12/12/2020 12:00:00 AM EDT eCW1 ([facility]) Alprazolam 0.25 MG Oral Tablet [Xanax] 12/12/2020 12:00:00 AM EDT eCW1 ([facility]) Alprazolam 0.25 MG Oral Tablet [Xanax] 12/12/2020 12:00:00 AM EDT eCW1 ([facility]) Penicillin V Potassium 500 MG Oral Tablet 10/31/2020 12:00:00 AM ED T eCW1 ([facility]) Penicillin V Potassium 500 MG Oral Tablet 10/31/2020 12:00:00 AM ED T eCW1 ([facility]) Penicillin V Potassium 500 MG Oral Tablet 10/31/2020 12:00:00 AM ED T eCW1 ([facility]) Penicillin V Potassium 500 MG Oral Tablet 10/31/2020 12:00:00 AM ED T eCW1 ([facility]) Penicillin V Potassium 500 MG Oral Tablet 10/31/2020 12:00:00 AM ED T eCW1 ([facility]) Acetaminophen 325 MG / Hydrocodone Bitartrate 5 MG Ora l Tablet 10/17/2020 12:00:00 AM EDT eCW1 ([facility]) Acetaminophen 325 MG / Hydrocodone Bitartrate 5 MG Ora l Tablet 10/17/2020 12:00:00 AM EDT eCW1 ([facility]) Acetaminophen 325 MG / Hydrocodone Bitartrate 5 MG Ora l Tablet 10/17/2020 12:00:00 AM EDT eCW1 ([facility]) Acetaminophen 325 MG / Hydrocodone Bitartrate 5 MG Ora l Tablet 10/17/2020 12:00:00 AM EDT eCW1 ([facility]) Acetaminophen 325 MG / Hydrocodone Bitartrate 5 MG Ora l Tablet 10/17/2020 12:00:00 AM EDT eCW1 ([facility]) Acetaminophen 325 MG / Hydrocodone Bitartrate 5 MG Ora l Tablet 10/17/2020 12:00:00 AM EDT eCW1 ([facility]) Acetaminophen 325 MG / Hydrocodone Bitartrate 5 MG Ora l Tablet 10/17/2020 12:00:00 AM EDT eCW1 ([facility]) Acetaminophen 325 MG / Hydrocodone Bitartrate 5 MG Ora l Tablet 10/17/2020 12:00:00 AM EDT eCW1 ([facility]) Alprazolam 0.25 MG Oral Tablet [Xanax] 10/14/2020 12:00:00 AM EDT eCW1 ([facility]) Alprazolam 0.25 MG Oral Tablet [Xanax] 10/14/2020 12:00:00 AM EDT eCW1 ([facility]) Alprazolam 0.25 MG Oral Tablet [Xanax] 10/14/2020 12:00:00 AM EDT eCW1 ([facility]) Alprazolam 0.25 MG Oral Tablet [Xanax] 10/14/2020 12:00:00 AM EDT eCW1 ([facility]) Alprazolam 0.25 MG Oral Tablet [Xanax] 10/14/2020 12:00:00 AM EDT eCW1 ([facility]) Alprazolam 0.25 MG Oral Tablet [Xanax] 10/14/2020 12:00:00 AM EDT eCW1 ([facility]) carvedilol 3.125 MG Oral Tablet 02/18/2020 12:00:00 AM EST eCW1 ([facility]) carvedilol 3.125 MG Oral Tablet 02/18/2020 12:00:00 AM EST eCW1 ([facility]) carvedilol 3.125 MG Oral Tablet 02/18/2020 12:00:00 AM EST eCW1 ([facility]) carvedilol 3.125 MG Oral Tablet 02/18/2020 12:00:00 AM EST eCW1 ([facility]) carvedilol 3.125 MG Oral Tablet 02/18/2020 12:00:00 AM EST eCW1 ([facility]) carvedilol 3.125 MG Oral Tablet 02/18/2020 12:00:00 AM EST eCW1 ([facility]) carvedilol 3.125 MG Oral Tablet 02/18/2020 12:00:00 AM EST eCW1 ([facility]) lansoprazole 30 MG Delayed Release Oral Capsule 12/03/2019 12:00:00 AM [facility] lansoprazole 30 MG Delayed Release Oral Capsule 12/16/2018 12:00:00 AM [facility] Probiotic Product (ACIDOPHILUS PROBIOTIC BLEND PO) 01/29/2017 12 :00:00 AM [facility] Levothyroxine Sodium 0.125 MG Oral Tablet [facility]
[2020-12-22] MEDS ORDERED: fentaNYL 100 MCG/2 ML INJECTION (J3010) As Ordered ONE (07:55)
[2020-12-22] MEDS ORDERED: propofoL 200 MG/20 ML VIAL As Ordered ONE (07:55)
[2020-12-22] MEDS ORDERED: LIDOCAINE 2% 100MG/5ML SDV (FOR ANES.) As Ordered ONE (07:55)
--- NOTE | 2020-12-22 08:29 | ROOR ---
Patient Name: Debbie Ceja Procedure Date: 12/22/2020 8:08 AM Date of : 1955 Age: 65 Room: [facility] Gender: Female Note Status: Finalized Procedure: Upper GI endoscopy Indications: Suspected esophageal reflux Providers: Mahad Hernandez Jr, MD Referring MD: Pillo Garcia MD Requesting Provider: Medicines: Propofol per Anesthesia Complications: No immediate complications. Procedure: Pre-Anesthesia Assessment: - Prior to the procedure, a History and Physical was performed, and patient medications and allergies were reviewed. The patient is competent. The risks and benefits of the procedure and the sedation options and risks were discussed with the patient. All questions were answered and informed consent was obtained. Patient identification and proposed procedure were verified by the physician and the nurse in the pre-procedure area and in the procedure room. Mental Status Examination: alert and oriented. Airway Examination: normal oropharyngeal airway and neck mobility. Respiratory Examination: clear to auscultation. CV Examination: normal. ASA Grade Assessment: II - A patient with mild systemic disease. After reviewing the risks and benefits, the patient was deemed in satisfactory condition to undergo the procedure. The anesthesia plan was to use moderate sedation / analgesia (conscious sedation). Immediately prior to administration of medications, the patient was re-assessed for adequacy to receive sedatives. The heart rate, respiratory rate, oxygen saturations, blood pressure, adequacy of pulmonary ventilation, and response to care were monitored throughout the procedure. The physical status of the patient was re-assessed after the procedure. The Endoscope was introduced through the mouth, and advanced to the second part of duodenum. The upper GI endoscopy was accomplished without difficulty. The patient tolerated the procedure well. Findings: The upper third of the esophagus, middle third of the esophagus, lower third of the esophagus and gastroesophageal junction were normal. Localized mildly erythematous mucosa without bleeding was found in the gastric antrum. Biopsies were taken with a cold forceps for histology. A few small pedunculated polyps with no stigmata of recent bleeding were found in the gastric body. The duodenal bulb, first portion of the duodenum and second portion of the duodenum were normal. Impression: - Normal upper third of esophagus, middle third of esophagus, lower third of esophagus and gastroesophageal junction. - Erythematous mucosa in the antrum. Biopsied. - A few gastric polyps. - Normal duodenal bulb, first portion of the duodenum and second portion of the duodenum. Recommendation: - Discharge patient to home (ambulatory). - Return to my office as previously scheduled. Procedure Code(s): --- Professional --- 48190, Esophagogastroduodenoscopy, flexible, transoral; with biopsy, single or multiple Diagnosis Code(s): --- Professional --- K31.89, Other diseases of stomach and duodenum K31.7, Polyp of stomach and duodenum CPT copyright 2019 [employer]. All rights reserved. The codes documented in this report are preliminary and upon manager it security review may be revised to meet current compliance requirements. Mahad Hernandez MD Mahad Hernandez Jr, MD 12/22/2020 8:29:26 AM Electronically signed by Mahad Hernandez Jr, MD Number of Addenda: 0 Note Initiated On: 12/22/2020 8:08 AM Estimated Blood Loss: Estimated blood loss: none.
[2020-12-22 08:45] VITALS: BP 168/84
== END 2020-12-22 08:56 | disposition home or self-care (01) ==
LOC: M OPP 07:01
PROVIDERS: ATTEND Surgery
DX: K31.89 Other diseases of stomach and duodenum (principal); K31.7 Polyp of stomach and duodenum; Z79.82 Long term (current) use of aspirin; Z79.899 Other long term (current) drug therapy; Z88.8 Allergy status to other drugs, medicaments and biological substances; Z87.891 Personal history of nicotine dependence; Z80.0 Family history of malignant neoplasm of digestive organs
CPT/HCPCS: 43239; 88305; J3010

== ENCOUNTER → 2021-02-16 | Outpatient (CLI) | payer MEDICARE, BC, OTHER ==
[~2021-02-16] MED LIST changes: +E-Z-GAS II EFFERVESCENT PACKET (SODIUM BICARB./CITRIC ACID/SIMETHICONE) As Ordered ONE; +E-Z-HD 98% w/w 340GM SUSP BTL As Ordered ONE; +E-Z-PAQUE 96% w/w SUSP 176GM BTL As Ordered ONE; -NS 1,000 ML IV ONE
--- NOTE | 2021-02-16 17:57 | REP ---
INDICATION: GERD W/O ESOPHAGITIS. COMPARISON: None TECHNIQUE: This procedure was performed by HEIKE Wolff, under the direct supervision of Dr. Wright. Images were reviewed with Dr. Wright prior to dictation. Liquid barium and gas producing crystals were given in the erect position, as well as liquid barium in the prone oblique position in order to perform a double contrast esophagram examination. FINDINGS: A single view PA chest x-ray is submitted as a manager life sciences film. The superior mediastinal structures are midline. The heart size is within normal limits. The lungs are clear. The oral and pharyngeal stages of deglutition were unremarkable. Minimal penetration without aspiration was seen with 1 of the swallows. Esophageal transport is prompt and efficient and there is no evidence of esophagitis, stricture, or mucosal ring. There is no evidence of a hiatal hernia. Gastroesophageal reflux was not observed on this examination. IMPRESSION: Minimal penetration without aspiration was seen with 1 of the swallows. Otherwise unremarkable esophagram 0.7 minutes of fluoroscopy time was utilized for this procedure. Some fluoroscopic images are performed with last image hold technology. These images require no additional radiation. <Electronically signed by Pat Lowery > 02/16/21 [id number] <Electronically signed by Paramjit Wright > 02/16/21 [id number]
== END ==
LOC: M RAD 08:44
PROVIDERS: ATTEND Physician Assistant
DX: K21.9 Gastro-esophageal reflux disease without esophagitis (principal)

== ENCOUNTER → 2021-02-17 | Outpatient (CLI) | payer MEDICARE, BC, OTHER ==
[~2021-02-17] MED LIST changes: -E-Z-GAS II EFFERVESCENT PACKET (SODIUM BICARB./CITRIC ACID/SIMETHICONE) As Ordered ONE; -E-Z-HD 98% w/w 340GM SUSP BTL As Ordered ONE; -E-Z-PAQUE 96% w/w SUSP 176GM BTL As Ordered ONE
[2021-02-17 17:42] LABS: FREE T4 1.15 NG/DL (0.76-1.46); THYROID STIMULATING HORMONE 1.66 uIU/ML (0.358-3.740)
== END ==
LOC: M PLALAB 15:50
PROVIDERS: ATTEND Physician Assistant
DX: R00.2 Palpitations (principal); E03.9 Hypothyroidism, unspecified
CPT/HCPCS: 36415; 84439; 84443; 93005; G0463

== ENCOUNTER → 2021-06-23 | Outpatient (CLI) | payer MEDICARE, BC, OTHER ==
[~2021-06-23] MED LIST changes: -D31000TA2 PO; +VITA100093 PO
[2021-06-23 18:05] LABS: HEMATOCRIT 42.2 % (36.0-47.0); HEMOGLOBIN 13.4 g/dl (12.0-15.5); MEAN CORPUSCULAR HEMOGLOBIN 28.6 pg (27.0-33.0); MEAN CORPUSCULAR HGB CONC 31.8 g/dl (32.0-36.5); MEAN CORPUSCULAR VOLUME 90.2 fl (80.0-96.0); PLATELET COUNT, AUTOMATED 260 10^3/uL (150-450); RED BLOOD COUNT 4.68 10^6/uL (4.00-5.40); WHITE BLOOD COUNT 7.8 10^3/uL (4.0-10.0)
[2021-06-23 18:30] LABS: ALT/SGPT 18 U/L (12-78); BILIRUBIN,TOTAL 0.7 MG/DL (0.2-1.0); BLOOD UREA NITROGEN 16 MG/DL (7-18); CALCIUM LEVEL 9.4 MG/DL (8.8-10.2); CARBON DIOXIDE LEVEL 32 MEQ/L (21-32); CHLORIDE LEVEL 102 MEQ/L (98-107); FREE T4 1.03 NG/DL (0.76-1.46); GLOMERULAR FILTRATION RATE > 60.0 (>45); GLUCOSE, FASTING 83 MG/DL (70-100); MAGNESIUM LEVEL 2.4 MG/DL (1.8-2.4); SODIUM LEVEL 139 MEQ/L (136-145); TOTAL PROTEIN 7.5 GM/DL (6.4-8.2)
== END ==
LOC: M PLALAB 15:52
PROVIDERS: ATTEND Physician Assistant
DX: R00.2 Palpitations (principal)

== ENCOUNTER → 2021-08-02 | Outpatient (CLI) | payer MEDICARE, BC, OTHER ==
[2021-08-02 09:11] LABS: CHOLESTEROL RISK RATIO 2.384 (<5); FREE T4 1.11 NG/DL (0.76-1.46); THYROID STIMULATING HORMONE 4.64 uIU/ML (0.358-3.740)
[2021-08-02 09:12] LABS: PTH INTACT 41.9 PG/ML (18.5-88.0); TOTAL 25(OH) VITAMIN D 43.2 NG/ML (30.0-100.0)
[2021-08-02 10:05] LABS: HEMOGLOBIN A1c 5.6 %
== END ==
LOC: M LAB 07:51
PROVIDERS: ATTEND Family Medicine
DX: R73.01 Impaired fasting glucose (principal); E07.9 Disorder of thyroid, unspecified; E78.00 Pure hypercholesterolemia, unspecified

== ENCOUNTER → 2021-09-06 | Outpatient (CLI) | payer MEDICARE, BC, OTHER ==
[2021-09-06 18:50] LABS: FREE T4 1.11 NG/DL (0.76-1.46); THYROID STIMULATING HORMONE 3.12 uIU/ML (0.358-3.740)
== END ==
LOC: M PLALAB 16:00
PROVIDERS: ATTEND Family Medicine
DX: E03.9 Hypothyroidism, unspecified (principal)

== ENCOUNTER → 2022-01-16 | Outpatient (CLI) | payer MEDICARE, BC, OTHER ==
[2022-01-16 12:08] LABS: BASO % 0.7 % (0.0-1.0); EOS # 0.1 10^3/uL (0.0-0.5); EOS % 2.9 % (0.0-3.0); HEMATOCRIT 45.4 % (36.0-47.0); HEMOGLOBIN 14.1 g/dl (12.0-15.5); LYMPH # 1.6 10^3/uL (1.5-5.0); LYMPH % 39.2 % (24.0-44.0); MEAN CORPUSCULAR HGB CONC 31.1 g/dl (32.0-36.5); MEAN CORPUSCULAR VOLUME 93.2 fl (80.0-96.0); MONO # 0.6 10^3/uL (0.0-0.8); MONO % 13.7 % (2.0-8.0); NEUTROPHILS # 1.8 10^3/uL (1.5-8.5); NEUTROPHILS % 43.3 % (36.0-66.0); PLATELET COUNT, AUTOMATED 251 10^3/uL (150-450); RED BLOOD COUNT 4.87 10^6/uL (4.00-5.40); WHITE BLOOD COUNT 4.2 10^3/uL (4.0-10.0)
[2022-01-16 15:36] LABS: ALBUMIN 3.9 G/DL (3.2-5.2); ALT/SGPT 16 U/L (7.0-40); BILIRUBIN,TOTAL 0.3 MG/DL (0.3-1.2); BLOOD UREA NITROGEN 17 MG/DL (9-23); CALCIUM LEVEL 9.1 MG/DL (8.3-10.6); CARBON DIOXIDE LEVEL 28 MMOL/L (20-31); CHLORIDE LEVEL 104 MMOL/L (98-107); FREE T4 1.23 NG/DL (0.89-1.76); GLOMERULAR FILTRATION RATE > 60.0 (>45); GLUCOSE, FASTING 97 MG/DL (74-106); MAGNESIUM LEVEL 2.2 MG/DL (1.8-2.4); POTASSIUM SERUM 4.3 MMOL/L (3.5-5.1); SODIUM LEVEL 143 MMOL/L (136-145); THYROID STIMULATING HORMONE 3.026 uIU/ML (0.55-4.78); TOTAL PROTEIN 6.9 G/DL
[2022-01-18 07:08] LABS: APOLIPOPROTEIN B/A-1 RATIO 0.5 ratio (0.0-0.6)
== END ==
LOC: M PLALAB 08:28
PROVIDERS: ATTEND Family Medicine
DX: E03.9 Hypothyroidism, unspecified (principal); E78.2 Mixed hyperlipidemia

== ENCOUNTER → 2022-02-05 | Outpatient (CLI) | payer MEDICARE, BC, OTHER | LOC: M RAD 10:41 | PROVIDERS: ATTEND Family Medicine | DX: I87.2 Venous insufficiency (chronic) (peripheral) (principal) ==

== ENCOUNTER → 2022-02-08 | Outpatient (CLI) | payer MEDICARE, BC, OTHER | LOC: M WHC 16:02 | PROVIDERS: ATTEND Family Medicine | DX: Z12.31 Encounter for screening mammogram for malignant neoplasm of breast (principal) ==

== ENCOUNTER 2022-04-23 11:50 | Emergency (ER) | payer MEDICARE, BC, OTHER ==
[~2022-04-23] VITALS: Ht 170.2 cm; Wt 70.9 kg
[2022-04-23 11:51] VITALS: BP 182/98
== END 2022-04-23 14:16 | disposition home or self-care (01) ==
LOC: M ED 11:50
DX: R60.9 Edema, unspecified (principal); M79.604 Pain in right leg; E03.9 Hypothyroidism, unspecified; I10 Essential (primary) hypertension; Z79.82 Long term (current) use of aspirin; Z79.890 Hormone replacement therapy; Z79.899 Other long term (current) drug therapy

== ENCOUNTER → 2022-06-04 | Outpatient (CLI) | payer MEDICARE, BC, OTHER ==
[2022-06-04 11:36] LABS: BASO # 0.1 10^3/uL (0.0-0.2); BASO % 0.8 % (0.0-1.0); EOS # 0.2 10^3/uL (0.0-0.5); EOS % 2.5 % (0.0-3.0); HEMATOCRIT 41.8 % (36.0-47.0); HEMOGLOBIN 13.5 g/dl (12.0-15.5); LYMPH # 2.9 10^3/uL (1.5-5.0); LYMPH % 48.6 % (24.0-44.0); MEAN CORPUSCULAR HEMOGLOBIN 29.5 pg (27.0-33.0); MEAN CORPUSCULAR HGB CONC 32.3 g/dl (32.0-36.5); MEAN CORPUSCULAR VOLUME 91.3 fl (80.0-96.0); MONO # 0.6 10^3/uL (0.0-0.8); MONO % 10.6 % (2.0-8.0); NEUTROPHILS # 2.3 10^3/uL (1.5-8.5); NEUTROPHILS % 37.3 % (36.0-66.0); PLATELET COUNT, AUTOMATED 266 10^3/uL (150-450); RED BLOOD COUNT 4.58 10^6/uL (4.00-5.40)
[2022-06-04 14:26] LABS: ALBUMIN 3.7 G/DL (3.2-5.2); ALKALINE PHOSPHATASE 83 U/L (46-116); ALT/SGPT 14 U/L (7.0-40); AST/SGOT 18 U/L (<34); BILIRUBIN,TOTAL 0.5 MG/DL (0.3-1.2); BLOOD UREA NITROGEN 16 MG/DL (9-23); CALCIUM LEVEL 9.1 MG/DL (8.3-10.6); CARBON DIOXIDE LEVEL 29 MMOL/L (20-31); CHLORIDE LEVEL 107 MMOL/L (98-107); CREATININE FOR GFR 0.83 MG/DL (0.55-1.30); FERRITIN 8.9 NG/ML (7.3-270.7); FREE T4 1.17 NG/DL (0.89-1.76); GLOMERULAR FILTRATION RATE > 60.0 (>45); GLUCOSE, FASTING 85 MG/DL (74-106); POTASSIUM SERUM 4.5 MMOL/L (3.5-5.1); PTH INTACT 48.6 PG/ML (18.5-88.0); SODIUM LEVEL 137 MMOL/L (136-145)
[2022-06-04 15:15] LABS: THYROID STIMULATING HORMONE 6.402 uIU/ML (0.55-4.78)
[2022-06-04 18:40] LABS: TOTAL PROTEIN 6.9 G/DL (5.7-8.2)
== END ==
LOC: M PLALAB 08:20
PROVIDERS: ATTEND Family Medicine
DX: E03.9 Hypothyroidism, unspecified (principal); D50.9 Iron deficiency anemia, unspecified

== ENCOUNTER → 2022-09-05 | Outpatient (CLI) | payer MEDICARE, BC, OTHER ==
[2022-09-05 19:07] LABS: FREE T4 1.35 NG/DL (0.89-1.76); THYROID STIMULATING HORMONE 0.479 uIU/ML (0.55-4.78)
== END ==
LOC: M PLALAB 14:45
PROVIDERS: ATTEND Nurse Practitioner Family
DX: E06.3 Autoimmune thyroiditis (principal)

== ENCOUNTER 2022-10-03 18:11 | Emergency (ER) | payer MEDICARE, BC, OTHER ==
[~2022-10-03] VITALS: Ht 170.2 cm; Wt 70.0 kg
[2022-10-03 18:11] VITALS: BP 166/80; TEMP 98.7; O2SAT 98
[2022-10-03 20:18] LABS: BASO # 0.1 10^3/uL (0.0-0.2); BASO % 0.8 % (0.0-1.0); EOS # 0.1 10^3/uL (0.0-0.5); EOS % 1.7 % (0.0-3.0); HEMATOCRIT 42.5 % (36.0-47.0); HEMOGLOBIN 13.8 g/dl (12.0-15.5); LYMPH # 2.8 10^3/uL (1.5-5.0); LYMPH % 42.3 % (24.0-44.0); MEAN CORPUSCULAR HEMOGLOBIN 29.3 pg (27.0-33.0); MEAN CORPUSCULAR HGB CONC 32.5 g/dl (32.0-36.5); MEAN CORPUSCULAR VOLUME 90.2 fl (80.0-96.0); MONO # 0.6 10^3/uL (0.0-0.8); MONO % 9.5 % (2.0-8.0); NEUTROPHILS % 45.5 % (36.0-66.0); PLATELET COUNT, AUTOMATED 240 10^3/uL (150-450); RED BLOOD COUNT 4.71 10^6/uL (4.00-5.40); WHITE BLOOD COUNT 6.5 10^3/uL (4.0-10.0)
[2022-10-03 20:30] LABS: INR 0.86; PROTHROMBIN TIME 11.9 SECONDS (12.5-14.5)
[2022-10-03 20:46] LABS: CK-MB VALUE MASS 1.4 NG/ML (<3.6)
[2022-10-03 20:47] LABS: LIPASE 36 U/L (12-53)
[2022-10-03 20:48] LABS: CPK CREATINE PHOSPHOKINASE 83 U/L (34-145); MB/CK RELATIVE INDEX 1.68 (< OR =4)
[2022-10-03 20:49] LABS: ALBUMIN 3.9 G/DL (3.2-5.2); ALKALINE PHOSPHATASE 89 U/L (46-116); ALT/SGPT 10 U/L (7.0-40); AST/SGOT 10 U/L (<34); BILIRUBIN,DIRECT 0.1 MG/DL (<0.4); BILIRUBIN,TOTAL 0.5 MG/DL (0.3-1.2); BLOOD UREA NITROGEN 12 MG/DL (9-23); CALCIUM LEVEL 9.1 MG/DL (8.3-10.6); CARBON DIOXIDE LEVEL 32 MMOL/L (20-31); CHLORIDE LEVEL 106 MMOL/L (98-107); GLOMERULAR FILTRATION RATE > 60.0 (>45); GLUCOSE, FASTING 95 MG/DL (74-106); SODIUM LEVEL 141 MMOL/L (136-145); TOTAL PROTEIN 7.1 G/DL (5.7-8.2)
[2022-10-03 20:50] LABS: THYROID STIMULATING HORMONE 4.556 uIU/ML (0.55-4.78); THYROXINE (T4) 8.6 UG/DL (4.5-10.9)
[2022-10-03 20:51] LABS: FREE THYROXINE INDEX 3.1 % (1.3-4.8); T UPTAKE 36.3 % (22.5-37.0)
== END 2022-10-03 22:19 | disposition left against medical advice (07) ==
LOC: M ED 18:11
DX: Z53.21 Procedure and treatment not carried out due to patient leaving prior to being seen by health care provider (principal)

== ENCOUNTER → 2022-11-06 | Outpatient (CLI) | payer MEDICARE, BC, OTHER ==
[2022-11-06 14:07] LABS: FREE T4 1.31 NG/DL (0.89-1.76); THYROID STIMULATING HORMONE 1.191 uIU/ML (0.55-4.78)
== END ==
LOC: M PLALAB 11:41
PROVIDERS: ATTEND Nurse Practitioner Family
DX: E06.3 Autoimmune thyroiditis (principal)

== ENCOUNTER → 2022-11-23 | Outpatient (CLI) | payer MEDICARE, BC, OTHER ==
[2022-11-23 10:38] LABS: BASO # 0.1 10^3/uL (0.0-0.2); EOS # 0.2 10^3/uL (0.0-0.5); EOS % 3.2 % (0.0-3.0); HEMATOCRIT 43.7 % (36.0-47.0); LYMPH # 2.2 10^3/uL (1.5-5.0); LYMPH % 43.7 % (24.0-44.0); MEAN CORPUSCULAR HEMOGLOBIN 29.1 pg (27.0-33.0); MEAN CORPUSCULAR VOLUME 90.9 fl (80.0-96.0); MONO # 0.6 10^3/uL (0.0-0.8); MONO % 11.1 % (2.0-8.0); PLATELET COUNT, AUTOMATED 256 10^3/uL (150-450); RED BLOOD COUNT 4.81 10^6/uL (4.00-5.40)
[2022-11-23 10:54] LABS: CHOLESTEROL RISK RATIO 2.64 (<5); HDL CHOLESTEROL 85.3 MG/DL (>40); LDL CHOLESTEROL 125.7 MG/DL (<100); NON-HDL-C 140.7 MG/DL
[2022-11-23 10:56] LABS: FERRITIN 9.9 NG/ML (7.3-270.7)
[2022-11-25 13:07] LABS: APOLIPOPROTEIN A-1 211 mg/dL (116-209); APOLIPOPROTEIN B 100 mg/dL (<90); APOLIPOPROTEIN B/A-1 RATIO 0.5 ratio (0.0-0.6); H PYLORI SERUM QUANT IgG ABY 0.25 (0.00-0.79); SOLUBLE TRANSFERRIN RECEPTOR 12.2 nmol/L (12.2-27.3); TISSUE TRANSGLUTAMINASE IgA <2 U/mL (0-3)
== END ==
LOC: M PLALAB 08:21
PROVIDERS: ATTEND Family Medicine
DX: D50.9 Iron deficiency anemia, unspecified (principal); E78.2 Mixed hyperlipidemia; R73.01 Impaired fasting glucose

== ENCOUNTER → 2022-12-10 | Outpatient (CLI) | payer MEDICARE, BC, OTHER | LOC: M WHC 14:28 | PROVIDERS: ATTEND Internal Medicine Endocrinology, Diabetes & Metabolism | DX: M85.89 Other specified disorders of bone density and structure, multiple sites (principal); E55.9 Vitamin D deficiency, unspecified ==

== ENCOUNTER 2022-12-26 22:50 | Emergency (ER) | payer MEDICARE, BC, OTHER ==
[~2022-12-26] VITALS: Ht 172.7 cm; Wt 69.5 kg
[2022-12-26 22:50] VITALS: TEMP 97.9
[2022-12-26 23:24] LABS: BASO # 0.1 10^3/uL (0.0-0.2); BASO % 0.6 % (0.0-1.0); EOS # 0.1 10^3/uL (0.0-0.5); EOS % 1.5 % (0.0-3.0); HEMATOCRIT 41.7 % (36.0-47.0); HEMOGLOBIN 13.8 g/dl (12.0-15.5); LYMPH # 3.7 10^3/uL (1.5-5.0); MEAN CORPUSCULAR HEMOGLOBIN 29.6 pg (27.0-33.0); MEAN CORPUSCULAR HGB CONC 33.1 g/dl (32.0-36.5); MEAN CORPUSCULAR VOLUME 89.5 fl (80.0-96.0); MONO # 0.8 10^3/uL (0.0-0.8); MONO % 10.5 % (2.0-8.0); NEUTROPHILS # 3.1 10^3/uL (1.5-8.5); NEUTROPHILS % 39.3 % (36.0-66.0); PLATELET COUNT, AUTOMATED 241 10^3/uL (150-450); RED BLOOD COUNT 4.66 10^6/uL (4.00-5.40); WHITE BLOOD COUNT 7.8 10^3/uL (4.0-10.0)
[2022-12-26 23:49] LABS: CK-MB VALUE MASS < 1.0 NG/ML (<3.6)
[2022-12-26 23:50] LABS: BLOOD UREA NITROGEN 12 MG/DL (9-23); CALCIUM LEVEL 8.8 MG/DL (8.3-10.6); CARBON DIOXIDE LEVEL 27 MMOL/L (20-31); CHLORIDE LEVEL 101 MMOL/L (98-107); CPK CREATINE PHOSPHOKINASE 71 U/L (34-145); CREATININE FOR GFR 0.76 MG/DL (0.55-1.30); GLOMERULAR FILTRATION RATE > 60.0 (>45); GLUCOSE, FASTING 102 MG/DL (74-106); POTASSIUM SERUM 3.5 MMOL/L (3.5-5.1); SODIUM LEVEL 137 MMOL/L (136-145)
[2022-12-27 00:56] LABS: CK-MB VALUE MASS 1.8 NG/ML (<3.6)
[2022-12-27 00:58] LABS: MB/CK RELATIVE INDEX 2.76 (< OR =4)
[2022-12-27 01:00] LABS: FREE T4 1.14 NG/DL (0.89-1.76); THYROID STIMULATING HORMONE 6.196 uIU/ML (0.55-4.78)
[2022-12-27 01:05] VITALS: O2SAT 97
[2022-12-27 01:15] VITALS: BP 147/94
== END 2022-12-27 02:21 | disposition home or self-care (01) ==
LOC: M ED 22:50
DX: I16.0 Hypertensive urgency (principal); I10 Essential (primary) hypertension; I44.4 Left anterior fascicular block; I45.10 Unspecified right bundle-branch block; Z88.8 Allergy status to other drugs, medicaments and biological substances; Z79.891 Long term (current) use of opiate analgesic; Z79.899 Other long term (current) drug therapy

== ENCOUNTER → 2023-01-11 | Outpatient (CLI) | payer MEDICARE, BC, OTHER ==
[2023-01-11 18:38] LABS: FREE T4 1.09 NG/DL (0.89-1.76); THYROID STIMULATING HORMONE 4.144 uIU/ML (0.55-4.78)
== END ==
LOC: M PLALAB 14:20
PROVIDERS: ATTEND Nurse Practitioner Family
DX: E06.3 Autoimmune thyroiditis (principal)

== ENCOUNTER → 2023-02-08 | Outpatient (CLI) | payer MEDICARE, BC, OTHER ==
[2023-02-08 16:24] LABS: FREE T4 1.3 NG/DL (0.89-1.76)
[2023-02-08 16:27] LABS: THYROID STIMULATING HORMONE 1.523 uIU/ML (0.55-4.78)
== END ==
LOC: M PLALAB 14:16
PROVIDERS: ATTEND Nurse Practitioner Family
DX: E06.3 Autoimmune thyroiditis (principal)

== ENCOUNTER → 2023-03-21 | Outpatient (CLI) | payer MEDICARE, BC, OTHER ==
[2023-03-21 18:25] LABS: THYROID STIMULATING HORMONE 3.77 uIU/ML (0.55-4.78)
[2023-03-21 18:26] LABS: FREE T4 1.19 NG/DL (0.89-1.76)
== END ==
LOC: M PLALAB 14:55
PROVIDERS: ATTEND Family Medicine
DX: E03.9 Hypothyroidism, unspecified (principal)

== ENCOUNTER → 2023-05-01 | Outpatient (CLI) | payer MEDICARE, BC, OTHER ==
[2023-05-01 11:07] LABS: BASO % 0.5 % (0.0-1.0); EOS # 0.1 10^3/uL (0.0-0.5); EOS % 1.2 % (0.0-3.0); HEMATOCRIT 40.9 % (36.0-47.0); HEMOGLOBIN 13.4 g/dl (12.0-15.5); LYMPH % 45.4 % (24.0-44.0); MEAN CORPUSCULAR HEMOGLOBIN 29.5 pg (27.0-33.0); MEAN CORPUSCULAR HGB CONC 32.8 g/dl (32.0-36.5); MEAN CORPUSCULAR VOLUME 90.1 fl (80.0-96.0); MONO # 0.4 10^3/uL (0.0-0.8); MONO % 8.8 % (2.0-8.0); NEUTROPHILS # 1.9 10^3/uL (1.5-8.5); NEUTROPHILS % 43.9 % (36.0-66.0); PLATELET COUNT, AUTOMATED 264 10^3/uL (150-450); RED BLOOD COUNT 4.54 10^6/uL (4.00-5.40); WHITE BLOOD COUNT 4.3 10^3/uL (4.0-10.0)
[2023-05-01 11:35] LABS: MALB URINE SIEMENS < 3.0 MG/L; MAU/CREAT RATIO 2.8 MCG/MG (0.0-30.0)
[2023-05-01 11:36] LABS: IRON (FE) 88 UG/DL (50-170); PERCENT SATURATION 25.9 % (13.2-45.0); TOTAL IRON BINDING CAPACITY 340 UG/DL (250-425)
[2023-05-01 11:37] LABS: FERRITIN 11.6 NG/ML (7.3-270.7); FREE T4 1.16 NG/DL (0.89-1.76); THYROID STIMULATING HORMONE 3.544 uIU/ML (0.55-4.78)
[2023-05-01 11:38] LABS: TOTAL 25(OH) VITAMIN D 61.3 NG/ML (20.0-100.0)
[2023-05-01 11:39] LABS: ALBUMIN 3.4 G/DL (3.2-5.2); ALKALINE PHOSPHATASE 94 U/L (46-116); ALT/SGPT 12 U/L (7.0-40); AST/SGOT 15 U/L (<34); BILIRUBIN,TOTAL 0.5 MG/DL (0.3-1.2); BLOOD UREA NITROGEN 9 MG/DL (9-23); CARBON DIOXIDE LEVEL 30 MMOL/L (20-31); CHLORIDE LEVEL 105 MMOL/L (98-107); CREATININE FOR GFR 0.78 MG/DL (0.55-1.30); GLOMERULAR FILTRATION RATE > 60.0 (>45); GLUCOSE, FASTING 85 MG/DL (74-106); POTASSIUM SERUM 4.4 MMOL/L (3.5-5.1); SODIUM LEVEL 141 MMOL/L (136-145); TOTAL PROTEIN 6.6 G/DL (5.7-8.2)
[2023-05-01 12:07] LABS: HEMOGLOBIN A1c 5.5 % (4.0-6.0)
[2023-05-01 15:10] LABS: PTH INTACT 40.2 PG/ML (18.5-88.0)
== END ==
LOC: M PLALAB 08:45
PROVIDERS: ATTEND Family Medicine
DX: E03.9 Hypothyroidism, unspecified (principal); R73.01 Impaired fasting glucose; E55.9 Vitamin D deficiency, unspecified; D50.9 Iron deficiency anemia, unspecified

== ENCOUNTER → 2023-07-05 | Outpatient (CLI) | payer MEDICARE, BC ==
[2023-07-05 12:56] LABS: FREE T4 1.15 NG/DL (0.89-1.76); THYROID STIMULATING HORMONE 3.244 uIU/ML (0.55-4.78)
== END ==
LOC: M PLALAB 11:15
PROVIDERS: ATTEND Family Medicine
DX: E03.9 Hypothyroidism, unspecified (principal)

== ENCOUNTER 2023-08-10 20:05 | Emergency (ER) | payer MEDICARE, BC ==
[~2023-08-10] VITALS: Ht 170.2 cm; Wt 69.0 kg
[2023-08-10] MEDS ORDERED: METACAP2 PO (20:15)
[2023-08-10 21:43] VITALS: BP 178/80; TEMP 97.4; O2SAT 98
== END 2023-08-10 21:56 | disposition home or self-care (01) ==
LOC: M ED 20:05
DX: M25.561 Pain in right knee (principal); I48.91 Unspecified atrial fibrillation; I10 Essential (primary) hypertension; K21.9 Gastro-esophageal reflux disease without esophagitis; E05.90 Thyrotoxicosis, unspecified without thyrotoxic crisis or storm; Z87.891 Personal history of nicotine dependence; Z88.8 Allergy status to other drugs, medicaments and biological substances; Z79.810 Long term (current) use of selective estrogen receptor modulators (SERMs); Z79.899 Other long term (current) drug therapy

== ENCOUNTER → 2023-09-23 | Outpatient (CLI) | payer MEDICARE, BC ==
[~2023-09-23] MED LIST changes: +METACAP2 PO
[2023-09-23 19:27] LABS: BASO # 0.1 10^3/uL (0.0-0.2); BASO % 0.8 % (0.0-1.0); EOS # 0.1 10^3/uL (0.0-0.5); EOS % 0.9 % (0.0-3.0); HEMOGLOBIN 13.6 g/dl (12.0-15.5); LYMPH # 2.5 10^3/uL (1.5-5.0); LYMPH % 34.1 % (24.0-44.0); MEAN CORPUSCULAR HEMOGLOBIN 28.8 pg (27.0-33.0); MEAN CORPUSCULAR HGB CONC 31.6 g/dl (32.0-36.5); MEAN CORPUSCULAR VOLUME 90.9 fl (80.0-96.0); MONO # 0.7 10^3/uL (0.0-0.8); MONO % 9.8 % (2.0-8.0); NEUTROPHILS % 54.1 % (36.0-66.0); PLATELET COUNT, AUTOMATED 266 10^3/uL (150-450); RED BLOOD COUNT 4.73 10^6/uL (4.00-5.40); WHITE BLOOD COUNT 7.4 10^3/uL (4.0-10.0)
[2023-09-23 20:02] LABS: ALBUMIN 3.9 G/DL (3.2-5.2); BILIRUBIN,TOTAL 0.5 MG/DL (0.3-1.2); CALCIUM LEVEL 9.7 MG/DL (8.3-10.6); CHOLESTEROL RISK RATIO 2.57 (<5); CREATININE FOR GFR 0.98 MG/DL (0.55-1.30); FREE T4 1.27 NG/DL (0.89-1.76); GLOMERULAR FILTRATION RATE 59.9 (>45); HDL CHOLESTEROL 84.4 MG/DL (>40); LDL CHOLESTEROL 117.2 MG/DL (<100); MAGNESIUM LEVEL 2.3 MG/DL (1.8-2.4); NON-HDL-C 132.6 MG/DL; POTASSIUM SERUM 4.7 MMOL/L (3.5-5.1); TOTAL PROTEIN 7.2 G/DL (5.7-8.2)
[2023-09-23 20:03] LABS: FERRITIN 6.7 NG/ML (7.3-270.7); THYROID STIMULATING HORMONE 9.303 uIU/ML (0.55-4.78)
[2023-09-23 20:09] LABS: HEMOGLOBIN A1c 5.3 % (4.0-6.0)
== END ==
LOC: M PLALAB 16:04
PROVIDERS: ATTEND Family Medicine
DX: D50.9 Iron deficiency anemia, unspecified (principal); E78.2 Mixed hyperlipidemia; E03.9 Hypothyroidism, unspecified; I48.0 Paroxysmal atrial fibrillation; Z79.899 Other long term (current) drug therapy

== ENCOUNTER → 2023-09-23 | Outpatient (REF) | payer MEDICARE, BC | LOC: M SFHCPLAZ 15:56 | PROVIDERS: ATTEND Family Medicine | DX: D50.9 Iron deficiency anemia, unspecified (principal); E03.9 Hypothyroidism, unspecified; E78.2 Mixed hyperlipidemia; I48.0 Paroxysmal atrial fibrillation ==

== ENCOUNTER → 2023-09-24 | Outpatient (REF) | payer MEDICARE, BC | LOC: M SFHCPLAZ 13:29 | PROVIDERS: ATTEND Family Medicine | DX: D50.9 Iron deficiency anemia, unspecified (principal); E03.9 Hypothyroidism, unspecified; E78.2 Mixed hyperlipidemia; I48.0 Paroxysmal atrial fibrillation ==

== ENCOUNTER 2023-10-19 04:41 | Emergency (ER) | payer MEDICARE, BC ==
[~2023-10-19] VITALS: Ht 170.2 cm; Wt 30.6 kg
[2023-10-19 04:42] VITALS: TEMP 97.3
[2023-10-19 05:44] LABS: BASO # 0.1 10^3/uL (0.0-0.2); EOS # 0.2 10^3/uL (0.0-0.5); EOS % 2.9 % (0.0-3.0); HEMATOCRIT 44.3 % (36.0-47.0); HEMOGLOBIN 14.5 g/dl (12.0-15.5); LYMPH # 4.3 10^3/uL (1.5-5.0); LYMPH % 54.4 % (24.0-44.0); MEAN CORPUSCULAR HEMOGLOBIN 29.7 pg (27.0-33.0); MEAN CORPUSCULAR HGB CONC 32.7 g/dl (32.0-36.5); MEAN CORPUSCULAR VOLUME 90.6 fl (80.0-96.0); MONO # 0.7 10^3/uL (0.0-0.8); MONO % 9.1 % (2.0-8.0); NEUTROPHILS # 2.6 10^3/uL (1.5-8.5); NEUTROPHILS % 32.5 % (36.0-66.0); PLATELET COUNT, AUTOMATED 286 10^3/uL (150-450); RED BLOOD COUNT 4.89 10^6/uL (4.00-5.40)
[2023-10-19 05:48] LABS: BLOOD UREA NITROGEN 15 MG/DL (9-23); CARBON DIOXIDE LEVEL 27 MMOL/L (20-31); CHLORIDE LEVEL 104 MMOL/L (98-107); CREATININE FOR GFR 0.91 MG/DL (0.55-1.30); GLOMERULAR FILTRATION RATE > 60.0 (>45); GLUCOSE, FASTING 105 MG/DL (74-106); MAGNESIUM LEVEL 2.2 MG/DL (1.8-2.4); POTASSIUM SERUM 4.1 MMOL/L (3.5-5.1); SODIUM LEVEL 137 MMOL/L (136-145)
[2023-10-19 05:56] VITALS: O2SAT 98
[2023-10-19 05:56] LABS: ETHYL ALCOHOL (ETHANOL) < 0.003 % (0.000-0.010)
[2023-10-19 06:00] VITALS: BP 139/94
[2023-10-19 06:01] LABS: FREE T4 1.31 NG/DL (0.89-1.76)
== END 2023-10-19 06:49 | disposition home or self-care (01) ==
LOC: M ED 04:41
DX: I48.0 Paroxysmal atrial fibrillation (principal); I25.2 Old myocardial infarction; I45.81 Long QT syndrome; I10 Essential (primary) hypertension; F10.10 Alcohol abuse, uncomplicated; Z87.891 Personal history of nicotine dependence; Z88.8 Allergy status to other drugs, medicaments and biological substances; Z79.899 Other long term (current) drug therapy; Z79.810 Long term (current) use of selective estrogen receptor modulators (SERMs)

== ENCOUNTER → 2023-11-07 | Outpatient (REF) | payer MEDICARE, BC | LOC: M SFHCPLAZ 12:03 | PROVIDERS: ATTEND Family Medicine | DX: E03.9 Hypothyroidism, unspecified (principal); Z53.9 Procedure and treatment not carried out, unspecified reason ==

== ENCOUNTER → 2023-11-08 | Outpatient (CLI) | payer MEDICARE, BC ==
[2023-11-08 15:42] LABS: FREE T4 1.45 NG/DL (0.89-1.76); THYROID STIMULATING HORMONE 2.096 uIU/ML (0.55-4.78)
== END ==
LOC: M PLALAB 12:00
PROVIDERS: ATTEND Family Medicine
DX: E03.9 Hypothyroidism, unspecified (principal)

== ENCOUNTER → 2023-12-18 | Outpatient (CLI) | payer MEDICARE, BC | LOC: M PLAIMG 15:38 | PROVIDERS: ATTEND Family Medicine | DX: R07.82 Intercostal pain (principal) ==

== ENCOUNTER → 2023-12-19 | Outpatient (CLI) | payer MEDICARE, BC ==
[2023-12-19 11:05] LABS: BASO # 0.1 10^3/uL (0.0-0.2); BASO % 0.9 % (0.0-1.0); EOS # 0.1 10^3/uL (0.0-0.5); EOS % 2.4 % (0.0-3.0); HEMATOCRIT 42.7 % (36.0-47.0); HEMOGLOBIN 13.7 g/dl (12.0-15.5); LYMPH # 2.4 10^3/uL (1.5-5.0); LYMPH % 45.2 % (24.0-44.0); MEAN CORPUSCULAR HEMOGLOBIN 28.9 pg (27.0-33.0); MEAN CORPUSCULAR HGB CONC 32.1 g/dl (32.0-36.5); MEAN CORPUSCULAR VOLUME 90.1 fl (80.0-96.0); MONO # 0.5 10^3/uL (0.0-0.8); MONO % 8.7 % (2.0-8.0); NEUTROPHILS # 2.3 10^3/uL (1.5-8.5); NEUTROPHILS % 42.6 % (36.0-66.0); PLATELET COUNT, AUTOMATED 270 10^3/uL (150-450); RED BLOOD COUNT 4.74 10^6/uL (4.00-5.40); WHITE BLOOD COUNT 5.4 10^3/uL (4.0-10.0)
[2023-12-19 11:18] LABS: HEMOGLOBIN A1c 5.4 % (4.0-6.0)
[2023-12-19 11:27] LABS: ALBUMIN 3.7 G/DL (3.2-5.2); ALKALINE PHOSPHATASE 88 U/L (46-116); ALT/SGPT 12 U/L (7.0-40); AST/SGOT 11 U/L (<34); BILIRUBIN,TOTAL 0.5 MG/DL (0.3-1.2); BLOOD UREA NITROGEN 14 MG/DL (9-23); CALCIUM LEVEL 9.6 MG/DL (8.3-10.6); CARBON DIOXIDE LEVEL 31 MMOL/L (20-31); CHLORIDE LEVEL 106 MMOL/L (98-107); CHOLESTEROL LEVEL 232 MG/DL (<200); CHOLESTEROL RISK RATIO 3.15 (<5); CREATININE FOR GFR 0.89 MG/DL (0.55-1.30); GLOMERULAR FILTRATION RATE > 60.0 (>39); GLUCOSE, FASTING 94 MG/DL (74-106); HDL CHOLESTEROL 73.6 MG/DL (>40); LDL CHOLESTEROL 137.4 MG/DL (<100); NON-HDL-C 158.4 MG/DL; POTASSIUM SERUM 4.3 MMOL/L (3.5-5.1); SODIUM LEVEL 139 MMOL/L (136-145); TRIGLYCERIDES LEVEL 105 MG/DL (<150)
[2023-12-19 11:29] LABS: FERRITIN 8.9 NG/ML (7.3-270.7); FREE T4 1.28 NG/DL (0.89-1.76); THYROID STIMULATING HORMONE 20.109 uIU/ML (0.55-4.78)
== END ==
LOC: M PLALAB 07:42
PROVIDERS: ATTEND Family Medicine
DX: E78.2 Mixed hyperlipidemia (principal); D50.9 Iron deficiency anemia, unspecified

== ENCOUNTER → 2023-12-28 | Outpatient (CLI) | payer MEDICARE, BC | LOC: M LAB 15:47 | PROVIDERS: ATTEND Family Medicine | DX: E03.9 Hypothyroidism, unspecified (principal) ==

== ENCOUNTER → 2023-12-31 | Outpatient (REF) | payer MEDICARE, BC ==
[2023-12-31 16:16] LABS: FREE T4 1.22 NG/DL (0.89-1.76)
[2023-12-31 16:17] LABS: THYROID STIMULATING HORMONE 6.009 uIU/ML (0.55-4.78)
== END ==
LOC: M LAB 11:34
PROVIDERS: ATTEND Family Medicine
DX: E03.9 Hypothyroidism, unspecified (principal); I48.0 Paroxysmal atrial fibrillation

== ENCOUNTER → 2024-02-11 | Outpatient (CLI) | payer MEDICARE, BC ==
[2024-02-11 19:21] LABS: FREE T4 1.19 NG/DL (0.89-1.76); THYROID STIMULATING HORMONE 7.235 uIU/ML (0.55-4.78)
== END ==
LOC: M PLALAB 15:46
PROVIDERS: ATTEND Nurse Practitioner Family
DX: E06.3 Autoimmune thyroiditis (principal)

== ENCOUNTER → 2024-03-10 | Outpatient (CLI) | payer MEDICARE, BC ==
[2024-03-10 19:16] LABS: FREE T4 1.25 NG/DL (0.89-1.76)
[2024-03-10 19:17] LABS: THYROID STIMULATING HORMONE 15.762 uIU/ML (0.55-4.78)
== END ==
LOC: M PLALAB 16:13
PROVIDERS: ATTEND Nurse Practitioner Family
DX: E06.3 Autoimmune thyroiditis (principal)

== ENCOUNTER → 2024-04-02 | Outpatient (CLI) | payer MEDICARE, BC ==
[~2024-04-02] MED LIST changes: +AMIT10TA7 PO; +CARV3.12 PO; +LEVO100T5 PO; +MELO15TA28 PO; +MULTTAB61 PO; +REST0.05
[2024-04-02 17:33] LABS: FREE T4 1.18 NG/DL (0.89-1.76); THYROID STIMULATING HORMONE 13.801 uIU/ML (0.55-4.78)
== END ==
LOC: M PLALAB 13:05
PROVIDERS: ATTEND Physician Assistant Medical
DX: E03.9 Hypothyroidism, unspecified (principal)

== ENCOUNTER → 2024-05-15 | Outpatient (CLI) | payer MEDICARE, BC ==
[2024-05-15 14:31] LABS: BASO % 0.8 % (0.0-1.0); EOS # 0.1 10^3/uL (0.0-0.5); EOS % 2.2 % (0.0-3.0); HEMATOCRIT 43.8 % (36.0-47.0); LYMPH # 1.8 10^3/uL (1.5-5.0); LYMPH % 36.4 % (24.0-44.0); MEAN CORPUSCULAR HEMOGLOBIN 29.4 pg (27.0-33.0); MONO # 0.5 10^3/uL (0.0-0.8); NEUTROPHILS # 2.5 10^3/uL (1.5-8.5); NEUTROPHILS % 50.4 % (36.0-66.0); PLATELET COUNT, AUTOMATED 234 10^3/uL (150-450); RED BLOOD COUNT 4.76 10^6/uL (4.00-5.40); WHITE BLOOD COUNT 4.9 10^3/uL (4.0-10.0)
[2024-05-15 14:33] LABS: THYROXINE (T4) 7.9 UG/DL (4.5-10.9)
[2024-05-15 14:35] LABS: ALBUMIN 3.8 G/DL (3.2-5.2); ALKALINE PHOSPHATASE 82 U/L (35-104); ALT/SGPT 17 U/L (7.0-40); AST/SGOT 16 U/L (<34); BILIRUBIN,TOTAL 0.6 MG/DL (0.3-1.2); BLOOD UREA NITROGEN 15 MG/DL (9-23); CALCIUM LEVEL 9.4 MG/DL (8.3-10.6); CARBON DIOXIDE LEVEL 28 MMOL/L (20-31); CHLORIDE LEVEL 107 MMOL/L (98-107); CHOLESTEROL LEVEL 245 MG/DL (<200); CHOLESTEROL RISK RATIO 2.86 (<5); CREATININE FOR GFR 0.84 MG/DL (0.55-1.30); FERRITIN 9.5 NG/ML (7.3-270.7); GLOMERULAR FILTRATION RATE > 60.0 (>39); GLUCOSE, FASTING 98 MG/DL (74-106); HDL CHOLESTEROL 85.5 MG/DL (>40); LDL CHOLESTEROL 144.7 MG/DL (<100); NON-HDL-C 159.5 MG/DL; POTASSIUM SERUM 4.5 MMOL/L (3.5-5.1); PTH INTACT 53.8 PG/ML (18.5-88.0); SODIUM LEVEL 145 MMOL/L (136-145); TOTAL PROTEIN 7.4 G/DL (5.7-8.2); TRIGLYCERIDES LEVEL 74 MG/DL (<150)
[2024-05-15 14:36] LABS: FREE T4 1.25 NG/DL (0.89-1.76)
[2024-05-15 14:39] LABS: THYROID PEROXIDASE ANTIBODY 115 U/ML (<60.0)
[2024-05-15 14:40] LABS: FREE THYROXINE INDEX 3.3 % (1.3-4.8); T UPTAKE 42.4 % (22.5-37.0)
== END ==
LOC: M PLALAB 09:24
PROVIDERS: ATTEND Family Medicine
DX: E55.9 Vitamin D deficiency, unspecified (principal); E78.2 Mixed hyperlipidemia; E03.9 Hypothyroidism, unspecified; I10 Essential (primary) hypertension

== ENCOUNTER → 2024-05-18 | Outpatient (CLI) | payer OTHER, BC, MEDICARE | LOC: M SLEEP HO 11:36 | PROVIDERS: ATTEND Physician Assistant Medical | DX: G47.33 Obstructive sleep apnea (adult) (pediatric) (principal) ==

== ENCOUNTER → 2024-05-19 | Outpatient (CLI) | payer OTHER, BC, MEDICARE | LOC: M SOG 07:52 | PROVIDERS: ATTEND Physician Assistant | DX: M17.11 Unilateral primary osteoarthritis, right knee (principal) ==

== ENCOUNTER → 2024-05-21 | Outpatient (CLI) | payer MEDICARE, BC | LOC: M WHC 11:01 | PROVIDERS: ATTEND Family Medicine | DX: Z12.31 Encounter for screening mammogram for malignant neoplasm of breast (principal) ==

== ENCOUNTER → 2024-06-10 | Outpatient (CLI) | payer MEDICARE, BC ==
[2024-06-10 17:54] LABS: FREE T4 1.26 NG/DL (0.89-1.76); THYROID STIMULATING HORMONE 4.372 uIU/ML (0.55-4.78)
[2024-06-10 17:55] LABS: TOTAL 25(OH) VITAMIN D 48.7 NG/ML (20.0-100.0)
== END ==
LOC: M PLALAB 16:21
PROVIDERS: ATTEND Nurse Practitioner Family
DX: E06.3 Autoimmune thyroiditis (principal); E55.9 Vitamin D deficiency, unspecified

== ENCOUNTER 2024-09-12 08:33 | Emergency (ER) | payer MEDICARE, BC ==
[~2024-09-12] VITALS: Ht 170.2 cm; Wt 71.9 kg
[~2024-09-12 08:33] MED LIST changes: +AMIT10TA11 PO; -AMIT10TA7 PO
[2024-09-12 09:44] LABS: KETONE, URINE AUTO RFX NEGATIVE (NEGATIVE); LEUKOCYTE ESTERASE UR AUTO RFX NEGATIVE (NEGATIVE); NITRITE, URINE AUTO RFX NEGATIVE (NEGATIVE)
[2024-09-12 09:44] LABS: BASO # 0.1 10^3/uL (0.0-0.2); BASO % 1.0 % (0.0-1.0); EOS # 0.1 10^3/uL (0.0-0.5); EOS % 1.4 % (0.0-3.0); LYMPH # 1.6 10^3/uL (1.5-5.0); LYMPH % 32.0 % (24.0-44.0); MONO # 0.5 10^3/uL (0.0-0.8); MONO % 10.3 % (2.0-8.0); NEUTROPHILS # 2.8 10^3/uL (1.5-8.5); NEUTROPHILS % 55.1 % (36.0-66.0); PLATELET COUNT, AUTOMATED 233 10^3/uL (150-450)
[2024-09-12 09:45] LABS: RBC, URINE AUTO RFX 0 /HPF (0-3); SQUAM EPITHELIAL CELL UR AURFX 0 /HPF (0-6); WBC, URINE AUTO RFX 1 /HPF (0-3)
[2024-09-12] MEDS: NS (Normal Saline) 0.9% 1,000 ML IV ONE (09:58)
[2024-09-12 10:09] LABS: ALT/SGPT 16.0 U/L (7.0-40); AST/SGOT 21.0 U/L (<34); CALCIUM LEVEL 9.3 MG/DL (8.3-10.6); CARBON DIOXIDE LEVEL 26.0 MMOL/L (20-31); CHLORIDE LEVEL 105.0 MMOL/L (98-107); CREATININE FOR GFR 0.75 MG/DL (0.55-1.30); GLOMERULAR FILTRATION RATE 85.6 (>39); POTASSIUM SERUM 4.3 MMOL/L (3.5-5.1); SODIUM LEVEL 142.0 MMOL/L (136-145)
[2024-09-12] MEDS ORDERED: ISOVUE-370 76% 100 ML VIAL As Ordered ONE (10:13)
[2024-09-12 12:23] VITALS: BP 180/80; TEMP 97.5; O2SAT 97
== END 2024-09-12 12:47 | disposition home or self-care (01) ==
LOC: M ED 08:33
DX: N94.89 Other specified conditions associated with female genital organs and menstrual cycle (principal); R10.2 Pelvic and perineal pain; Z88.8 Allergy status to other drugs, medicaments and biological substances; Z79.899 Other long term (current) drug therapy; Z79.810 Long term (current) use of selective estrogen receptor modulators (SERMs)
CPT/HCPCS: 74177; 80048; 80076; 81001; 81002; 84443; 85025; 96360; 96361; 99284; Q9967

== ENCOUNTER → 2024-11-06 | Outpatient (CLI) | payer MEDICARE, BC ==
[2024-11-06 14:27] LABS: BASO # 0.1 10^3/uL (0.0-0.2); BASO % 1.1 % (0.0-1.0); EOS # 0.1 10^3/uL (0.0-0.5); EOS % 2.7 % (0.0-3.0); LYMPH # 1.9 10^3/uL (1.5-5.0); LYMPH % 36.2 % (24.0-44.0); MONO # 0.5 10^3/uL (0.0-0.8); MONO % 10.1 % (2.0-8.0); NEUTROPHILS # 2.6 10^3/uL (1.5-8.5); NEUTROPHILS % 49.7 % (36.0-66.0); PLATELET COUNT, AUTOMATED 226 10^3/uL (150-450)
[2024-11-06 14:29] LABS: FREE T4 1.36 NG/DL (0.89-1.76)
[2024-11-06 14:31] LABS: ALT/SGPT 13.0 U/L (7.0-40); AST/SGOT 20.0 U/L (<34); CALCIUM LEVEL 9.5 MG/DL (8.3-10.6); CARBON DIOXIDE LEVEL 28.0 MMOL/L (20-31); CHLORIDE LEVEL 104.0 MMOL/L (98-107); CREATININE FOR GFR 0.77 MG/DL (0.55-1.30); GLOMERULAR FILTRATION RATE 82.9 (>39); POTASSIUM SERUM 5.1 MMOL/L (3.5-5.1); SODIUM LEVEL 143.0 MMOL/L (136-145)
[2024-11-06 14:56] LABS: ESTIMATED AVERAGE GLUCOSE 111.0 MG/DL (60-110)
[2024-11-09 09:27] LABS: INSULIN LEVEL 5.0 uIU/mL (<=18.4)
[2024-11-13 17:47] LABS: FREE T4 BY DIALYSIS DIRECT 2.0 ng/dL (0.9-2.2)
== END ==
LOC: M PLALAB 08:53
PROVIDERS: ATTEND Family Medicine
DX: R73.01 Impaired fasting glucose (principal); E03.9 Hypothyroidism, unspecified; D50.9 Iron deficiency anemia, unspecified

== ENCOUNTER → 2024-12-11 | Outpatient (CLI) | payer MEDICARE, BC | LOC: M WHC 12:45 | PROVIDERS: ATTEND Family Medicine | DX: M85.851 Other specified disorders of bone density and structure, right thigh (principal); M85.88 Other specified disorders of bone density and structure, other site ==

== ENCOUNTER → 2024-12-24 | Outpatient (CLI) | payer MEDICARE, BC | LOC: M PLAIMG 10:09 | PROVIDERS: ATTEND Orthopaedic Surgery | DX: M25.561 Pain in right knee (principal); M17.11 Unilateral primary osteoarthritis, right knee; M94.261 Chondromalacia, right knee; M25.461 Effusion, right knee; M70.51 Other bursitis of knee, right knee; S83.511A Sprain of anterior cruciate ligament of right knee, initial encounter; S83.411A Sprain of medial collateral ligament of right knee, initial encounter; X58.XXXA Exposure to other specified factors, initial encounter; Y92.9 Unspecified place or not applicable; Y93.9 Activity, unspecified; Y99.9 Unspecified external cause status ==

== ENCOUNTER → 2025-01-22 | Outpatient (CLI) | payer MEDICARE, BC | LOC: M PLAIMG 10:57 | PROVIDERS: ATTEND Physician Assistant | DX: M54.12 Radiculopathy, cervical region (principal); M79.18 Myalgia, other site ==